=== PATIENT | male | born 1935 | race Caucasian/White ===

== ENCOUNTER → 2018-07-17 10:36 | Outpatient (CLI) | payer MEDICARE, OTHER, SELFPAY ==
--- NOTE | 2018-07-17 | DI.MRI.S_ITS ---
PROCEDURE: MR CERVICAL SPINE WO CON INDICATIONS: cervical spine arthritis TECHNIQUE: Noncontrast sagittal T1 spin echo and T2 fast spin echo, sagittal STIR, foraminal oblique sagittal T2 fast spin echo, and axial gradient echo or T2 fast spin echo through the cervical spine. COMPARISON: [facility], MR, CERVICAL SPINE W/O CONTRAST, 11/26/2003, 8:24. FINDINGS: Image quality: Excellent. Alignment and Curvature: There is grade I C3 on C4 retrolisthesis which is increased from the study dated 11/26/03. There is new grade I C4 on C5 and C7 on T1 anterolisthesis. Bone Marrow: Marrow demonstrates normal overall signal. Spinal Cord: The visualized cord demonstrates overall normal size. Increased T2 signal is present from C3-C5 and focal increased signal is present at C6. These findings are increased in conspicuity when compared with the study dated 11/26/03. No cerebellar tonsillar herniation. Paraspinous Soft Tissues: No paravertebral masses. Prevertebral soft tissues are normal in thickness. C2-C3: Broad-based disc bulge. No canal stenosis. No neural foraminal stenosis. C3-C4: Severe disc desiccation and height loss. Retrolisthesis. Effacement of the CSF space and mild deformity of the cord without cord signal abnormality. There is severe canal stenosis which is increased in extent when compared with the study from 2003. There is severe bilateral foraminal stenosis as before. C4-C5: Anterolisthesis, which is new when compared with the prior study. No canal stenosis. Moderate bilateral foraminal stenosis. The extent of neural foraminal narrowing is increased when compared with the prior study. C5-C6: Severe disc desiccation and height loss. Broad-based disc bulge. Mild canal stenosis. Moderate bilateral foraminal narrowing. These findings are similar in extent to the prior study. C6-C7: Moderate disc desiccation and height loss. Broad-based disc bulge. Moderate canal stenosis. Moderate bilateral foraminal narrowing. These findings are similar to the prior study. C7-T1: Grade I anterolisthesis which is new when compared with the prior study. The mild disc desiccation and height loss. Broad based disc bulge. Mild canal stenosis. Mild bilateral foraminal narrowing which is similar to the prior study. IMPRESSION: 1. Increased cord signal from C3-C5 and focally at C6. These findings were present on the comparison study dated 11/26/03; however appear slightly more conspicuous on the current study. Differential considerations include myelomalacia and a demyelinating process. 2. 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 3. Increased canal stenosis at C3-4 when compared with the prior study. This is now severe in degree. 4. Increased bilateral neuroforaminal narrowing at C3-4 and C4-5 when compared with the prior study. Dictated by: Marcie Lau M.D. on 07/19/2018 at 8:13 Approved by: Marcie Lau M.D. on 07/19/2018 at 8:38
== END ==
PROVIDERS: PCP Family Medicine; Visit Provider Orthopaedic Surgery
DX: M50.31 Other cervical disc degeneration, high cervical region (principal); M47.812 Spondylosis without myelopathy or radiculopathy, cervical region; M48.02 Spinal stenosis, cervical region; M43.12 Spondylolisthesis, cervical region; M43.13 Spondylolisthesis, cervicothoracic region
CPT/HCPCS: 72141

== ENCOUNTER 2018-11-02 10:09 | Emergency (ER) | payer MEDICARE, OTHER, SELFPAY ==
[2018-11-02 10:00] VITALS: BP 145/44; PULSE 56; RESP 18; TEMP 37; O2SAT 91; BMI 29.2
[2018-11-02 10:20] VITALS: PULSE 80
--- NOTE | 2018-11-02 10:30 | ED_ITS ---
HPI - Extremity Problem General Stated complaint: Weakness and pain to legs Time Seen by Provider: 11/02/18 10:18 Source: patient Mode of arrival: EMS Limitations: no limitations History of Present Illness HPI Narrative: 82-year-old male history of insulin-dependent diabetes also a known cervical radiculopathy brought in by EMS for concerns of worsening right lower extremity weakness. Patient has had prior lumbar surgeries. That was many years ago. He has no changes in his right upper extremity symptoms and actually states that his right upper extremity may be better this morning than what it has been in the past. Has chronic low back pain. States that it is better with lying down. Does not have any increase in his low back pain today. Use a walker around the house however just a walking stick when he goes out. Is normally fairly mobile. Has urinary incontinence but this is not new. He states that maybe it has been getting worse recently. No bowel incontinence. States that this morning he was walking out to go to breakfast when he noticed that he could lift his right lower extremity. Was shuffling when he walked. Was very unstable with standing. Had to rely on his walker more than normal. No numbness in his right lower extremity. Has not tried anything for symptoms prior to arrival Related Data Home Medications Medication Instructions Recorded Confirmed cholecalciferol (vitamin D3) 1,000 unit PO DAILY #0 05/11/17 11/02/18 [Vitamin D3] vitamin E 400 unit PO QDAY #0 05/11/17 11/02/18 furosemide 40 mg PO BID #0 11/03/17 11/02/18 omeprazole 20 mg PO BID #0 11/16/17 11/02/18 insulin aspart U-100 [Novolog See Label Instructions .ROUTE 11/27/17 11/02/18 U-100 Insulin aspart] .COMPLEX #0 insulin glargine [Lantus U-100 35 u SQ BID #0 11/27/17 11/02/18 Insulin] Glucose: Home Monitor 1 ea MISCELLANEOUS TID 11/02/18 11/02/18 Evans 1 dev MISCELLANEOUS SEE 11/02/18 11/02/18 INSTRUCTIONS [TEST STRIPS] 1 strip MISCELLANEOUS TIDAC 11/02/18 11/02/18 acetaminophen 650 mg PO Q6H PRN 11/02/18 11/02/18 albuterol sulfate [Ventolin HFA] 2 puff INH Q6H 11/02/18 11/02/18 amlodipine 2.5 mg PO DAILY 11/02/18 11/02/18 aspirin 81 mg PO DAILY 11/02/18 11/02/18 cetirizine 10 mg PO DAILY 11/02/18 11/02/18 diphenoxylate-atropine 1 tab PO Q2HP PRN 11/02/18 11/02/18 fenofibrate 54 mg PO DAILY 11/02/18 11/02/18 ferrous sulfate 2 tab PO DAILY 11/02/18 11/02/18 finasteride 5 mg PO DAILY 11/02/18 11/02/18 fluticasone 2 spray INTRANASAL BID 11/02/18 11/02/18 hydrocodone-acetaminophen 1 - 2 tab PO Q6H PRN 11/02/18 11/02/18 Previous Rx's Medication Instructions Recorded atorvastatin [Lipitor] 40 mg PO QDAY #90 tab 01/12/17 carvedilol [Coreg] 6.25 mg PO BID #180 tab 04/27/17 tamsulosin [Flomax] 0.4 mg PO QDAY #90 cap 04/27/17 isosorbide mononitrate 30 mg PO QAM #45 tab 05/11/17 gabapentin [Neurontin] 300 mg PO TID #180 cap 09/08/17 Allergies Allergy/AdvReac Type Severity Reaction Status Date / Time azithromycin [AZITHROMYCIN] Allergy Mild RASH Verified 11/02/18 10:30 Review of Systems Constitutional Denies fever(s) and Denies headache(s) ENT Ears, Nose, Mouth, and Throat: Denies headache(s) Cardiovascular Denies chest pain, Denies palpitations and Denies dyspnea Respiratory Denies dyspnea Gastrointestinal Gastrointestinal: Denies abdominal pain, Denies change in bowel habits, Denies nausea and Denies vomiting Genitourinary Reports urinary incontinence Musculoskeletal Reports abnormal gait, Reports back pain, Denies myalgias, Reports muscle weakness and Reports radiating pain into limb (Right upper extremity) Integumentary/Breasts Denies rash Neurologic Reports abnormal gait and Denies headache(s) Endocrine Denies palpitations Hematologic/Lymphatic Comments: Not on anticoagulation PFSH Medical History Diabetes (Acute) Surgical History History of vasectomy Status post hernia repair Status post laminectomy Social History Smoking Status: Former smoker Exam Initial Vital Signs Initial Vital Signs: Vital Signs Temperature 98.6 F 11/02/18 10:00 Pulse Rate 56 L 11/02/18 10:00 Respiratory Rate 18 11/02/18 10:00 Blood Pressure 145/44 H 11/02/18 10:00 Pulse Oximetry 91 11/02/18 10:00 Const General: cooperative, comfortable, well developed, well groomed and No acute distress Orientation: alert, awake and oriented x3 HENMT Head: normal to inspection and normocephalic Resp Effort & Inspection: normal respiratory effort Auscultation: clear to auscultation bilaterally Cardio Rate: regular rate Rhythm: regular rhythm Pulses: radial pulses present and dorsalis pedis present (Right dorsalis pedis unable to be palpated but was found by Doppler. Left DP pulse is palpable 2+.) GI Inspection: non-distended Palpation: soft Skin Lesions: no lesions Rashes: no rashes Neuro General: alert, awake and oriented x3 Cognition: normal cognition Speech: speech normal Motor: other (3/5 strength right upper extremity. 5/5 strength left upper extremity. 1-2/5 strength right lower extremity patient able a plantar and dorsiflex. Able to flex at the knee. Barely able to do straight leg raise. 40 /5 strength left lower extremity) Sensory Exam: no sensory deficits noted Extrem General: normal to inspection and capillary refill normal Psych Appearance: grossly normal and well kempt Mood: congruent mood Affect: normal affect Course Orders Ordered: ED Orders 11/02/18 10:51 MR lumbar spine wo con Stat 11/02/18 11:18 Basic Metabolic Panel Stat Complete Blood Count AUTO DIFF Stat Vital Signs - 8 hr 11/02/18 10:00 11/02/18 10:20 11/02/18 10:45 Temperature 98.6 F Pulse Rate 56 L 54 L Pulse Rate [Right Dorsalis Pedis] 80 Respiratory Rate 18 16 Blood Pressure 145/44 H Blood Pressure [Left Arm] 103/41 L Pulse Oximetry 91 91 11/02/18 11:26 11/02/18 13:46 Temperature Pulse Rate 54 L 53 L Pulse Rate [Right Dorsalis Pedis] Respiratory Rate 18 16 Blood Pressure Blood Pressure [Left Arm] 114/42 L 120/43 L Pulse Oximetry 93 95 MDM - Extremity (Nontraumatic) Lab Data Result diagrams: 11/02/18 11:18 11/02/18 11:18 Lab Results 11/02/18 11/02/18 Range/Units 11:18 11:18 WBC 6.7 (4.5-11.0) X10^3/uL RBC 3.91 L (4.5-5.9) X10^6/uL Hgb 12.3 L (13.5-17.5) g/dL Hct 35.8 L (41-53) % MCV 91.6 (80-100) fL MCH 31.4 (26-34) PG MCHC 34.3 (30-36) % RDW 13.9 (11.6-14.8) % Plt Count 219 (150-400) X10^3/uL Neut % (Auto) 63.0 (50-75) % Lymph % (Auto) 25.6 (25-40) % Gordon % (Auto) 6.3 (3-14) % Eos % (Auto) 3.6 (2-4) % Baso % (Auto) 1.5 (0-2) % Neut # (Auto) 4200 (8612-6967) /uL Lymph # (Auto) 1700 (1368-2134) /uL Gordon # (Auto) 400 (0-900) /uL Eos # (Auto) 200 (0-450) /uL Baso # (Auto) 100 (0-100) /uL Sodium 139 (137-145) mmol/L Potassium 4.2 (3.4-5.1) mmol/L Chloride 105 (98-107) mmol/L Carbon Dioxide 27 (22-32) mmol/L BUN 29 H (9-20) mg/dL Creatinine 1.30 H (0.66-1.25) mg/dL Estimated GFR 52.7 L (>60) mL/min BUN/Creatinine Ratio 22.3 H (6-22) Glucose 129 H (80-110) mg/dL Calcium 8.9 (8.4-10.2) mg/dL Imaging Data MRI - lumbar: Radiologist's impression: PROCEDURE: MR LUMBAR SPINE WO CON INDICATIONS: right leg weakness and urinary incontinence TECHNIQUE: Noncontrast sagittal T1 spin echo and T2 fast echo, sagittal STIR, axial T1 and T2 fast spin echo through the lumbar spine. In cases with scoliosis, additional coronal T2 fast spin echo may be performed. COMPARISON: [facility], RG, XR SPINE ANY LEVEL 1V, 10/13/2002, 8:43. FINDINGS: Image quality: Excellent. Alignment and Curvature: There is grade 1 anterolisthesis of L4 on L5 and L5 on S1. There is a 1.5 cm intraosseous hemangioma in L3 vertebral body. Bone Marrow: Marrow is of normal overall signal. Mild vertebral body compression deformities of L4 and L5 with 20-30% loss of vertebral body height. Spinal Cord: Conus medullaris terminates at the L1 level. Visualized cord demonstrates normal signal and size. Paraspinous Soft Tissues: No paravertebral masses. There is a 2 cm cyst in the left kidney. L1-L2: Preserved disc height. Mild disc desiccation. There is mild posterior disc bulge. The central canal is patent. Mild bilateral foraminal stenosis. L2-L3: Mild loss of disc height and disc desiccation. There is diffuse posterior disc bulge and posterolateral disc protrusion, right greater than left. Mild bilateral facet arthropathy and moderate hypertrophy ligamentum flavum. The central canal is severely narrowed. Severe bilateral foraminal stenosis. L3-L4: Preserved disc height. Mild disc desiccation. There is diffuse posterior disc bulge and posterolateral disc protrusion. The central canal is patent. Moderate to severe bilateral foraminal stenosis. L4-L5: Bilateral laminectomies. Mild loss of disc height and disc desiccation. There is diffuse posterior disc bulge and posterolateral disc protrusion. Severe bilateral facet arthropathy. The central canal is mildly narrowed. Severe right and moderate left foraminal stenosis. L5-S1: Preserved disc height. Mild disc desiccation. There is diffuse posterior disc bulge and posterolateral disc protrusion. Moderate bilateral facet arthropathy. The central canal is mildly narrowed. Mild bilateral foraminal stenosis. IMPRESSION: 1. Degenerative and postsurgical changes in lumbar spine as described. 2. Severe central canal stenosis at L2-L3. 3. Multilevel foraminal stenosis as described. Dictated by: Gwen Ngo M.D. on 11/02/2018 at 13:09 Approved by: Gwen Ngo M.D. on 11/02/2018 at 13:37 MDM Narrative Medical decision making narrative: MRI of the lower spine shows no acute pathology. His right upper extremity weakness is not new today. He even thinks that his weakness is better than baseline. After being here in the emergency department he was able to ambulate around the emergency department with a walker. 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 He was able to stand up from a wheelchair. He was able to stand up from the bed. Had a long discussion with him and his regarding his home situation. He does have a walker at home. There is 1 rug in the bedroom but no other rugs around the house. There are no stairs in the house. There is 1 stair from the garage into the house. His states that she brings his walker out to the car. And then she helps him get into the house. Patient feels like his ambulatory status here in the emergency department is almost back to baseline. He felt like he was safe going home. I did talk with him about bring him into the hospital for physical therapy. I informed him that my concern would be is that he falls at home. His states that there was a time where he was falling on a regular basis. It also appears that this right lower extremity weakness has happened in the past but normally resolves fairly quickly. Patient still stated that he felt like he could go home. I talked with Dr. Lynch who was on-call for patient's primary care doctor who is Dr. Pollack. Dr. Looney took down the patient's name and will have Dr. Pollack is a nurse call sometime within the next day or so to schedule a follow-up appointment. I informed the patient and his that he could return to the emergency department any time for further evaluation. His is at bedside for all of the above discussions. Both him and his expressed understanding and agreement with the plan. Discharge Plan Departure Patient Disposition: Home Clinical Impression: Weakness Instructions: How to Prevent Falls Activity Restrictions/Additional Instructions: I would expect a call from your primary care doctor in the next 24-48 hours however I do recommend that tomorrow you call them to schedule a follow-up visit. I would highly recommend that you use your walker at home for stability. After our discussion today you did decide to go home. You can return to the emergency department at any point for new or worsening symptoms Prescriptions: No Action atorvastatin [Lipitor] 40 MG tablet 40 mg PO QDAY Qty: 90 RF: 3 carvedilol [Coreg] 6.25 MG tablet 6.25 mg PO BID Qty: 180 RF: 3 tamsulosin [Flomax] 0.4 MG capsule,extended release 24hr 0.4 mg PO QDAY Qty: 90 RF: 3 cholecalciferol (vitamin D3) [Vitamin D3] 1,000 UNIT tablet 1,000 unit PO DAILY Qty: 0 RF: 0 vitamin E 400 UNIT capsule 400 unit PO QDAY Qty: 0 RF: 0 isosorbide mononitrate 60 MG tablet extended release 24 hr 30 mg PO QAM Qty: 45 RF: 3 gabapentin [Neurontin] 300 MG capsule 300 mg PO TID Qty: 180 RF: 0 furosemide 40 MG tablet 40 mg PO BID Qty: 0 RF: 0 omeprazole 20 MG capsule,delayed release(DR/EC) 20 mg PO BID Qty: 0 RF: 0 insulin aspart U-100 [Novolog U-100 Insulin aspart] 100 UNIT/1 ML solution See Label Instructions .ROUTE .COMPLEX Qty: 0 RF: 0 insulin glargine [Lantus U-100 Insulin] 100 UNIT/1 ML solution 35 u SQ BID Qty: 0 RF: 0 cetirizine 10 mg Tablet 10 mg PO DAILY RF: 0 hydrocodone-acetaminophen 5-325 mg tablet 1 - 2 tab PO Q6H PRN (Reason: arm pain) RF: 0 amlodipine 2.5 mg Tablet 2.5 mg PO DAILY RF: 0 aspirin 81 mg tablet,delayed release (DR/EC) 81 mg PO DAILY RF: 0 acetaminophen 650 mg Tablet Extended Release 650 mg PO Q6H PRN (Reason: pain) RF: 0 ferrous sulfate 324 mg (65 mg iron) tablet,delayed release (DR/EC) 2 tab PO DAILY RF: 0 diphenoxylate-atropine 2.5 MG/0.025 MG tablet 1 tab PO Q2HP PRN (Reason: Diarrhea) RF: 0 albuterol sulfate [Ventolin HFA] 90 MCG/PUFF HFA aerosol inhaler 2 puff INH Q6H RF: 0 fluticasone 16 GM spray,suspension 2 spray Intranasal BID RF: 0 finasteride 5 MG tablet 5 mg PO DAILY RF: 0 fenofibrate 54 MG tablet 54 mg PO DAILY RF: 0 Glucose: Home Monitor 1 ea miscellaneous TID RF: 0 Evans 1 dev miscellaneous SEE INSTRUCTIONS RF: 0 [TEST STRIPS] 1 strip miscellaneous TIDAC RF: 0
--- NOTE | 2018-11-02 10:31 | PC.NURSE ---
Pt lives w/ . Is bright, alert and a/o x 3. Attempted to find pedal pulses w/ doppler but had difficulty finding them. MD aware. 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
[2018-11-02 10:45] VITALS: BP 103/41; PULSE 54; RESP 16; O2SAT 91
--- NOTE | 2018-11-02 10:51 | DI.MRI.S_ITS ---
PROCEDURE: MR LUMBAR SPINE WO CON INDICATIONS: right leg weakness and urinary incontinence TECHNIQUE: Noncontrast sagittal T1 spin echo and T2 fast echo, sagittal STIR, axial T1 and T2 fast spin echo through the lumbar spine. In cases with scoliosis, additional coronal T2 fast spin echo may be performed. COMPARISON: [facility], , XR SPINE ANY LEVEL 1V, 10/13/2002, 8:43. FINDINGS: Image quality: Excellent. Alignment and Curvature: There is grade 1 anterolisthesis of L4 on L5 and L5 on S1. There is a 1.5 cm intraosseous hemangioma in L3 vertebral body. Bone Marrow: Marrow is of normal overall signal. Mild vertebral body compression deformities of L4 and L5 with 20-30% loss of vertebral body height. Spinal Cord: Conus medullaris terminates at the L1 level. Visualized cord demonstrates normal signal and size. Paraspinous Soft Tissues: No paravertebral masses. There is a 2 cm cyst in the left kidney. L1-L2: Preserved disc height. Mild disc desiccation. There is mild posterior disc bulge. The central canal is patent. Mild bilateral foraminal stenosis. L2-L3: Mild loss of disc height and disc desiccation. There is diffuse posterior disc bulge and posterolateral disc protrusion, right greater than left. Mild bilateral facet arthropathy and moderate hypertrophy ligamentum flavum. The central canal is severely narrowed. Severe bilateral foraminal stenosis. L3-L4: Preserved disc height. Mild disc desiccation. There is diffuse posterior disc bulge and posterolateral disc protrusion. The central canal is patent. Moderate to severe bilateral foraminal stenosis. L4-L5: Bilateral laminectomies. Mild loss of disc height and disc desiccation. There is diffuse posterior disc bulge and posterolateral disc protrusion. Severe bilateral facet arthropathy. The central canal is mildly narrowed. Severe right and moderate left foraminal stenosis. L5-S1: Preserved disc height. Mild disc desiccation. There is diffuse posterior disc bulge and posterolateral disc protrusion. Moderate bilateral facet arthropathy. The central canal is mildly narrowed. Mild bilateral foraminal stenosis. IMPRESSION: 1. Degenerative and postsurgical changes in lumbar spine as described. 2. Severe central canal stenosis at L2-L3. 3. Multilevel foraminal stenosis as described. Dictated by: Gwen Ngo M.D. on 11/02/2018 at 13:09 Approved by: Gwen Ngo M.D. on 11/02/2018 at 13:37
[2018-11-02 11:23] LABS: Add Manual Diff / Slide Review NO; Basophils Absolute Auto 100 /uL (0-100); Basophils Percent Auto 1.5 % (0-2); Eosinophils Absolute Auto 200 /uL (0-450); Eosinophils Percent Auto 3.6 % (2-4); Hematocrit 35.8 % (41-53); Hemoglobin 12.3 g/dL (13.5-17.5); Lymphocytes Absolute Auto 1700 /uL (1100-4500); Lymphocytes Percent Auto 25.6 % (25-40); Mean Corpuscular HGB Conc 34.3 % (30-36); Mean Corpuscular Hemoglobin 31.4 PG (26-34); Mean Corpuscular Volume 91.6 fL (80-100); Monocytes Absolute Auto 400 /uL (0-900); Monocytes Percent Auto 6.3 % (3-14); Neutrophils Absolute Auto 4200 /uL (1500-7000); Platelet Count 219 X10^3/uL (150-400); Red Blood Cell Count 3.91 X10^6/uL (4.5-5.9); Red Cell Distribution Width 13.9 % (11.6-14.8); White Blood Cell Count 6.7 X10^3/uL (4.5-11.0)
[2018-11-02 11:26] VITALS: BP 114/42; PULSE 54; RESP 18; O2SAT 93
[2018-11-02 11:42] LABS: BUN Creatinine Ratio 22.3 (6-22); Blood Urea Nitrogen 29 mg/dL (9-20); Calcium 8.9 mg/dL (8.4-10.2); Carbon Dioxide 27 mmol/L (22-32); Chloride 105 mmol/L (98-107); Estimated Glomerular Filt Rate 52.7 mL/min (>60); Glucose 129 mg/dL (80-110); HEMOLYSIS < 15 (0-50); Potassium 4.2 mmol/L (3.4-5.1); Sodium 139 mmol/L (137-145)
[2018-11-02 13:46] VITALS: BP 120/43; PULSE 53; RESP 16; O2SAT 95
== END 2018-11-02 14:31 | disposition home or self-care (01) ==
PROVIDERS: Emergency Provider Emergency Medicine
DX: R53.1 Weakness (principal); N39.498 Other specified urinary incontinence
CPT/HCPCS: 36415; 36591; 72148; 80048; 85025; 99283; 99284

== ENCOUNTER → 2018-11-04 16:06 | Outpatient (CLI) | payer MEDICARE, OTHER, SELFPAY ==
[2018-11-04 16:34] LABS: Add Manual Diff / Slide Review NO; Basophils Absolute Auto 100 /uL (0-100); Basophils Percent Auto 1.1 % (0-2); Eosinophils Absolute Auto 200 /uL (0-450); Eosinophils Percent Auto 3.9 % (2-4); Hematocrit 37.6 % (41-53); Hemoglobin 12.7 g/dL (13.5-17.5); Lymphocytes Absolute Auto 2100 /uL (1100-4500); Lymphocytes Percent Auto 32.8 % (25-40); Mean Corpuscular HGB Conc 33.8 % (30-36); Mean Corpuscular Hemoglobin 31.5 PG (26-34); Mean Corpuscular Volume 93.2 fL (80-100); Monocytes Absolute Auto 400 /uL (0-900); Monocytes Percent Auto 6.7 % (3-14); Neutrophils Absolute Auto 3500 /uL (1500-7000); Neutrophils Percent Auto 55.5 % (50-75); Platelet Count 223 X10^3/uL (150-400); Red Blood Cell Count 4.03 X10^6/uL (4.5-5.9); White Blood Cell Count 6.4 X10^3/uL (4.5-11.0)
[2018-11-04 17:06] LABS: BUN Creatinine Ratio 23.8 (6-22); Blood Urea Nitrogen 31 mg/dL (9-20); Calcium 8.9 mg/dL (8.4-10.2); Carbon Dioxide 29 mmol/L (22-32); Chloride 103 mmol/L (98-107); Estimated Glomerular Filt Rate 52.7 mL/min (>60); Glucose 235 mg/dL (80-110); HEMOLYSIS < 15 (0-50); Potassium 4.6 mmol/L (3.4-5.1); Sodium 139 mmol/L (137-145)
== END ==
PROVIDERS: PCP Family Medicine; Visit Provider Orthopaedic Surgery
DX: Z01.818 Encounter for other preprocedural examination (principal)
CPT/HCPCS: 36415; 80048; 85025

== ENCOUNTER 2018-11-19 06:04 | Inpatient (IN) | payer MEDICARE, OTHER, SELFPAY ==
[2018-11-17 10:01] VITALS: BMI 29.7
[2018-11-19] VITALS (36 sets, daily range): BP systolic 137–203; BP diastolic 43–83; PULSE 68–89; RESP 10–20; TEMP 36.2–37.2; O2SAT 88–100; BMI 29.7
[2018-11-19] MEDS: LACTATED RINGERS 1,000 ML 42 ML IV ×2 (07:00→10:36)
--- NOTE | 2018-11-19 07:22 | PM.PREOP ---
Pre-operative Note Interval Note History & Physical reviewed/Exam performed by Physician: Yes Changes to H&P: No
--- NOTE | 2018-11-19 07:30 | SUR.PREOP ---
pt reports has chronic numbness and tingling in bilateral hands/arms and right lower extremity. Small abrasian on anterior neck from preop trim by [employer]IST[employer]AND [employer]TER prior to sx by WAIST[employer]AND [employer]TER.
[2018-11-19] MEDS: INSULIN REGULAR 100 UNIT/ML 3 ML VIAL SUBCUT (07:39)
[2018-11-19] MEDS: CEFAZOLIN 2 GM/100 ML FROZ.PIGGY IV ×3 (07:55→21:34)
[2018-11-19] MEDS: SODIUM CHLORIDE 0.9% 1,000 ML, GENTAMICIN 80 MG IRR (09:56)
[2018-11-19] MEDS: THROMBIN (BOVINE) 5,000 UNIT VIAL 5000 UNIT TOP (09:56)
--- NOTE | 2018-11-19 09:59 | SUR.OPER ---
Prone on padded OR bed, head in foam head support, gel chest rolls, gel pad under knees, pillow under lower legs, toes free of pressure, arms secured at sides with gel padding. Safety belt at thigh. Supine on padded OR bed, head on gel donut, arms padded and tucked at sides, legs uncrossed with pillow under knees, safety belt at thigh, tape over blanket over lower legs .
--- NOTE | 2018-11-19 11:13 | P.OP_ITS ---
Operative Date/Time/Diagnoses Date of procedure: 11/19/18 Time of procedure: 11:09 Pre-op diagnosis: Cervical stenosis with myelopathy Post-op diagnosis: same Procedure & Clinicians Procedure: C3-4, C4-5, C5-6 ACDF with cages C3-4, C4-5, C5-6 posterior instrumented fusion Iliac crest bone graft aspirate Use of microscope Same procedure as scheduled: Yes Indications: [age] year old male with intractable pain and muscle weakness from myelopathy. They had failed conservative management and requested operative intervention. Risks and benefits of surgery were discussed and appropriate consents were obtained. Surgeon: Tien Stoner Environmental Remediation Engineer: Malinda Yoo Anesthesia Type: General Operative Notes Findings: None Closure Type: primary Specimen(s): none sent Prosthetic devices, grafts, tissues, transplants, or devices: Ron MARIE-C anteriorly [place] DTrax posteriorly Applied: catheter Estimated Blood Loss (mL): 5 Procedure in detail: The patient was brought to the operating room and intubated on the stretcher. Time-out was performed. There were then rolled over to the well-padded prone position on chest rolls. Two views of fluoroscopy were taken to confirm our positioning. The neck was then prepped and draped in the standard sterile fashion. Preoperative antibiotics were given. Using fluoroscopy, we localized for planned incisions. Two small 8 mm horizontal incisions were made over the lateral masses approximately 2 fingers below our planned surgical site. We then spread down and opened up the fascia. Then percutaneously placed our Steinmann pin through the soft tissue into the facet joint at C3-4 under fluoroscopic visualization. We used the reamer to decorticate the lateral masses compromising the facet. A trocar was placed over the Steinmann pin into the facet and then the pin was removed. We used a rasp to decorticate the facet joint itself. We then filled the DTrax cage with Osteocell bone graft and impacted it into the facet joint at C3-4 under fluor oscopic guidance. We then took the lateral mass screw and placed it through the cage and then into the lateral mass for the posterior screw fixation. The communication lecturer was removed and we packed more bone graft down the trocar covering the lateral mass. This was done bilaterally. This completed the instrumented posterior fusion at C3-4. We then went to the next level at C4-5, then C5-6. The same procedure was performed with preparation, placement of the cage with bone graft, and placement of the screw for bilateral instrumented posterior fusion at C4-5 and C5-6. The wounds were irrigated. The skin was closed and a sterile dressing placed. The patient was then rolled over to the table in the supine position and positioned for the anterior surgery. The arms were tucked and a shoulder roll was placed. The neck and left iliac crest were prepped and draped in the standard sterile fashion. A 3 cm oblique incision was made on the left side of the neck along the skin fold. Bovie was used to split the platysma. We then bluntly dissected a standard anterolateral approach to the precervical fascia. A marker was placed and x-ray taken to confirm our positioning. We then used the Bovie to the s ubperiosteally lift up the longus colli muscles. Self-retaining retractors were placed. We then placed [place] pins and distracted across the C3-4 disc space. We brought in the microscope. A complete anterior discectomy was performed at C3-4 using a combination of scalpel, curettes, pituitaries, and Kerrison rongeurs. The bur was used to take down the posterior osteophytes as well as decorticate the disc space. We then released the PLL and used the Kerrison to remove any further posterior osteophytes and disc material. At the end a nerve hook could be swept cephalad caudally and out the neural foramen and everything was open. We trialed for our cages. A small stab incision was made over the left iliac crest. We placed a Jamshidi aspiration needle into the iliac crest and aspirated several mL of bone marrow graft. We then took our Ron LDR MARIE-C cage and packed it with Osteocell, and mixed in the bone marrow aspirate. The cage was then placed into the disc space under fluoroscopic guidance. The 2 locking plates were placed through the cage for fixation. This completed the ACDF at C3-4. We then went to the next level at C4-5. Again a complete diskectomy was performed including taking down the PLL and posterior osteophytes and disc material. The endplates were prepped with a bur. We trialed and then packed our MARIE-C cage with the bone graft and then placed into the disc space. The locking plates were placed as well. This completed the ACDF at C4-5. We then went to the next level at C5-6. Again a complete diskectomy was performed. We came down to the posterior wall. This was almost fully calcified over except for a small little gap. We did not take down the PLL on this level but did the full decompression. We then trialed and placed our next cage with bone graft for the ACDF at C5-6. Final x-rays were taken. The wound was copiously irrigated. There was no bleeding. The carotid was bleeding nicely. The platysma was closed. The superficial skin were closed. A Steri-Strip was placed over the iliac crest incision. Sterile dressings were placed. The patient was then extubated and brought to the recovery room without complication. Complications: none Condition: stable Disposition: PACU Plan for aftercare: Inpatient. Up with physical therapy. Discharge home in the next few days.
[2018-11-19] MEDS: INSULIN ASPART 100 UNIT/ML 10ML VIAL 10 UNIT SUBCUT (11:30)
[2018-11-19] MEDS: fentaNYL 100 MCG/2 ML INJ 50 MCG IV ×4 (11:38→15:41)
[2018-11-19] MEDS: HYDRALAZINE 20 MG/ML VIAL 10 MG IV (11:45)
--- NOTE | 2018-11-19 11:50 | DI.RAD.S_ITS ---
PROCEDURE: XR CERVICAL SPINE 2V OR 3V INDICATIONS: C3-4, C4-5, C5-6 ACDF, AND POERTERIOR FUSION TECHNIQUE: Fluoroscopic images were obtained during an operative procedure and submitted for interpretation following the completion of the procedure. COMPARISON: [facility], , MR CERVICAL SPINE WO CON, 07/17/2018, 10:54. FINDINGS: These fluoroscopic images were performed for intraoperative localization. On these images, anterior and posterior fixation hardware can be seen at C3-C4, C4-C5, and C5-C6. Please correlate with intraoperative findings. IMPRESSION: Normal intraoperative examination. Dictated by: Mak Lucero M.D. on 11/19/2018 at 10:59 Approved by: Mak Lucero M.D. on 11/19/2018 at 10:59
--- NOTE | 2018-11-19 13:33 | PM.PREOP ---
Pre-operative Note Interval Note History & Physical reviewed/Exam performed by Physician: Yes Changes to H&P: Yes H&P completed within 30 days and has changed as indicated here:: Pt had some drainage that just increased. Large 15ml of hematoma evacuated and still oozing. Coming back to OR for washout and find bleeding. Risks/benefits discussed.
--- NOTE | 2018-11-19 13:43 | SUR.PHASEI ---
Late note: Prior to leaving PACU, both Rupali SILVA) and Dr bolaños visualized the neck dressing with Dr Bolaños doing so within 10-15 minutes of discharge to AC. Several 4x4 gauze pads were placed between the dressing and the soft collar to monitor for any increasing drainage. This was in place and dry with hand off in AC, where the nurse (Kaity) was shown the dressing.
--- NOTE | 2018-11-19 13:49 | SUR.OPER ---
Supine on padded OR bed, head on pillow, arm padded and tucked at side, legs uncrossed, safety belt at thigh, tape over blanket over lower legs .
--- NOTE | 2018-11-19 14:23 | PC.NURSE ---
1350- Pt up to the floor from Pacu. Pt had some bleeding to his neck dressing and developed a hematoma. He is now back down to surgery getting this taken care of. Pt was Alert but groggy after fentanyl given in the recovery room. Pt has an iv to his L.wrist area that is cdi and he is going to be on LR at 125cc/hr. Pts down to recovery room with him, New dressing with 4x4 and tegaderm placed on pts neck.
--- NOTE | 2018-11-19 14:45 | PM.OP.1 ---
Operative Date/Time/Diagnoses Date of procedure: 11/19/18 Time of procedure: 14:45 Pre-op diagnosis: Postoperative wound bleeding Post-op diagnosis: same Procedure & Clinicians Procedure: Cervical wound exploration Same procedure as scheduled: Yes Indications: 82-year-old male status post ACDF this morning. He began having drainage from his wound and had a large hematoma. Was felt that we needed to go back into the operating room to explore the wound and find because the bleeding. Risks and benefits of surgery were discussed and appropriate consent obtained. Surgeon: Tien Stoner Radio Repair Teacher: Malinda Yoo Anesthesia Type: General Operative Notes Findings: Bleeding from the cancellous bone Closure Type: primary Specimen(s): none sent Applied: drain(s) Estimated Blood Loss (mL): 2 Procedure in detail: Patient was brought to the operating room and intubated on the table. Preoperative antibiotics were given. Time-out was performed. The neck was prepped and draped in the standard sterile fashion. We opened up the incision and opened up the platysma. We bluntly spread down to the precervical fascia. Wound was irrigated and explored. There were no arterial or venous bleeders found. However there was some moderate bleeding from the cancellous edge of the C5 vertebral body where an osteophyte had been removed. This was covered with bone wax and the bleeding stopped. The wound was again irrigated. We used FloSeal throughout the wound and then irrigated and evacuated and explored and there was still no bleeding. We repeated this a 2nd time. Again there was no further bleeding noted. At this time we placed a Douglas drain. The platysma superficial and skin were closed. Sterile dressing was placed. He was extubated brought to recovery with no complications. Complications: none Condition: stable Disposition: PACU Plan for aftercare: Inpatient. Up with therapy.
--- NOTE | 2018-11-19 15:16 | SUR.PHASEI ---
bedside report given to BINH Orta. Transfered care of pt to Binh Orta at this time.
--- NOTE | 2018-11-19 15:45 | SUR.PHASEI ---
Says he hurts but quite sleepy with shallower resps in response to Fentanyl. A total of 100mcg given and will allow that to build up versus stacking at this time. There is spontaneous recovery seen as sats drop into the 91-93% range back to 95-96%. CPAP machine not on hand here in PACU.
[2018-11-19] MEDS: HYDROMORPHONE 0.5 MG INJ IV ×5 (16:35→22:30)
[2018-11-19] MEDS: LACTATED RINGERS 1,000 ML 125 ML IV (16:51)
[2018-11-19] MEDS: OXYCODONE IR 5 MG TABLET PO (19:10)
[2018-11-19] MEDS: hydrOXYzine pamoate 25 MG CAPSULE PO (20:23)
[2018-11-19] MEDS: GABAPENTIN 300 MG CAPSULE PO (20:25)
[2018-11-19] MEDS: CARVEDILOL 6.25 MG TABLET PO (20:25)
[2018-11-19] MEDS: PANTOPRAZOLE 20 MG TABLET PO (20:30)
[2018-11-19] MEDS: OXYCODONE IR 5 MG TABLET 10 MG PO (22:14)
[2018-11-20] VITALS (12 sets, daily range): BP systolic 123–165; BP diastolic 50–63; PULSE 79–89; RESP 16–20; TEMP 36.6–36.9; O2SAT 89–97
[2018-11-20] MEDS: LACTATED RINGERS 1,000 ML 125 ML IV (00:35)
[2018-11-20] MEDS: OXYCODONE IR 5 MG TABLET 10 MG PO (01:31)
[2018-11-20] MEDS: diphenhydrAMINE 25 MG TABLET PO (03:02)
[2018-11-20] MEDS: ACETAMINOPHEN 325 MG TABLET 650 MG PO (03:02)
[2018-11-20] MEDS: HYDROMORPHONE 0.5 MG INJ IV ×3 (03:03→06:55)
[2018-11-20] MEDS: CEFAZOLIN 2 GM/100 ML FROZ.PIGGY IV (05:35)
--- NOTE | 2018-11-20 08:21 | PM.PNPO.1 ---
Subjective Date Patient Seen: 11/20/18 Time Patient Seen: 08:22 Interval history: He had a restless night. Not able to swallow pills comfortably and the IV pain medication was his only option. This helped but also gave him some sedation. Exam Vital Signs (past 8 hours): - 11/20/18 06:30 11/20/18 07:41 Temperature 98.3 F 98.4 F Pulse Rate 86 89 Respiratory Rate 16 20 Blood Pressure 162/61 H 165/63 H Pulse Oximetry 90 L 93 Oxygen Delivery Method Nasal Cannula Oxygen Flow Rate 4 Const Orientation: alert and oriented x3 Back/Spine/Pelvis Other: Dressing CDI. 5/5 motor left upper extremity, global 4/5 right arm except for 2/5 deltoid Drain output 20/5 mL Assessment & Plan Post-op Postoperative Procedures Operation Date: 11/19/18 07:45 Actual Procedures Side Surgeon p C3-6 ACDF w/posterior instru fusion w/bone graft Tien Stoner MD He is stable today. I removed his drain. We will have him work with speech therapy on swallowing, and hopefully this is better now that the drain is out. Mobilize with physical therapy. I anticipate him being here the next few days. Operation Date: 11/19/18 14:15 <No data on this case meets the specified criteria> Quality VTE Deep Vein Thrombosis/Pulmonary Embolism Present on Admission: No
[2018-11-20] MEDS: INSULIN GLARGINE 100 UNIT/ML 3ML PEN 50 UNIT SUBCUT ×2 (08:59→22:17)
[2018-11-20] MEDS: INSULIN ASPART 100 UNIT/ML 10ML VIAL SUBCUT ×2 (09:01→12:31)
[2018-11-20] MEDS: TAMSULOSIN 0.4 MG CAPSULE PO (10:17)
[2018-11-20] MEDS: GABAPENTIN 300 MG CAPSULE PO ×3 (10:18→20:11)
[2018-11-20] MEDS: ASPIRIN EC 81 MG TABLET PO (10:18)
[2018-11-20] MEDS: ISOSORBIDE MONONITRATE ER 30 MG TABLET PO (10:18)
[2018-11-20] MEDS: AMLODIPINE 2.5 MG TABLET PO (10:19)
[2018-11-20] MEDS: FINASTERIDE 5 MG TABLET PO (10:19)
[2018-11-20] MEDS: CARVEDILOL 6.25 MG TABLET PO ×2 (10:20→20:11)
[2018-11-20] MEDS: PANTOPRAZOLE 20 MG TABLET PO ×2 (10:20→20:11)
[2018-11-20] MEDS: FENOFIBRATE 48 MG TABLET PO (10:21)
[2018-11-20] MEDS: FERROUS SULFATE 325 MG TABLET PO (10:21)
[2018-11-20] MEDS: DOCUSATE 100 MG CAPSULE PO ×2 (10:22→20:12)
[2018-11-20] MEDS: CHOLECALCIFEROL (VITAMIN D3) 1,000 UNIT TABLET 1000 UNIT PO (10:22)
[2018-11-20] MEDS: VITAMIN E 400 UNIT CAPSULE PO (10:22)
--- NOTE | 2018-11-20 11:30 | PT.IIE ---
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) Radiculopathy, cervical region (11/19/18) Surgery Performed Operation Date: 11/19/18 07:45 Actual Procedures p C3-6 ACDF w/posterior instru fusion w/bone graft - Tien Stoner MD Operation Date: 11/19/18 14:15 <No data on this case meets the specified criteria> Surgical History (Last Updated 11/17/18 @ 11:43 by Keila Coronel RN) Hx of heart artery stent (Acute ~2009) History of vasectomy Status post hernia repair Status post laminectomy Medical History (Last Updated 11/17/18 @ 11:43 by Keila Coronel RN) Anxiety disorder (Acute) Aortic stenosis (Acute) Asthma (Acute) Atrial fibrillation (Acute) CAD (coronary artery disease) (Acute) Depression (Acute) Diastolic congestive heart failure (Acute) Diverticulosis of colon (Acute) GERD (gastroesophageal reflux disease) (Acute) Rheumatoid arthritis (Acute) Diabetes (Acute) Physical Therapy Inpatient Evaluation/Re-Eval M1 PT/OT-IP Prior Functional Status Start: 11/20/18 11:43 Freq: NEEDED Status: Active Protocol: Document 11/20/18 11:30 [facility] (Rec: 11/20/18 11:57 [facility] [id number]) Medical Review Prior Functional Status Medical History Reviewed Yes Mobility and Gait mod. indep. gait with 4WW inside home and walking stick outside of home. He had no real function of RUE over the past few mos. due to weakness associated with myelopathy. H/ o falls with R shoulder injury as well Activities of Daily Living and IADL's modified indep with ADLs per Social History Household Members spouse Living Arrangements House Number of Floors (Floors) One Floor Number of Stairs To Enter/Railing? 6 SE with B rails (only able to use one @ a time) Home Environment Standard Height Toilet Walk in Shower Home Equipment Four Wheel Walker Straight Cane Employment Status Retired Additional Social History Comment assists pt, but admits it has been more challenging lately d/t pt's weakness. She sleeps in a recliner chair due to having bad hip pain. Pt sleeps in a flat bed, but does have a recliner available to him as well. Pt underwent C3-6 ACDF with posterior instrumentation . He was found to have a hematoma post-surgery, required to go back to the OR on same day to cover bleeding site with bone wax @ C5 where an osteophyte was removed in intial surgery. M2 PT-IP Current Condition Start: 11/20/18 11:43 Freq: NEEDED Status: Active Protocol: Document 11/20/18 11:30 [facility] (Rec: 11/20/18 11:57 [facility] [id number]) Physical Therapy Current Condition Current Condition Evaluation Date 11/20/18 Treatment Diagnosis C3-6 ACDF w/ post. instrumentation11/19/18, impaired mobility and strength Precautions Cervical Spine Precautions Soft Collar for Comfort No Heavy Lifting Log Roll M3 PT-IP Subjective Start: 11/20/18 11:43 Freq: NEEDED Status: Active Protocol: Document 11/20/18 11:30 RCC (Rec: 11/20/18 11:57 [facility] [id number]) Subjective Physical Therapy Visit Type Type Initial Evaluation Visit Start Time 11:05 Visit Stop Time 11:30 Total Visit Minutes 25 Number of HIGH SCHOOL ART TEACHER Visits 0 Physical Therapy Visit Comments Patient Comments pt reporting dizziness upon sitting on EOB. Patient Goals to be able to move R arm and get stronger overall M4 PT-IP Mobility and Gait Start: 11/20/18 11:43 Freq: NEEDED Status: Active Protocol: Document 11/20/18 11:30 RCC (Rec: 11/20/18 11:57 [facility] [id number]) PT-Bed Mobility Assessment Rolling Type of Rolling Log Rolling Level of Assist Maximal Assistance 1 Person Assistance Supine to Sit Supine to Sit Maximum Assistance 1 Person Assistance Sit to Supine Sit to Supine Maximum Assistance 1 Person Assistance Scooting Scooting to Edge of Bed Moderate Assistance Scooting Up and Down in Bed Dependent PT-Transfer Assessment Comments Mobility Comments pt sat @ EOB, leaning to the R and increased sway, reported dizziness, unable to hold self up. Returned to supine in bed , BP taken 155/66 L arm. Gait Assessment Comments Gait Comments unable to asses. PT-Balance Assessment Sitting Balance and Reactions Static Sitting Balance Ability Poor Dynamic Sitting Balance Ability Poor Standing Balance and Reactions Device Used unable M5 PT-IP Objective Assessments Start: 11/20/18 11:43 Freq: NEEDED Status: Active Protocol: Document 11/20/18 11:30 [facility] (Rec: 11/20/18 11:57 [facility] [id number]) Orientation Orientation/Cognition Level of Alertness Lethargic Gross Range of Motion Upper Extremity ROM Assessment Right Impaired Lower Extremity ROM Assessment Right Impaired Strength Lower Extremity Strength Assessment Bilaterally Impaired Hip flexion 3/5 B Knee flexion 3+/5 and extension 3/5 B Ankle DF 4/5 B M6 PT-IP Treatment Start: 11/20/18 11:43 Freq: NEEDED Status: Active Protocol: Document 11/20/18 11:30 RCC (Rec: 11/20/18 11:57 [facility] [id number]) Physical Therapy Treatment Education Education Provided Precautions Safety Other Treatments Other Treatment Performed cervical spine handout M7 PT-IP Assessment and Plan Start: 11/20/18 11:43 Freq: NEEDED Status: Active Protocol: Document 11/20/18 11:30 [facility] (Rec: 11/20/18 11:57 [facility] [id number]) PT Summary Assessment and Plan Potential Rehabilitation Potential Good Status of Condition at Evaluation Evolving Summary Impairments Pain ROM Strength Balance Cognition Bed Mobility Transfers Gait Activity Tolerance Assessment Summary POD #1 C3-6 ACDF with posterior instrumentation. Pt lethargic this a.m. but able to participate in speech therapy earlier. He required mod/max assist with all mobility, and reported feeling dizzy with inability to maintain sitting position without support. Pt at this time requires high level of assistance, and unable to tolerate more than assisted sitting on the EOB. The burden of care is too high at this time for the pt's spouse to be able to manage, and he is not safe to return home. He would benefit greatly from SNF rehabilitation upon d/c to progress his mobility, use of RUE, strength, balance, and activity tolerance as well as to promote a safe d/c and recovery. Goals Bed Mobility Goal Contact Guard Assistance Transfer Goal Contact Guard Assistance Gait Goal Contact Guard Assistance Gait Distance 50 Other Goals up/down 6 step with unilat. rail and Min A. Days to Meet Goals 6 Frequency of Treatment Frequency Of Treatment Twice a Day Treatment Plan Physical Therapy Treatment Plan Bed Mobility Training Transfer Training Gait Training Therapeutic Exercise Balance Retraining Post Op Education Discharge Planning Hot or Cold Pack Neuromuscular Re-ed Other Recommendations and Next Treatment assess sitting balance, Focus progress to standing/transfers and gait. Recommendations To Nursing Amount of Assist Needed PT/OT Assist Only Discharge Recommendations PT Discharge Recommendations SNF Rehab
--- NOTE | 2018-11-20 13:34 | CM.DANOTE ---
Patient is an 82 year old male who was admitted on 11/19/18 for cervical surgery. Pt has [facility] and [employer] for insurance and his PCP is Dr. Flo Pollack. EMR was reviewed. Per Ortho PA, during surgery a hematoma found on the pt and now he is having swallow issues so ST/PT/OT ordered to eval. Per PT, pt continues to be weak and numb in his right arm and currently recommending SNF vs HH pending progress. SW met bedside with pt and spouse and explained role and updated white board and they confirmed that they live at home in [place] and both are mostly Independent with ADL's at baseline although spouse is waiting for her own hip surgery and not able to provide physical assist to the pt. Pt has a hx of [facility] (although they were not exceptionally impressed with their HH care) and denied any hx of SNF. Pt's DPOA is still his . SW provided the HH/SNF Choice List to review and discussed Medicare coverage of SNF. Pt and spouse state that they do not want [facility] but will review list to determine their SNF preference. Pt is hopeful to d/c home with HH but spouse encouraging pt with SNF for higher level of care than she can currently provide herself. SW also provided the Senior Resource Guidebook to the pt and spouse to review for additional support with possible private pay caregivers or other resources needed in the future. Plan: SW to follow closely tomorrow with pt and spouse to confirm their SNF preference to begin referral process vs HH referral pending pt progress. If SNF determined, then PASRR needed. SUE Wray Discharge Planning/Care Management CM Discharge Assessment Start: 11/20/18 12:56 Freq: Status: Active Protocol: Document 11/20/18 13:17 BF (Rec: 11/20/18 13:34 BF [id number]) Discharge Planning Assessment Assigned World Language Teacher SUE Pretty DPOA/Assigned Designee Name Spouse Lauren Leal Contact Information [phone] Advance Directives? Yes Advance Directives on File Yes History Provided By Patient Family Member Medical Record Has Patient been admitted in last 30 No days? Prior Living Arrangements House Household Members spouse Type of transporation used prior to Drives own vehicle admit Independent with ADL's Yes Is patient alert and oriented? Yes Needs Assistance With Managing Medications Home Chores / Shopping Caregiver for Another No Patient/Family Preference Group Home Facility Comment Per PT, SNF vs HH pending progress Barriers to Discharge No Discharge Plan Group Home Facility Transportation Arrangement If SNF then facility to transport and if home then spouse. Additional Comment Waiting for pt/spouse preference prior to sending SNF/HH referral. Medicare Choice List Provided Yes SNF/HH Preference pt/spouse reviewing for preference Whiteboard Updated in Patient Room with Yes name and ext. # of World Language Teacher Review Status In Process Please Provide Date Initial DC 11/20/18 Assessment Was Performed Next Review Type Continued Stay Review Pre-Anesthesia Assessment Start: 11/17/18 10:01 Freq: Status: Complete Protocol: Document 11/17/18 10:01 CAB (Rec: 11/17/18 10:48 CAB [id number]) Pre-Anesthesia Assessment PAC Comment Cardiac records/tests, PCP note scanned to record. A1c 10.2, surgeon aware Patient Information Reviewed Via Phone Assessment Assessment Completed With Patient Spouse Diagnostic Results BMP/CMP CBC EKG Other Primary Care Provider Flo Pollack Seen Specialist in Last 12 Months Yes Specialist Seen 911 Operator General surgeon [facility] Orthopedist Primary Language Burmese Oracle Sql Developer Required No Height 172.72 cm Weight 88.904 kg Body Mass Index (BMI) 29.7 Hearing Ability Hard of Hearing Use of Hearing Aid Visual Assist Glasses Dentition Type Full- Upper & Lower Barriers to Learning Age related Hx Anesthesia Reactions No Hx Family Anesthesia Reaction No Hx Malignant Hyperthermia No Hx Blood Transfusions Yes: r/t GI Bleed 11/29 Hx Blood Transfusion Reaction No Anesthesia Review Requested Previously reviewed with Anesthesia, ok to 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 No Does patient have CONTRERAS/SOB No Hx Sleep Apnea Yes CPAP/BIPAP use prescribed and used routinely Will Bring CPAP/BIPAP DOS Yes Currently Taking a Beta Darin Yes: Coreg Can You Climb a Flight of Stairs Without Yes SOB Hx Chest Pain No Hx SOB No Hx Syncope or Dizziness No Anti-Coagulant Therapy No Has a 911 Operator Yes: Dr. Ricki crook visit Cardiac Testing Yes: ECHO 08/20/18 Hx Pacemaker/ICD No Pacemaker Rep Required? No Cardiac Clearance Received Not Applicable Comment Cardiac visit, testing scanned to record Diet Type At Home Regular dysphagia No Comment Wt loss 52lbs in 6 months on Atkins diet, now off Bladder Pattern Incontinent Nocturia Urinary Catheter Present No Hx Urinary Self Catheterization No Diabetes Yes: Pt checks BS every morning HgbA1C 10.2 Date 10/28/18 Hx Drug Resistant Organism No Presence of External or Internal Medical No Devices Have you traveled outside the [facility] in the last 30 days? Marital Status Lives With spouse Prior Living Arrangements House Number of Floors (Floors) One Floor Number of Stairs To Enter/Railing? 6 stairs, railing present Support System Spouse Patient Discharge Plan Description Return Home Comment Pt advised 2 day length of stay per surgeon's office Feels Safe in Current Environment Yes Been Physically Hurt or Threatened By a No Person in Current Environment Do you have thoughts of harming yourself None or others? Are you currently considering suicide? No Do you have a plan to hurt yourself or No Plan others? Do You Have Any Spiritual Beliefs That No May Affect Your HC Choices? Do You Have Any Cultural Practices That No May Affect Your HC Choices? 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 Yes Advance Directives on File Yes Power of Host And Hostess Yes Power of Host And Hostess Name Lauren () Power of Host And Hostess or [phone] PAC Instructions Bring CPAP/BIPAP Do not shave/clip surgical site Durable medical equipment Medications to take/avoid Nasal antibiotic No ETOH/petroleum product on skin DOS NPO Post-op transportation Sturdy shoes/comfortable clothes Do not bring valuables and remove jewelry
--- NOTE | 2018-11-20 14:09 | ST.IPCSEOM ---
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) Radiculopathy, cervical region (11/19/18) Past Medical History (Last Updated 11/17/18 @ 11:43 by Keila Coronel RN) Anxiety disorder (Acute Medical) Aortic stenosis (Acute Medical) Asthma (Acute Medical) Atrial fibrillation (Acute Medical) CAD (coronary artery disease) (Acute Medical) Depression (Acute Medical) Diastolic congestive heart failure (Acute Medical) Diverticulosis of colon (Acute Medical) GERD (gastroesophageal reflux disease) (Acute Medical) Rheumatoid arthritis (Acute Medical) Diabetes (Acute Medical) Speech-Language Pathology Swallow Evaluation DIRECTOR HR COMMUNICATIONS Clinical Swallow Evaluation Start: 11/20/18 13:56 Freq: Status: Active Protocol: Document 11/20/18 13:56 TLC (Rec: 11/20/18 14:08 TLC [id number]) Clinical Swallow Evaluation Session Time Total Visit Minutes 30 Setting Assessment Location Acute Care Visit Type Note Type Initial Evaluation Next Note Type Next Note Type Treatment Note Patient Information Identification Type Name History Patient was status post ACDF yesterday when he began having drainage from his wound and had a large hematoma. He was brought back into the operating room to explore the wound. His drain was removed this morning and a swallow evaluation was ordered due to difficulty swallowing. Subjective Observations Patient was seen sitting up in bed. He agreed to participate in a swallow evaluation. His was present in the room and stated she felt like he was still somewhat confused. Patient does not have a history of dysphagia. Evaluation Liquids Trialed Ice Chips Thin Solids Trialed Puree Dysphagia Mechanical Administration Type Self-Feeding Oral Impairment WFL Oral Phase Comments No oral phase dysphagia observed. Patient wears dentures. Bolus acceptance, transport and mastication appeared functional for puree and dysphagia mechanical textures. No advanced textures trialed due to patient reported pain when swallowing. Pharyngeal Impairment Mildly Impaired Pharyngeal Strategies Double Swallow Small Bites and Sips Alternate Liquids/Solids Pharyngeal Phase Comments No changes in voice reported; however, patient reported odynophagia. He required 2-3 swallows for every bite/sip and exhibited somewhat of a wet vocal quality which improved when cued to take a second sip. No coughing observed with intake. Findings Dysphagia Type Pharyngeal Rehabilitation Potential Good Impressions Suspect mild pharyngeal dysphagia likely related to swelling following ACDF with re-intubation. Suspect patient will likely improve over the next few days as swelling decreases. Verbal and written education provided to patient' s regarding risk of aspiration as well as recommendations such as slow rate and small bites/sips with double swallow as needed. Discussed diet recommendations to include dysphagia mechanical diet advancing to regular textures as tolerated. His verbalized understanding. Diet Recommendations Liquids Order Thin Diet Order Dysphagia Mechanical Medication Recommendations As Tolerated Additional Dietary Needs Reminders to Use Strategies Aspiration Precautions Recommended Precautions Upright at 90 Degrees Alternate Liquids/Solids Frequent Rest Periods Small Bites/Sips Additional Precautions Second swallow as needed Treatment Plan Therapy Recommendations Follow patient for dysphagia management to include ongoing education and advancing diet as tolerated. Dysphagia Goals The patient will demonstrate the ability to adequately self -monitor swallowing skills and perform appropriate compensatory techniques to consume a regular diet safely and reduce s/s of aspiration.
--- NOTE | 2018-11-20 15:00 | PT.IPTN ---
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) Radiculopathy, cervical region (11/19/18) Surgery Performed Operation Date: 11/19/18 07:45 Actual Procedures p C3-6 ACDF w/posterior instru fusion w/bone graft - Tien Stoner MD Operation Date: 11/19/18 14:15 <No data on this case meets the specified criteria> Physical Therapy Treatment Note M2 PT-IP Current Condition Start: 11/20/18 11:43 Freq: NEEDED Status: Active Protocol: Document 11/20/18 11:30 RCC (Rec: 11/20/18 11:57 RCC [id number]) Physical Therapy Current Condition Current Condition Evaluation Date 11/20/18 Treatment Diagnosis C3-6 ACDF w/ post. instrumentation11/19/18, impaired mobility and strength Precautions Cervical Spine Precautions Soft Collar for Comfort No Heavy Lifting Log Roll M3 PT-IP Subjective Start: 11/20/18 11:43 Freq: NEEDED Status: Active Protocol: Document 11/20/18 15:00 RCC (Rec: 11/20/18 15:36 RCC [id number]) Subjective Physical Therapy Visit Type Type Treatment Note Visit Start Time 15:00 Visit Stop Time 15:23 Total Visit Minutes 23 Number of PILOT Visits 0 Physical Therapy Visit Comments Patient Comments pt reports that he is very tired after session. Therapy Pain Assessment Pain When Pain Assessed At Rest Pain Present Pain Present Pain Reported Location Neck Intensity 5 Scale Used Numeric (1 - 10) M4 PT-IP Mobility and Gait Start: 11/20/18 11:43 Freq: NEEDED Status: Active Protocol: Document 11/20/18 15:00 RCC (Rec: 11/20/18 15:36 RCC [id number]) PT-Bed Mobility Assessment Rolling Level of Assist Moderate Assistance 1 Person Assistance 2 Person Assistance Supine to Sit Supine to Sit Moderate Assistance 1 Person Assistance Head of Bed Elevated Sit to Supine Sit to Supine Moderate Assistance 2 Person Assistance Scooting Scooting to Edge of Bed Minimal Assistance PT-Transfer Assessment Sit to and From Stand Sit to and from Stand Moderate Assistance 1 Person Assistance Equipment Transfer Assistive Device Gait Belt Front Wheeled Walker Comments Mobility Comments Pt fatigued after standing @ EOB, lateral steps and 1.5 steps forward. BP prior to session 125/52 BP standing 106/42 BP sitting 128/55 BP supine 134/59 @ end of session *c/o feeling woozy in standing but still wanted to step/ambulate. Gait Assessment Gait Gait Assistance Required: Minimum Assistance 1 Person Assist Distance (Feet) 1 Assistive Devices Assistive Device Gait Belt Front Wheeled Walker Gait Deviations General Gait Pattern Decreased Stride Length Decreased Feet Clearance Flexed Trunk Step-to Gait Wide Based Gait Factors Limiting Gait Function Factors Limiting Gait Function Decreased Activity Tolerance Decreased Sensation Difficulty Following Directions Limited Range of Motion Pain Poor Balance Poor Safety Awareness Comments Gait Comments 1 ft forward with FWW and Min A x1, lateral steps Min A x2 to the R x1 ft. M5 PT-IP Objective Assessments Start: 11/20/18 11:43 Freq: NEEDED Status: Active Protocol: Document 11/20/18 11:30 RCC (Rec: 11/20/18 11:57 [facility] [id number]) Orientation Orientation/Cognition Level of Alertness Lethargic Gross Range of Motion Upper Extremity ROM Assessment Right Impaired Lower Extremity ROM Assessment Right Impaired Strength Lower Extremity Strength Assessment Bilaterally Impaired Hip flexion 3/5 B Knee flexion 3+/5 and extension 3/5 B Ankle DF 4/5 B M6 PT-IP Treatment Start: 11/20/18 11:43 Freq: NEEDED Status: Active Protocol: Document 11/20/18 15:00 RCC (Rec: 11/20/18 15:36 [facility] [id number]) Physical Therapy Treatment Education Education Provided Safety M7 PT-IP Assessment and Plan Start: 11/20/18 11:43 Freq: NEEDED Status: Active Protocol: Document 11/20/18 15:00 [facility] (Rec: 11/20/18 15:36 [facility] [id number]) PT Summary Assessment and Plan Summary Progress Towards Goals Slow Progress due to Pain Slow Progress due to Medical Issues Slow Progress due to Activity Tolerance Slow Progress - Other Assessment Summary POD #1 C3-6 ACDF with posterior instrumentation. Pt able to stand this session, but significant difficulty moving the R foot forward or laterally to the R with mild R lean when fatigued. Pt requires multiple cues for safety. He was not safe or able to manually transfer today due to poor balance and activity tolerance, and still symptomatic with increased activity. Goals Bed Mobility Goal Contact Guard Assistance Transfer Goal Contact Guard Assistance Gait Goal Contact Guard Assistance Gait Distance 50 Other Goals up/down 6 step with unilat. rail and Min A. Days to Meet Goals 6 Treatment Plan Other Recommendations and Next Treatment progress standing with goal Focus toward transfers and gait. Possibly using platform walker for RUE Recommendations To Nursing Amount of Assist Needed PT/OT Assist Only Discharge Recommendations PT Discharge Recommendations SNF Rehab
--- NOTE | 2018-11-20 17:18 | OT.IP.EVAL ---
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) Radiculopathy, cervical region (11/19/18) Surgery Performed Operation Date: 11/19/18 07:45 Actual Procedures p C3-6 ACDF w/posterior instru fusion w/bone graft - Tien Stoner MD Operation Date: 11/19/18 14:15 <No data on this case meets the specified criteria> Past Medical History (Last Updated 11/17/18 @ 11:43 by Keila Coronel RN) Anxiety disorder (Acute) Aortic stenosis (Acute) Asthma (Acute) Atrial fibrillation (Acute) CAD (coronary artery disease) (Acute) Depression (Acute) Diastolic congestive heart failure (Acute) Diverticulosis of colon (Acute) GERD (gastroesophageal reflux disease) (Acute) Rheumatoid arthritis (Acute) Diabetes (Acute) Surgical History (Last Updated 11/17/18 @ 11:43 by Keila Coronel RN) Hx of heart artery stent (Acute ~2009) History of vasectomy Status post hernia repair Status post laminectomy Occupational Therapy Inpatient Evaluation/Re-Eval M1 PT/OT-IP Prior Functional Status Start: 11/20/18 11:43 Freq: NEEDED Status: Active Protocol: Document 11/20/18 11:30 [facility] (Rec: 11/20/18 11:57 [facility] [id number]) Medical Review Prior Functional Status Medical History Reviewed Yes Mobility and Gait mod. indep. gait with 4WW inside home and walking stick outside of home. He had no real function of RUE over the past few mos. due to weakness associated with myelopathy. H/ o falls with R shoulder injury as well Activities of Daily Living and IADL's modified indep with ADLs per Social History Household Members spouse Living Arrangements House Number of Floors (Floors) One Floor Number of Stairs To Enter/Railing? 6 SE with B rails (only able to use one @ a time) Home Environment Standard Height Toilet Walk in Shower Home Equipment Four Wheel Walker Straight Cane Employment Status Retired Additional Social History Comment assists pt, but admits it has been more challenging lately d/t pt's weakness. She sleeps in a recliner chair due to having bad hip pain. Pt sleeps in a flat bed, but does have a recliner available to him as well. Pt underwent C3-6 ACDF with posterior instrumentation . He was found to have a hematoma post-surgery, required to go back to the OR on same day to cover bleeding site with bone wax @ C5 where an osteophyte was removed in intial surgery. M1 PT/OT-IP Prior Functional Status Start: 11/20/18 16:51 Freq: NEEDED Status: Active Protocol: Document 11/20/18 16:54 [facility] (Rec: 11/20/18 17:17 [facility] [id number]) Medical Review Prior Functional Status Medical History Reviewed Yes Communication Independent Mobility and Gait mod. indep. gait with 4WW inside home and walking stick outside of home. He had no real function of RUE over the past few mos. due to weakness associated with myelopathy. H/ o falls with R shoulder injury as well Activities of Daily Living and IADL's modified indep with ADLs per . Pt states able to wash the dishes at home. Social History Household Members spouse Living Arrangements House Number of Floors (Floors) One Floor Number of Stairs To Enter/Railing? 6 SE with B rails (only able to use one @ a time) Home Environment Standard Height Toilet Walk in Shower Home Equipment Four Wheel Walker Straight Cane Shower Seat with Backrest Grab Bars Near Toilet Grab Bars In Shower Employment Status Retired Additional Social History Comment assists pt, but admits it has been more challenging lately d/t pt's weakness. She sleeps in a recliner chair due to having bad hip pain. Pt sleeps in a flat bed, but does have a recliner available to him as well. Pt underwent C3-6 ACDF with posterior instrumentation . He was found to have a hematoma post-surgery, required to go back to the OR on same day to cover bleeding site with bone wax @ C5 where an osteophyte was removed in intial surgery. M2 OT-IP Current Condition Start: 11/20/18 16:51 Freq: Status: Active Protocol: Document 11/20/18 16:54 [facility] (Rec: 11/20/18 17:17 [facility] [id number]) Occupational Therapy Current Condition Current Condition Evaluation Date 11/20/18 Treatment Diagnosis Cervical Stenosis Diagnosis Onset Date 11/19/18 Post Operative Precautions Cervical Spine Precautions Soft Collar for Comfort No Heavy Lifting Log Roll M3 OT- IP Subjective and Pain Start: 11/20/18 16:51 Freq: Status: Active Protocol: Document 11/20/18 16:54 [facility] (Rec: 11/20/18 17:17 [facility] [id number]) OT- Subjective Occupational Therapy Visit Type Type Initial Evaluation Visit Start Time 14:47 Visit Stop Time 15:20 Total Visit Minutes 33 Occupational Therapy Visit Comments Patient Comments Pt agreeable to get up. OT Pain Assessment Pain When Pain Assessed At Rest Pain Present Pain Present Pain Reported Location Neck Intensity 5 M4 OT- IP ADL's Start: 11/20/18 16:51 Freq: Status: Active Protocol: Document 11/20/18 16:54 [facility] (Rec: 11/20/18 17:17 [facility] [id number]) OT [id number] Comments OT Self-Feeding Comments Not pt coughing after drinking liquids, instyructed pt to sit up at 90 degrees to drink. Pt states coughed due to water tasting funny and requesting new water with ice. Pt after replacement on water , noted slight delay for cough while drinking water. Nursing notified of pt needs to sit all the way upright at 90degress while eating or drinking and that pt was coughing while drinking liquids. OT ADL-Dressing General Eval Lower Body Dressing Ability Maximum Assistance Areas Needing Assistance Socks M6 OT- IP Functional Cognition Start: 11/20/18 16:51 Freq: Status: Active Protocol: Document 11/20/18 16:54 [facility] (Rec: 11/20/18 17:17 [facility] [id number]) Cognitive Factors Limiting Selfcare Function Cognitive Ability Level of Alertness Alert Patient Orientation Name Place Situation Attention Span Ability Capable of Focused Attention Capable of Sustained Attention Ability to Follow Commands Able to Follow One Step Commands Safety Awareness Underestimates Need for Assistance Cognitive Comments Cognitive Assessment Comments Pt able to follow simple concrete commands at this time . Pt very tired and did not tolerate much activity for OT eval . M7 OT- IP Mobility and Balance Start: 11/20/18 16:51 Freq: Status: Active Protocol: Document 11/20/18 16:54 [facility] (Rec: 11/20/18 17:17 [facility] [id number]) OT- Bed Mobility Assessment Rolling Type of Rolling Roll to Right Level of Assistance Moderate Assistance 1 Person Assistance 2 Person Assistance Head of Bed Elevated Supine to Sit Supine to Sit Assist Moderate Assistance 1 Person Assistance Sit to Supine Sit to Supine Assist Moderate Assistance 2 Person Assistance OT-Transfer Assessment Sit to and From Stand Sit to and from Stand Moderate Assistance 1 Person Assistance Comments Mobility Comments Pt only able to tolerate standing and taking a few side step and complaining of feeling dizzy and tired and then assisted with PT back into bed. OT- Balance Assessment Sitting Balance and Reactions Static Sitting Balance Ability Good Standing Balance and Reactions Static Standing Balance Ability Poor M8 OT- IP Objective Assessments Start: 11/20/18 16:51 Freq: Status: Active Protocol: Document 11/20/18 16:54 [facility] (Rec: 11/20/18 17:17 [facility] [id number]) OT Gross Range of Motion Upper Extremity Range of Motion Assessment Right Impaired OT Strength Comments Strength Comments Pt 3/5 deltoids, biceps 0/5, wrist and fingers 1/5. Pt's insists that pt can do more but just wanting help. While pt standing to FWW , pt ablwe to hides and skins colorer right hand hides and skins colorer however leans to the right as not able to place weight through RUE to weight bear and assist for balance while standing with FWW , pt needing MODA form therapist for RUE control. OT-Muscle Tone Assessment Muscle Tone WNL No Comments Muscle Tone Comments Hypotonicity for RUE. M9 OT- IP Assessment and Plan Start: 11/20/18 16:51 Freq: Status: Active Protocol: Document 11/20/18 16:54 [facility] (Rec: 11/20/18 17:17 [facility] [id number]) OT Summary Assessment and Plan Potential Rehabilitation Potential Good Analytic Complexity at Evaluation Low Summary OT Impairments Pain Strength Balance Coordination Tone Functional Cognition Functional Mobility Self-Feeding Grooming Dressing Toileting Bathing Toilet Transfers Shower Transfers Progress Towards Goals Slow Progress due to Pain Slow Progress due to Medical Issues Slow Progress due to Activity Tolerance Slow Progress due to Cognition Assessment Summary Pt MOD complexity s/p C3-6 ACDF with posterior fusion with bone graft and also having post-op wound bleeding . Barriers are steps, decreased use of right UE ,decreased balance, activity tolerance, strength, and endurance and now needing extensive assist for all Adl and functional mobility. Currently too great of care for to assist as she has a bad hip and unable to physically assist pt at this time. Pt would benefit from skilled rehab prior to going home. Goals Self-Feeding Goal Standby Assistance Grooming Goal Standby Assistance Dressing Goal Minimal Assistance Toileting Goal Minimal Assistance Bathing Goal Moderate Assistance Toilet Transfer Goal Minimal Assistance Shower Transfer Goal Minimal Assistance OT-Other Goals Pt to be able to incorporate use of RUE for all ADl and functional mobility needs. Pt to be able to do SROM for RUE with good safety and understanding. Days to Meet Goals 5 Frequency of Treatment Frequency Of Treatment Once a Day Treatment Plan OT Treatment Plan ADL Training Functional Cognition Training Functional Mobility Therapeutic Exercises Patient/Family Education Discharge Planning Other Treatment Recommendations and Next Transfer to [facility] MODA x1 with Treatment Focus FWW and Larry for RUE control. Discharge Recommendations OT Discharge Recommendations SNF Rehab
[2018-11-20] MEDS: OXYCODONE IR 5 MG TABLET PO ×2 (17:22→20:11)
[2018-11-20] MEDS: ATORVASTATIN 20 MG TABLET 40 MG PO (20:11)
--- NOTE | 2018-11-20 23:31 | PC.NURSE ---
Evening Shift Note Pt swallow eval done today, pt not compliant w/ tucking chin and sitting 90 degree when eating/drinking and coughing after swallowing. Pt educated on risk of pneumonia, IS introduced and pulling 1500, coughing and deep breathing encouraged when in room. Pt complaint of pain, oxycodone x2 given, after second oxycodone pt very sleepy. Pt brief changed, incontinent of urine, intolerant of brief change, work of breathing increased and pt switched to mask d/t mouth breathing and O2 increased to 5L, currently 96%. Pt also confused and impulsive at night, pulling oxygen mask off and attempting to get out of bed. very concerned and tearful, blaming oxycodone and mild dementia for pt behavior, Expresses that she can not take care of him at home d/t constant funes over narcotic intake and increased confusion and impulsiveness. Comforted pt and expressed that I would pass this concerns on to shift nurse manager nurse and also to express this to MD and CM on rounds in the morning.
[2018-11-21] VITALS (13 sets, daily range): BP systolic 114–135; BP diastolic 45–61; PULSE 69–88; RESP 15–20; TEMP 36.7–37.3; O2SAT 86–96
[2018-11-21] MEDS: HYDROMORPHONE 0.5 MG INJ IV (05:10)
[2018-11-21] MEDS: hydrOXYzine pamoate 25 MG CAPSULE PO (05:14)
[2018-11-21] MEDS: CARVEDILOL 6.25 MG TABLET PO ×2 (09:22→20:18)
[2018-11-21] MEDS: INSULIN GLARGINE 100 UNIT/ML 3ML PEN 50 UNIT SUBCUT ×2 (09:30→20:18)
[2018-11-21] MEDS: ISOSORBIDE MONONITRATE ER 30 MG TABLET PO (09:32)
[2018-11-21] MEDS: AMLODIPINE 2.5 MG TABLET PO (09:32)
[2018-11-21] MEDS: TAMSULOSIN 0.4 MG CAPSULE PO (09:32)
[2018-11-21] MEDS: GABAPENTIN 300 MG CAPSULE PO ×2 (09:32→15:30)
[2018-11-21] MEDS: PANTOPRAZOLE 20 MG TABLET PO ×2 (09:33→20:18)
[2018-11-21] MEDS: FINASTERIDE 5 MG TABLET PO (09:34)
[2018-11-21] MEDS: ASPIRIN EC 81 MG TABLET PO (09:36)
[2018-11-21] MEDS: FENOFIBRATE 48 MG TABLET PO (09:36)
--- NOTE | 2018-11-21 11:33 | PT.IPTN ---
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) Radiculopathy, cervical region (11/19/18) Surgery Performed Operation Date: 11/19/18 07:45 Actual Procedures p C3-6 ACDF w/posterior instru fusion w/bone graft - Tien Stoner MD Operation Date: 11/19/18 14:15 <No data on this case meets the specified criteria> Physical Therapy Treatment Note M2 PT-IP Current Condition Start: 11/20/18 11:43 Freq: NEEDED Status: Active Protocol: Document 11/20/18 11:30 [facility] (Rec: 11/20/18 11:57 [facility] [id number]) Physical Therapy Current Condition Current Condition Evaluation Date 11/20/18 Treatment Diagnosis C3-6 ACDF w/ post. instrumentation11/19/18, impaired mobility and strength Precautions Cervical Spine Precautions Soft Collar for Comfort No Heavy Lifting Log Roll M3 PT-IP Subjective Start: 11/20/18 11:43 Freq: NEEDED Status: Active Protocol: Document 11/21/18 11:59 RCC (Rec: 11/21/18 12:49 RCC [id number]) Subjective Physical Therapy Visit Type Type Treatment Note Visit Start Time 11:33 Visit Stop Time 11:59 Total Visit Minutes 26 Number of X RAY EXAMINER OF AIRCRAFT Visits 0 Physical Therapy Visit Comments Patient Comments pt's states pt had a rough night, he did not sleep much. M4 PT-IP Mobility and Gait Start: 11/20/18 11:43 Freq: NEEDED Status: Active Protocol: Document 11/21/18 11:59 RCC (Rec: 11/21/18 12:49 [facility] [id number]) PT-Bed Mobility Assessment Rolling Level of Assist Moderate Assistance 1 Person Assistance Supine to Sit Supine to Sit Moderate Assistance 1 Person Assistance Head of Bed Elevated Sit to Supine Sit to Supine Moderate Assistance 1 Person Assistance Scooting Scooting to Edge of Bed Minimal Assistance PT-Transfer Assessment Sit to and From Stand Sit to and from Stand Minimal Assistance 1 Person Assistance Equipment Transfer Assistive Device Gait Belt Front Wheeled Walker Comments Mobility Comments bed to chair transfer, able to lift B feet off ground for transfer steps, R hand able to meat hostess FWW and maintained throughout. Fatigued, requested to sit. M5 PT-IP Objective Assessments Start: 11/20/18 11:43 Freq: NEEDED Status: Active Protocol: Document 11/20/18 11:30 [facility] (Rec: 11/20/18 11:57 [facility] [id number]) Orientation Orientation/Cognition Level of Alertness Lethargic Gross Range of Motion Upper Extremity ROM Assessment Right Impaired Lower Extremity ROM Assessment Right Impaired Strength Lower Extremity Strength Assessment Bilaterally Impaired Hip flexion 3/5 B Knee flexion 3+/5 and extension 3/5 B Ankle DF 4/5 B M6 PT-IP Treatment Start: 11/20/18 11:43 Freq: NEEDED Status: Active Protocol: Document 11/20/18 15:00 [facility] (Rec: 11/20/18 15:36 [facility] [id number]) Physical Therapy Treatment Education Education Provided Safety M7 PT-IP Assessment and Plan Start: 11/20/18 11:43 Freq: NEEDED Status: Active Protocol: Document 11/21/18 11:59 RCC (Rec: 11/21/18 12:49 RCC [id number]) PT Summary Assessment and Plan Summary Progress Towards Goals Slow Progress due to Pain Slow Progress due to Medical Issues Slow Progress due to Activity Tolerance Slow Progress - Other Assessment Summary POD #2. Pt still very lethargic, but able to clear both feet off of ground for transfer steps today. He was fatigued rapidly and unable to further session with gait. Goals Bed Mobility Goal Contact Guard Assistance Transfer Goal Contact Guard Assistance Gait Goal Contact Guard Assistance Gait Distance 50 Other Goals up/down 6 step with unilat. rail and Min A. Days to Meet Goals 6 Frequency of Treatment Frequency Of Treatment Twice a Day Treatment Plan Other Recommendations and Next Treatment short gait with chair follow, Focus bed mobility and sit<->stand. Recommendations To Nursing Amount of Assist Needed 2 Person Assist Discharge Recommendations PT Discharge Recommendations SNF Rehab
[2018-11-21] MEDS: DOCUSATE 100 MG CAPSULE PO ×2 (12:27→20:17)
[2018-11-21] MEDS: INSULIN ASPART 100 UNIT/ML 10ML VIAL SUBCUT (12:27)
[2018-11-21] MEDS: FERROUS SULFATE 325 MG TABLET PO (12:28)
[2018-11-21] MEDS: CHOLECALCIFEROL (VITAMIN D3) 1,000 UNIT TABLET 1000 UNIT PO (12:28)
[2018-11-21] MEDS: VITAMIN E 400 UNIT CAPSULE PO (12:29)
--- NOTE | 2018-11-21 12:54 | PM.PNPO.1 ---
Subjective Date Patient Seen: 11/21/18 Time Patient Seen: 08:00 Interval history: Status post C3-6 ACDF w/posterior instru fusion w/bone graft Had drain out yesterday. Doing a little bit better today. Nursed and states that he has been on 2 L of oxygen setting but 95% which is an improvement from yesterday. State patient is still little disoriented but did work with speech yesterday and is on a dysphagia diet. Exam Vital Signs (past 8 hours): - 11/21/18 06:00 11/21/18 07:50 11/21/18 08:00 Temperature 98.1 F 98.2 F Pulse Rate 83 83 88 Respiratory Rate 18 18 20 Blood Pressure 133/54 L 135/55 L Pulse Oximetry 92 96 95 Fraction of Inspired Oxygen 44 Oxygen Delivery Method Nasal Cannula Oxygen Flow Rate 5 Narrative Exam Narrative: Incision and dressing clean and dry. No redness or swelling or erythema. Using a soft collar. Nasal cannula 2 L satting 95%. With goals of feet and toes demonstrates 5/5 dorsiflexion plantar flexion. Endorses sensation to light touch. Assessment & Plan Post-op Postoperative Procedures Operation Date: 11/19/18 07:45 Actual Procedures Side Surgeon p C3-6 ACDF w/posterior instru fusion w/bone graft Tien Stoner MD status post cervical spine surgery with Dr. Stoner and hematoma evacuation. Patient is stable this morning he is working on weaning his oxygen and continue to work on diet. Continue routine hospital care. Operation Date: 11/19/18 14:15 <No data on this case meets the specified criteria> Quality VTE Deep Vein Thrombosis/Pulmonary Embolism Present on Admission: No
--- NOTE | 2018-11-21 13:55 | PT.IPTN ---
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) Radiculopathy, cervical region (11/19/18) Surgery Performed Operation Date: 11/19/18 07:45 Actual Procedures p C3-6 ACDF w/posterior instru fusion w/bone graft - Tien Stoner MD Operation Date: 11/19/18 14:15 <No data on this case meets the specified criteria> Physical Therapy Treatment Note M2 PT-IP Current Condition Start: 11/20/18 11:43 Freq: NEEDED Status: Active Protocol: Document 11/20/18 11:30 RCC (Rec: 11/20/18 11:57 RCC [id number]) Physical Therapy Current Condition Current Condition Evaluation Date 11/20/18 Treatment Diagnosis C3-6 ACDF w/ post. instrumentation11/19/18, impaired mobility and strength Precautions Cervical Spine Precautions Soft Collar for Comfort No Heavy Lifting Log Roll M3 PT-IP Subjective Start: 11/20/18 11:43 Freq: NEEDED Status: Active Protocol: Document 11/21/18 13:55 G[facility] (Rec: 11/21/18 15:46 [facility] [id number]) Subjective Physical Therapy Visit Type Type Treatment Note Visit Start Time 13:30 Visit Stop Time 13:55 Total Visit Minutes 25 Number of SUPERVISOR WINDING DEPARTMENT Visits 1 Physical Therapy Visit Comments Patient Comments Pt states he would like to go back to bed. M4 PT-IP Mobility and Gait Start: 11/20/18 11:43 Freq: NEEDED Status: Active Protocol: Document 11/21/18 13:55 [facility] (Rec: 11/21/18 15:46 [facility] [id number]) PT-Bed Mobility Assessment Rolling Level of Assist Moderate Assistance 1 Person Assistance Sit to Supine Sit to Supine Moderate Assistance 1 Person Assistance Scooting Scooting to Edge of Bed Minimal Assistance PT-Transfer Assessment Sit to and From Stand Sit to and from Stand Minimal Assistance 1 Person Assistance Equipment Transfer Assistive Device Gait Belt Front Wheeled Walker Transfers Transfer Destination Bed Transfer Ability Level of Assist Moderate Assistance Use of Upper Extremities Gait Assessment Gait Gait Assistance Required: Minimum Assistance 1 Person Assist Distance (Feet) 15 Assistive Devices Assistive Device Gait Belt Front Wheeled Walker Gait Deviations General Gait Pattern Decreased Stride Length Decreased Feet Clearance Flexed Trunk Step-to Gait Wide Based Gait Factors Limiting Gait Function Factors Limiting Gait Function Decreased Activity Tolerance Decreased Sensation Difficulty Following Directions Limited Range of Motion Pain Poor Balance Poor Safety Awareness Comments Gait Comments Pt need mod cues for posture and step length. He need assist with FWW management. M5 PT-IP Objective Assessments Start: 11/20/18 11:43 Freq: NEEDED Status: Active Protocol: Document 11/20/18 11:30 RCC (Rec: 11/20/18 11:57 RCC [id number]) Orientation Orientation/Cognition Level of Alertness Lethargic Gross Range of Motion Upper Extremity ROM Assessment Right Impaired Lower Extremity ROM Assessment Right Impaired Strength Lower Extremity Strength Assessment Bilaterally Impaired Hip flexion 3/5 B Knee flexion 3+/5 and extension 3/5 B Ankle DF 4/5 B M6 PT-IP Treatment Start: 11/20/18 11:43 Freq: NEEDED Status: Active Protocol: Document 11/20/18 15:00 RCC (Rec: 11/20/18 15:36 RCC [id number]) Physical Therapy Treatment Education Education Provided Safety M7 PT-IP Assessment and Plan Start: 11/20/18 11:43 Freq: NEEDED Status: Active Protocol: Document 11/21/18 13:55 GGD (Rec: 11/21/18 15:46 GGD [id number]) PT Summary Assessment and Plan Summary Assessment Summary Pt is progressing slowly. He was able to ambulate, but need assistance with FWW and cues for step length. He needed less assist for sit to stand. He need mod cueing for all mobility. Frequency of Treatment Frequency Of Treatment Twice a Day Treatment Plan Physical Therapy Treatment Plan Bed Mobility Training Transfer Training Gait Training Therapeutic Exercise Balance Retraining Post Op Education Discharge Planning Hot or Cold Pack Neuromuscular Re-ed Other Recommendations and Next Treatment short gait with chair follow, Focus bed mobility and sit<->stand. Recommendations To Nursing Amount of Assist Needed 2 Person Assist Discharge Recommendations PT Discharge Recommendations SNF Rehab
--- NOTE | 2018-11-21 14:03 | CM.DPC ---
DCP/SNF planning, Reviewed EMR: Drain was removed and patient progressing. Continues to remain disoriented and is currently on a dysphagia diet. PT/OT both recommend SNF at discharge. Met with patient: Patent and spouse been reviewing SNF list, but have not decided. Hopeful to have decision by tomorrow. PASRR completed. Plan: SNF. To follow up with patient on selection and initiate referral. Patient eligible for SNF via Medicare on Wednesday 11/22.
[2018-11-21] MEDS: ATORVASTATIN 20 MG TABLET 40 MG PO (20:17)
[2018-11-21] MEDS: SENNOSIDES 8.6 MG TABLET 17.2 MG PO (20:18)
[2018-11-21] MEDS: ACETAMINOPHEN 325 MG TABLET 650 MG PO (22:53)
[2018-11-22] VITALS (7 sets, daily range): BP systolic 123–158; BP diastolic 49–78; PULSE 66–100; RESP 16–20; TEMP 36.5–37.1; O2SAT 91–95
--- NOTE | 2018-11-22 00:31 | PC.NURSE ---
Alert/orient. Denied pain at this time. HOB elevated, soft collar in place. O2 2L sats 94%, refused cpap. Bed alarm on and call light within reach.
[2018-11-22] MEDS: OXYCODONE IR 5 MG TABLET PO ×2 (02:12→08:19)
--- NOTE | 2018-11-22 07:39 | PM.PNPO.1 ---
Subjective Date Patient Seen: 11/22/18 Time Patient Seen: 07:40 Interval history: Pain has been moderate to severe. He is tolerating his current diet. Sore throat but no difficulty swallowing. He does note weakness but has been walking halls with physical therapy. His is home to assist him but does not feel ready to go home today. Exam Vital Signs (past 8 hours): - 11/21/18 23:43 11/22/18 04:58 Temperature 99.1 F 98.5 F Pulse Rate 69 66 Respiratory Rate 18 18 Blood Pressure 118/61 132/49 L Pulse Oximetry 94 95 Fraction of Inspired Oxygen 24 Oxygen Delivery Method Nasal Cannula Oxygen Flow Rate 2 Narrative Exam Narrative: 82-year-old male resting comfortably in bed in no apparent distress. Neck dressing is clean dry and intact. Good strength and sensation left upper extremity. Weakness and diminished sensation right upper extremity which was present prior to surgery. Assessment & Plan Post-op Postoperative Procedures Operation Date: 11/19/18 07:45 Actual Procedures Side Surgeon p C3-6 ACDF w/posterior instru fusion w/bone graft Tien Stoner MD postop day 3 status post cervical wound exploration for bleeding after ACDF. Continue to work on pain control. The patient to mobilize with physical therapy. Likely discharge tomorrow to home or fdc facility. Patient currently is 2 person assist and fdc facility has been recommended by physical therapy. Operation Date: 11/19/18 14:15 <No data on this case meets the specified criteria> Quality VTE Deep Vein Thrombosis/Pulmonary Embolism Present on Admission: No
--- NOTE | 2018-11-22 07:46 | P.PN_ITS ---
Subjective Date Patient Seen: 11/22/18 Time Patient Seen: 07:40 Interval history: Pain has been moderate to severe. He is tolerating his current diet. Sore throat but no difficulty swallowing. He does note weakness but has been walking halls with physical therapy. His is home to assist him but does not feel ready to go home today. Exam Vital Signs (past 8 hours): - 11/21/18 23:43 11/22/18 04:58 Temperature 99.1 F 98.5 F Pulse Rate 69 66 Respiratory Rate 18 18 Blood Pressure 118/61 132/49 L Pulse Oximetry 94 95 Fraction of Inspired Oxygen 24 Oxygen Delivery Method Nasal Cannula Oxygen Flow Rate 2 Narrative Exam Narrative: 82-year-old male resting comfortably in bed in no apparent distress. Neck dressing is clean dry and intact. Good strength and sensation left upper extremity. Weakness and diminished sensation right upper extremity which was present prior to surgery. Assessment & Plan Post-op Postoperative Procedures Operation Date: 11/19/18 07:45 Actual Procedures Side Surgeon p C3-6 ACDF w/posterior instru fusion w/bone graft Tien Stoner MD postop day 3 status post cervical wound exploration for bleeding after ACDF. Continue to work on pain control. The patient to mobilize with physical therapy. Likely discharge tomorrow to home or fpc facility. Patient currently is 2 person assist and fpc facility has been recommended by physical therapy. Operation Date: 11/19/18 14:15 <No data on this case meets the specified criteria> Quality VTE Deep Vein Thrombosis/Pulmonary Embolism Present on Admission: No
[2018-11-22] MEDS: DOCUSATE 100 MG CAPSULE PO (08:18)
[2018-11-22] MEDS: FINASTERIDE 5 MG TABLET PO (08:18)
[2018-11-22] MEDS: AMLODIPINE 2.5 MG TABLET PO (08:18)
[2018-11-22] MEDS: PANTOPRAZOLE 20 MG TABLET PO ×2 (08:19→20:54)
[2018-11-22] MEDS: ASPIRIN EC 81 MG TABLET PO (08:19)
[2018-11-22] MEDS: TAMSULOSIN 0.4 MG CAPSULE PO (08:19)
[2018-11-22] MEDS: CHOLECALCIFEROL (VITAMIN D3) 1,000 UNIT TABLET 1000 UNIT PO (08:19)
[2018-11-22] MEDS: VITAMIN E 400 UNIT CAPSULE PO (08:20)
[2018-11-22] MEDS: ACETAMINOPHEN 325 MG TABLET 650 MG PO (08:20)
[2018-11-22] MEDS: ISOSORBIDE MONONITRATE ER 30 MG TABLET PO (08:20)
[2018-11-22] MEDS: GABAPENTIN 300 MG CAPSULE PO ×3 (08:20→20:54)
[2018-11-22] MEDS: FENOFIBRATE 48 MG TABLET PO (08:20)
[2018-11-22] MEDS: FERROUS SULFATE 325 MG TABLET PO (08:20)
[2018-11-22] MEDS: CARVEDILOL 6.25 MG TABLET PO ×2 (08:20→20:54)
[2018-11-22] MEDS: INSULIN GLARGINE 100 UNIT/ML 3ML PEN 50 UNIT SUBCUT (08:23)
--- NOTE | 2018-11-22 09:12 | CM.DPNOTE ---
Addendum entered by SUE Wray 11/22/18 14:02: ADD: [facility] admissions Denice confirms that they can accept the pt and are aware that he may be ready for d/c tomorrow if stable. SW met bedside with pt and spouse and updated on [facility] acceptance and discussed transport via facility van and spouse is very appreciative and agreeable. SW provided pt's Medicare Rights and spouse acknowledged understanding and signed pt's Medicare Message per pt request. Plan: SW to follow for likely pt d/c to [facility] tomorrow if medically stable. PASRR done. SUE Wray Original Note: DCP SNF Planning: Per PT/OT, recommending SNF at d/c before safe return home with spouse. SW met bedside with pt and explained role again and pt working with OT and requested SW call his spouse to see if she will be bedside today and what the SNF preference is. SW called pt's spouse on her cell phone and pt confirmed that she feels SNF is needed at d/c prior to returning home and preference after reviewing the SNF Choice List is [facility] due to location. Spouse plans to try to be bedside later this morning to bring in a copy of pt's DPOA pwk showing her as his DPOA but with the snow she might not make it in to the hospital. SW called [facility] admissions with new referral and faxed clinicals to review and [facility] will review clinicals and aware there's a chance pt may be stable for d/c today. Plan: SW to follow for [facility] review of pt to determine if they can accept pt at d/c. PASRR done. SUE Wray
--- NOTE | 2018-11-22 09:24 | OT.IP.TRT ---
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) Radiculopathy, cervical region (11/19/18) Surgery Performed Operation Date: 11/19/18 07:45 Actual Procedures p C3-6 ACDF w/posterior instru fusion w/bone graft - Tien Stoner MD Operation Date: 11/19/18 14:15 <No data on this case meets the specified criteria> Occupational Therapy Treatment Note M2 OT-IP Current Condition Start: 11/20/18 16:51 Freq: Status: Active Protocol: Document 11/20/18 16:54 [facility] (Rec: 11/20/18 17:17 [facility] [id number]) Occupational Therapy Current Condition Current Condition Evaluation Date 11/20/18 Treatment Diagnosis Cervical Stenosis Diagnosis Onset Date 11/19/18 Post Operative Precautions Cervical Spine Precautions Soft Collar for Comfort No Heavy Lifting Log Roll M3 OT- IP Subjective and Pain Start: 11/20/18 16:51 Freq: Status: Active Protocol: Document 11/22/18 09:13 [facility] (Rec: 11/22/18 09:24 [facility] [id number]) OT- Subjective Occupational Therapy Visit Type Type Treatment Note Visit Start Time 08:47 Visit Stop Time 09:10 Total Visit Minutes 23 Occupational Therapy Visit Comments Patient Comments Pt willing to get up. Spoke with nurse states pt having difficulty with swallowing and having noted wet coughs. Therefore both OT and nurse agreed that pt should stop eating and wait to eat anymore until [facility] able to further assess pt. OT Pain Assessment Pain When Pain Assessed At Rest Pain Present Pain Present Pain Reported Location Neck Intensity 6 Scale Used Numeric (1 - 10) Description Throbbing Pain Behaviors Facial Grimacing Management Techniques Re-positioning M4 OT- IP ADL's Start: 11/20/18 16:51 Freq: Status: Active Protocol: Document 11/22/18 09:13 [facility] (Rec: 11/22/18 09:24 [facility] [id number]) OT ADL-Toileting General Evaluation Toileting Ability Moderate Assistance Areas Needing Assistance Manage Clothing Comments OT Toileting Comments Pt brief wet and able to stand with pt to FWW and help doff brief and pt after set-up able to use wipe for hygiene and able to assist to pull up brief over hips. Pt needing assist to initially pablo brief over his feet. M6 OT- IP Functional Cognition Start: 02/09/19 16:51 Freq: Status: Active Protocol: Document 11/22/18 09:13 [facility] (Rec: 11/22/18 09:24 [facility] [email or web address]) Cognitive Factors Limiting Selfcare Function Cognitive Ability Level of Alertness Alert Patient Orientation Name Place Situation Attention Span Ability Capable of Focused Attention Capable of Sustained Attention Ability to Follow Commands Able to Follow One Step Commands Safety Awareness Underestimates Need for Assistance Cognitive Comments Cognitive Assessment Comments Pt is still insistent that he will be going home even though he is still requiring assist for ADL's and functional mobility. Pt knows that his unable to physically assist. M7 OT- IP Mobility and Balance Start: 11/20/18 16:51 Freq: Status: Active Protocol: Document 11/22/18 09:13 [facility] (Rec: 11/22/18 09:24 [facility] [email or web address]) OT- Bed Mobility Assessment Rolling Type of Rolling Roll to Right Level of Assistance Maximum Assistance 1 Person Assistance Supine to Sit Supine to Sit Assist Maximum Assistance 1 Person Assistance OT-Transfer Assessment Sit to and From Stand Sit to and from Stand Moderate Assistance 1 Person Assistance Comments Mobility Comments Pt not wanting to walk to the recliner and stating increased head/neck ache and wanting to lie back down. Pt able to take a few side steps to the head of the bed. BP supine 140 /56, after standing 149/100, and after lying back down 135/ 71 o2 on 2L 94%. Pt needing initial assist to get right hand on FWW handle and then able to hold. Pt still trace for biceps. OT- Balance Assessment Sitting Balance and Reactions Static Sitting Balance Ability Good Dynamic Sitting Balance Ability Fair Standing Balance and Reactions Static Standing Balance Ability Poor Dynamic Standing Balance Ability Poor M8 OT- IP Objective Assessments Start: 11/20/18 16:51 Freq: Status: Active Protocol: Document 11/20/18 16:54 [facility] (Rec: 11/20/18 17:17 [facility] [id number]) OT Gross Range of Motion Upper Extremity Range of Motion Assessment Right Impaired OT Strength Comments Strength Comments Pt 3/5 deltoids, biceps 0/5, wrist and fingers 1/5. Pt's insists that pt can do more but just wanting help. 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 OT-Muscle Tone Assessment Muscle Tone WNL No Comments Muscle Tone Comments Hypotonicity for RUE. M9 OT- IP Assessment and Plan Start: 11/20/18 16:51 Freq: Status: Active Protocol: Document 11/22/18 09:13 [facility] (Rec: 11/22/18 09:24 [facility] [email or web address]) OT Summary Assessment and Plan Potential Rehabilitation Potential Good Analytic Complexity at Evaluation Low Summary OT Impairments Pain Strength Balance Coordination Tone Functional Cognition Functional Mobility Self-Feeding Grooming Dressing Toileting Bathing Toilet Transfers Shower Transfers Progress Towards Goals Slow Progress due to Pain Slow Progress due to Medical Issues Slow Progress due to Activity Tolerance Slow Progress due to Cognition Assessment Summary Pt only able to tolerate standing for brief change and take a few lateral step to the head of the bed as wanting to lie back down due to increased head/neck pain. Pt currently still requiring to great of care for to assist pt at home and recommend skilled rehab. Goals Self-Feeding Goal Standby Assistance Grooming Goal Standby Assistance Dressing Goal Minimal Assistance Toileting Goal Minimal Assistance Bathing Goal Moderate Assistance Toilet Transfer Goal Minimal Assistance Shower Transfer Goal Minimal Assistance OT-Other Goals Pt to be able to incorporate use of RUE for all ADl and functional mobility needs. Pt to be able to do SROM for RUE with good safety and understanding. Days to Meet Goals 5 Frequency of Treatment Frequency Of Treatment Once a Day Treatment Plan OT Treatment Plan ADL Training Functional Cognition Training Functional Mobility Therapeutic Exercises Patient/Family Education Discharge Planning Other Treatment Recommendations and Next Transfer to [facility] MODA x1 with Treatment Focus FWW and Larry fo rRUE control. Discharge Recommendations OT Discharge Recommendations SNF Rehab
--- NOTE | 2018-11-22 12:11 | PT.IPTN ---
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) Radiculopathy, cervical region (11/19/18) Surgery Performed Operation Date: 11/19/18 07:45 Actual Procedures p C3-6 ACDF w/posterior instru fusion w/bone graft - Tien Stoner MD Operation Date: 11/19/18 14:15 <No data on this case meets the specified criteria> Physical Therapy Treatment Note M2 PT-IP Current Condition Start: 11/20/18 11:43 Freq: NEEDED Status: Active Protocol: Document 11/20/18 11:30 [facility] (Rec: 11/20/18 11:57 [facility] [id number]) Physical Therapy Current Condition Current Condition Evaluation Date 11/20/18 Treatment Diagnosis C3-6 ACDF w/ post. instrumentation11/19/18, impaired mobility and strength Precautions Cervical Spine Precautions Soft Collar for Comfort No Heavy Lifting Log Roll M3 PT-IP Subjective Start: 11/20/18 11:43 Freq: NEEDED Status: Active Protocol: Document 11/22/18 11:00 (Rec: 11/22/18 12:11 [email or web address]) Subjective Physical Therapy Visit Type Type Treatment Note Visit Start Time 11:00 Visit Stop Time 11:35 Total Visit Minutes 35 Number of ADMIN ASST Visits 0 Physical Therapy Visit Comments Patient Comments I want to go to the bathroom. Therapy Pain Assessment Pain When Pain Assessed During Mobility Pain Present Pain Present Pain Reported Location Neck Intensity 5 Scale Used Numeric (1 - 10) M4 PT-IP Mobility and Gait Start: 11/20/18 11:43 Freq: NEEDED Status: Active Protocol: Document 11/22/18 11:00 (Rec: 11/22/18 12:11 [email or web address]) PT-Bed Mobility Assessment Rolling Type of Rolling Roll to Left Level of Assist Minimal Assistance 1 Person Assistance Supine to Sit Supine to Sit Minimal Assistance 1 Person Assistance Head of Bed Elevated Bedrails Scooting Scooting to Edge of Bed Moderate Assistance PT-Transfer Assessment Sit to and From Stand Sit to and from Stand Contact Guard Assistance 1 Person Assistance Equipment Transfer Assistive Device Gait Belt Front Wheeled Walker Transfers Transfer Destination Bed Chair Toilet Transfer Technique Stand Step Pivot Transfer Ability Level of Assist Contact Guard Assistance Comments Mobility Comments pt required min A for overall mobility. Pt presented significant difficulty during scooting to EOB today. However , pt was able to stand up from bed/chair/toilet with CGA, stand step pviot with FWW. And he was able to pablo and doff his brief with min A. He did not show any signs of LOB or acute distress. Gait Assessment Gait Gait Assistance Required: Contact Guard Assist 1 Person Assist Distance (Feet) 30 Assistive Devices Assistive Device Gait Belt Front Wheeled Walker Gait Deviations General Gait Pattern Decreased Stride Length Decreased Feet Clearance Flexed Trunk Step-to Gait Wide Based Gait Factors Limiting Gait Function Factors Limiting Gait Function Decreased Activity Tolerance Decreased Sensation Difficulty Following Directions Limited Range of Motion Pain Poor Balance Poor Safety Awareness Comments Gait Comments Pt amb from EOB to toilet, then to room door and returned back to bedside chair with CGA FWW. Pt did not signs of LOB/ acute distress. But pt cont step to pattern and required max A to facilitate upright posture. Pt O2 sat was ranged from 88-92% with 2L. Increased to 3L after tx session. M5 PT-IP Objective Assessments Start: 11/20/18 11:43 Freq: NEEDED Status: Active Protocol: Document 11/20/18 11:30 [facility] (Rec: 11/20/18 11:57 [facility] [id number]) Orientation Orientation/Cognition Level of Alertness Lethargic Gross Range of Motion Upper Extremity ROM Assessment Right Impaired Lower Extremity ROM Assessment Right Impaired Strength Lower Extremity Strength Assessment Bilaterally Impaired Hip flexion 3/5 B Knee flexion 3+/5 and extension 3/5 B Ankle DF 4/5 B M6 PT-IP Treatment Start: 11/20/18 11:43 Freq: NEEDED Status: Active Protocol: Document 11/20/18 15:00 [facility] (Rec: 11/20/18 15:36 [facility] [id number]) Physical Therapy Treatment Education Education Provided Safety M7 PT-IP Assessment and Plan Start: 11/20/18 11:43 Freq: NEEDED Status: Active Protocol: Document 11/22/18 11:00 (Rec: 11/22/18 12:11 [email or web address]) PT Summary Assessment and Plan Summary Assessment Summary Pt presented improved amb distance and overall transfer mobility. He cont required max cues for postural training and stride length Goals Bed Mobility Goal Contact Guard Assistance Transfer Goal Contact Guard Assistance Gait Goal Contact Guard Assistance Gait Distance 50 Other Goals up/down 6 step with unilat. rail and Min A. Days to Meet Goals 5 Frequency of Treatment Frequency Of Treatment Twice a Day Treatment Plan Physical Therapy Treatment Plan Bed Mobility Training Transfer Training Gait Training Therapeutic Exercise Balance Retraining Post Op Education Discharge Planning Hot or Cold Pack Neuromuscular Re-ed Other Recommendations and Next Treatment short gait with chair follow, Focus bed mobility and sit<->stand. Recommendations To Nursing Amount of Assist Needed 1 Person Assist Discharge Recommendations PT Discharge Recommendations SNF Rehab
--- NOTE | 2018-11-22 13:07 | DI.RAD.S_ITS ---
PROCEDURE: XR CHEST 1V INDICATIONS: aspiration pneumonia TECHNIQUE: One view of the chest was acquired. COMPARISON: [facility], , CHEST 1 VIEW, 11/30/2017, 10:56. FINDINGS: Surgical changes and devices: None. Lungs and pleura: There does appear to be a medial right infrahilar density present. Increased attenuation is identified within the right lung base with partial obscuration of the right costophrenic angle. There may also be blunting of the left costophrenic angle. No large area of consolidation is evident. There is no large effusion or pneumothorax. Mediastinum: Mediastinal contours appear normal. Heart size is normal. There is aortic atherosclerosis. Bones and chest wall: No suspicious bony lesions. Overlying soft tissues appear unremarkable. IMPRESSION: 1. Right infrahilar density is compatible with the patient's history of aspiration. 2. Minimal areas of bibasilar atelectasis with possible superimposed tiny effusions. Dictated by: Hollis Brooks M.D. on 11/22/2018 at 13:10 Approved by: Hollis Brooks M.D. on 11/22/2018 at 13:11
--- NOTE | 2018-11-22 15:08 | PT.IPTN ---
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) Radiculopathy, cervical region (11/19/18) Surgery Performed Operation Date: 11/19/18 07:45 Actual Procedures p C3-6 ACDF w/posterior instru fusion w/bone graft - Tien Stoner MD Operation Date: 11/19/18 14:15 <No data on this case meets the specified criteria> Physical Therapy Treatment Note M2 PT-IP Current Condition Start: 11/20/18 11:43 Freq: NEEDED Status: Active Protocol: Document 11/20/18 11:30 [facility] (Rec: 11/20/18 11:57 [facility] [id number]) Physical Therapy Current Condition Current Condition Evaluation Date 11/20/18 Treatment Diagnosis C3-6 ACDF w/ post. instrumentation11/19/18, impaired mobility and strength Precautions Cervical Spine Precautions Soft Collar for Comfort No Heavy Lifting Log Roll M3 PT-IP Subjective Start: 11/20/18 11:43 Freq: NEEDED Status: Active Protocol: Document 11/22/18 15:07 [facility] (Rec: 11/22/18 15:08 [facility] [id number]) Subjective Physical Therapy Visit Type Type Patient Refusal Notes Pt in bed. States he just returned to bed after walking around in his room. Too tired to walk again. M4 PT-IP Mobility and Gait Start: 11/20/18 11:43 Freq: NEEDED Status: Active Protocol: Document 11/22/18 11:00 [facility] (Rec: 11/22/18 12:11 [facility] [email or web address]) PT-Bed Mobility Assessment Rolling Type of Rolling Roll to Left Level of Assist Minimal Assistance 1 Person Assistance Supine to Sit Supine to Sit Minimal Assistance 1 Person Assistance Head of Bed Elevated Bedrails Scooting Scooting to Edge of Bed Moderate Assistance PT-Transfer Assessment Sit to and From Stand Sit to and from Stand Contact Guard Assistance 1 Person Assistance Equipment Transfer Assistive Device Gait Belt Front Wheeled Walker Transfers Transfer Destination Bed Chair Toilet Transfer Technique Stand Step Pivot Transfer Ability Level of Assist Contact Guard Assistance Comments Mobility Comments pt required min A for overall mobility. Pt presented significant difficulty during scooting to EOB today. However , pt was able to stand up from bed/chair/toilet with CGA, stand step pviot with FWW. And he was able to pablo and doff his brief with min A. He did not show any signs of LOB or acute distress. Gait Assessment Gait Gait Assistance Required: Contact Guard Assist 1 Person Assist Distance (Feet) 30 Assistive Devices Assistive Device Gait Belt Front Wheeled Walker Gait Deviations General Gait Pattern Decreased Stride Length Decreased Feet Clearance Flexed Trunk Step-to Gait Wide Based Gait Factors Limiting Gait Function Factors Limiting Gait Function Decreased Activity Tolerance Decreased Sensation Difficulty Following Directions Limited Range of Motion Pain Poor Balance Poor Safety Awareness Comments Gait Comments Pt amb from EOB to toilet, then to room door and returned back to bedside chair with CGA FWW. Pt did not signs of LOB/ acute distress. But pt cont step to pattern and required max A to facilitate upright posture. Pt O2 sat was ranged from 88-92% with 2L. Increased to 3L after tx session. M5 PT-IP Objective Assessments Start: 11/20/18 11:43 Freq: NEEDED Status: Active Protocol: Document 11/20/18 11:30 [facility] (Rec: 11/20/18 11:57 [facility] [id number]) Orientation Orientation/Cognition Level of Alertness Lethargic Gross Range of Motion Upper Extremity ROM Assessment Right Impaired Lower Extremity ROM Assessment Right Impaired Strength Lower Extremity Strength Assessment Bilaterally Impaired Hip flexion 3/5 B Knee flexion 3+/5 and extension 3/5 B Ankle DF 4/5 B M6 PT-IP Treatment Start: 11/20/18 11:43 Freq: NEEDED Status: Active Protocol: Document 11/20/18 15:00 [facility] (Rec: 11/20/18 15:36 [facility] [id number]) Physical Therapy Treatment Education Education Provided Safety M7 PT-IP Assessment and Plan Start: 11/20/18 11:43 Freq: NEEDED Status: Active Protocol: Document 11/22/18 11:00 (Rec: 11/22/18 12:11 [email or web address]) PT Summary Assessment and Plan Summary Assessment Summary Pt presented improved amb distance and overall transfer mobility. He cont required max cues for postural training and stride length Goals Bed Mobility Goal Contact Guard Assistance Transfer Goal Contact Guard Assistance Gait Goal Contact Guard Assistance Gait Distance 50 Other Goals up/down 6 step with unilat. rail and Min A. Days to Meet Goals 5 Frequency of Treatment Frequency Of Treatment Twice a Day Treatment Plan Physical Therapy Treatment Plan Bed Mobility Training Transfer Training Gait Training Therapeutic Exercise Balance Retraining Post Op Education Discharge Planning Hot or Cold Pack Neuromuscular Re-ed Other Recommendations and Next Treatment short gait with chair follow, Focus bed mobility and sit<->stand. Recommendations To Nursing Amount of Assist Needed 1 Person Assist Discharge Recommendations PT Discharge Recommendations SNF Rehab
--- NOTE | 2018-11-22 15:11 | ST.IPDYTX ---
Care Team Visit Care Team Role Provider Type Flo Pollack MD Primary Care Provider Non-Staff Specialty: Medical Address: [address] [place], [address] Email: Tien Stoner MD Admit Provider Physician Attending Provider Specialty: Orthopedic Surgery Address: [address] [place] [address], [address] Email: [email or web address] COMPUTER NETWORKING INSTRUCTOR ADJUNCT Dysphagia Treatment COMPUTER NETWORKING INSTRUCTOR ADJUNCT Dysphagia Treatment Start: 11/22/18 13:21 Freq: Status: Active Protocol: Document 11/22/18 13:21 YOEL (Rec: 11/22/18 13:22 YOEL [email or web address]) Dysphagia Treatment Session Time Visit Start Time 09:30 Visit Stop Time 10:30 Total Visit Minutes 60 Setting Assessment Location Acute Care Visit Type Note Type Treatment Note Next Note Type Next Note Type Treatment Note Patient Information Identification Type Name ID Card Subjective Observations Per Nsg report, the pt exhibited swallow difficulty and frequent coughing with breakfast. The pt was awake and reclined in bed upon COMPUTER NETWORKING INSTRUCTOR ADJUNCT arrival. He acknowledged difficulty with breakfast and was agreeable to repositioning and oral trials to re-assess swallow safety. He did independently note increased swallow ease with gentle chin tuck, which he was able to perform with cervical collar in place. With TILER'S ASSISTANT assistance, pt was boosted and positioned upright in bed. Treatment Liquids Trialed Ice Chips Thin [place] Solids Trialed Puree Dysphagia Mechanical Administration Type Tea Spoon Cup Single Sip Self-Feeding Oral Strategies Upright at 90 degrees Double Swallow Pharyngeal Strategies Sitting Upright (90 deg) Chin Tuck Supersupraglottic Swallow Small Bites and Sips Treatment Activities Pt consumed ice chips without overt s/sx of aspiration. With initial tsp trials of thin liquid, the pt exhibited effortful swallow with occasional wet vocal quality and need for double swallow per tsp bolus. When prompted to cough, the pt produced significant wet cough and spat out clear secretion. Trained pt in super- supraglottic swallow maneuver with instructions to hold your breath hard prior to initial swallow eliminated, as it appeared to cause additional effort and/or confusion for the pt. Using this maneuver, which includes a volitional cough and additional swallow following initial swallow, the pt maintained a clear voice and exhibited no overt s/sx of aspiration with thin and nectar-thick liquids and pureed texture. Given diced fruit, the pt reported sensation of residue in pharynx after the initial trial. This cleared with subsequent bite of applesauce. The pt tolerated 3 additional trials of diced fruit using super-supraglottic swallow maneuver without sticking or residue sensation or other overt s/sx of aspiration. Skilled education was provided to the pt RE aspiration risks and precautions, as well as steps to safe swallow maneuver . The pt verbalized steps to compensatory strategy and instructions for upright positioning with all oral intake. He verbalized understanding of aspirations risks. Instructions and precautions were provided to the pt orally and in writing. Steps to super-supraglottic swallow maneuver were posted on diet sheet for staff and on the pt's bedside table as visual prompt with intake. This COMPUTER NETWORKING INSTRUCTOR ADJUNCT consulted again after lunch with the pt's Nurse, Shady, who reported the pt had continued to exhibit coughing with dysphagia mechanical texture. She consulted with MD , and a chest x-ray was ordered. This COMPUTER NETWORKING INSTRUCTOR ADJUNCT talked with the pt again and recommended downgrade to pureed texture to reduce risk of aspiration and discomfort with oral intake. The pt was in agreement. Assessment Patient Response to Treatment Good Rehab Potential Good Assessment of Improvement The pt was responsive to training and demonstrated improved swallow safety with use of super-supraglottic swallow maneuver. He was able to follow and verbally repeat steps to the maneuver. However , he has exhibited ongoing coughing with dysphagia mechanical texture and therefore downgraded in diet to pureed texture. The pt did occasionally exhibit questionable cognitive function. For example, he occasionally verbalized understanding of directions but then failed to carry them out. When instructions were repeated, he performed tasks. Difficult to determine if this reflects possible cognitive vs hearing impairment. Screening of cognitive communication abilities may be warranted. Diet Recommendations Recommendations Downgrade Diet Order Liquids Order Thin Diet Order Dysphagia Blenderized Medication Recommendations Whole in Carrier Additional Dietary Needs No Straws 1:1 Supervision Reminders to Use Strategies Aspiration Precautions Recommended Precautions Upright at 90 Degrees Small Bites/Sips Chin Tuck Supersupraglottic Swallow Liquids from Cup Treatment Plan Placement Recommendation after Discharge Correction Facility Appropriate for Continued Therapy Yes Therapy Recommendations Continue training of compensatory swallow strategies. Continue assessment of swallow function/safety with upgrade in diet as tolerated by pt. Recommend cognitive communication screening by OT or ST. Dysphagia Goals The patient will demonstrate the ability to adequately self -monitor swallowing skills and perform appropriate compensatory techniques to consume a regular diet safely and reduce s/s of aspiration.
--- NOTE | 2018-11-22 15:37 | PC.NURSE ---
shift summary: patient had intermitt freq cough w/ breakfast this am. requested screw machine tool setter to come back to re-eval patient. o2 requirements 2l/nc this am. sat mid 90's. trial of ra w/ desat to 86%. 2l/nc replaced. desat to 86% on 2l/nc w/ activity w/ physical therapy. increased to 3l/nc. 91-94% on 3l/nc at rest. patient has intermitt cough w/ yellow phlegm production. crackles RLL. c/o intermitt headache since surgery. oxycodone prn for neck pain. reached james cullen. notified of the above, requested hospitalist consult. she ordered cxr. requests result read back to her. result noted during during shift report. teresa shift will call result to james and discuss possible consult.
--- NOTE | 2018-11-22 15:58 | PM.EVENT ---
Date Patient Seen: 11/22/18 Time Patient Seen: 15:49 Called earlier due to patient's increased O2 needs as well as cracking in bases of lungs. Chest x-ray showed atelectasis with possible aspiration pneumonia. I spoke with Dr. Cabezas of the hospitalist service and she will see him for this and for his diabetes management, as since he is difficulty swallowing he is not eating as much and has been hypogylcemic overnight. Of note, while I was in the room with him his O2 saturation dropped to 68%. I got him to take a few deep breaths and he brought it back up to 92%. Asked nurse to increase O2.
--- NOTE | 2018-11-22 18:04 | PM.CN ---
History of Present Illness Date Patient Seen: 11/22/18 Chief complaint: [id number] Reason for consult: Aspiration pneumonia and management of diabetes Requesting provider: Tien Stoner Narrative: The patient is an 82-year-old male who is status post cervical resection and fixation who subsequently developed a cervical hematoma. Patient returned to the hospital for evacuation of his hematoma. Last evening he was found to be hypotensive. He has had poor oral intake related to his recent surgery. In addition the patient was found to be hypoxic. X-ray of the chest suggests probable aspiration pneumonia. Patient continues to be hypoxic with O2 sats running in the 88 percentile range on 2 L of oxygen. He reports feeling poorly. He denies any nausea vomiting or diarrhea. The patient has had no chest pain. He is chronically short of breath for his from COPD. He is not normally on oxygen. I was asked by Dr. newby to assist with management of his aspiration pneumonia and type 2 diabetes. [facility] Medical History Anxiety disorder (Acute) Aortic stenosis (Acute) Asthma (Acute) Atrial fibrillation (Acute) CAD (coronary artery disease) (Acute) Depression (Acute) Diastolic congestive heart failure (Acute) Diverticulosis of colon (Acute) GERD (gastroesophageal reflux disease) (Acute) Rheumatoid arthritis (Acute) Diabetes (Acute) Surgical History Hx of heart artery stent (Acute ~2009) History of vasectomy Status post hernia repair Status post laminectomy Social History household members: spouse Smoking Status: Former smoker alcohol intake: current Social History household members: spouse Smoking Status: Former smoker alcohol intake: current Meds Home Medications Medication Instructions Recorded Confirmed Type carvedilol [Coreg] 6.25 mg PO BID #180 tab 04/27/17 11/19/18 Rx tamsulosin [Flomax] 0.4 mg PO QDAY #90 cap 04/27/17 11/19/18 Rx cholecalciferol (vitamin D3) 1,000 unit PO DAILY #0 05/11/17 11/19/18 History [Vitamin D3] isosorbide mononitrate 30 mg PO QAM #45 tab 05/11/17 11/19/18 Rx vitamin E 400 unit PO QDAY #0 05/11/17 11/19/18 History gabapentin [Neurontin] 300 mg PO TID #180 cap 09/08/17 11/19/18 Rx furosemide 40 mg PO SEEINSTR PRN #0 11/03/17 11/19/18 History omeprazole 20 mg PO BID #0 11/16/17 11/19/18 History Lantus U-100 Insulin 50 u SQ BID #0 11/27/17 11/19/18 History Novolog U-100 Insulin aspart See Rx Instructions .ROUTE 11/27/17 11/19/18 History .COMPLEX #0 Glucose: Home Monitor 1 ea MISCELLANEOUS TID 11/02/18 11/19/18 History [place] 1 dev MISCELLANEOUS SEE 11/02/18 11/19/18 History INSTRUCTIONS Ventolin HFA 2 puff INH Q6H PRN 11/02/18 11/19/18 History [TEST STRIPS] 1 strip MISCELLANEOUS TIDAC 11/02/18 11/19/18 History acetaminophen 650 mg PO Q6H PRN 11/02/18 11/19/18 History amlodipine 2.5 mg PO DAILY 11/02/18 11/19/18 History aspirin 81 mg PO DAILY 11/02/18 11/19/18 History fenofibrate 54 mg PO DAILY 11/02/18 11/19/18 History ferrous sulfate 1 tab PO DAILY 11/02/18 11/19/18 History finasteride 5 mg PO DAILY 11/02/18 11/19/18 History fluticasone 2 spray INTRANASAL BID PRN 11/02/18 11/17/18 History atorvastatin [Lipitor] 40 mg PO BEDTIME 11/17/18 11/19/18 History Allergies Allergy/AdvReac Type Severity Reaction Status Date / Time azithromycin [AZITHROMYCIN] Allergy Mild RASH Verified 11/19/18 06:48 lisinopril Allergy Reaction Verified 11/19/18 06:48 not listed niacin Allergy Rash Verified 11/19/18 06:49 morphine AdvReac Confusion Verified 11/17/18 11:40 Review of Systems Review of Systems All systems reviewed & are unremarkable except as noted in HPI and below Exam Vital Signs (past 8 hours): - 11/22/18 11:49 11/22/18 15:00 Temperature 98 F 97.8 F Pulse Rate 72 67 Respiratory Rate 18 17 Blood Pressure 143/56 H 138/62 Pulse Oximetry 91 94 Fraction of Inspired Oxygen 24 Oxygen Delivery Method Nasal Cannula Oxygen Flow Rate 3 Narrative Exam Narrative: Ill appearing gentleman hypoxic HEENT: Normocephalic atraumatic, patient is in a cervical collar. The upper posterior portion of the cervical spine reveals saturated . Bandage. Oropharynx is clear. Lungs: Decreased breath sounds with diffuse rhonchi bilaterally Cardiac exam regular rate and rhythm normal S1 and S2 with a 4/6 systolic ejection murmur Abdomen: Soft nontender nondistended no appreciable hepatosplenomegaly Extremities: No edema Neuro exam: The patient is awake and alert, he is slow to respond, he moves all extremities, somewhat weaker on the right lower extremity than left. He has excellent lieutenant fire fighter strength bilaterally. Psychiatric exam: Patient is awake and alert, no evidence of hallucination Assessment & Plan Assessment Narrative: 82-year-old male status post cervical debridement and fixation followed by evacuation of hematoma. Patient now has acute hypoxic respiratory failure. Suspect his acute respiratory failure is related to aspiration pneumonia. Patient has poor oral intake. This is resulting in hypoglycemia. The patient has known history of coronary disease. Which is present on admission. Patient also has chronic COPD. Patient has hyperlipidemia, chronic patient has hypertension, chronic patient has chronic congestive heart failure with reduced ejection fraction, hyperlipidemia, benign prostatic hypertrophy. Plan Narrative: Will start the patient on antibiotics for probable aspiration pneumonia. In addition will reduce his insulin. Will start low-dose IV fluids given his persistent hypoglycemia. Will continue his usual medications for his chronic congestive heart failure. Will continue to monitor blood pressure, lipids and GERD. Thank you very much for this consultation will continue to follow with you.
--- NOTE | 2018-11-22 18:10 | P.CONS_ITS ---
History of Present Illness Date Patient Seen: 11/22/18 Chief complaint: [id number] Reason for consult: Aspiration pneumonia and management of diabetes Requesting provider: Tien Stoner Narrative: The patient is an 82-year-old male who is status post cervical resection and fixation who subsequently developed a cervical hematoma. Patient returned to the hospital for evacuation of his hematoma. Last evening he was found to be hypotensive. He has had poor oral intake related to his recent surgery. In addition the patient was found to be hypoxic. X-ray of the chest suggests probable aspiration pneumonia. Patient continues to be hypoxic with O2 sats running in the 88 percentile range on 2 L of oxygen. He reports feeling poorly. He denies any nausea vomiting or diarrhea. The patient has had no chest pain. He is chronically short of breath for his from COPD. He is not normally on oxygen. I was asked by Dr. newby to assist with management of his aspiration pneumonia and type 2 diabetes. [facility] Medical History Anxiety disorder (Acute) Aortic stenosis (Acute) Asthma (Acute) Atrial fibrillation (Acute) CAD (coronary artery disease) (Acute) Depression (Acute) Diastolic congestive heart failure (Acute) Diverticulosis of colon (Acute) GERD (gastroesophageal reflux disease) (Acute) Rheumatoid arthritis (Acute) Diabetes (Acute) Surgical History Hx of heart artery stent (Acute ~2009) History of vasectomy Status post hernia repair Status post laminectomy Social History household members: spouse Smoking Status: Former smoker alcohol intake: current Social History household members: spouse Smoking Status: Former smoker alcohol intake: current Meds Home Medications Medication Instructions Recorded Confirmed Type carvedilol [Coreg] 6.25 mg PO BID #180 tab 04/27/17 11/19/18 Rx tamsulosin [Flomax] 0.4 mg PO QDAY #90 cap 04/27/17 11/19/18 Rx cholecalciferol (vitamin D3) 1,000 unit PO DAILY #0 05/11/17 11/19/18 History [Vitamin D3] isosorbide mononitrate 30 mg PO QAM #45 tab 05/11/17 11/19/18 Rx vitamin E 400 unit PO QDAY #0 05/11/17 11/19/18 History gabapentin [Neurontin] 300 mg PO TID #180 cap 09/08/17 11/19/18 Rx furosemide 40 mg PO SEEINSTR PRN #0 11/03/17 11/19/18 History omeprazole 20 mg PO BID #0 11/16/17 11/19/18 History Lantus U-100 Insulin 50 u SQ BID #0 11/27/17 11/19/18 History Novolog U-100 Insulin aspart See Rx Instructions .ROUTE 11/27/17 11/19/18 Histor y .COMPLEX #0 Glucose: Home Monitor 1 ea MISCELLANEOUS TID 11/02/18 11/19/18 History [place] 1 dev MISCELLANEOUS SEE 11/02/18 11/19/18 History INSTRUCTIONS Ventolin HFA 2 puff INH Q6H PRN 11/02/18 11/19/18 History [TEST STRIPS] 1 strip MISCELLANEOUS TIDAC 11/02/18 11/19/18 History acetaminophen 650 mg PO Q6H PRN 11/02/18 11/19/18 History amlodipine 2.5 mg PO DAILY 11/02/18 11/19/18 History aspirin 81 mg PO DAILY 11/02/18 11/19/18 History fenofibrate 54 mg PO DAILY 11/02/18 11/19/18 History ferrous sulfate 1 tab PO DAILY 11/02/18 11/19/18 History finasteride 5 mg PO DAILY 11/02/18 11/19/18 History fluticasone 2 spray INTRANASAL BID PRN 11/02/18 11/17/18 History atorvastatin [Lipitor] 40 mg PO BEDTIME 11/17/18 11/19/18 History Allergies Allergy/AdvReac Type Severity Reaction Status Date / Time azithromycin [AZITHROMYCIN] Allergy Mild RASH Verified 11/19/18 06:48 lisinopril Allergy Reaction Verified 11/19/18 06:48 not listed niacin Allergy Rash Verified 11/19/18 06:49 morphine AdvReac Confusion Verified 11/17/18 11:40 Review of Systems Review of Systems All systems reviewed & are unremarkable except as noted in HPI and below Exam Vital Signs (past 8 hours): - 11/22/18 11:49 11/22/18 15:00 Temperature 98 F 97.8 F Pulse Rate 72 67 Respiratory Rate 18 17 Blood Pressure 143/56 H 138/62 Pulse Oximetry 91 94 Fraction of Inspired Oxygen 24 Oxygen Delivery Method Nasal Cannula Oxygen Flow Rate 3 Narrative Exam Narrative: Ill appearing gentleman hypoxic HEENT: Normocephalic atraumatic, patient is in a cervical collar. The upper posterior portion of the cervical spine reveals saturated . Bandage. Oropharynx is clear. Lungs: Decreased breath sounds with diffuse rhonchi bilaterally Cardiac exam regular rate and rhythm normal S1 and S2 with a 4/6 systolic ejection murmur Abdomen: Soft nontender nondistended no appreciable hepatosplenomegaly Extremities: No edema Neuro exam: The patient is awake and alert, he is slow to respond, he moves all extremities, somewhat weaker on the right lower extremity than left. 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 Psychiatric exam: Patient is awake and alert, no evidence of hallucination Assessment & Plan Assessment Narrative: 82-year-old male status post cervical debridement and fixation followed by evacuation of hematoma. Patient now has acute hypoxic respiratory failure. Suspect his acute respiratory failure is related to aspiration pneumonia. Patient has poor oral intake. This is resulting in hypoglycemia. The patient has known history of coronary disease. Which is present on admission. Patient also has chronic COPD. Patient has hyperlipidemia, chronic patient has hypertension, chronic patient has chronic congestive heart failure with reduced ejection fraction, hyperlipidemia, benign prostatic hypertrophy. Plan Narrative: Will start the patient on antibiotics for probable aspiration pneumonia. In addition will reduce his insulin. Will start low-dose IV fluids given his persistent hypoglycemia. Will continue his usual medications for his chronic congestive heart failure. Will continue to monitor blood pressure, lipids and GERD. Thank you very much for this consultation will continue to follow with you.
--- NOTE | 2018-11-22 18:46 | RT ---
Called to the patient room because the patient is desating. Placed on high flow nasal cannula at 4lpm. Patient is sitting up in the bed and falling asleep. Attempted to put on his home cpap, but I was unable to get the mask on him without hurting his neck. Patient is maintaining SpO2 of 92% on 4lpm.
[2018-11-22 19:20] LABS: Add Manual Diff / Slide Review NO; Basophils Absolute Auto 100 /uL (0-100); Basophils Percent Auto 0.8 % (0-2); Eosinophils Absolute Auto 200 /uL (0-450); Eosinophils Percent Auto 2.1 % (2-4); Hematocrit 34.4 % (41-53); Hemoglobin 11.3 g/dL (13.5-17.5); Lymphocytes Absolute Auto 700 /uL (1100-4500); Lymphocytes Percent Auto 8.3 % (25-40); Mean Corpuscular HGB Conc 32.9 % (30-36); Mean Corpuscular Hemoglobin 31.5 PG (26-34); Mean Corpuscular Volume 95.6 fL (80-100); Monocytes Absolute Auto 600 /uL (0-900); Monocytes Percent Auto 6.9 % (3-14); Neutrophils Absolute Auto 7000 /uL (1500-7000); Neutrophils Percent Auto 81.9 % (50-75); Platelet Count 219 X10^3/uL (150-400); Red Cell Distribution Width 14.5 % (11.6-14.8); White Blood Cell Count 8.5 X10^3/uL (4.5-11.0)
[2018-11-22 19:31] LABS: Alanine Aminotransferase 19 IU/L (21-72); Albumin 3.3 g/dL (3.5-5.0); Albumin Globulin Ratio 1.2 (1.0-2.8); Alkaline Phosphatase 42 U/L (38-126); Aspartate Aminotransferase 18 IU/L (17-59); BUN Creatinine Ratio 17.5 (6-22); Bilirubin Total 0.8 mg/dL (0.2-1.3); Blood Urea Nitrogen 21 mg/dL (9-20); Calcium 8.9 mg/dL (8.4-10.2); Carbon Dioxide 33 mmol/L (22-32); Chloride 99 mmol/L (98-107); Estimated Glomerular Filt Rate 57.8 mL/min (>60); Globulin 2.8 g/dL (1.7-4.1); Glucose 105 mg/dL (80-110); HEMOLYSIS < 15 (0-50); Potassium 4.2 mmol/L (3.4-5.1); Sodium 137 mmol/L (137-145); Total Protein 6.1 g/dL (6.3-8.2)
[2018-11-22 19:42] LABS: B Type Natriuretic Peptide 173 (<100)
[2018-11-22] MEDS: AMPICILLIN/SULBACTAM 3 GM 3 GM in SODIUM CHLORIDE 0.9% 100 ML IV (20:46)
[2018-11-22] MEDS: ATORVASTATIN 20 MG TABLET 40 MG PO (20:53)
[2018-11-22] MEDS: INSULIN GLARGINE 100 UNIT/ML 3ML PEN 30 UNIT SUBCUT (21:06)
[2018-11-23] VITALS (9 sets, daily range): BP systolic 120–144; BP diastolic 12–64; PULSE 63–75; RESP 12–20; TEMP 36.3–37; O2SAT 89–97
[2018-11-23] MEDS: AMPICILLIN/SULBACTAM 3 GM 3 GM in SODIUM CHLORIDE 0.9% 100 ML IV ×3 (02:16→18:02)
[2018-11-23 05:54] LABS: Add Manual Diff / Slide Review NO; Basophils Absolute Auto 100 /uL (0-100); Basophils Percent Auto 1.4 % (0-2); Eosinophils Absolute Auto 100 /uL (0-450); Eosinophils Percent Auto 1.7 % (2-4); Hematocrit 30.9 % (41-53); Hemoglobin 10.2 g/dL (13.5-17.5); Lymphocytes Absolute Auto 1100 /uL (1100-4500); Lymphocytes Percent Auto 15.2 % (25-40); Mean Corpuscular HGB Conc 32.9 % (30-36); Mean Corpuscular Hemoglobin 31.6 PG (26-34); Mean Corpuscular Volume 96.2 fL (80-100); Monocytes Absolute Auto 600 /uL (0-900); Monocytes Percent Auto 8.1 % (3-14); Neutrophils Absolute Auto 5100 /uL (1500-7000); Neutrophils Percent Auto 73.6 % (50-75); Platelet Count 193 X10^3/uL (150-400); Red Blood Cell Count 3.21 X10^6/uL (4.5-5.9); Red Cell Distribution Width 14.2 % (11.6-14.8); White Blood Cell Count 6.9 X10^3/uL (4.5-11.0)
[2018-11-23 06:02] LABS: BUN Creatinine Ratio 19.2 (6-22); Blood Urea Nitrogen 23 mg/dL (9-20); Calcium 8.3 mg/dL (8.4-10.2); Carbon Dioxide 32 mmol/L (22-32); Chloride 99 mmol/L (98-107); Estimated Glomerular Filt Rate 57.8 mL/min (>60); Glucose 112 mg/dL (80-110); HEMOLYSIS < 15 (0-50); Potassium 4.2 mmol/L (3.4-5.1); Sodium 137 mmol/L (137-145)
--- NOTE | 2018-11-23 08:07 | P.PN_ITS ---
Subjective Date Patient Seen: 11/23/18 Time Patient Seen: 08:06 Interval history: Doing better. Pain levels fairly minimal. Still weak in the right arm. Exam Vital Signs (past 8 hours): - 11/23/18 05:40 Temperature 97.3 F L Pulse Rate 75 Respiratory Rate 18 Blood Pressure 120/52 L Pulse Oximetry 96 Fraction of Inspired Oxygen 24 Oxygen Delivery Method CPAP Oxygen Flow Rate 5 Back/Spine/Pelvis Other: Dressing CDI. 5/5 motor left upper extremities. 4/5 global right extremity strength except for 2/5 biceps and improved 3/5 deltoid Objective Labs Result Diagrams: 11/23/18 05:34 11/23/18 05:34 Labs: Laboratory Results - last 24 hr 11/22/18 11/22/18 11/23/18 19:07 19:07 05:34 WBC 8.5 6.9 RBC 3.60 L 3.21 L Hgb 11.3 L 10.2 L Hct 34.4 L 30.9 L MCV 95.6 96.2 MCH 31.5 31.6 MCHC 32.9 32.9 RDW 14.5 14.2 Plt Count 219 193 Neut % (Auto) 81.9 H 73.6 Lymph % (Auto) 8.3 L 15.2 L [place] % (Auto) 6.9 8.1 Eos % (Auto) 2.1 1.7 L Baso % (Auto) 0.8 1.4 Neut # (Auto) 7000 5100 Lymph # (Auto) 700 L 1100 [place] # (Auto) 600 600 Eos # (Auto) 200 100 Baso # (Auto) 100 100 Sodium 137 Potassium 4.2 Chloride 99 Carbon Dioxide 33 H BUN 21 H Creatinine 1.20 Estimated GFR 57.8 L BUN/Creatinine Ratio 17.5 Glucose 105 Calcium 8.9 Total Bilirubin 0.8 AST 18 ALT 19 L Alkaline Phosphatase 42 B-Natriuretic Peptide 173 H Total Protein 6.1 L Albumin 3.3 L Globulin 2.8 Albumin/Globulin Ratio 1.2 11/23/18 05:34 WBC RBC Hgb Hct MCV MCH MCHC RDW Plt Count Neut % (Auto) Lymph % (Auto) [place] % (Auto) Eos % (Auto) Baso % (Auto) Neut # (Auto) Lymph # (Auto) [place] # (Auto) Eos # (Auto) Baso # (Auto) Sodium 137 Potassium 4.2 Chloride 99 Carbon Dioxide 32 BUN 23 H Creatinine 1.20 Estimated GFR 57.8 L BUN/Creatinine Ratio 19.2 Glucose 112 H Calcium 8.3 L Total Bilirubin AST ALT Alkaline Phosphatase B-Natriuretic Peptide Total Protein Albumin Globulin Albumin/Globulin Ratio Assessment & Plan Post-op Postoperative Procedures Operation Date: 11/19/18 07:45 Actual Procedures Side Surgeon p C3-6 ACDF w/posterior instru fusion w/bone graft Tien Stoner MD Operation Date: 11/19/18 14:15 <No data on this case meets the specified criteria> He is getting some strength back in the deltoid but a little bit weaker in the biceps. 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 It is something we will watch. He does have aspiration pneumonia and is now on IV antibiotics. Continue with pulmonary toilet and IV antibiotics. Quality VTE Deep Vein Thrombosis/Pulmonary Embolism Present on Admission: No
--- NOTE | 2018-11-23 09:15 | PT.IPTN ---
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) Radiculopathy, cervical region (11/19/18) Surgery Performed Operation Date: 11/19/18 07:45 Actual Procedures p C3-6 ACDF w/posterior instru fusion w/bone graft - Tien Stoner MD Operation Date: 11/19/18 14:15 <No data on this case meets the specified criteria> Physical Therapy Treatment Note M2 PT-IP Current Condition Start: 11/20/18 11:43 Freq: NEEDED Status: Active Protocol: Document 11/20/18 11:30 RCC (Rec: 11/20/18 11:57 RCC [id number]) Physical Therapy Current Condition Current Condition Evaluation Date 11/20/18 Treatment Diagnosis C3-6 ACDF w/ post. instrumentation11/19/18, impaired mobility and strength Precautions Cervical Spine Precautions Soft Collar for Comfort No Heavy Lifting Log Roll M3 PT-IP Subjective Start: 11/20/18 11:43 Freq: NEEDED Status: Active Protocol: Document 11/23/18 09:30 GGD (Rec: 11/23/18 12:49 GGD [email or web address]) Subjective Physical Therapy Visit Type Type Treatment Note Visit Start Time 09:15 Visit Stop Time 09:30 Total Visit Minutes 15 Number of METAL FABRICATING SUPERVISOR Visits 1 Physical Therapy Visit Comments Patient Comments Pt willing to get up to the chair. Therapy Pain Assessment Pain When Pain Assessed During Mobility Pain Present Pain Present Pain Reported Location Neck Intensity 4 Scale Used Numeric (1 - 10) M4 PT-IP Mobility and Gait Start: 11/20/18 11:43 Freq: NEEDED Status: Active Protocol: Document 11/23/18 09:30 GGD (Rec: 11/23/18 12:49 GGD [id number]) PT-Bed Mobility Assessment Rolling Type of Rolling Roll to Left Level of Assist Minimal Assistance 1 Person Assistance Supine to Sit Supine to Sit Moderate Assistance 1 Person Assistance Bedrails Scooting Scooting to Edge of Bed Minimal Assistance PT-Transfer Assessment Sit to and From Stand Sit to and from Stand Contact Guard Assistance 1 Person Assistance Equipment Transfer Assistive Device Gait Belt Front Wheeled Walker Transfers Transfer Destination Chair Transfer Technique Stand Step Pivot Transfer Ability Level of Assist Contact Guard Assistance Gait Assessment Gait Gait Assistance Required: Contact Guard Assist 1 Person Assist Distance (Feet) 15 Assistive Devices Assistive Device Gait Belt Front Wheeled Walker Gait Deviations General Gait Pattern Decreased Stride Length Decreased Feet Clearance Flexed Trunk Step-to Gait Wide Based Gait Factors Limiting Gait Function Factors Limiting Gait Function Decreased Activity Tolerance Decreased Sensation Difficulty Following Directions Limited Range of Motion Pain Poor Balance Poor Safety Awareness M5 PT-IP Objective Assessments Start: 11/20/18 11:43 Freq: NEEDED Status: Active Protocol: Document 11/20/18 11:30 RCC (Rec: 11/20/18 11:57 RCC [id number]) Orientation Orientation/Cognition Level of Alertness Lethargic Gross Range of Motion Upper Extremity ROM Assessment Right Impaired Lower Extremity ROM Assessment Right Impaired Strength Lower Extremity Strength Assessment Bilaterally Impaired Hip flexion 3/5 B Knee flexion 3+/5 and extension 3/5 B Ankle DF 4/5 B M6 PT-IP Treatment Start: 11/20/18 11:43 Freq: NEEDED Status: Active Protocol: Document 11/20/18 15:00 RCC (Rec: 11/20/18 15:36 RCC [id number]) Physical Therapy Treatment Education Education Provided Safety M7 PT-IP Assessment and Plan Start: 11/20/18 11:43 Freq: NEEDED Status: Active Protocol: Document 11/23/18 09:30 GGD (Rec: 11/23/18 12:49 GGD [email or web address]) PT Summary Assessment and Plan Summary Assessment Summary Pt need min to mod A for bed mobility. He is progressing slowly with standing balance and gait. He had improved stability with standing with FWW. He need less cueing for FWW management and posture with gait. He would benefit from SNF to improve mobility. Frequency of Treatment Frequency Of Treatment Twice a Day Treatment Plan Physical Therapy Treatment Plan Bed Mobility Training Transfer Training Gait Training Therapeutic Exercise Balance Retraining Post Op Education Discharge Planning Hot or Cold Pack Neuromuscular Re-ed Other Recommendations and Next Treatment short gait with chair follow, Focus bed mobility and sit<->stand. Recommendations To Nursing Amount of Assist Needed 1 Person Assist Discharge Recommendations PT Discharge Recommendations SNF Rehab
--- NOTE | 2018-11-23 12:54 | ST.IPDYTX ---
Care Team Visit Care Team Role Provider Type Flo Pollack MD Primary Care Provider Non-Staff Specialty: Medical Address: [address] [place], [address] Email: Phuong Cabezas MD Other Providers Physician Specialty: Internal Medicine Address: [address] [place] [address], [phone] Email: [email or web address] ([employer]) Tien Stoner MD Admit Provider Physician Attending Provider Specialty: Orthopedic Surgery Address: [address] [place] [address], [id number] Email: [email or web address] Dysphagia Treatment [facility] Dysphagia Treatment Start: 11/22/18 13:21 Freq: Status: Active Protocol: Document 11/23/18 12:16 LNK (Rec: 11/23/18 12:53 LNK [email or web address]) Dysphagia Treatment Session Time Visit Start Time 09:00 Visit Stop Time 09:45 Total Visit Minutes 45 Setting Assessment Location Acute Care Visit Type Note Type Treatment Note Next Note Type Next Note Type Treatment Note Patient Information Identification Type Name ID Card Subjective Observations Pt was awake and in his bedside chair sitting up. Nursing reported that the pt was c/o not being able to swallow. He refused breakfast today. Treatment Liquids Trialed Ice Chips Thin [place] Administration Type Tea Spoon Cup Single Sip Self-Feeding Oral Strategies Upright at 90 degrees Double Swallow Pharyngeal Strategies Sitting Upright (90 deg) Chin Tuck Supersupraglottic Swallow Small Bites and Sips Treatment Activities Initially, the pt indicated that he was unable to swallow a small bit of applesauce. He c/o hoarseness in his voice. When asked to try to say ah loudly the pt's voice remained hoarse and weak. Trials of ice chips were provided. Pt' appeared to swallow without overt s/sx of aspiration. Hyolaryngeal movement upward as well as hyoid excursion forward were mildly reduced. The pt noted that it was difficult to swallow. Thin liquid (iced water) via spoon and controlled cup sip were trialed. Following these trials, the pts stated that he cannot feel the water or the swallow. Pt's O2 sats remained at 94-95% with 2L O2 via nasal cannula. Examination of the velum for ah indicated adequate movement upward and posteriorly, as did repetition of hahaha. OM examination noted that movement, ROM, and speed all appeared to be WFL. Using a swab soaked in cold water, the pt did not respond to stimulation of the posterior wall nor the velum structures. He did not gag and noted he couldn't feel the swab unless I applied pressure to the posterior pharyngeal wall. This was repeated to assure he did not feel the swab. Immediately following my examination I notified nursing and the hospitalist of my observations. I called Dr. Stoner's office to report my observations, however Dr. Stoner was in surgery. Spoke to the triage nurse at Orthopedics, who would get the message to Dr. Stoner. Again spoke with nursing, re; my concerns. Messages sent to Dr. Stoner in surgery to get back to Nursing/ hospitalist or ST. Assessment Patient Response to Treatment Fair Assessment of Improvement The swelling in the pt's throat is interfering with his ability to swallow safely at this time. The pt is at risk for aspiration. Diet Recommendations Liquids Order Ice Chips Only Medication Recommendations Not Recommended by Mouth Additional Dietary Needs No Straws 1:1 Supervision Treatment Plan Placement Recommendation after Discharge Shelter Facility Appropriate for Continued Therapy Yes Therapy Recommendations Continue training of compensatory swallow strategies. Continue assessment of swallow function/safety with upgrade in diet as tolerated by pt. Recommend cognitive communication screening by OT or ST. Dysphagia Goals The patient will demonstrate the ability to adequately self -monitor swallowing skills and perform appropriate compensatory techniques to consume a regular diet safely and reduce s/s of aspiration.
--- NOTE | 2018-11-23 14:40 | PT.IPTN ---
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) Radiculopathy, cervical region (11/19/18) Surgery Performed Operation Date: 11/19/18 07:45 Actual Procedures p C3-6 ACDF w/posterior instru fusion w/bone graft - Tien Stoner MD Operation Date: 11/19/18 14:15 Actual Procedures p s/p cervical fusion bleed(Not Applicable) - Tien Stoner MD Physical Therapy Treatment Note M2 PT-IP Current Condition Start: 11/20/18 11:43 Freq: NEEDED Status: Active Protocol: Document 11/20/18 11:30 RCC (Rec: 11/20/18 11:57 RCC [id number]) Physical Therapy Current Condition Current Condition Evaluation Date 11/20/18 Treatment Diagnosis C3-6 ACDF w/ post. instrumentation11/19/18, impaired mobility and strength Precautions Cervical Spine Precautions Soft Collar for Comfort No Heavy Lifting Log Roll M3 PT-IP Subjective Start: 11/20/18 11:43 Freq: NEEDED Status: Active Protocol: Document 11/23/18 14:40 GGD (Rec: 11/23/18 15:08 GGD [id number]) Subjective Physical Therapy Visit Type Type Treatment Note Visit Start Time 14:25 Visit Stop Time 14:40 Total Visit Minutes 15 Number of MANAGER HIV Visits 2 Physical Therapy Visit Comments Patient Comments Pt states he having a lot of pain, but will try to walk. Therapy Pain Assessment Pain When Pain Assessed At Rest Pain Present Pain Present Pain Reported Location Neck Intensity 6 Scale Used Numeric (1 - 10) M4 PT-IP Mobility and Gait Start: 11/20/18 11:43 Freq: NEEDED Status: Active Protocol: Document 11/23/18 14:40 GGD (Rec: 11/23/18 15:08 GGD [id number]) PT-Bed Mobility Assessment Rolling Type of Rolling Roll to Right Level of Assist Minimal Assistance 1 Person Assistance Supine to Sit Supine to Sit Moderate Assistance 1 Person Assistance Bedrails Sit to Supine Sit to Supine Minimal Assistance 1 Person Assistance Bedrails Scooting Scooting to Edge of Bed Minimal Assistance PT-Transfer Assessment Sit to and From Stand Sit to and from Stand Contact Guard Assistance 1 Person Assistance Equipment Transfer Assistive Device Gait Belt Front Wheeled Walker Transfers Transfer Destination Bed Comments Mobility Comments Pt returned to bed after standing at EOB due to increase in C/O pain. M5 PT-IP Objective Assessments Start: 11/20/18 11:43 Freq: NEEDED Status: Active Protocol: Document 11/20/18 11:30 RCC (Rec: 11/20/18 11:57 RCC [id number]) Orientation Orientation/Cognition Level of Alertness Lethargic Gross Range of Motion Upper Extremity ROM Assessment Right Impaired Lower Extremity ROM Assessment Right Impaired Strength Lower Extremity Strength Assessment Bilaterally Impaired Hip flexion 3/5 B Knee flexion 3+/5 and extension 3/5 B Ankle DF 4/5 B M6 PT-IP Treatment Start: 11/20/18 11:43 Freq: NEEDED Status: Active Protocol: Document 11/20/18 15:00 RCC (Rec: 11/20/18 15:36 RCC [id number]) Physical Therapy Treatment Education Education Provided Safety M7 PT-IP Assessment and Plan Start: 11/20/18 11:43 Freq: NEEDED Status: Active Protocol: Document 11/23/18 14:40 GGD (Rec: 11/23/18 15:08 GGD [id number]) PT Summary Assessment and Plan Summary Assessment Summary Pt had decrease in tolerance to mobility due to increase in pain. Pt need less assist for sit to supine and rolling to right. He would benefit from SNF to improve functional mobility. Frequency of Treatment Frequency Of Treatment Twice a Day Treatment Plan Physical Therapy Treatment Plan Bed Mobility Training Transfer Training Gait Training Therapeutic Exercise Balance Retraining Post Op Education Discharge Planning Hot or Cold Pack Neuromuscular Re-ed Other Recommendations and Next Treatment short gait with chair follow, Focus bed mobility and sit<->stand. Recommendations To Nursing Amount of Assist Needed 1 Person Assist Discharge Recommendations PT Discharge Recommendations SNF Rehab
[2018-11-23] MEDS: DEXAMETHASONE 10 MG/ML VIAL IV (14:57)
--- NOTE | 2018-11-23 15:38 | OT.IP.TRT ---
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) Radiculopathy, cervical region (11/19/18) Surgery Performed Operation Date: 11/19/18 07:45 Actual Procedures p C3-6 ACDF w/posterior instru fusion w/bone graft - Tien Stoner MD Operation Date: 11/19/18 14:15 Actual Procedures p s/p cervical fusion bleed(Not Applicable) - Tien Stoner MD Occupational Therapy Treatment Note M2 OT-IP Current Condition Start: 11/20/18 16:51 Freq: Status: Active Protocol: Document 11/20/18 16:54 [facility] (Rec: 11/20/18 17:17 [facility] [id number]) Occupational Therapy Current Condition Current Condition Evaluation Date 11/20/18 Treatment Diagnosis Cervical Stenosis Diagnosis Onset Date 11/19/18 Post Operative Precautions Cervical Spine Precautions Soft Collar for Comfort No Heavy Lifting Log Roll M3 OT- IP Subjective and Pain Start: 11/20/18 16:51 Freq: Status: Active Protocol: Document 11/23/18 15:21 [facility] (Rec: 11/23/18 15:34 [facility] [id number]) OT- Subjective Occupational Therapy Visit Type Type Treatment Note Visit Start Time 14:45 Visit Stop Time 15:00 Total Visit Minutes 15 Occupational Therapy Visit Comments Patient Comments Pt in too much pain to get up but agreeable to do cognitive assessment. OT Pain Assessment Pain When Pain Assessed At Rest Pain Present Pain Present Pain Reported M6 OT- IP Functional Cognition Start: 11/20/18 16:51 Freq: Status: Active Protocol: Document 11/23/18 15:21 [facility] (Rec: 11/23/18 15:34 [facility] [id number]) Cognitive Factors Limiting Selfcare Function Cognitive Ability Level of Alertness Alert Patient Orientation Name Year Place Situation Attention Span Ability Capable of Focused Attention Capable of Sustained Attention Ability to Follow Commands Able to Follow Multi-Step Commands Memory Description Short Term Impaired Cognitive Tests SLUMS Pt scored 21/30 normal is 27/ 30 , pt's score implies cognitive deficits. Pt feeling like he has trouble initiating his thoughts. Pt mainly has difficulty with short term memory, simple two digit calculations,being able to recall an many animals in one minutes, and did not recall what day of the week it is. Cognitive Comments Cognitive Assessment Comments Pt now realizing will need to go to rehab prior to going home. Pt more alert today and able to follow multi-step commands today. M7 OT- IP Mobility and Balance Start: 11/20/18 16:51 Freq: Status: Active Protocol: Document 11/22/18 09:13 [facility] (Rec: 11/22/18 09:24 [facility] [id number]) OT- Bed Mobility Assessment Rolling Type of Rolling Roll to Right Level of Assistance Maximum Assistance 1 Person Assistance Supine to Sit Supine to Sit Assist Maximum Assistance 1 Person Assistance OT-Transfer Assessment Sit to and From Stand Sit to and from Stand Moderate Assistance 1 Person Assistance Comments Mobility Comments Pt not wanting to walk to the recliner and stating increased head/neck ache and wanting to lie back donw. Pt able to take a few side steps to the head of the bed. BP supine 140 /56, after standing 149/100, and after lying back down 135/ 71 o2 on 2L 94%. OT- Balance Assessment Sitting Balance and Reactions Static Sitting Balance Ability Good Dynamic Sitting Balance Ability Fair Standing Balance and Reactions Static Standing Balance Ability Poor Dynamic Standing Balance Ability Poor M8 OT- IP Objective Assessments Start: 11/20/18 16:51 Freq: Status: Active Protocol: Document 11/20/18 16:54 [facility] (Rec: 11/20/18 17:17 [facility] [id number]) OT Gross Range of Motion Upper Extremity Range of Motion Assessment Right Impaired OT Strength Comments 11/23/18 Strength Comments Pt 3/5 deltoids, biceps 2/5, wrist and fingers 3-/5. Pt now able to raise arm with RUE extended in supine 0-45. OT-Muscle Tone Assessment Muscle Tone WNL Comments Muscle Tone Comments Hypotonicity M9 OT- IP Assessment and Plan Start: 11/20/18 16:51 Freq: Status: Active Protocol: Document 11/22/18 09:13 [facility] (Rec: 11/22/18 09:24 [facility] [id number]) OT Summary Assessment and Plan Potential Rehabilitation Potential Good Analytic Complexity at Evaluation Low Summary OT Impairments Pain Strength Balance Coordination Tone Functional Cognition Functional Mobility Self-Feeding Grooming Dressing Toileting Bathing Toilet Transfers Shower Transfers Progress Towards Goals Slow Progress due to Pain Slow Progress due to Medical Issues Slow Progress due to Activity Tolerance Slow Progress due to Cognition Assessment Summary Pt will need to go to skilled rehab prior to going home. Currently having difficulty swallowing and still needing one person assist for Adl and mobility needs. Goals Self-Feeding Goal Standby Assistance Grooming Goal Standby Assistance Dressing Goal Minimal Assistance Toileting Goal Minimal Assistance Bathing Goal Moderate Assistance Toilet Transfer Goal Minimal Assistance Shower Transfer Goal Minimal Assistance OT-Other Goals Pt to be able to incorporate use of RUE for all ADl and functional mobility needs. Pt to be able to do SROM for RUE with good safety and understanding. Days to Meet Goals 5 Frequency of Treatment Frequency Of Treatment Once a Day Treatment Plan OT Treatment Plan ADL Training Functional Cognition Training Functional Mobility Therapeutic Exercises Patient/Family Education Discharge Planning Other Treatment Recommendations and Next Transfer to [facility] x1 with Treatment Focus FWW and Larry of rRUE control. Discharge Recommendations OT Discharge Recommendations SNF Rehab
--- NOTE | 2018-11-23 17:59 | PM.PN.1 ---
Subjective Date Patient Seen: 11/23/18 Interval history: The patient continues to report pain. He failed his swallow evaluation this morning. The patient was unable to know whether ice was cold. He is on a clear liquid diet. He has significant swelling in the oral phase which may be impairing his ability to swallow. Blood sugars have been on the low side. His insulin has been adjusted. Exam Vital Signs (past 8 hours): - 11/23/18 12:00 11/23/18 13:54 11/23/18 15:05 Temperature 97.7 F Pulse Rate 72 Respiratory Rate 18 Blood Pressure 122/44 L Pulse Oximetry 96 89 L 95 11/23/18 15:20 Temperature 97.7 F Pulse Rate Respiratory Rate 18 Blood Pressure 136/64 Pulse Oximetry 94 Fraction of Inspired Oxygen 24 Oxygen Delivery Method Room Air Oxygen Flow Rate 1 Narrative Exam Narrative: Ill appearing gentleman who does not appear to be confused Lungs: Decreased breath sound with scattered rhonchi bilaterally Cardiac exam: Irregularly irregular normal S1-S2 with a 4/6 blowing systolic ejection murmur Abdomen: Soft nontender nondistended Extremities: No edema Neck: Neck brace in place Objective Labs Result Diagrams: 11/23/18 05:34 11/23/18 05:34 Labs: Laboratory Results - last 24 hr 11/22/18 11/22/18 11/23/18 19:07 19:07 05:34 WBC 8.5 6.9 RBC 3.60 L 3.21 L Hgb 11.3 L 10.2 L Hct 34.4 L 30.9 L MCV 95.6 96.2 MCH 31.5 31.6 MCHC 32.9 32.9 RDW 14.5 14.2 Plt Count 219 193 Neut % (Auto) 81.9 H 73.6 Lymph % (Auto) 8.3 L 15.2 L [place] % (Auto) 6.9 8.1 Eos % (Auto) 2.1 1.7 L Baso % (Auto) 0.8 1.4 Neut # (Auto) 7000 5100 Lymph # (Auto) 700 L 1100 [place] # (Auto) 600 600 Eos # (Auto) 200 100 Baso # (Auto) 100 100 Sodium 137 Potassium 4.2 Chloride 99 Carbon Dioxide 33 H BUN 21 H Creatinine 1.20 Estimated GFR 57.8 L BUN/Creatinine Ratio 17.5 Glucose 105 Calcium 8.9 Total Bilirubin 0.8 AST 18 ALT 19 L Alkaline Phosphatase 42 B-Natriuretic Peptide 173 H Total Protein 6.1 L Albumin 3.3 L Globulin 2.8 Albumin/Globulin Ratio 1.2 11/23/18 05:34 WBC RBC Hgb Hct MCV MCH MCHC RDW Plt Count Neut % (Auto) Lymph % (Auto) [place] % (Auto) Eos % (Auto) Baso % (Auto) Neut # (Auto) Lymph # (Auto) [place] # (Auto) Eos # (Auto) Baso # (Auto) Sodium 137 Potassium 4.2 Chloride 99 Carbon Dioxide 32 BUN 23 H Creatinine 1.20 Estimated GFR 57.8 L BUN/Creatinine Ratio 19.2 Glucose 112 H Calcium 8.3 L Total Bilirubin AST ALT Alkaline Phosphatase B-Natriuretic Peptide Total Protein Albumin Globulin Albumin/Globulin Ratio Assessment & Plan Assessment Narrative: 1. Probable aspiration pneumonia, acute 2. Hypoxic respiratory failure, acute likely secondary to aspiration pneumonia 3. Type 2 diabetes, chronic 4. Hypoglycemia, secondary to insulin and poor oral intake 5. Dysphagia, acute likely related to swelling from his surgical procedure 5. COPD, chronic 6. Hypertension, chronic 7. Hyperlipidemia, chronic 8. Congestive heart failure, chronic Plan Narrative: Patient will continue Unasyn for probable aspiration pneumonia. As his oral intake is very limited will start on IV hydration patient has received Decadron hopefully to help with swelling. Will continue speech evaluation for upgrading his diet. His insulin has been decreased. He will be getting IV fluids with D5 as well to ensure no further hypoglycemia. Will obtain a BNP in the morning. Will follow him closely to rule out heart failure. All oral medications will be switched to IV until his swallowing function has improved. If swallowing does not improve over the next few days will consider TPN. Quality VTE Deep Vein Thrombosis/Pulmonary Embolism Present on Admission: No
[2018-11-23] MEDS: HYDROMORPHONE 0.5 MG INJ IV (18:02)
[2018-11-23] MEDS: DEXTROSE 5%-0.45NS W/KCL 20MEQ 1,000 ML 84 MEQ IV (18:26)
[2018-11-23] MEDS: DEXAMETHASONE 4 MG/ML VIAL IV (20:21)
[2018-11-23] MEDS: INSULIN GLARGINE 100 UNIT/ML 3ML PEN 30 UNIT SUBCUT (20:23)
--- NOTE | 2018-11-23 21:45 | PC.NURSE ---
pt resting in bed. npo but can have ice chips which he has tolerated well. No complaints of feeling throat is swelling. soft collar in place, anterior drsg cdi, posterior drsg with moderate old drainage. 3L mid 90s. pt has been a&o, calm and cooperative.
[2018-11-24] VITALS (8 sets, daily range): BP systolic 133–164; BP diastolic 60–84; PULSE 67–87; RESP 16–20; TEMP 36.2–37.2; O2SAT 90–97
[2018-11-24] MEDS: HYDROMORPHONE 0.5 MG INJ IV (01:04)
[2018-11-24] MEDS: AMPICILLIN/SULBACTAM 3 GM 3 GM in SODIUM CHLORIDE 0.9% 100 ML IV ×3 (01:07→18:52)
[2018-11-24] MEDS: DEXAMETHASONE 4 MG/ML VIAL IV ×2 (01:07→09:43)
--- NOTE | 2018-11-24 03:44 | PC.NURSE ---
Academic Coach Note: 0000: Awake, resting in bed. Vital signs stable. IV in place in lt forearm, with D5 1/2NS/KCL infusing at 84cc/hr. Dressings to anterior and posterior neck are intact. Pt has taken off the soft cervical collar; advised pt to keep collar on: collar put back on at this time. Pt also took off the nasal cannula; this also replaced due to low O2 sat. O2 sat 91% with O2 on. 0105: Pt having pain in neck. Medicated with Dilaudid 0.5mg IV. 0130: Pt Awake, attempting to get out of bed, has cervical collar off and O2 off. He asks how did we get on this airplane?. Pt re-oriented to place and time, and verbalizes recognition of his surroundings. Assisted back into bed with cervical collar replaced. and O2 on. Assisted to reposition. Pt said I just want to know one thing- how did you get on this plane? 0200: Pt continues to need re-orienting to place and time.
[2018-11-24 05:22] LABS: Add Manual Diff / Slide Review NO; Basophils Absolute Auto 0 /uL (0-100); Basophils Percent Auto 0.5 % (0-2); Eosinophils Absolute Auto 0 /uL (0-450); Hematocrit 34.4 % (41-53); Hemoglobin 11.8 g/dL (13.5-17.5); Lymphocytes Absolute Auto 500 /uL (1100-4500); Lymphocytes Percent Auto 10.3 % (25-40); Mean Corpuscular HGB Conc 34.3 % (30-36); Mean Corpuscular Hemoglobin 31.6 PG (26-34); Mean Corpuscular Volume 92.1 fL (80-100); Monocytes Absolute Auto 200 /uL (0-900); Monocytes Percent Auto 3.3 % (3-14); Neutrophils Absolute Auto 4400 /uL (1500-7000); Neutrophils Percent Auto 85.9 % (50-75); Platelet Count 242 X10^3/uL (150-400); Red Blood Cell Count 3.73 X10^6/uL (4.5-5.9); Red Cell Distribution Width 14.2 % (11.6-14.8); White Blood Cell Count 5.1 X10^3/uL (4.5-11.0)
[2018-11-24 05:33] LABS: Blood Urea Nitrogen 30 mg/dL (9-20); Calcium 8.9 mg/dL (8.4-10.2); Carbon Dioxide 28 mmol/L (22-32); Chloride 101 mmol/L (98-107); Estimated Glomerular Filt Rate > 60.0 mL/min (>60); Glucose 262 mg/dL (80-110); HEMOLYSIS < 15 (0-50); Potassium 4.7 mmol/L (3.4-5.1); Sodium 139 mmol/L (137-145)
[2018-11-24 06:07] LABS: B Type Natriuretic Peptide 1250 (<100)
--- NOTE | 2018-11-24 08:03 | P.PN_ITS ---
Subjective Date Patient Seen: 11/24/18 Time Patient Seen: 08:01 Interval history: Still has pain at the base of the neck. Right arm is still weak. Per nursing, he was hallucinating after he received IV Dilaudid. He feels like he is better now and feels like the steroids have made a big d ifference in his swallowing. Exam Vital Signs (past 8 hours): - 11/24/18 05:25 Temperature 99.0 F Pulse Rate 67 Respiratory Rate 18 Blood Pressure 133/60 Pulse Oximetry 96 Fraction of Inspired Oxygen 24 Oxygen Delivery Method Nasal Cannula Oxygen Flow Rate 5 Back/Spine/Pelvis Other: Anterior dressing clean dry intact. Mild dry drainage on posterior dressing. 5/5 motor both upper extremities except for 2/5 right biceps and 4/5 right d eltoid Objective Labs Result Diagrams: 11/24/18 04:57 11/24/18 04:57 Labs: Laboratory Results - last 24 hr 11/24/18 11/24/18 04:57 04:57 WBC 5.1 RBC 3.73 L Hgb 11.8 L Hct 34.4 L MCV 92.1 D MCH 31.6 MCHC 34.3 RDW 14.2 Plt Count 242 Neut % (Auto) 85.9 H Lymph % (Auto) 10.3 L Meade % (Auto) 3.3 Eos % (Auto) 0.0 L Baso % (Auto) 0.5 Neut # (Auto) 4400 Lymph # (Auto) 500 L [place] # (Auto) 200 Eos # (Auto) 0 Baso # (Auto) 0 Sodium 139 Potassium 4.7 Chloride 101 Carbon Dioxide 28 BUN 30 H Creatinine 1.00 Estimated GFR > 60.0 BUN/Creatinine Ratio 30.0 H Glucose 262 H D Calcium 8.9 B-Natriuretic Peptide 1250 H Assessment & Plan Post-op Postoperative Procedures Operation Date: 11/19/18 07:45 Actual Procedures Side Surgeon p C3-6 ACDF w/posterior instru fusion w/bone graft Tien Stoner MD 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 As his deltoid is getting stronger, less likely from the actual C5 itself. I explained to him that this should resolve over time but may take several months. Stop the IV Dilaudid. Try IV Tylenol. Re-evaluate with speech therapy to see if he can start taking p.o. medication today since he feels like he can't swallow better after the steroids. Operation Date: 11/19/18 14:15 Actual Procedures Side Surgeon p s/p cervical fusion bleed Not Applicable Tien Stoner MD Quality VTE Deep Vein Thrombosis/Pulmonary Embolism Present on Admission: No
[2018-11-24] MEDS: ACETAMINOPHEN 325 MG TABLET 650 MG PO (10:12)
--- NOTE | 2018-11-24 10:40 | DI.RAD.S_ITS ---
PROCEDURE: FL BARIUM SWALLOW W SPEECH INDICATIONS: difficulty swallowing TECHNIQUE: Examination was conducted in conjunction with speech pathology per standard protocol. In the lateral projection, filming was performed of the patient swallowing. AP projection filming may also be performed with patient swallowing. COMPARISON: None. FINDINGS: Function: The oral preparatory phase appears normal, with proper containment. The subsequent oral propulsive phase appeared normal. Epiglottic tilt, however,. Restricted, and overflow penetration of both thin and nectar thick liquids was observed several episodes of mild aspiration into the upper tracheal airway which cleared with coughing. There is pathologic vallecular pooling is a portion of the findings leading to penetration and aspiration at this time. Morphology: No cricopharyngeal bar is identified. No cervical esophageal webs. No Zenker's diverticulum. No strictures. IMPRESSION: Abnormal penetration and aspiration observed, with both thin and nectar thick liquids, with visualized absence of normal epiglottic tilt and pathologic vallecular pooling with overflow. Coughing cleared the aspiration, which was immediately identified. Please also refer to the dedicated speech therapy report which will be independently generated. Dictated by: Pipo Crenshaw M.D. on 11/24/2018 at 16:24 Approved by: Pipo Crenshaw M.D. on 11/24/2018 at 16:26
--- NOTE | 2018-11-24 11:55 | PT.IPTN ---
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) Radiculopathy, cervical region (11/19/18) Surgery Performed Operation Date: 11/19/18 07:45 Actual Procedures p C3-6 ACDF w/posterior instru fusion w/bone graft - Tien Stoner MD Operation Date: 11/19/18 14:15 Actual Procedures p s/p cervical fusion bleed(Not Applicable) - Tien Stoner MD Physical Therapy Treatment Note M2 PT-IP Current Condition Start: 11/20/18 11:43 Freq: NEEDED Status: Active Protocol: Document 11/20/18 11:30 RCC (Rec: 11/20/18 11:57 RCC [id number]) Physical Therapy Current Condition Current Condition Evaluation Date 11/20/18 Treatment Diagnosis C3-6 ACDF w/ post. instrumentation11/19/18, impaired mobility and strength Precautions Cervical Spine Precautions Soft Collar for Comfort No Heavy Lifting Log Roll M3 PT-IP Subjective Start: 11/20/18 11:43 Freq: NEEDED Status: Active Protocol: Document 11/24/18 11:55 GGD (Rec: 11/24/18 12:46 GGD [id number]) Subjective Physical Therapy Visit Type Type Treatment Note Visit Start Time 11:30 Visit Stop Time 11:55 Total Visit Minutes 25 Number of ENGLISH LANGUAGE LEARNER TUTOR Visits 3 Therapy Pain Assessment Pain When Pain Assessed At Rest Pain Present Pain Present Denied Pain M4 PT-IP Mobility and Gait Start: 11/20/18 11:43 Freq: NEEDED Status: Active Protocol: Document 11/24/18 11:55 GGD (Rec: 11/24/18 12:46 GGD [id number]) PT-Transfer Assessment Sit to and From Stand Sit to and from Stand Contact Guard Assistance 1 Person Assistance Equipment Transfer Assistive Device Gait Belt Front Wheeled Walker Transfers Transfer Destination Chair Gait Assessment Gait Gait Assistance Required: Contact Guard Assist 1 Person Assist Distance (Feet) 100 Assistive Devices Assistive Device Gait Belt Front Wheeled Walker Gait Deviations General Gait Pattern Decreased Stride Length Decreased Feet Clearance Flexed Trunk Step-to Gait Wide Based Gait Factors Limiting Gait Function Factors Limiting Gait Function Decreased Activity Tolerance Decreased Sensation Difficulty Following Directions Limited Range of Motion Pain Poor Balance Poor Safety Awareness M5 PT-IP Objective Assessments Start: 11/20/18 11:43 Freq: NEEDED Status: Active Protocol: Document 11/20/18 11:30 RCC (Rec: 11/20/18 11:57 RCC [id number]) Orientation Orientation/Cognition Level of Alertness Lethargic Gross Range of Motion Upper Extremity ROM Assessment Right Impaired Lower Extremity ROM Assessment Right Impaired Strength Lower Extremity Strength Assessment Bilaterally Impaired Hip flexion 3/5 B Knee flexion 3+/5 and extension 3/5 B Ankle DF 4/5 B M6 PT-IP Treatment Start: 11/20/18 11:43 Freq: NEEDED Status: Active Protocol: Document 11/20/18 15:00 RCC (Rec: 11/20/18 15:36 RCC [id number]) Physical Therapy Treatment Education Education Provided Safety M7 PT-IP Assessment and Plan Start: 11/20/18 11:43 Freq: NEEDED Status: Active Protocol: Document 11/24/18 11:55 GGD (Rec: 11/24/18 12:46 GGD [id number]) PT Summary Assessment and Plan Summary Assessment Summary Pt able to progress gait distance. He need mod cues for staying close to FWW. He improving slowly with mobility . He would benefit from SNF for improvement in functional mobility. Frequency of Treatment Frequency Of Treatment Twice a Day Treatment Plan Physical Therapy Treatment Plan Bed Mobility Training Transfer Training Gait Training Therapeutic Exercise Balance Retraining Post Op Education Discharge Planning Hot or Cold Pack Neuromuscular Re-ed Other Recommendations and Next Treatment short gait with chair follow, Focus bed mobility and sit<->stand. Recommendations To Nursing Amount of Assist Needed 1 Person Assist Discharge Recommendations PT Discharge Recommendations SNF Rehab
--- NOTE | 2018-11-24 11:55 | OT.IP.TRT ---
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) Radiculopathy, cervical region (11/19/18) Surgery Performed Operation Date: 11/19/18 07:45 Actual Procedures p C3-6 ACDF w/posterior instru fusion w/bone graft - Tien Stoner MD Operation Date: 11/19/18 14:15 Actual Procedures p s/p cervical fusion bleed(Not Applicable) - Tien Stoner MD Occupational Therapy Treatment Note M2 OT-IP Current Condition Start: 11/20/18 16:51 Freq: Status: Active Protocol: Document 11/20/18 16:54 [facility] (Rec: 11/20/18 17:17 [facility] [id number]) Occupational Therapy Current Condition Current Condition Evaluation Date 11/20/18 Treatment Diagnosis Cervical Stenosis Diagnosis Onset Date 11/19/18 Post Operative Precautions Cervical Spine Precautions Soft Collar for Comfort No Heavy Lifting Log Roll M3 OT- IP Subjective and Pain Start: 11/20/18 16:51 Freq: Status: Active Protocol: Document 11/24/18 11:43 [facility] (Rec: 11/24/18 11:55 [facility] [id number]) OT- Subjective Occupational Therapy Visit Type Type Treatment Note Visit Start Time 10:45 Visit Stop Time 11:00 Total Visit Minutes 15 Occupational Therapy Visit Comments Patient Comments Pt just being assisted by nursing to be placed back in bed as just used the commode. Therefore assist to help pt slide up/position in bed. Noted pt's soft collar loose and upside down, able to assist pt to put on soft collar properly. OT Pain Assessment Pain When Pain Assessed At Rest Pain Present Pain Present Denied Pain M6 OT- IP Functional Cognition Start: 11/20/18 16:51 Freq: Status: Active Protocol: Document 11/24/18 11:43 [facility] (Rec: 11/24/18 11:55 [facility] [id number]) Cognitive Factors Limiting Selfcare Function Cognitive Ability Level of Alertness Alert Patient Orientation Name Year Place Situation Attention Span Ability Capable of Focused Attention Capable of Sustained Attention Ability to Follow Commands Able to Follow One Step Commands Memory Description Short Term Impaired Safety Awareness Underestimates Need for Assistance Cognitive Comments Cognitive Assessment Comments Pt able to follow commands for AAROm , and AROM for RUE to help improve functional movement. M8 OT- IP Objective Assessments Start: 11/20/18 16:51 Freq: Status: Active Protocol: Document 11/24/18 11:43 [facility] (Rec: 11/24/18 11:55 [facility] [id number]) OT Strength Comments Strength Comments Biceps 2/5, Shoulder flexion 3 -/5 , elbow extensors, wrist and finger flexion 3+/5 OT-Muscle Tone Assessment Comments Muscle Tone Comments Tightness in internal rotators of RUE, able to do gentle stretching to help increase AROM. M9 OT- IP Assessment and Plan Start: 11/20/18 16:51 Freq: Status: Active Protocol: Document 11/24/18 11:43 [facility] (Rec: 11/24/18 11:55 [facility] [id number]) OT Summary Assessment and Plan Potential Rehabilitation Potential Good Analytic Complexity at Evaluation Low Summary OT Impairments Pain Strength Balance Coordination Functional Cognition Functional Mobility Self-Feeding Grooming Dressing Toileting Bathing Toilet Transfers Shower Transfers Progress Towards Goals Slow Progress due to Medical Issues Slow Progress due to Cognition Assessment Summary Noted improvement with RUE for strength and taught pt how to do SROM and AROm to help increase function for RUE. Pt still looking to go to skilled rehab when medically stable. Goals Self-Feeding Goal Standby Assistance Grooming Goal Standby Assistance Dressing Goal Minimal Assistance Toileting Goal Minimal Assistance Bathing Goal Moderate Assistance Toilet Transfer Goal Minimal Assistance Shower Transfer Goal Minimal Assistance OT-Other Goals Pt to be able to incorporate use of RUE for all ADl and functional mobility needs. Pt to be able to do SROM for RUE with good safety and understanding. Days to Meet Goals 3 Frequency of Treatment Frequency Of Treatment Once a Day Treatment Plan OT Treatment Plan ADL Training Functional Cognition Training Functional Mobility Therapeutic Exercises Patient/Family Education Discharge Planning Other Treatment Recommendations and Next Pt to be able to walk with FWW Treatment Focus and CGA and able to do all toileting needs with SBA, Discharge Recommendations OT Discharge Recommendations SNF Rehab
[2018-11-24] MEDS: INSULIN ASPART 100 UNIT/ML 10ML VIAL SUBCUT (12:36)
--- NOTE | 2018-11-24 12:41 | ST.IPDYTX ---
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 He was agreeable to sitting up and an assessment of his swallowing. Nursing reported that the pt received IV steroids last night. Pt said his swallowing was better. he thought his voice was still hoarse and not back to normal. Treatment Liquids Trialed Ice Chips Thin Solids Trialed Puree Administration Type Tea Spoon Cup Single Sip Self-Feeding Oral Strategies Upright at 90 degrees Controlled Bite/Sip Size Pharyngeal Strategies Sitting Upright (90 deg) Small Bites and Sips Treatment Activities Pt indicated that his swallow was better but continued to note the hoarseness in his voice. When asked to say ah loudly the pt's voice remained hoarse, but appeared to be more clear today. Trials of ice chips and thin liquids were provided. Pt appeared to swallow without overt s/sx of aspiration. well as The pt noted his swallow was better/easier today. Thin liquid (iced water) via spoon and controlled cup sip were trialed. Applesauce trial with spoon was swallowed without difficulty or overt s/ sx aspiration. PO medication with Tylenol tablet resulted in swallowing; however the pt c/o the pill stuck in his throat. Liquid wash was not effective in dislodging the pill. Applesauce x3 teaspoons was not effective in dislodging. Pt continued to c/ o something stuck. Oral motor exam indicated structures WFL for form/ function. Posterior pharyngeal wall stimulation with toothette (sponge and stick ends) did not elicit gag reflex. Pt was able to feel the sponge and stick on the posterior pharyngeal wall as well as other areas of the mouth. Pt said I just don't have a gag, never have. Given the difficulty with dislodging the pill within the pharynx, and hx, aspiration pneumonia, and probable swelling of the pharynx secondary to surgical intervention, an MBS is recommended to r/o silent aspiration/ pharyngeal dysphagia. PO intake can resume with puree texture and thin liquids and medications crushed in a carrier. Assessment Patient Response to Treatment Fair Rehab Potential Good Diet Recommendations Recommendations Upgrade Diet Order Liquids Order Thin Diet Order Dysphagia Blenderized Medication Recommendations Crushed in Carrier Additional Dietary Needs No Straws 1:1 Supervision Aspiration Precautions Recommended Precautions Upright at 90 Degrees Small Bites/Sips Chin Tuck Liquids from Cup Additional Precautions Second swallow as needed Treatment Plan Placement Recommendation after Discharge [facility]dc Facility Appropriate for Continued Therapy Yes Therapy Recommendations Continue training of compensatory swallow strategies. Continue assessment of swallow function/safety with upgrade in diet as tolerated by pt. Recommend MBS Dysphagia Goals The patient will demonstrate the ability to adequately self -monitor swallowing skills and perform appropriate compensatory techniques to consume a regular diet safely and reduce s/s of aspiration.
--- NOTE | 2018-11-24 14:59 | PT.IPTN ---
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) Radiculopathy, cervical region (11/19/18) Surgery Performed Operation Date: 11/19/18 07:45 Actual Procedures p C3-6 ACDF w/posterior instru fusion w/bone graft - Tien Stoner MD Operation Date: 11/19/18 14:15 Actual Procedures p s/p cervical fusion bleed(Not Applicable) - Tien Stoner MD Physical Therapy Treatment Note M2 PT-IP Current Condition Start: 11/20/18 11:43 Freq: NEEDED Status: Active Protocol: Document 11/20/18 11:30 RCC (Rec: 11/20/18 11:57 RCC [id number]) Physical Therapy Current Condition Current Condition Evaluation Date 11/20/18 Treatment Diagnosis C3-6 ACDF w/ post. instrumentation11/19/18, impaired mobility and strength Precautions Cervical Spine Precautions Soft Collar for Comfort No Heavy Lifting Log Roll M3 PT-IP Subjective Start: 11/20/18 11:43 Freq: NEEDED Status: Active Protocol: Document 11/24/18 14:58 GGD (Rec: 11/24/18 14:59 GGD [id number]) Subjective Physical Therapy Visit Type Type Patient Unavailable Notes Pt out of room for mopdified barium swallow. Will see in AM nd. Recommendations To Nursing Amount of Assist Needed 1 Person Assist Discharge Recommendations PT Discharge Recommendations SNF Rehab
--- NOTE | 2018-11-24 16:01 | ST.SWALLOW ---
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 Stoner Reason for Referral Assessment for silent aspiration Setting Setting Acute Care Patient Information Identification Type Name ID Wristband Subjective Observations The pt was ambulated in [facility] chair to radiology. He was wearing a soft neck collar, which remained in place throughout the procedure, and breathing room air. He recognized the AIRPLANE COVER MAKER and was aware of and in agreement with the procedure. When asked about his swallow ability, he remarked it was improving, that he had no problem swallowing liquids, foods and pills. He did not recall difficulty swallowing his pill earlier today during dysphagia treatment. Patient Positioning Position View Lateral Imaging Lateral View Textures Administered Trials Presented Thin Liquid via Spoon Thin Liquid via Cup [place] Liquid via Spoon Oral Phase Source: MBSIMP (TM) (C) Bolus Specific Scoring Grid Lip Closure No Impairment (WNL) Tongue Control During Bolus Hold Mild Impairment Bolus Prep/Mastication Mild Impairment Bolus Transport/Lingual Motion Mild Impairment A/P Lingual Propulsion Delay Yes: 2-5 sec with frequent lingual rocking Oral Residue Mild Impairment Residue Clearing Mild Impairment Nasal Regurgitation No Pharyngeal Phase Source: MBSIMP (TM) (C) Bolus Specific Scoring Grid Delayed Initiation of Pharyngeal Swallow Yes: up to 4 sec Soft Palate Elevation No Impairment (WNL) Tongue Base Strength/Range of Motion Mild Impairment Clearance of Residue Along Tongue Base Mild Impairment Laryngeal Elevation Moderate Impairment Anterior Hyoid Movement Moderate Impairment Epiglottic Range of Motion Severe Impairment Vallecular Residue Yes: Consistent, significant w / all trials d/t poor epiglottic movement Clearance of Vallecular Residue Severe Impairment Laryngeal Vestibular Closure Moderate Impairment Pharyngeal Stripping Wave Moderate Impairment Posterior Pharyngeal Wall Residue No Upper Esophageal Sphincter Opening Moderate Impairment Residue in the Pyriform Sinuses Yes: Requires multiple swallows to clear; penetration of residue Clearance of Residue in the Pyriform Mild Impairment Sinuses Pharyngoesophageal Backflow Observed No A/P View Clinical Impressions Dysphagia Type Mild Oral and Moderate-Severe Pharyngeal Dysphgia. Findings Oral Dysphagia secondary to mild lingual weakness, likely impacted by pharyngeal deficits. Pharyngeal Dysphagia secondary to: 1. Post-surgical swelling prohibiting epiglottic inversion and reducing pharyngeal stripping wave and UES opening resulting in copious pharyngeal residue; 2. Reduced hyolaryngeal elevation and excursion resulting in incomplete closure of laryngeal vestibule and subsequent aspiration of thin liquids and penetration of thin and nectar-thick liquid boluses and pharyngeal residue; 3. Reduced sensation in laryngeal vestibule resulting in reduced or absent cough reflex and therefore silent nature of aspiration/ penetration. Trials were limited to thin and nectar-thick liquid d/t pt 's difficulty to clear these viscosities from pharynx. Assessed pt's swallow with chin tuck within range allowed by soft collar, with super- supraglottic swallow, and with combination of the two. No significant benefit was observed from use of compensatory strategies. Frequent penetration of pharyngeal residue was observed during swallows subsequent to initial bolus swallow. The pt exhibited minimal cough reflex throughout the study and only after significant delay. Coughs produced with clinician prompts were inconsistently effective in clearing substances that penetrated to level of the vocal folds, although aspiration beyond VFs was observed only once. After 3rd tsp trial, the pt was asked to cough as hard as you can and did expel moderate amount of barium contrast. The pt is at very high risk of aspiration and is not safe for P.O. intake at this time. Discussed results and recommendations with the pt, his nurse, and with Dr. Stoner. Pt verbalized understanding and agreement with NPO recommendation. Anticipate initiation of TPN to meet nutrition and hydration needs. Rehabilitation Potential Fair Patient Appropriate for Therapy Yes Recommendations Diet Liquids Order NPO Treatment Plan Additional Therapy Recommendations Ongoing assessment of swallow safety w/ education & strategy training Short Term Goals Pt will demonstrate swallow ability to safely resume oral intake. Chairman Goals Pt will demonstrate safe tolerance of least restricted diet to meet his nutrition and hydration needs. Placement Recommendation After Discharge Fdc Facility
--- NOTE | 2018-11-24 16:56 | PT.IPTN ---
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) Radiculopathy, cervical region (11/19/18) Surgery Performed Operation Date: 11/19/18 07:45 Actual Procedures p C3-6 ACDF w/posterior instru fusion w/bone graft - Tien Stoner MD Operation Date: 11/19/18 14:15 Actual Procedures p s/p cervical fusion bleed(Not Applicable) - Tien Stoner MD Physical Therapy Treatment Note M2 PT-IP Current Condition Start: 11/20/18 11:43 Freq: NEEDED Status: Active Protocol: Document 11/20/18 11:30 RCC (Rec: 11/20/18 11:57 RCC [id number]) Physical Therapy Current Condition Current Condition Evaluation Date 11/20/18 Treatment Diagnosis C3-6 ACDF w/ post. instrumentation11/19/18, impaired mobility and strength Precautions Cervical Spine Precautions Soft Collar for Comfort No Heavy Lifting Log Roll M3 PT-IP Subjective Start: 11/20/18 11:43 Freq: NEEDED Status: Active Protocol: Document 11/24/18 16:55 AB (Rec: 11/24/18 16:56 AB [id number]) Subjective Physical Therapy Visit Type Type Patient Refusal Notes checked on pt again this pm for PT tx session. pt refused PT. stated that he is discharging tomorrow and does not see any need to do PT.
--- NOTE | 2018-11-24 18:11 | P.PN_ITS ---
Subjective Date Patient Seen: 11/24/18 Interval history: Patient continues to report significant pain. He underwent a modified barium swallow study today and which demonstrated silent aspiration. Although the patient felt like he was swallowing he was unaware that he was actually aspirating. He has since been made NPO. PICC line will be placed today. Patient will be started on TPN until his aspiration has resolved. In addition he is on IV Decadron to decrease swelling in the cervical area and hopes that he will gain improved function of his swallowing abilities. Exam Vital Signs (past 8 hours): - 11/24/18 11:00 11/24/18 15:45 Temperature 97.5 F L 97.9 F Pulse Rate 76 87 Respiratory Rate 18 20 Blood Pressure 145/70 H 135/84 Pulse Oximetry 90 L 95 Fraction of Inspired Oxygen 21 Oxygen Delivery Method Room Air Oxygen Flow Rate 0 Narrative Exam Narrative: Ill appearing gentleman confused who reports pain Lungs: Clear to auscultation but decreased bilateral Cardiac exam: Regular rate and rhythm normal S1 and S2 with a 2/6 systolic ejec tion murmur Abdomen: Soft nontender nondistended Extremities: Trace edema Objective Labs Result Diagrams: 11/24/18 04:57 11/24/18 04:57 Labs: Laboratory Results - last 24 hr 11/24/18 11/24/18 04:57 04:57 WBC 5.1 RBC 3.73 L Hgb 11.8 L Hct 34.4 L MCV 92.1 D MCH 31.6 MCHC 34.3 RDW 14.2 Plt Count 242 Neut % (Auto) 85.9 H Lymph % (Auto) 10.3 L Harding % (Auto) 3.3 Eos % (Auto) 0.0 L Baso % (Auto) 0.5 Neut # (Auto) 4400 Lymph # (Auto) 500 L Harding # (Auto) 200 Eos # (Auto) 0 Baso # (Auto) 0 Sodium 139 Potassium 4.7 Chloride 101 Carbon Dioxide 28 BUN 30 H Creatinine 1.00 Estimated GFR > 60.0 BUN/Creatinine Ratio 30.0 H Glucose 262 H D Calcium 8.9 B-Natriuretic Peptide 1250 H Assessment & Plan Assessment & Plan narrative: Acute hypoxic respiratory failure Aspiration pneumonia, document and silent aspiration on modified barium swallow today. Type 2 diabetes hyperglycemia likely secondary to steroid Dysphagia, status post cervical resection Hypertension Hyperlipidemia Patient will be placed on TPN. The IV hydration will be discontinued. Id 10 units of insulin added to the TPN. Will stop his 30 units at night. Will adjust insulin in the TPN. Will continue antibiotics given his aspiration. Anticipate repeat modified barium swallow in a few days. Quality VTE Deep Vein Thrombosis/Pulmonary Embolism Present on Admission: No
--- NOTE | 2018-11-24 18:22 | DI.RAD.S_ITS ---
PROCEDURE: XR CHEST FOR PICC 1V INDICATIONS: line placement COMPARISON: [facility], CR, XR CHEST 1V, 11/22/2018, 13:17. FINDINGS: PICC was placed by the intravenous therapy team from the left side. Fluoroscopic spot film demonstrates tip of PICC in the SVC. Increased opacity in right infrahilar region is again seen suggestive of right lower lobe infiltrate. No pleural effusion or pneumothorax. IMPRESSION: Tip of PICC lies within the SVC.. Dictated by: Kai Dugan M.D. on 11/24/2018 at 19:01 Approved by: Kai Dugan M.D. on 11/24/2018 at 19:02
[2018-11-24] MEDS: INSULIN ASPART 100 UNIT/ML INSULN PEN SUBCUT (18:50)
[2018-11-24] MEDS: AA 5 %/CALCIUM/LYTES/DEXT 20 % 2,000 ML with MULTIVITAMIN 10 ML, TRACE ELEMENTS 1 ML, I... 83.796 ML IV (19:21)
[2018-11-24] MEDS: FAT EMULSIONS 50 GM/250 ML EMULSION IV (19:22)
--- NOTE | 2018-11-24 23:09 | PC.NURSE ---
Pt confused. attempted to get out of bed several times. pt had a PICC put on around 0600. Pt pulled out his PICC at around 0930. TPN and Lipids in the refrigerator. pt soft collar on, dressing intact. denied pain. bed alarm assistant manager airside operations light in reach.
[2018-11-25] VITALS: BP 147/61; PULSE 66; RESP 18; TEMP 36.8; O2SAT 93
[2018-11-25] MEDS: DEXTROSE 5%-0.45NS W/KCL 20MEQ 1,000 ML 84 MEQ IV ×3 (02:47→11:22)
[2018-11-25] MEDS: AMPICILLIN/SULBACTAM 3 GM 3 GM in SODIUM CHLORIDE 0.9% 100 ML IV ×3 (02:51→20:09)
[2018-11-25 03:57] VITALS: BP 167/80; PULSE 75; RESP 18; TEMP 36.2; O2SAT 94
--- NOTE | 2018-11-25 04:22 | PC.NURSE ---
Patient Access Director Note: 2345: Awake, in bed but attempting to get up. Assisted up to bedside commode for bowel movement, passed flatus only. Pt taking off cervical collar, advised to leave it on, and assisted to put it back on. After pt in bed, attempting numerous times to get up. Assisted up to bedside commode when he wanted to use the toilet. 0200: IV re-started in lt forearm, and secured with kirlex roll and netting. Sitter here to monitor pt to protect IV and activity. 0345: Pt sleeping. Respirations unlabored. Cervical collar remains on.
[2018-11-25] MEDS: INSULIN ASPART 100 UNIT/ML INSULN PEN SUBCUT ×3 (06:33→17:59)
[2018-11-25 08:04] VITALS: BP 189/65; PULSE 68; RESP 20; TEMP 37.2; O2SAT 92
--- NOTE | 2018-11-25 08:08 | PM.PNPO.1 ---
Subjective Date Patient Seen: 11/25/18 Time Patient Seen: 08:08 Interval history: He failed his swallowing test yesterday. The plan was to begin TPN. However, he pulled out his PICC line overnight. Evidently he was somewhat agitated but he is fine this morning. Exam Vital Signs (past 8 hours): - 11/25/18 03:57 11/25/18 08:04 Temperature 97.1 F L 98.9 F Pulse Rate 75 68 Respiratory Rate 18 20 Blood Pressure 167/80 H 189/65 H Pulse Oximetry 94 92 Fraction of Inspired Oxygen 21 Oxygen Delivery Method Room Air Oxygen Flow Rate 0 Const Orientation: alert and oriented x3 Back/Spine/Pelvis Other: CDI. 5/5 motor both upper extremities except for 3/5 right deltoid and 2/5 right biceps Objective Labs Result Diagrams: 11/24/18 04:57 11/24/18 04:57 Assessment & Plan Post-op Postoperative Procedures Operation Date: 11/19/18 07:45 Actual Procedures Side Surgeon p C3-6 ACDF w/posterior instru fusion w/bone graft Tien Stoner MD we will reinsert the PICC line and start on TPN. Plan is to recheck the barium swallow in the next few days to see if he has made any progress and get swallow without aspiration. Operation Date: 11/19/18 14:15 Actual Procedures Side Surgeon p s/p cervical fusion bleed Not Applicable Tien Stoner MD Quality VTE Deep Vein Thrombosis/Pulmonary Embolism Present on Admission: No
--- NOTE | 2018-11-25 10:36 | SLP.IPNOTE ---
Discussed current POC with nursing ad physicians. Pt received PIC line last night and has pulled it out. he will get new PIC line placed today. Talked with pt re: NPO status and he indicated he understood. have scheduled repeat MBS for 11:30 tomorrow morning (11/26/18). Non-billable visit.
--- NOTE | 2018-11-25 11:31 | PT.IPTN ---
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) Radiculopathy, cervical region (11/19/18) Surgery Performed Operation Date: 11/19/18 07:45 Actual Procedures p C3-6 ACDF w/posterior instru fusion w/bone graft - Tien Stoner MD Operation Date: 11/19/18 14:15 Actual Procedures p s/p cervical fusion bleed(Not Applicable) - Tien Stoner MD Physical Therapy Treatment Note M2 PT-IP Current Condition Start: 11/20/18 11:43 Freq: NEEDED Status: Active Protocol: Document 11/20/18 11:30 RCC (Rec: 11/20/18 11:57 RCC [id number]) Physical Therapy Current Condition Current Condition Evaluation Date 11/20/18 Treatment Diagnosis C3-6 ACDF w/ post. instrumentation11/19/18, impaired mobility and strength Precautions Cervical Spine Precautions Soft Collar for Comfort No Heavy Lifting Log Roll M3 PT-IP Subjective Start: 11/20/18 11:43 Freq: NEEDED Status: Active Protocol: Document 11/25/18 10:50 HH (Rec: 11/25/18 11:31 HH [id number]) Subjective Physical Therapy Visit Type Type Patient Refusal Visit Start Time 10:50 Notes RN states pt remains confused from time to time, especially regarding time and place. Pt failed his swallowing test yesterday and will conduct again tomorrow. Pt has been trying to pull out his PICC since last nigth per RN. RN states Pt also has been impulsive lately and wanted to get OOB all the time. Pt got up to chair this am but then went back to bed. Physical Therapy Visit Comments Patient Comments Pt was sleeping in his bed upon assessment. Pt coughed and sounded congested when he was being asked to participate PT. I dont want to do PT now and i just want to sleep. You could try later. M4 PT-IP Mobility and Gait Start: 11/20/18 11:43 Freq: NEEDED Status: Active Protocol: Document 11/24/18 11:55 GGD (Rec: 11/24/18 12:46 GGD [id number]) PT-Transfer Assessment Sit to and From Stand Sit to and from Stand Contact Guard Assistance 1 Person Assistance Equipment Transfer Assistive Device Gait Belt Front Wheeled Walker Transfers Transfer Destination Chair Gait Assessment Gait Gait Assistance Required: Contact Guard Assist 1 Person Assist Distance (Feet) 100 Assistive Devices Assistive Device Gait Belt Front Wheeled Walker Gait Deviations General Gait Pattern Decreased Stride Length Decreased Feet Clearance Flexed Trunk Step-to Gait Wide Based Gait Factors Limiting Gait Function Factors Limiting Gait Function Decreased Activity Tolerance Decreased Sensation Difficulty Following Directions Limited Range of Motion Pain Poor Balance Poor Safety Awareness M5 PT-IP Objective Assessments Start: 11/20/18 11:43 Freq: NEEDED Status: Active Protocol: Document 11/20/18 11:30 RCC (Rec: 11/20/18 11:57 RCC [id number]) Orientation Orientation/Cognition Level of Alertness Lethargic Gross Range of Motion Upper Extremity ROM Assessment Right Impaired Lower Extremity ROM Assessment Right Impaired Strength Lower Extremity Strength Assessment Bilaterally Impaired Hip flexion 3/5 B Knee flexion 3+/5 and extension 3/5 B Ankle DF 4/5 B M6 PT-IP Treatment Start: 11/20/18 11:43 Freq: NEEDED Status: Active Protocol: Document 11/20/18 15:00 RCC (Rec: 11/20/18 15:36 RCC [id number]) Physical Therapy Treatment Education Education Provided Safety M7 PT-IP Assessment and Plan Start: 11/20/18 11:43 Freq: NEEDED Status: Active Protocol: Document 11/24/18 11:55 GGD (Rec: 11/24/18 12:46 GGD [id number]) PT Summary Assessment and Plan Summary Assessment Summary Pt able to progress gait distance. He need mod cues for staying close to FWW. He improving slowly with mobility . He would benefit from SNF for improvement in functional mobility. Frequency of Treatment Frequency Of Treatment Twice a Day Treatment Plan Physical Therapy Treatment Plan Bed Mobility Training Transfer Training Gait Training Therapeutic Exercise Balance Retraining Post Op Education Discharge Planning Hot or Cold Pack Neuromuscular Re-ed Other Recommendations and Next Treatment short gait with chair follow, Focus bed mobility and sit<->stand. Recommendations To Nursing Amount of Assist Needed 1 Person Assist Discharge Recommendations PT Discharge Recommendations SNF Rehab
--- NOTE | 2018-11-25 12:00 | OT.IP.TRT ---
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) Radiculopathy, cervical region (11/19/18) Surgery Performed Operation Date: 11/19/18 07:45 Actual Procedures p C3-6 ACDF w/posterior instru fusion w/bone graft - Tien Stoner MD Operation Date: 11/19/18 14:15 Actual Procedures p s/p cervical fusion bleed(Not Applicable) - Tien Stoner MD Occupational Therapy Treatment Note M2 OT-IP Current Condition Start: 11/20/18 16:51 Freq: Status: Active Protocol: Document 11/20/18 16:54 CCC (Rec: 11/20/18 17:17 CCC [id number]) Occupational Therapy Current Condition Current Condition Evaluation Date 11/20/18 Treatment Diagnosis Cervical Stenosis Diagnosis Onset Date 11/19/18 Post Operative Precautions Cervical Spine Precautions Soft Collar for Comfort No Heavy Lifting Log Roll M3 OT- IP Subjective and Pain Start: 11/20/18 16:51 Freq: Status: Active Protocol: Document 11/25/18 12:00 PJM (Rec: 11/25/18 14:30 PJM [id number]) OT- Subjective Occupational Therapy Visit Type Type Administrative Note Visit Start Time 11:00 Notes Attempted to see pt but pt working with P.T. then too fatigued. Will attempt again in AM. No charge.
[2018-11-25 12:30] VITALS: BP 139/64; PULSE 86; RESP 18; TEMP 37.2; O2SAT 94
--- NOTE | 2018-11-25 12:33 | P.PN_ITS ---
Subjective Date Patient Seen: 11/25/18 Interval history: Patient was noted to be confused and hallucinating earlier today. He is, knows he is in the hospital. He reports he continues to have neck pain. He denies any shortness of breath. The patient had a modified barium swallow study yesterday where he failed. He was aspirating and unaware. He has since been made NPO and is on IV TPN. He is receiving the patient is receiving high-dose steroids to decrease swelling. Exam Vital Signs (past 8 hours): - 11/25/18 08:04 Temperature 98.9 F Pulse Rate 68 Respiratory Rate 20 Blood Pressure 189/65 H Pulse Oximetry 92 Fraction of Inspired Oxygen 21 Oxygen Delivery Method Room Air Oxygen Flow Rate 0 Narrative Exam Narrative: Ill appearing gentleman who is calm alert and appears oriented at this time Neck: Anterior and cervical dressings in place Lungs: Decreased breath sounds with scattered rhonchi Cardiac exam: Regular rate and rhythm normal S1 and S2 with a 2/6 systolic ejection murmur Abdomen: Soft nontender nondistended Extremities: No edema Objective Labs Result Diagrams: 11/24/18 04:57 11/24/18 04:57 Assessment & Plan Assessment & Plan narrative: 1. Aspiration pneumonia 2. Type 2 diabetes 3. Chronic dysphagia status post ABC DS 4. Hypertension 5. Acute metabolic encephalopathy, secondary to high-dose steroid 6. Delirium 7. Status post C3-C6 ACDF with posterior fusion and with bone graft Plan will continue IV Unasyn given aspiration pneumonia. Patient will continue on TPN given inability to swallow. Plan for modified barium swallow again tomorrow. Hopefully if his swelling has improved steroids can be tapered to he lp with delirium. Blood sugars are elevated related to his TPN. Will increase the insulin in the TPN tonight. Quality VTE Deep Vein Thrombosis/Pulmonary Embolism Present on Admission: No
--- NOTE | 2018-11-25 13:27 | PT.IPTN ---
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) Radiculopathy, cervical region (11/19/18) Surgery Performed Operation Date: 11/19/18 07:45 Actual Procedures p C3-6 ACDF w/posterior instru fusion w/bone graft - Tien Stoner MD Operation Date: 11/19/18 14:15 Actual Procedures p s/p cervical fusion bleed(Not Applicable) - Tien Stoner MD Physical Therapy Treatment Note M2 PT-IP Current Condition Start: 11/20/18 11:43 Freq: NEEDED Status: Active Protocol: Document 11/20/18 11:30 RCC (Rec: 11/20/18 11:57 RCC [id number]) Physical Therapy Current Condition Current Condition Evaluation Date 11/20/18 Treatment Diagnosis C3-6 ACDF w/ post. instrumentation11/19/18, impaired mobility and strength Precautions Cervical Spine Precautions Soft Collar for Comfort No Heavy Lifting Log Roll M3 PT-IP Subjective Start: 11/20/18 11:43 Freq: NEEDED Status: Active Protocol: Document 11/25/18 13:25 GGD (Rec: 11/25/18 14:09 GGD [id number]) Subjective Physical Therapy Visit Type Type Treatment Note Visit Start Time 12:50 Visit Stop Time 13:25 Total Visit Minutes 35 Number of FAMILY DAY [employer]ER Visits 4 Physical Therapy Visit Comments Patient Comments Pt willing to work with therapy. Therapy Pain Assessment Pain When Pain Assessed During Mobility Pain Present Pain Present Pain Reported M4 PT-IP Mobility and Gait Start: 11/20/18 11:43 Freq: NEEDED Status: Active Protocol: Document 11/25/18 13:25 GGD (Rec: 11/25/18 14:09 GGD [id number]) PT-Bed Mobility Assessment Rolling Type of Rolling Log Rolling Roll to Right Level of Assist Moderate Assistance Supine to Sit Supine to Sit Moderate Assistance 1 Person Assistance Sit to Supine Sit to Supine Moderate Assistance 1 Person Assistance Scooting Scooting to Edge of Bed Contact Guard Assistance Scooting Up and Down in Bed Maximum Assistance PT-Transfer Assessment Sit to and From Stand Sit to and from Stand Contact Guard Assistance 1 Person Assistance Use of Upper Extremities Equipment Transfer Assistive Device Gait Belt Front Wheeled Walker Transfers Transfer Destination Bed Chair Transfer Ability Level of Assist Minimal Assistance Gait Assessment Gait Gait Assistance Required: Contact Guard Assist 1 Person Assist Distance (Feet) 160 Able to Maintain Weight Bearing Status Yes During Gait Assistive Devices Assistive Device Gait Belt Front Wheeled Walker Gait Deviations General Gait Pattern Decreased Stride Length Decreased Feet Clearance Flexed Trunk Step-to Gait Wide Based Gait Factors Limiting Gait Function Factors Limiting Gait Function Decreased Activity Tolerance Decreased Sensation Difficulty Following Directions Limited Range of Motion Pain Poor Balance Poor Safety Awareness M5 PT-IP Objective Assessments Start: 11/20/18 11:43 Freq: NEEDED Status: Active Protocol: Document 11/20/18 11:30 RCC (Rec: 11/20/18 11:57 RCC [id number]) Orientation Orientation/Cognition Level of Alertness Lethargic Gross Range of Motion Upper Extremity ROM Assessment Right Impaired Lower Extremity ROM Assessment Right Impaired Strength Lower Extremity Strength Assessment Bilaterally Impaired Hip flexion 3/5 B Knee flexion 3+/5 and extension 3/5 B Ankle DF 4/5 B M6 PT-IP Treatment Start: 11/20/18 11:43 Freq: NEEDED Status: Active Protocol: Document 11/20/18 15:00 RCC (Rec: 11/20/18 15:36 RCC [id number]) Physical Therapy Treatment Education Education Provided Safety M7 PT-IP Assessment and Plan Start: 11/20/18 11:43 Freq: NEEDED Status: Active Protocol: Document 11/25/18 13:26 GGD (Rec: 11/25/18 14:26 GGD [id number]) PT Summary Assessment and Plan Summary Assessment Summary Pt is improving slowly. He was able to progress gait distance. He is mod A for bed mobility. Frequency of Treatment Frequency Of Treatment Twice a Day Treatment Plan Physical Therapy Treatment Plan Bed Mobility Training Transfer Training Gait Training Therapeutic Exercise Balance Retraining Post Op Education Discharge Planning Hot or Cold Pack Neuromuscular Re-ed Other Recommendations and Next Treatment short gait with chair follow, Focus bed mobility and sit<->stand. Recommendations To Nursing Amount of Assist Needed 1 Person Assist Discharge Recommendations PT Discharge Recommendations SNF Rehab
--- NOTE | 2018-11-25 14:19 | DI.RAD.S_ITS ---
PROCEDURE: XR CHEST FOR PICC 1V INDICATIONS: picc placement COMPARISON: [facility], , XR CHEST FOR PICC 1V, 11/24/2018, 18:31. FINDINGS: PICC was placed by the intravenous therapy team from the right side. Fluoroscopic spot film demonstrates tip of PICC in the SVC. IMPRESSION: Tip of PICC lies within the SVC. Dictated by: Kai Dugan M.D. on 11/25/2018 at 14:42 Approved by: Kai Dugan M.D. on 11/25/2018 at 14:45
[2018-11-25 14:26] VITALS: BMI 29.7
[2018-11-25 15:15] VITALS: BP 133/64; PULSE 80; RESP 18; TEMP 36.3; O2SAT 94
[2018-11-25] MEDS: FAT EMULSIONS 50 GM/250 ML EMULSION IV (18:23)
[2018-11-25] MEDS: AA 5 %/CALCIUM/LYTES/DEXT 20 % 1,000 ML with MULTIVITAMIN 10 ML, TRACE ELEMENTS 1 ML, I... 42.138 ML IV (18:23)
[2018-11-25 19:37] VITALS: BP 156/61; PULSE 83; RESP 18; TEMP 36.4; O2SAT 94
[2018-11-25] MEDS: ACETAMINOPHEN 650 MG SUPP PR (23:12)
--- NOTE | 2018-11-25 23:41 | PC.NURSE ---
LYRIC SHIFT: Patient pleasant this shift. Patient having hard time getting comfortable despite ice packs, repositioning. Tylenol AL order placed since patient unable to swallow. Patient refused medication till 2254. ICF as ordered. Report to GRACIELA Ceja
[2018-11-26] VITALS: BP 150/64; PULSE 78; RESP 18; TEMP 36.9; O2SAT 92
--- NOTE | 2018-11-26 | DI.ECHO.S_ITS ---
[place] [facility]---------+ [facility] +---------+ : : [address] : : : : [id number] : : : : Phone: [phone]+ Echocardiogram Report + + :Name: INESSA LEYVA Study Date: 11/27/2018 Height: 68 in : :[facility] Weight: 196 lb : : Gender: Male BSA: 2.0 m2 : :: 1935 Age: 82 yrs BP: 152/60 mmHg: :Reason For Study: Aortic valve stenosis : : Performed By: Aicha Thompson : :Referring: Estela LAYTON E : + + Interpretation Summary Sinus bradycardia. Normal LV size and wall thickness; mild concentric LVH; normal wall motion and LV systolic function. EF is 60-65%. Mild LA enlargement; otherwise normal chamber sizes. Aortic valve leaflets are moderately thickened and calcified. There is severe stenosis based on planimetered valve area but moderate stenosis based on peak velocity and mean gradient. Otherwise no significant valvular abnormalities. Compared to prior study 11/19/2017 peak velocity is unchanged at 3.4 m/sec. Procedure: A two-dimensional transthoracic echocardiogram with color flow and Doppler was performed. The study quality was technically adequate. Comparison is made with the echocardiogram of 11-19-17. The patient was in normal sinus rhythm during the exam. Left Ventricle: The left ventricle is normal in size. There is mild asymmetric left ventricular hypertrophy. The ejection fraction is estimated to be 60-65%. Right Ventricle: Borderline right ventricular enlargement. The right ventricular systolic function is normal. Atria: The left atrium is mildly dilated. Right atrial size is normal. The interatrial septum is intact with no evidence for an atrial septal defect. Mitral Valve: The mitral valve is grossly normal. There is mild mitral annular calcification. There is trace mitral regurgitation. Aortic Valve: The calculated aortic valve area is 1.0 cm2. The aortic valve area is 1.0 centimeters squared by planimetry. The peak aortic velocity is 3.5 m/sec. The peak aortic velocity on the previous exam was 3.4 m/sec. The aortic valve mean gradient is 28 mmHg. severity ratio is 0.32. There is mild aortic regurgitation. Tricuspid Valve: The tricuspid valve is normal in structure and function. There is a trace or physiologic amount of tricuspid regurgitation. Pulmonic Valve: The pulmonic valve is normal in structure and function. There is a trace or physiologic amount of pulmonic regurgitation. Great Vessels: The aortic root is normal size. The dimensions of the ascending aorta are normal. The aortic arch could not be visualized. There was no suprasternal window due to recent surgery. The IVC is dilated (diameter is greater than 2.1 cm) and it collapses less than 50% with a sniff. This suggests a high right atrial pressure of 15 mm Hg. Pericardium/ Pleura There is no pericardial effusion. There is no pleural effusion. MMode/2D Measurements & Calculations LVIDd: 4.4 cm LVOT diam: 2.0 cm LVIDs: 3.0 cm Ao root diam: 3.4 cm FS: 32.3 % Aortic Jxn: 2.6 cm EPSS: 1.0 cm asc Aorta Diam: 3.2 cm IVSd: 1.4 cm LVPWd: 1.1 cm LV piedra. diameter/BSA (cm/m^2): 2.2 LV sys. diameter/BSA (cm/m^2): 1.5 LA dimension: 4.8 cm RA long axis: 5.4 cm LA A2 area: 23.1 cm2 RA area: 18.5 cm2 LA A4 area: 23.8 cm2 RA vol: 53.4 ml LA length (vol): 5.7 cm RA : 26.3 ml/m2 LA vol: 81.5 ml IVC diam: 2.2 cm LA vol index: 40.2 ml/m2 RVDd major: 5.5 cm RVD1 (basal): 3.3 cm RVD2 (mid): 3.6 cm YANA (plan): 1.0 cm2 Doppler Measurements & Calculations Ao V2 max: 349.6 cm/sec LVOT Max Cesar: 104.3 cm/sec Ao V2 mean: 243.9 cm/sec LV V1 max P.4 mmHg Ao max P.9 mmHg LV V1 VTI: 27.1 cm Ao mean P.6 mmHg YANA(I,D): 0.98 cm2 Ao V2 VTI: 85.2 cm YANA(V,D): 0.92 cm2 sev ratio: 0.32 YANA indexed to BSA (cm^2/m^2): 0.49 AI P1/2t: 544.6 msec AI dec slope: 203.0 cm/sec2 MV E max cesar: 86.4 cm/sec PA V2 max: 88.3 cm/sec MV A max cesar: 79.3 cm/sec PA V2 mean: 58.5 cm/sec MV E/A: 1.1 PA mean P.6 mmHg Med Peak E' Cesar: 4.8 cm/sec PA Accel Time: 0.16 sec E/E' med: 17.8 Lat Peak E' Cesar: 6.2 cm/sec E/E' lat: 13.9 E/e' average: 15.9 MV dec time: 0.27 sec MV P1/2t: 81.0 msec MV P1/2t max cesar: 86.0 cm/sec SV(LVOT): 83.7 ml MVA(P1/2t): 2.7 cm2 Electronically signed by: Kisha Silva M.D. on Reading Physician:11/27/2018 07:56 PM
[2018-11-26] MEDS: INSULIN ASPART 100 UNIT/ML INSULN PEN SUBCUT ×4 (00:18→18:38)
[2018-11-26] MEDS: DEXTROSE 5%-0.45NS W/KCL 20MEQ 1,000 ML 84 MEQ IV ×2 (00:29→14:23)
[2018-11-26] MEDS: AMPICILLIN/SULBACTAM 3 GM 3 GM in SODIUM CHLORIDE 0.9% 100 ML IV ×3 (02:15→18:38)
--- NOTE | 2018-11-26 03:16 | PC.NURSE ---
0315 Pt. agitated now, confused to time. States I suppose to have an appointment this morning. Explained that FU barium swallow is scheduled @ 1130 & it's only 0315 early in the morning. He response I been laying in this bed to much, re-oriented to time & situation. Repositioned to his lt. side & encouraged to get some sleep. Will cont. POC & monitor.
--- NOTE | 2018-11-26 05:45 | PC.NURSE ---
0515 Offered Tylenol suppository for pain, but he declined. States I don't think I need it right now, encouraged to call RN if he needed pain meds. Will cont. with POC & monitor.
[2018-11-26 05:54] VITALS: BP 155/85; PULSE 73; RESP 18; TEMP 36.9; O2SAT 93
[2018-11-26 07:00] VITALS: BP 163/73; PULSE 72; RESP 18; TEMP 36.3; O2SAT 93
--- NOTE | 2018-11-26 09:50 | PT.IPTN ---
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) Radiculopathy, cervical region (11/19/18) Surgery Performed Operation Date: 11/19/18 07:45 Actual Procedures p C3-6 ACDF w/posterior instru fusion w/bone graft - Tien Stoner MD Operation Date: 11/19/18 14:15 Actual Procedures p s/p cervical fusion bleed(Not Applicable) - Tien Stoner MD Physical Therapy Treatment Note M2 PT-IP Current Condition Start: 11/20/18 11:43 Freq: NEEDED Status: Active Protocol: Document 11/20/18 11:30 RCC (Rec: 11/20/18 11:57 RCC [id number]) Physical Therapy Current Condition Current Condition Evaluation Date 11/20/18 Treatment Diagnosis C3-6 ACDF w/ post. instrumentation11/19/18, impaired mobility and strength Precautions Cervical Spine Precautions Soft Collar for Comfort No Heavy Lifting Log Roll M3 PT-IP Subjective Start: 11/20/18 11:43 Freq: NEEDED Status: Active Protocol: Document 11/26/18 09:14 LJ (Rec: 11/26/18 09:50 LJ [id number]) Subjective Physical Therapy Visit Type Type Treatment Note Visit Start Time 09:14 Visit Stop Time 09:40 Total Visit Minutes 26 Physical Therapy Visit Comments Patient Comments Pt states he has an appointment for a swallow test at 9:45 but is willing to get up to walk a little ways. Also sytates he is a little unsteady Therapy Pain Assessment Pain When Pain Assessed During Mobility Pain Present Pain Present Pain Reported M4 PT-IP Mobility and Gait Start: 11/20/18 11:43 Freq: NEEDED Status: Active Protocol: Document 11/26/18 09:14 LJ (Rec: 11/26/18 09:50 LJ [id number]) PT-Bed Mobility Assessment Rolling Type of Rolling Roll to Left Level of Assist Minimal Assistance Supine to Sit Supine to Sit Minimal Assistance Head of Bed Elevated Scooting Scooting to Edge of Bed Contact Guard Assistance PT-Transfer Assessment Sit to and From Stand Sit to and from Stand Contact Guard Assistance 1 Person Assistance Use of Upper Extremities Equipment Transfer Assistive Device Gait Belt Front Wheeled Walker Transfers Transfer Destination Chair Transfer Ability Level of Assist Contact Guard Assistance Use of Upper Extremities Comments Mobility Comments Pt requires min A for bed mobility and CGA-Daphne for transfers. Pt moves slowly and requires rest breaks between transitional movements. Gait Assessment Gait Gait Assistance Required: Contact Guard Assist 1 Person Assist Distance (Feet) 80 Able to Maintain Weight Bearing Status Yes During Gait Assistive Devices Assistive Device Gait Belt Front Wheeled Walker Gait Deviations General Gait Pattern Decreased Stride Length Decreased Feet Clearance Flexed Trunk Step-to Gait Factors Limiting Gait Function Factors Limiting Gait Function Decreased Activity Tolerance Decreased Sensation Difficulty Following Directions Limited Range of Motion Pain Poor Balance Poor Safety Awareness M5 PT-IP Objective Assessments Start: 11/20/18 11:43 Freq: NEEDED Status: Active Protocol: Document 11/20/18 11:30 RCC (Rec: 11/20/18 11:57 RCC [id number]) Orientation Orientation/Cognition Level of Alertness Lethargic Gross Range of Motion Upper Extremity ROM Assessment Right Impaired Lower Extremity ROM Assessment Right Impaired Strength Lower Extremity Strength Assessment Bilaterally Impaired Hip flexion 3/5 B Knee flexion 3+/5 and extension 3/5 B Ankle DF 4/5 B M6 PT-IP Treatment Start: 11/20/18 11:43 Freq: NEEDED Status: Active Protocol: Document 11/20/18 15:00 RCC (Rec: 11/20/18 15:36 RCC [id number]) Physical Therapy Treatment Education Education Provided Safety M7 PT-IP Assessment and Plan Start: 11/20/18 11:43 Freq: NEEDED Status: Active Protocol: Document 11/26/18 09:14 LJ (Rec: 11/26/18 09:50 LJ [id number]) PT Summary Assessment and Plan Summary Assessment Summary Pt with increased neck pain this am. Chose to shorten ambulation distance due to fatigue and neck pain. Requires CGA-Daphne for bed mobility, transfers, and gait. Frequency of Treatment Frequency Of Treatment Twice a Day Treatment Plan Physical Therapy Treatment Plan Bed Mobility Training Transfer Training Gait Training Therapeutic Exercise Balance Retraining Post Op Education Discharge Planning Hot or Cold Pack Neuromuscular Re-ed Other Recommendations and Next Treatment Progress gait distance with WC Focus follow. Recommendations To Nursing Amount of Assist Needed 1 Person Assist Discharge Recommendations PT Discharge Recommendations SNF Rehab
--- NOTE | 2018-11-26 10:48 | PM.PNPO.1 ---
Subjective Date Patient Seen: 11/26/18 Time Patient Seen: 10:48 Interval history: Hospital day 8, postop day 7 following C3 through 6 ACDF and subsequent 2nd surgery for postop bleed. Patient also developed aspiration pneumonia because of swallowing difficulty. He has been on TPN. Receiving Unasyn IV for pneumonia. He was on dexamethasone to help with neck swelling which has helped but this also caused some confusion. He is off the dexamethasone now. He is scheduled to have a repeat barium swallow done today to determine if he will be able to start eating again. He is being followed by hospitalist. Plan is for discharge to [facility] once he is stable. Exam Vital Signs (past 8 hours): - 11/26/18 05:54 11/26/18 07:00 Temperature 98.4 F 97.3 F L Pulse Rate 73 72 Respiratory Rate 18 18 Blood Pressure 155/85 H 163/73 H Pulse Oximetry 93 93 Fraction of Inspired Oxygen 21 Oxygen Delivery Method Room Air Oxygen Flow Rate 0 Narrative Exam Narrative: Alert, oriented no acute distress sitting in chair. Neck. Dressing to left anterior neck is dry without drainage or inflammation. Arms. Certified Registered Nurse Practitioner strong and equal. Pulses and sensation and symmetrical. Elbow flexion and extension and shoulder AB duction strong and equal. Patient does appear to have stronger arm movement and is able to do forward flexion of the right arm slowly. Left arm forward flexion is brisk. Objective Labs Result Diagrams: 11/24/18 04:57 11/24/18 04:57 Assessment & Plan Post-op Postoperative Procedures Operation Date: 11/19/18 07:45 Actual Procedures Side Surgeon p C3-6 ACDF w/posterior instru fusion w/bone graft Tien Stoner MD Plan: Patient will have a barium swallow study today. Continue on his Unasyn at this time. Pending outcome of swallow study will determine whether he continues on TPN or is able start eating. Continue with speech therapy as needed. He will be followed by hospitalist. Will eventually be discharged to [facility] pending clearance by hospitalist. Operation Date: 11/19/18 14:15 Actual Procedures Side Surgeon p s/p cervical fusion bleed Not Applicable Tien Stoner MD Quality VTE Deep Vein Thrombosis/Pulmonary Embolism Present on Admission: No
--- NOTE | 2018-11-26 11:30 | DI.RAD.S_ITS ---
PROCEDURE: [place] BARIUM SWALLOW W SPEECH INDICATIONS: Repeat MBS to assess for safety to resume PO intake TECHNIQUE: Examination was conducted in conjunction with speech pathology per standard protocol. In the lateral projection, filming was performed of the patient swallowing. AP projection filming may also be performed with patient swallowing. COMPARISON: [facility], , [place] BARIUM SWALLOW W SPEECH, 11/24/2018, 14:26. FINDINGS: Function: The oral preparatory phase appears normal, with proper containment. The subsequent oral propulsive phase appeared normal. There was, however, absence of normal epiglottic tilt and resultant repeated laryngeal penetration without john aspiration. There was persistent pathologic vallecular pooling, with episodic overflow. Morphology: No cricopharyngeal bar is identified. No cervical esophageal webs. No Zenker's diverticulum. No strictures. IMPRESSION: With reference to the earlier swallowing evaluation there is a mild degree of improvement in the severity of penetration and currently no john aspiration was observed. Please also refer to the dedicated speech therapy swallowing evaluation report which will be independently generated. Dictated by: Pipo Crenshaw M.D. on 11/26/2018 at 14:09 Approved by: Pipo Crenshaw M.D. on 11/26/2018 at 14:30
[2018-11-26 13:23] VITALS: BP 155/60; PULSE 73; RESP 18; TEMP 36.4; O2SAT 95
--- NOTE | 2018-11-26 13:25 | PM.PN.1 ---
Subjective Date Patient Seen: 11/26/18 Interval history: He is seen today to follow-up his dysphagia, TPN nutrition, pneumonia, post cervical fusion care. After the steroids were stopped yesterday his mentation seems to have cleared and he is eager to begin eating again but unfortunately does not pass the modified barium swallow today without anything like flying colors. He actually does better with thin liquids than thick liquids. Exam Vital Signs (past 8 hours): - 11/26/18 05:54 11/26/18 07:00 Temperature 98.4 F 97.3 F L Pulse Rate 73 72 Respiratory Rate 18 18 Blood Pressure 155/85 H 163/73 H Pulse Oximetry 93 93 Fraction of Inspired Oxygen 21 Oxygen Delivery Method Room Air Oxygen Flow Rate 0 Narrative Exam Narrative: He is alert and oriented x3. No signs of delirium. Heart is regular rate and rhythm with a 2/6 systolic ejection murmur. Lungs are clear to auscultation bilaterally. Neck exam is normal except for the post op dressing. Extremities have no ankle edema. Objective Labs Result Diagrams: 11/24/18 04:57 11/24/18 04:57 Assessment & Plan Assessment & Plan narrative: 1. Aspiration pneumonia - continue IV Unasyn, with plans to change to oral Augmentin at discharge. 2. Type 2 diabetes - continue NovoLog 3. Chronic dysphagia status post ABC DS - speech therapy is seeing him every day, unfortunately he was not able to advance as far as he hoped today but he is still expected to improve in the next few days postoperatively. 4. Hypertension - continue amlodipine 5. Acute metabolic encephalopathy, secondary to high-dose steroid - no longer on steroids and is clear mentally. 6. Delirium - resolved 7. Status post C3-C6 ACDF with posterior fusion and with bone graft - orthopedics is following 8. Valvular Heart Disease - for clarity going forward an echocardiogram will be checked. Plan will continue IV Unasyn given aspiration pneumonia. Patient will continue on TPN given inability to swallow. Quality VTE Deep Vein Thrombosis/Pulmonary Embolism Present on Admission: No
--- NOTE | 2018-11-26 16:14 | PT.IPTN ---
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) Radiculopathy, cervical region (11/19/18) Surgery Performed Operation Date: 11/19/18 07:45 Actual Procedures p C3-6 ACDF w/posterior instru fusion w/bone graft - Tien Stoner MD Operation Date: 11/19/18 14:15 Actual Procedures p s/p cervical fusion bleed(Not Applicable) - Tien Stoner MD Physical Therapy Treatment Note M2 PT-IP Current Condition Start: 11/20/18 11:43 Freq: NEEDED Status: Active Protocol: Document 11/20/18 11:30 RCC (Rec: 11/20/18 11:57 RCC [id number]) Physical Therapy Current Condition Current Condition Evaluation Date 11/20/18 Treatment Diagnosis C3-6 ACDF w/ post. instrumentation11/19/18, impaired mobility and strength Precautions Cervical Spine Precautions Soft Collar for Comfort No Heavy Lifting Log Roll M3 PT-IP Subjective Start: 11/20/18 11:43 Freq: NEEDED Status: Active Protocol: Document 11/26/18 16:11 LJ (Rec: 11/26/18 16:13 LJ [id number]) Subjective Physical Therapy Visit Type Type Patient Refusal Notes Pt with student nurse preparing to get up to urinate with urinal. Assisted with logrolling and transfer for pt safety. pt refused further treatment or ambulation d/t pain. Nurse preparing to administer pain meds. SHORE WORKER in room fewer than 8 min. M4 PT-IP Mobility and Gait Start: 11/20/18 11:43 Freq: NEEDED Status: Active Protocol: Document 11/26/18 09:14 LJ (Rec: 11/26/18 09:50 LJ [id number]) PT-Bed Mobility Assessment Rolling Type of Rolling Roll to Left Level of Assist Minimal Assistance Supine to Sit Supine to Sit Minimal Assistance Head of Bed Elevated Scooting Scooting to Edge of Bed Contact Guard Assistance PT-Transfer Assessment Sit to and From Stand Sit to and from Stand Contact Guard Assistance 1 Person Assistance Use of Upper Extremities Equipment Transfer Assistive Device Gait Belt Front Wheeled Walker Transfers Transfer Destination Chair Transfer Ability Level of Assist Contact Guard Assistance Use of Upper Extremities Comments Mobility Comments Pt requires min A for bed mobility and CGA-Daphne for transfers. Pt moves slowly and requires rest breaks between transitional movements. Gait Assessment Gait Gait Assistance Required: Contact Guard Assist 1 Person Assist Distance (Feet) 80 Able to Maintain Weight Bearing Status Yes During Gait Assistive Devices Assistive Device Gait Belt Front Wheeled Walker Gait Deviations General Gait Pattern Decreased Stride Length Decreased Feet Clearance Flexed Trunk Step-to Gait Factors Limiting Gait Function Factors Limiting Gait Function Decreased Activity Tolerance Decreased Sensation Difficulty Following Directions Limited Range of Motion Pain Poor Balance Poor Safety Awareness M5 PT-IP Objective Assessments Start: 11/20/18 11:43 Freq: NEEDED Status: Active Protocol: Document 11/20/18 11:30 RCC (Rec: 11/20/18 11:57 RCC [id number]) Orientation Orientation/Cognition Level of Alertness Lethargic Gross Range of Motion Upper Extremity ROM Assessment Right Impaired Lower Extremity ROM Assessment Right Impaired Strength Lower Extremity Strength Assessment Bilaterally Impaired Hip flexion 3/5 B Knee flexion 3+/5 and extension 3/5 B Ankle DF 4/5 B M6 PT-IP Treatment Start: 11/20/18 11:43 Freq: NEEDED Status: Active Protocol: Document 11/20/18 15:00 RCC (Rec: 11/20/18 15:36 RCC [id number]) Physical Therapy Treatment Education Education Provided Safety M7 PT-IP Assessment and Plan Start: 11/20/18 11:43 Freq: NEEDED Status: Active Protocol: Document 11/26/18 09:14 LJ (Rec: 11/26/18 09:50 LJ [id number]) PT Summary Assessment and Plan Summary Assessment Summary Pt with increased neck pain this am. Chose to shorten ambulation distance due to fatigue and neck pain. Requires CGA-Daphne for bed mobility, transfers, and gait. Frequency of Treatment Frequency Of Treatment Twice a Day Treatment Plan Physical Therapy Treatment Plan Bed Mobility Training Transfer Training Gait Training Therapeutic Exercise Balance Retraining Post Op Education Discharge Planning Hot or Cold Pack Neuromuscular Re-ed Other Recommendations and Next Treatment Progress gait distance with WC Focus follow. Recommendations To Nursing Amount of Assist Needed 1 Person Assist Discharge Recommendations PT Discharge Recommendations SNF Rehab
[2018-11-26] MEDS: ACETAMINOPHEN 650 MG SUPP PR (16:15)
[2018-11-26 17:00] VITALS: BP 174/68; PULSE 68; RESP 18; TEMP 36.2; O2SAT 93
--- NOTE | 2018-11-26 17:01 | OT.IP.TRT ---
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) Radiculopathy, cervical region (11/19/18) Surgery Performed Operation Date: 11/19/18 07:45 Actual Procedures p C3-6 ACDF w/posterior instru fusion w/bone graft - Tien Stoner MD Operation Date: 11/19/18 14:15 Actual Procedures p s/p cervical fusion bleed(Not Applicable) - Tien Stoner MD Occupational Therapy Treatment Note M2 OT-IP Current Condition Start: 11/20/18 16:51 Freq: Status: Active Protocol: Document 11/20/18 16:54 CCC (Rec: 11/20/18 17:17 [facility] [id number]) Occupational Therapy Current Condition Current Condition Evaluation Date 11/20/18 Treatment Diagnosis Cervical Stenosis Diagnosis Onset Date 11/19/18 Post Operative Precautions Cervical Spine Precautions Soft Collar for Comfort No Heavy Lifting Log Roll M3 OT- IP Subjective and Pain Start: 11/20/18 16:51 Freq: Status: Active Protocol: Document 11/26/18 16:15 CCC (Rec: 11/26/18 17:00 [facility] [id number]) OT- Subjective Occupational Therapy Visit Type Type Patient Unavailable Notes Nursing in with pt for nursing needs for cleaning pt on bed, therefore to check on pt tomorrow for OT needs.
[2018-11-26] MEDS: AA 5 %/CALCIUM/LYTES/DEXT 20 % 1,000 ML with MULTIVITAMIN 10 ML, TRACE ELEMENTS 1 ML, I... 42.138 ML IV (18:38)
[2018-11-26] MEDS: FAT EMULSIONS 50 GM/250 ML EMULSION IV (18:39)
--- NOTE | 2018-11-26 18:44 | ST.SWALLOW ---
Care Team Visit Care Team Role Provider Type Flo Pollack MD Primary Care Provider Non-Staff Specialty: Medical Address: [address] [place], [address] Email: Phuong Cabezas MD Other Providers Physician Specialty: Internal Medicine Address: [address] [place] [address], [address] Email: [email or web address] Tien Stoner MD Admit Provider Physician Attending Provider Specialty: Orthopedic Surgery Address: [address] [place] [address], [address] Email: [email or web address] Modified Barium Swallow Study TEST LEAD Modified Barium Swallow Study Start: 11/24/18 15:13 Freq: Status: Active Protocol: Document 11/26/18 18:04 LNK (Rec: 11/26/18 18:43 LNK [id number]) Modified Barium Swallow Study Total Time Visit Start Time 11:30 Visit Stop Time 12:15 Total Visit Minutes 45 Referral Reason for Referral Dysphagia Setting Setting Acute Care Patient Information Identification Type Name ID Card Subjective Observations The pt was ambulated in [facility] chair to radiology. He was wearing a soft neck collar, which remained in place throughout the procedure, and breathing room air. He recognized the TEST LEAD and was aware of and in agreement with the procedure. When asked about his swallow ability, he remarked it was improving, that he had no problem swallowing liquids, foods and pills. He did not recall difficulty swallowing his pill earlier today during dysphagia treatment. Patient Positioning Position View Lateral Imaging Lateral View Textures Administered Trials Presented Thin Liquid via Spoon Thin Liquid via Cup [place] Liquid via Spoon Honey Liquid via Spoon Pudding Thick Liquid via Spoon Oral Phase Source: MBSIMP (TM) (C) Bolus Specific Scoring Grid Lip Closure Minimal Impairment Tongue Control During Bolus Hold Mild Impairment Bolus Prep/Mastication Mild Impairment Bolus Transport/Lingual Motion Moderate Impairment A/P Lingual Propulsion Delay Yes: 2-5 sec with frequent lingual rocking Oral Residue Mild Impairment Nasal Regurgitation No Additional Oral Phase Observations Lingual weakness with rocking to move bolus and initiate swallow. Poor linguapharyngeal closure with significant difficulty controlling the bolus as it entered the pharynx. Pharyngeal Phase Source: MBSIMP (TM) (C) Bolus Specific Scoring Grid Delayed Initiation of Pharyngeal Swallow Yes: up to 4 sec Soft Palate Elevation No Impairment (WNL) Tongue Base Strength/Range of Motion Moderate Impairment Clearance of Residue Along Tongue Base Mild Impairment Laryngeal Elevation Moderate Impairment Anterior Hyoid Movement Moderate Impairment Epiglottic Range of Motion Severe Impairment Vallecular Residue Yes: Consistent, significant w / all trials d/t poor epiglottic movement Clearance of Vallecular Residue Severe Impairment Laryngeal Vestibular Closure Moderate Impairment Pharyngeal Stripping Wave Severe Impairment Clearance of Posterior Pharyngeal Wall Mild Impairment Residue Upper Esophageal Sphincter Opening Moderate Impairment Residue in the Pyriform Sinuses Yes: Requires multiple swallows to clear; penetration of residue Clearance of Residue in the Pyriform Moderate Impairment Sinuses Esophageal Clearance Upright Position Moderate Impairment Pharyngoesophageal Backflow Observed No Additional Pharyngeal Phase Observations Observation of the pharynx indicated some reduction in overall swelling. However, with the reduction in swelling , it became more evident that there was no observable pharyngeal stripping needed to assist in controlling the bolus. There was no epiglottal inversion with limited hyolaryngeal elevation and forward excursion of the hyoid bone. All of these factors listed result in minimal control of the bolus, poor airway protection with frequent penetration into the laryngeal vestibule and significant pharyngeal pooling . Thin liquids were aspirated x2 , with once pharyngeal residue was aspirated as the pt relaxed throat. All aspiration and laryngeal penetration was silent, with no cough reflex observed. Cuing the pt to cough several times was effective in partial clearance of the airway/ vestibule. However, residue remained in the laryngeal vestibule as well as on the vocal folds following coughing . As thicker/slower liquid viscosities were trialed, it became evident that the bolus' were very difficult for the pt to swallow. There was no downward propulsion evident, which resulted in significant residue within the pharynx and near the opening to the vestibule/airway. Cues to swallow hard with tongue against the palate were not effective in clearing the pharynx. By the end of the MBSS the pt was obviously fatigued. A/P View Recommendations Diet Liquids Order Free Water Protocol Diet Order NPO/Alternative Means of Nutrition/Hydration Medication Recommendation Not Recommended by Mouth Additional Dietary Needs Reminders to Use Strategies Aspiration Precautions Recommended Precautions Upright at 90 Degrees Supraglottic Swallow Liquids from Spoon Treatment Plan Therapy Recommendations Inpatient Speech Therapy Outpatient Speech Therapy Lingual Exercises Base of Tongue Exercises Vocal Fold Adduction Exercises Compensatory Strategy Education Other Additional Therapy Recommendations Vital Stim therapy Compensatory Strategies Recommendations Sitting Upright (90 deg) Supraglottic Swallow [place] Maneuver Liquids from Spoon Short Term Goals Pt will safely tolerate Free Water Protocol without s/sx aspiration. Pt will participate in OM/ Lingual exercises to increase airway protection Usp Goals Pt will safely tolerate the least-restrictive diet without s/sx aspiration to meet nutritioal and hydration needs Placement Recommendation After Discharge [facility] Facility
--- NOTE | 2018-11-26 18:45 | ST.IPDYTX ---
Care Team Visit Care Team Role Provider Type Flo Pollack MD Primary Care Provider Non-Staff Specialty: Medical Address: [address] [place], [address] Email: Phuong Cabezas MD Other Providers Physician Specialty: Internal Medicine Address: [address] [place] [address], [address] Email: [email or web address] Tien Stoner MD Admit Provider Physician Attending Provider Specialty: Orthopedic Surgery Address: [address] [place] [address], [id number] Email: [email or web address] Dysphagia Treatment [facility] Dysphagia Treatment Start: 11/22/18 13:21 Freq: Status: Active Protocol: Document 11/26/18 18:04 LNK (Rec: 11/26/18 18:43 LNK [id number]) Dysphagia Treatment Session Time Visit Start Time 16:30 Visit Stop Time 17:15 Total Visit Minutes 45 Setting Assessment Location Acute Care Visit Type Note Type Treatment Note Next Note Type Next Note Type Treatment Note Patient Information Identification Type Name ID Card Subjective Observations Pt in his room in bed with present in room Treatment Liquids Trialed Ice Chips Administration Type Tea Spoon Oral Strategies Upright at 90 degrees Controlled Bite/Sip Size Pharyngeal Strategies Sitting Upright (90 deg) Additional Dysphagia Treatment Free Water Protocol with Strategies strict adherence to instructions (in pt's room) Treatment Activities Reviewed the results of the MBSS today with the pt. He was discouraged. Reassured the pt that there was a plan. Noted that the pt remains NPO ; however, he will be able to have ice chips and/or sips of water, following the instructions of the Free Water Protocol and with 1:1 supervision by nursing. He was also provided with written instructions, affixed to his bedside table, regarding a supraglottic swallow per each ice chip. The pt was able to read and understand his swallowing instructions, demonstrating the supraglottic swallow with ice chips. He was also given a lingual exercise to push his tongue to his palate firmly and hold 1 -2 seconds, repeating 5-10 times. Pt demonstrated exercise correctly. Again reassured pt regarding the potential benefit of strengthening exercises for airway protection. Assessment Patient Response to Treatment Good Rehab Potential Good Diet Recommendations Liquids Order Free Water Protocol Diet Order NPO/Alternative Means of Nutrition/Hydration Medication Recommendations Not Recommended by Mouth Aspiration Precautions Recommended Precautions Upright at 90 Degrees Effortful Swallow Supraglottic Swallow Treatment Plan Placement Recommendation after Discharge Intermediate Facility Appropriate for Continued Therapy Yes Therapy Recommendations Dysphagia therapy with emphasis on liguapharyngeal strengthening exercises to improve airway protection. Vital Stim treatment to stimulate swallow muscles in guided therapy Dysphagia Goals Pt will use Free Water Protocol to provide Po hydration and improve quality of life. Follow Up Plan 1-2x/day
[2018-11-26 19:43] VITALS: BP 152/69; PULSE 67; RESP 16; TEMP 36.9; O2SAT 93
--- NOTE | 2018-11-26 23:44 | PC.NURSE ---
1545: Pt awake, alert, oriented to self/place. Reports 5-6/10 pain and requested tylenol suppository. Dressing to posterior/anterior neck c/d/i. Speech in to see patient and explained NPO w/free water protocol to staff/family. TPN infusing to PICC line w/o complications, IVF into left forearm IV as well. Using call light appropriately. High fall risk/bed alarm on. 2129: Pt increasingly restless and more confused after 2099. Declines need for tylenol suppository. Up multiple times to void via urinal while standing at bedside. At times sits up on side of bed, then states I need to go to bed.
[2018-11-27] VITALS: BP 183/71; PULSE 76; RESP 18; TEMP 36.8; O2SAT 94
[2018-11-27] MEDS: INSULIN ASPART 100 UNIT/ML INSULN PEN SUBCUT ×4 (00:23→18:18)
[2018-11-27] MEDS: ACETAMINOPHEN 650 MG SUPP PR ×3 (00:24→16:55)
[2018-11-27] MEDS: AMPICILLIN/SULBACTAM 3 GM 3 GM in SODIUM CHLORIDE 0.9% 100 ML IV ×3 (01:44→18:17)
[2018-11-27] MEDS: DEXTROSE 5%-0.45NS W/KCL 20MEQ 1,000 ML 84 MEQ IV ×2 (03:52→17:13)
[2018-11-27 04:34] VITALS: BP 172/67; PULSE 71; RESP 18; TEMP 36.7; O2SAT 94
--- NOTE | 2018-11-27 06:43 | PC.NURSE ---
Pt. is alert and oriented but forgetful with 02 sats on RA in the mid 90's, lungs with bibasilar fine crackles and denies shortness of air. Pt. had fragmented sleep, is bored and anxious to go home. Pt. ambulated numerous times around [facility], pain is mild and medicated with tylenol supp, cervical dressing to neck is CD&I. Pt. wears his cervical collar when up and ambulating. Cont. parenteral nutrition until pt. able to eat a normal diet.
[2018-11-27 07:57] VITALS: BP 152/60; PULSE 68; RESP 16; TEMP 36.6; O2SAT 93
--- NOTE | 2018-11-27 10:49 | PM.PNPO.1 ---
Subjective Date Patient Seen: 11/27/18 Time Patient Seen: 10:49 Interval history: Patient currently undergoing echocardiogram in the room. He has no complaints. Exam Vital Signs (past 8 hours): - 11/27/18 04:34 11/27/18 07:57 Temperature 98.1 F 98 F Pulse Rate 71 68 Respiratory Rate 18 16 Blood Pressure 172/67 H 152/60 H Pulse Oximetry 94 93 Fraction of Inspired Oxygen 21 Oxygen Delivery Method Room Air Oxygen Flow Rate 0 Narrative Exam Narrative: 82-year-old male resting comfortably in bed in no apparent distress. Currently having echocardiogram. Dressing is clean, dry and intact. Sensation grossly intact to light touch left upper extremity and diminished on the right upper extremity.. Good left upper extremity strength. Known weakness right upper extremity. Objective Labs Result Diagrams: 11/24/18 04:57 11/24/18 04:57 Assessment & Plan Post-op Postoperative Procedures Operation Date: 11/19/18 07:45 Actual Procedures Side Surgeon p C3-6 ACDF w/posterior instru fusion w/bone graft Tien Stoner MD Postop day 8, status post C3 through C6 ACDF with cervical wound exploration on same day due to postop bleeding. Patient being followed by hospitalist. The patient seems to be slowly improving. Patient will be discharged to half-way facility when medically stable per hospitalist. Operation Date: 11/19/18 14:15 Actual Procedures Side Surgeon p s/p cervical fusion bleed Not Applicable Tien Stoner MD Quality VTE Deep Vein Thrombosis/Pulmonary Embolism Present on Admission: No
--- NOTE | 2018-11-27 10:50 | P.PN_ITS ---
Subjective Date Patient Seen: 11/27/18 Time Patient Seen: 10:50 Interval history: He is seen today to follow-up the dysphagia/swallowing dysfunction and aortic stenosis. He is postoperative cervical spine fusion followed by Orthopedics. Yesterday he was unable to fully pass a modified bar ium swallow in soak remains on TPN with thin liquids. We continued be optimistic that his postoperative dysphagia will steadily resolved as it has been. It turns out that his last echocardiogram was a year ago and showed moderate to severe aortic stenosis. His heart murmur is certainly quite impr essive and so there may be some progression, we will see on today's follow-up echo. Exam Vital Signs (past 8 hours): - 11/27/18 04:34 11/27/18 07:57 Temperature 98.1 F 98 F Pulse Rate 71 68 Respiratory Rate 18 16 Blood Pressure 172/67 H 152/60 H Pulse Oximetry 94 93 Fraction of Inspired Oxygen 21 Oxygen Delivery Method Room Air Oxygen Flow Rate 0 Narrative Exam Narrative: Exam Narrative: He is alert and oriented x3. No signs of delir ium. Heart is regular rate and rhythm with a 3/6 holosytolic ejection murmur. Lungs are clear to auscultation bilaterally. Neck exam is normal except for the post op dressing, without signs of hematoma or drainage. Extremities have no ankle edema. Objective Labs Result Diagrams: 11/24/18 04:57 11/24/18 04:57 Assessment & Plan Assessment & Plan narrative: 1. Aspiration pneumonia - continue IV Unasyn, with plans to change to oral Augmentin at discharge. 2. Type 2 diabetes - continue NovoLog 3. Chronic dysphagia status post ABC DS - speech therapy has been seeing him every day, unfortunately he was not able to advance as far as he hoped yesterday but he is still expected to improve in the next few days postoperatively. - continue TPN for now. 4. Hypertension - continue amlodipine 5. Acute metabolic encephalopathy, secondary to high-dose steroid - no longer on steroids and is clear mentally. 6. Delirium - resolved 7. Status post C3-C6 ACDF with posterior fusion and with bone graft - orthopedics is following 8. Severe aortic stenosis - for clarification at a 1 year follow-up an echocardiogram will be checked today. Plan will continue IV Unasyn given aspiration pneumonia. Patient will continue on TPN given inability to swallow. Quality VTE Deep Vein Thrombosis/Pulmonary Embolism Present on Admission: No
[2018-11-27 12:11] VITALS: BP 157/65; PULSE 68; RESP 15; TEMP 36.7; O2SAT 96
--- NOTE | 2018-11-27 13:12 | PT.IPTN ---
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) Radiculopathy, cervical region (11/19/18) Surgery Performed Operation Date: 11/19/18 07:45 Actual Procedures p C3-6 ACDF w/posterior instru fusion w/bone graft - Tien Stoner MD Operation Date: 11/19/18 14:15 Actual Procedures p s/p cervical fusion bleed(Not Applicable) - Tien Stoner MD Physical Therapy Treatment Note M2 PT-IP Current Condition Start: 11/20/18 11:43 Freq: NEEDED Status: Active Protocol: Document 11/20/18 11:30 RCC (Rec: 11/20/18 11:57 RCC [id number]) Physical Therapy Current Condition Current Condition Evaluation Date 11/20/18 Treatment Diagnosis C3-6 ACDF w/ post. instrumentation11/19/18, impaired mobility and strength Precautions Cervical Spine Precautions Soft Collar for Comfort No Heavy Lifting Log Roll M3 PT-IP Subjective Start: 11/20/18 11:43 Freq: NEEDED Status: Active Protocol: Document 11/27/18 11:25 CLB (Rec: 11/27/18 13:12 CLB [id number]) Subjective Physical Therapy Visit Type Type Treatment Note Visit Start Time 11:25 Visit Stop Time 11:52 Total Visit Minutes 27 Number of SENIOR WATER/WASTEWATER ENGINEER Visits 6 Physical Therapy Visit Comments Patient Comments Pt agreeable to do PT. Therapy Pain Assessment Pain When Pain Assessed During Mobility Pain Present Pain Present Pain Reported M4 PT-IP Mobility and Gait Start: 11/20/18 11:43 Freq: NEEDED Status: Active Protocol: Document 11/27/18 11:25 CLB (Rec: 11/27/18 13:12 CLB [id number]) PT-Bed Mobility Assessment Rolling Type of Rolling Roll to Left Level of Assist Minimal Assistance Supine to Sit Supine to Sit Minimal Assistance Scooting Scooting to Edge of Bed Contact Guard Assistance PT-Transfer Assessment Sit to and From Stand Sit to and from Stand Contact Guard Assistance 1 Person Assistance Use of Upper Extremities Equipment Transfer Assistive Device Gait Belt Front Wheeled Walker Transfers Transfer Destination Chair Transfer Ability Level of Assist Contact Guard Assistance Use of Upper Extremities Gait Assessment Gait Gait Assistance Required: Contact Guard Assist 1 Person Assist Distance (Feet) 150 Able to Maintain Weight Bearing Status Yes During Gait Assistive Devices Assistive Device Gait Belt Front Wheeled Walker Gait Deviations General Gait Pattern Decreased Stride Length Decreased Feet Clearance Flexed Trunk Narrow Based Gait Factors Limiting Gait Function Factors Limiting Gait Function Decreased Activity Tolerance Decreased Sensation Difficulty Following Directions Limited Range of Motion Pain Poor Balance Poor Safety Awareness Comments Gait Comments Pt needs cues for posture and slowing speed. M5 PT-IP Objective Assessments Start: 11/20/18 11:43 Freq: NEEDED Status: Active Protocol: Document 11/20/18 11:30 RCC (Rec: 11/20/18 11:57 RCC [id number]) Orientation Orientation/Cognition Level of Alertness Lethargic Gross Range of Motion Upper Extremity ROM Assessment Right Impaired Lower Extremity ROM Assessment Right Impaired Strength Lower Extremity Strength Assessment Bilaterally Impaired Hip flexion 3/5 B Knee flexion 3+/5 and extension 3/5 B Ankle DF 4/5 B M6 PT-IP Treatment Start: 11/20/18 11:43 Freq: NEEDED Status: Active Protocol: Document 11/20/18 15:00 RCC (Rec: 11/20/18 15:36 RCC [id number]) Physical Therapy Treatment Education Education Provided Safety M7 PT-IP Assessment and Plan Start: 11/20/18 11:43 Freq: NEEDED Status: Active Protocol: Document 11/27/18 11:25 CLB (Rec: 11/27/18 13:12 CLB [id number]) PT Summary Assessment and Plan Summary Assessment Summary Pt required cues to use Log roll OOB. Pt required cues for posture and slowing speed with ambulation. Pt is impulsive and requires cues for safety during transfers. Frequency of Treatment Frequency Of Treatment Twice a Day Treatment Plan Physical Therapy Treatment Plan Bed Mobility Training Transfer Training Gait Training Therapeutic Exercise Balance Retraining Post Op Education Discharge Planning Hot or Cold Pack Neuromuscular Re-ed Other Recommendations and Next Treatment short gait with chair follow, Focus bed mobility and sit<->stand. Recommendations To Nursing Amount of Assist Needed 1 Person Assist Discharge Recommendations PT Discharge Recommendations SNF Rehab
--- NOTE | 2018-11-27 13:37 | PC.NURSE ---
Pt sitting up in chair at times, advised that swallowing ability would return in time per Dr Hernandez and pt was encouraged by this news. TPN continues. CBG = 221 at noon and given 7 units of coverage. Pt cooperative with all cares. Reports that he is not wanting food or fluids and is surprised at this.
--- NOTE | 2018-11-27 14:08 | PT.IPTN ---
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) Radiculopathy, cervical region (11/19/18) Surgery Performed Operation Date: 11/19/18 07:45 Actual Procedures p C3-6 ACDF w/posterior instru fusion w/bone graft - Tien Stoner MD Operation Date: 11/19/18 14:15 Actual Procedures p s/p cervical fusion bleed(Not Applicable) - Tien Stoner MD Physical Therapy Treatment Note M2 PT-IP Current Condition Start: 11/20/18 11:43 Freq: NEEDED Status: Active Protocol: Document 11/20/18 11:30 RCC (Rec: 11/20/18 11:57 RCC [id number]) Physical Therapy Current Condition Current Condition Evaluation Date 11/20/18 Treatment Diagnosis C3-6 ACDF w/ post. instrumentation11/19/18, impaired mobility and strength Precautions Cervical Spine Precautions Soft Collar for Comfort No Heavy Lifting Log Roll M3 PT-IP Subjective Start: 11/20/18 11:43 Freq: NEEDED Status: Active Protocol: Document 11/27/18 14:08 CLB (Rec: 11/27/18 14:08 CLB [id number]) Subjective Physical Therapy Visit Type Type Patient Refusal Notes Pt stated he was sleepy and cold and didn't want to get OOB. Will check back with pt in AM.Provided pt with warm blankets and call light. M4 PT-IP Mobility and Gait Start: 11/20/18 11:43 Freq: NEEDED Status: Active Protocol: Document 11/27/18 11:25 CLB (Rec: 11/27/18 13:12 CLB [id number]) PT-Bed Mobility Assessment Rolling Type of Rolling Roll to Left Level of Assist Minimal Assistance Supine to Sit Supine to Sit Minimal Assistance Scooting Scooting to Edge of Bed Contact Guard Assistance PT-Transfer Assessment Sit to and From Stand Sit to and from Stand Contact Guard Assistance 1 Person Assistance Use of Upper Extremities Equipment Transfer Assistive Device Gait Belt Front Wheeled Walker Transfers Transfer Destination Chair Transfer Ability Level of Assist Contact Guard Assistance Use of Upper Extremities Gait Assessment Gait Gait Assistance Required: Contact Guard Assist 1 Person Assist Distance (Feet) 150 Able to Maintain Weight Bearing Status Yes During Gait Assistive Devices Assistive Device Gait Belt Front Wheeled Walker Gait Deviations General Gait Pattern Decreased Stride Length Decreased Feet Clearance Flexed Trunk Narrow Based Gait Factors Limiting Gait Function Factors Limiting Gait Function Decreased Activity Tolerance Decreased Sensation Difficulty Following Directions Limited Range of Motion Pain Poor Balance Poor Safety Awareness Comments Gait Comments Pt needs cues for posture and slowing speed. M5 PT-IP Objective Assessments Start: 11/20/18 11:43 Freq: NEEDED Status: Active Protocol: Document 11/20/18 11:30 RCC (Rec: 11/20/18 11:57 RCC [id number]) Orientation Orientation/Cognition Level of Alertness Lethargic Gross Range of Motion Upper Extremity ROM Assessment Right Impaired Lower Extremity ROM Assessment Right Impaired Strength Lower Extremity Strength Assessment Bilaterally Impaired Hip flexion 3/5 B Knee flexion 3+/5 and extension 3/5 B Ankle DF 4/5 B M6 PT-IP Treatment Start: 11/20/18 11:43 Freq: NEEDED Status: Active Protocol: Document 11/20/18 15:00 RCC (Rec: 11/20/18 15:36 RCC [id number]) Physical Therapy Treatment Education Education Provided Safety M7 PT-IP Assessment and Plan Start: 11/20/18 11:43 Freq: NEEDED Status: Active Protocol: Document 11/27/18 11:25 CLB (Rec: 11/27/18 13:12 CLB [id number]) PT Summary Assessment and Plan Summary Assessment Summary Pt required cues to use Log roll OOB. Pt required cues for posture and slowing speed with ambulation. Pt is impulsive and requires cues for safety during transfers. Frequency of Treatment Frequency Of Treatment Twice a Day Treatment Plan Physical Therapy Treatment Plan Bed Mobility Training Transfer Training Gait Training Therapeutic Exercise Balance Retraining Post Op Education Discharge Planning Hot or Cold Pack Neuromuscular Re-ed Other Recommendations and Next Treatment short gait with chair follow, Focus bed mobility and sit<->stand. Recommendations To Nursing Amount of Assist Needed 1 Person Assist Discharge Recommendations PT Discharge Recommendations SNF Rehab
--- NOTE | 2018-11-27 15:45 | CM.DPNOTE ---
According to Dr Christiansen: Likely here another 48 hrs, pt w/post operative throat edema effecting his ability to swallow. TPN infusing now. Once pt is off TPN x24hrs and tolerating a diet, [facility] will accept. Following closely for coordination of safe DCP. PASRR completed. OMEGA
[2018-11-27 16:00] VITALS: BP 157/64; PULSE 66; RESP 18; TEMP 36.9; O2SAT 94
--- NOTE | 2018-11-27 16:28 | OT.IP.TRT ---
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) Radiculopathy, cervical region (11/19/18) Surgery Performed Operation Date: 11/19/18 07:45 Actual Procedures p C3-6 ACDF w/posterior instru fusion w/bone graft - Tien Stoner MD Operation Date: 11/19/18 14:15 Actual Procedures p s/p cervical fusion bleed(Not Applicable) - Tien Stoner MD Occupational Therapy Treatment Note M2 OT-IP Current Condition Start: 11/20/18 16:51 Freq: Status: Active Protocol: Document 11/20/18 16:54 [facility] (Rec: 11/20/18 17:17 [facility] [id number]) Occupational Therapy Current Condition Current Condition Evaluation Date 11/20/18 Treatment Diagnosis Cervical Stenosis Diagnosis Onset Date 11/19/18 Post Operative Precautions Cervical Spine Precautions Soft Collar for Comfort No Heavy Lifting Log Roll M3 OT- IP Subjective and Pain Start: 11/20/18 16:51 Freq: Status: Active Protocol: Document 11/27/18 16:21 CCC (Rec: 11/27/18 16:28 [facility] [id number]) OT- Subjective Occupational Therapy Visit Type Type Patient Unavailable Notes 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
[2018-11-27] MEDS: AA 5 %/CALCIUM/LYTES/DEXT 20 % 1,000 ML with MULTIVITAMIN 10 ML, TRACE ELEMENTS 1 ML, I... 42.138 ML IV (18:16)
[2018-11-27] MEDS: FAT EMULSIONS 50 GM/250 ML EMULSION IV (18:17)
[2018-11-27 19:14] VITALS: BP 132/60; PULSE 86; RESP 18; TEMP 36.6; O2SAT 95
[2018-11-28] VITALS (10 sets, daily range): BP systolic 104–139; BP diastolic 53–69; PULSE 63–83; RESP 15–18; TEMP 36.4–36.9; O2SAT 95–100
[2018-11-28] MEDS: INSULIN ASPART 100 UNIT/ML INSULN PEN SUBCUT ×4 (00:09→18:09)
--- NOTE | 2018-11-28 00:51 | PC.NURSE ---
[employer] Operator Note: 0010: Awake, resting in bed with HOB elevated 30 degrees. Vital signs stable. PICC in place in rt upper arm and secured; TPN infusing at 42.1cc/hr and Intralipids infusing at 25cc/hr. PIV in place in lt forearm with D5 1/2NS with KCL infusing at 84cc/hr. CBG 259: Novalog 9 units given. Dressings to anterior and posterior neck are cdi. Pt declines to wear soft cervical collar.
[2018-11-28] MEDS: AMPICILLIN/SULBACTAM 3 GM 3 GM in SODIUM CHLORIDE 0.9% 100 ML IV ×3 (02:24→18:08)
[2018-11-28] MEDS: ACETAMINOPHEN 650 MG SUPP PR ×2 (03:30→13:02)
[2018-11-28] MEDS: DEXTROSE 5%-0.45NS W/KCL 20MEQ 1,000 ML 84 MEQ IV ×2 (07:13→21:15)
[2018-11-28 08:04] LABS: Add Manual Diff / Slide Review NO; Basophils Absolute Auto 100 /uL (0-100); Basophils Percent Auto 1.1 % (0-2); Eosinophils Absolute Auto 200 /uL (0-450); Eosinophils Percent Auto 2.4 % (2-4); Hematocrit 36.9 % (41-53); Hemoglobin 12.6 g/dL (13.5-17.5); Lymphocytes Absolute Auto 2000 /uL (1100-4500); Lymphocytes Percent Auto 20.5 % (25-40); Mean Corpuscular HGB Conc 34.2 % (30-36); Mean Corpuscular Hemoglobin 31.5 PG (26-34); Mean Corpuscular Volume 92.2 fL (80-100); Monocytes Absolute Auto 700 /uL (0-900); Monocytes Percent Auto 7.1 % (3-14); Neutrophils Absolute Auto 6800 /uL (1500-7000); Neutrophils Percent Auto 68.9 % (50-75); Platelet Count 331 X10^3/uL (150-400); Red Cell Distribution Width 14.1 % (11.6-14.8); White Blood Cell Count 9.8 X10^3/uL (4.5-11.0)
[2018-11-28 08:16] LABS: Alanine Aminotransferase 21 IU/L (21-72); Albumin 3.1 g/dL (3.5-5.0); Albumin Globulin Ratio 1.2 (1.0-2.8); Alkaline Phosphatase 40 U/L (38-126); Aspartate Aminotransferase 14 IU/L (17-59); Bilirubin Total 0.7 mg/dL (0.2-1.3); Blood Urea Nitrogen 19 mg/dL (9-20); Calcium 8.7 mg/dL (8.4-10.2); Carbon Dioxide 26 mmol/L (22-32); Chloride 106 mmol/L (98-107); Estimated Glomerular Filt Rate > 60.0 mL/min (>60); Globulin 2.6 g/dL (1.7-4.1); Glucose 153 mg/dL (80-110); HEMOLYSIS < 15 (0-50); Potassium 4.4 mmol/L (3.4-5.1); Sodium 140 mmol/L (137-145); Total Protein 5.7 g/dL (6.3-8.2)
--- NOTE | 2018-11-28 08:43 | P.PN_ITS ---
Subjective Date Patient Seen: 11/28/18 Time Patient Seen: 08:43 Interval history: He is seen today to follow-up his cervical spine fusion with resulting complication of dysphagia, preventing consistent/adequate oral intake. He is on TPN. His echocardiogram shows moderate to severe aortic stenosis, essentially stable compared to a year ago. Exam Vital Signs (past 8 hours): - 11/28/18 04:05 11/28/18 08:19 Temperature 97.9 F 97.9 F Pulse Rate 76 75 Respiratory Rate 18 15 Blood Pressure 139/69 135/53 L Pulse Oximetry 99 99 Fraction of Inspired Oxygen 21 Oxygen Delivery Method Room Air Oxygen Flow Rate 2 Narrative Exam Narrative: He is alert and oriented x3. No signs of delirium. Heart is irregularly irregular with a 3/6 holosytolic ejection murmur. Lungs are clear to auscultation bilaterally. Neck exam is normal except for the post op dressing, without signs of hematoma or drainage. Extremities have no ankle edema. The right arm remains weak at baseline. Objective Labs Result Diagrams: 11/28/18 07:55 11/28/18 07:55 Labs: Laboratory Results - last 24 hr 11/28/18 11/28/18 07:55 07:55 WBC 9.8 RBC 4.00 L Hgb 12.6 L Hct 36.9 L MCV 92.2 MCH 31.5 MCHC 34.2 RDW 14.1 Plt Count 331 Neut % (Auto) 68.9 Lymph % (Auto) 20.5 L [place] % (Auto) 7.1 Eos % (Auto) 2.4 Baso % (Auto) 1.1 Neut # (Auto) 6800 Lymph # (Auto) 2000 [place] # (Auto) 700 Eos # (Auto) 200 Baso # (Auto) 100 Sodium 140 Potassium 4.4 Chloride 106 Carbon Dioxide 26 BUN 19 Creatinine 1.00 Estimated GFR > 60.0 BUN/Creatinine Ratio 19.0 Glucose 153 H D Calcium 8.7 Total Bilirubin 0.7 AST 14 L ALT 21 Alkaline Phosphatase 40 Total Protein 5.7 L Albumin 3.1 L Globulin 2.6 Albumin/Globulin Ratio 1.2 Assessment & Plan Assessment & Plan narrative: 1. Aspiration pneumonia - continue IV Unasyn, with plans to change to oral Augmentin once he is swallowing better, at discharge. 2. Type 2 diabetes - continue NovoLog with blood sugars consistently in the 200s. 3. Chronic dysphagia status post ABC DS - speech therapy has been seeing him every day, unfortunately he was not able to advance as far as he hoped on Thursday but he is still expected to improve in the next few days postoperatively. - continue TPN for now. Checking CMP and CBC today. 4. Hypertension - continue amlodipine 5. Acute metabolic encephalopathy, secondary to high-dose steroid - no longer on steroids and is clear mentally. 6. Delirium - resolved 7. Status post C3-C6 ACDF with posterior fusion and with bone graft - orthopedics is following 8. Severe aortic stenosis - for clarification an echo done yesterday showed no significant change in the aortic stenosis compared to 1 year ago. By 1 criteria it is moderate and by another criteria it is severe. Quality VTE Deep Vein Thrombosis/Pulmonary Embolism Present on Admission: No
--- NOTE | 2018-11-28 08:45 | PM.PNPO.1 ---
Subjective Date Patient Seen: 11/28/18 Time Patient Seen: 08:45 Interval history: The patient reports he is feeling better. He is anxious to get out of the hospital. Exam Vital Signs (past 8 hours): - 11/28/18 04:05 11/28/18 08:19 Temperature 97.9 F 97.9 F Pulse Rate 76 75 Respiratory Rate 18 15 Blood Pressure 139/69 135/53 L Pulse Oximetry 99 99 Fraction of Inspired Oxygen 21 Oxygen Delivery Method Room Air Oxygen Flow Rate 2 Narrative Exam Narrative: Cervical wound is dressed with a clean dry intact bandage. 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 Objective Labs Result Diagrams: 11/28/18 07:55 11/28/18 07:55 Labs: Laboratory Results - last 24 hr 11/28/18 11/28/18 07:55 07:55 WBC 9.8 RBC 4.00 L Hgb 12.6 L Hct 36.9 L MCV 92.2 MCH 31.5 MCHC 34.2 RDW 14.1 Plt Count 331 Neut % (Auto) 68.9 Lymph % (Auto) 20.5 L [place] % (Auto) 7.1 Eos % (Auto) 2.4 Baso % (Auto) 1.1 Neut # (Auto) 6800 Lymph # (Auto) 2000 [place] # (Auto) 700 Eos # (Auto) 200 Baso # (Auto) 100 Sodium 140 Potassium 4.4 Chloride 106 Carbon Dioxide 26 BUN 19 Creatinine 1.00 Estimated GFR > 60.0 BUN/Creatinine Ratio 19.0 Glucose 153 H D Calcium 8.7 Total Bilirubin 0.7 AST 14 L ALT 21 Alkaline Phosphatase 40 Total Protein 5.7 L Albumin 3.1 L Globulin 2.6 Albumin/Globulin Ratio 1.2 Assessment & Plan Post-op Postoperative Procedures Operation Date: 11/19/18 07:45 Actual Procedures Side Surgeon p C3-6 ACDF w/posterior instru fusion w/bone graft Tien Stoner MD Operation Date: 11/19/18 14:15 Actual Procedures Side Surgeon p s/p cervical fusion bleed Not Applicable Tien Stoner MD Postoperative day: 9 Postoperative status: doing well Postoperative status narrative: The patient is 9 days postop from an anterior cervical diskectomy and fusion complicated by hematoma requiring drainage on the same day. He has had multiple complications since including aspiration pneumonia and the inability to swallow. He is currently on TPN while we await the return of swallowing capability. Postoperative plan: routine post-op care and advance diet Postoperative plan narrative: He will continue here in the hospital until he is able to take oral food. We anticipate this in the next couple of days. We appreciate the input and assistance of the hospitalist service. Time Spent With Patient less than 15 minutes Quality VTE Deep Vein Thrombosis/Pulmonary Embolism Present on Admission: No
--- NOTE | 2018-11-28 11:51 | PC.NURSE ---
Addendum entered by Naima Sherwood R.N. 11/28/18 14:59: Given Tylenol suppository approx 1300 for 5/10 neck pain. At reassessment rated pain 3/10. Resting in bed now. Call light in reach, bed alarm on. Original Note: Shift summary: Alert and oriented X3. Reports minimal pain/discomfort in his neck, rated 3/10 and declined Tylenol when offered. Dressings to anterior and posterior neck C/D/I. Reports pins and needles in all 4 extremities which was present pre-operatively. Sat up in the chair for a couple hours, then back to bed per his request. 1-person assist with FWW, gait steady. Voiding without issue. Tolerated ice chips without s/sx aspiration- oral care given prior to PO intake. IVF and TPN per orders. PICC and peripheral IV's both WNL. SpO2 on RA 98-99%. Able to make needs known and calls appropriately. Light in reach, bed alarm active.
--- NOTE | 2018-11-28 13:29 | PT.IPTN ---
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) Radiculopathy, cervical region (11/19/18) Surgery Performed Operation Date: 11/19/18 07:45 Actual Procedures p C3-6 ACDF w/posterior instru fusion w/bone graft - Tien Stoner MD Operation Date: 11/19/18 14:15 Actual Procedures p s/p cervical fusion bleed(Not Applicable) - Tien Stoner MD Physical Therapy Treatment Note M2 PT-IP Current Condition Start: 11/20/18 11:43 Freq: NEEDED Status: Active Protocol: Document 11/20/18 11:30 RCC (Rec: 11/20/18 11:57 RCC [id number]) Physical Therapy Current Condition Current Condition Evaluation Date 11/20/18 Treatment Diagnosis C3-6 ACDF w/ post. instrumentation11/19/18, impaired mobility and strength Precautions Cervical Spine Precautions Soft Collar for Comfort No Heavy Lifting Log Roll M3 PT-IP Subjective Start: 11/20/18 11:43 Freq: NEEDED Status: Active Protocol: Document 11/28/18 11:55 CLB (Rec: 11/28/18 13:29 CLB [id number]) Subjective Physical Therapy Visit Type Type Treatment Note Visit Start Time 11:55 Visit Stop Time 12:10 Total Visit Minutes 15 Number of TRENCH TRIMMER FINE Visits 7 Physical Therapy Visit Comments Patient Comments Pt agreeable to do PT. Therapy Pain Assessment Pain When Pain Assessed During Mobility Pain Present Pain Present Pain Reported M4 PT-IP Mobility and Gait Start: 11/20/18 11:43 Freq: NEEDED Status: Active Protocol: Document 11/28/18 11:55 CLB (Rec: 11/28/18 13:29 CLB [id number]) PT-Bed Mobility Assessment Rolling Type of Rolling Roll to Left Level of Assist Minimal Assistance Supine to Sit Supine to Sit Minimal Assistance Sit to Supine Sit to Supine Minimal Assistance 1 Person Assistance Bedrails Scooting Scooting to Edge of Bed Contact Guard Assistance PT-Transfer Assessment Sit to and From Stand Sit to and from Stand Contact Guard Assistance 1 Person Assistance Use of Upper Extremities Equipment Transfer Assistive Device Gait Belt Front Wheeled Walker Orthotic/Prosthetic Devices or Brace: Yes Transfers Transfer Destination Bed Transfer Ability Level of Assist Contact Guard Assistance Use of Upper Extremities Comments Mobility Comments Pt requires cues for sequencing reverse log roll sit-supine. Gait Assessment Gait Gait Assistance Required: Contact Guard Assist 1 Person Assist Distance (Feet) 150 Able to Maintain Weight Bearing Status Yes During Gait Assistive Devices Assistive Device Gait Belt Front Wheeled Walker Gait Deviations General Gait Pattern Decreased Stride Length Decreased Feet Clearance Flexed Trunk Narrow Based Gait Factors Limiting Gait Function Factors Limiting Gait Function Decreased Activity Tolerance Decreased Sensation Difficulty Following Directions Limited Range of Motion Pain Poor Balance Poor Safety Awareness Comments Gait Comments Pt ambulates with small shuffled steps needing cues for posture and looking forward. M5 PT-IP Objective Assessments Start: 11/20/18 11:43 Freq: NEEDED Status: Active Protocol: Document 11/20/18 11:30 RCC (Rec: 11/20/18 11:57 RCC [id number]) Orientation Orientation/Cognition Level of Alertness Lethargic Gross Range of Motion Upper Extremity ROM Assessment Right Impaired Lower Extremity ROM Assessment Right Impaired Strength Lower Extremity Strength Assessment Bilaterally Impaired Hip flexion 3/5 B Knee flexion 3+/5 and extension 3/5 B Ankle DF 4/5 B M6 PT-IP Treatment Start: 11/20/18 11:43 Freq: NEEDED Status: Active Protocol: Document 11/20/18 15:00 RCC (Rec: 11/20/18 15:36 RCC [id number]) Physical Therapy Treatment Education Education Provided Safety M7 PT-IP Assessment and Plan Start: 11/20/18 11:43 Freq: NEEDED Status: Active Protocol: Document 11/28/18 11:55 CLB (Rec: 11/28/18 13:29 CLB [id number]) PT Summary Assessment and Plan Summary Assessment Summary Pt continues to require cues and Min A for log roll into and out of bed. Pt requires cues for posture and forward gaze during ambulation for safety and had LOB x1 with ambulation that he was able to correct. Pt c/o pain with mobility and refused bed ther ex. RN notified. Goals Bed Mobility Goal Contact Guard Assistance Transfer Goal Contact Guard Assistance Gait Goal Contact Guard Assistance Gait Distance 50 Other Goals up/down 6 step with unilat. rail and Min A. Days to Meet Goals 5 Frequency of Treatment Frequency Of Treatment Twice a Day Treatment Plan Physical Therapy Treatment Plan Bed Mobility Training Transfer Training Gait Training Therapeutic Exercise Balance Retraining Post Op Education Discharge Planning Hot or Cold Pack Neuromuscular Re-ed Other Recommendations and Next Treatment Gait, bed mobility, stair Focus training if going home. Recommendations To Nursing Amount of Assist Needed 1 Person Assist Discharge Recommendations PT Discharge Recommendations SNF Rehab
--- NOTE | 2018-11-28 15:23 | PT.IPTN ---
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) Radiculopathy, cervical region (11/19/18) Surgery Performed Operation Date: 11/19/18 07:45 Actual Procedures p C3-6 ACDF w/posterior instru fusion w/bone graft - Tien Stoner MD Operation Date: 11/19/18 14:15 Actual Procedures p s/p cervical fusion bleed(Not Applicable) - Tien Stoner MD Physical Therapy Treatment Note M2 PT-IP Current Condition Start: 11/20/18 11:43 Freq: NEEDED Status: Active Protocol: Document 11/20/18 11:30 RCC (Rec: 11/20/18 11:57 RCC [id number]) Physical Therapy Current Condition Current Condition Evaluation Date 11/20/18 Treatment Diagnosis C3-6 ACDF w/ post. instrumentation11/19/18, impaired mobility and strength Precautions Cervical Spine Precautions Soft Collar for Comfort No Heavy Lifting Log Roll M3 PT-IP Subjective Start: 11/20/18 11:43 Freq: NEEDED Status: Active Protocol: Document 11/28/18 15:22 CLB (Rec: 11/28/18 15:23 CLB [id number]) Subjective Physical Therapy Visit Type Type Patient Refusal Notes Pt had just been up to [facility] with assist of TEACHERS AIDE and refused ambulation at this time. Will check back with pt in A.M. M4 PT-IP Mobility and Gait Start: 11/20/18 11:43 Freq: NEEDED Status: Active Protocol: Document 11/28/18 11:55 CLB (Rec: 11/28/18 13:29 CLB [id number]) PT-Bed Mobility Assessment Rolling Type of Rolling Roll to Left Level of Assist Minimal Assistance Supine to Sit Supine to Sit Minimal Assistance Sit to Supine Sit to Supine Minimal Assistance 1 Person Assistance Bedrails Scooting Scooting to Edge of Bed Contact Guard Assistance PT-Transfer Assessment Sit to and From Stand Sit to and from Stand Contact Guard Assistance 1 Person Assistance Use of Upper Extremities Equipment Transfer Assistive Device Gait Belt Front Wheeled Walker Orthotic/Prosthetic Devices or Brace: Yes Transfers Transfer Destination Bed Transfer Ability Level of Assist Contact Guard Assistance Use of Upper Extremities Comments Mobility Comments Pt requires cues for sequencing reverse log roll sit-supine. Gait Assessment Gait Gait Assistance Required: Contact Guard Assist 1 Person Assist Distance (Feet) 150 Able to Maintain Weight Bearing Status Yes During Gait Assistive Devices Assistive Device Gait Belt Front Wheeled Walker Gait Deviations General Gait Pattern Decreased Stride Length Decreased Feet Clearance Flexed Trunk Narrow Based Gait Factors Limiting Gait Function Factors Limiting Gait Function Decreased Activity Tolerance Decreased Sensation Difficulty Following Directions Limited Range of Motion Pain
[2018-11-28] MEDS: FAT EMULSIONS 50 GM/250 ML EMULSION IV (18:08)
[2018-11-28] MEDS: AA 5 %/CALCIUM/LYTES/DEXT 20 % 1,000 ML with MULTIVITAMIN 10 ML, TRACE ELEMENTS 1 ML, I... 42.146 ML IV (18:08)
[2018-11-29] VITALS (7 sets, daily range): BP systolic 113–146; BP diastolic 50–62; PULSE 57–78; RESP 17–19; TEMP 36.3–36.8; O2SAT 96–100
--- NOTE | 2018-11-29 | DI.RAD.S_ITS ---
PROCEDURE: [place] BARIUM SWALLOW W SPEECH INDICATIONS: Follow up assessment, silent aspiration TECHNIQUE: Examination was conducted in conjunction with speech pathology per standard protocol. In the lateral projection, filming was performed of the patient swallowing. AP projection filming may also be performed with patient swallowing. COMPARISON: [facility], , [place] BARIUM SWALLOW W SPEECH, 11/26/2018, 11:21. FINDINGS: Function: The oral preparatory phase appears normal, with proper containment. The subsequent oral propulsive phase was normal. There is passive spillage with thin liquids, and persistent vallecular pooling. Multiple swallow attempts did little to clear this. There was laryngeal penetration, and coating with thin substances, but no silent aspiration. There is decrease in laryngeal penetration with leftward head turn and minimal improvement with chin tilt. Morphology: No cricopharyngeal bar is identified. No cervical esophageal webs. No Zenker's diverticulum. No strictures. IMPRESSION: 1. Persistent laryngeal penetration seen but no john aspiration. 2. Leftward head turn decreased extent of penetration. 3. Persistent passive spillage and vallecular pooling without effective clearance. 4. Please refer to the full speech pathology report for interpretation and recommendations. Dictated by: Comfort Birch M.D. on 11/29/2018 at 14:29 Approved by: Comfort Birch M.D. on 11/29/2018 at 14:34
--- NOTE | 2018-11-29 00:42 | PC.NURSE ---
Raveler Note: 0015:Awake,asking for something to help him sleep. LORI Molina at bedside to talk to pt. Pt agreed to wear CPAP tonight if he could have something to help him sleep. Louise SANDOVAL notified of two different sliding scales on Insulin order, and clarified that the [id number] sliding scale should be used; no insulin coverage required for his current cbg of 150. PICC in place in rt upper arm, with TPN infusing at 42cc/hr and Intralipids infusing at 25cc/hr. PIV in place in lt forearm with D5 1/2NS with KCL infusing at 84cc/hr.
[2018-11-29] MEDS: AMPICILLIN/SULBACTAM 3 GM 3 GM in SODIUM CHLORIDE 0.9% 100 ML IV ×3 (01:39→18:06)
[2018-11-29] MEDS: SODIUM CHLORIDE 0.45% 1,000 ML 70 ML IV ×2 (01:39→18:06)
[2018-11-29] MEDS: ACETAMINOPHEN 650 MG SUPP PR (01:49)
[2018-11-29 05:50] LABS: Hematocrit 36.3 % (41-53); Mean Corpuscular HGB Conc 33.2 % (30-36); Mean Corpuscular Volume 93.3 fL (80-100); Platelet Count 320 X10^3/uL (150-400); Red Blood Cell Count 3.89 X10^6/uL (4.5-5.9); Red Cell Distribution Width 14.3 % (11.6-14.8)
[2018-11-29 05:51] LABS: Blood Urea Nitrogen 22 mg/dL (9-20); Calcium 8.7 mg/dL (8.4-10.2); Carbon Dioxide 26 mmol/L (22-32); Chloride 107 mmol/L (98-107); Estimated Glomerular Filt Rate > 60.0 mL/min (>60); Glucose 151 mg/dL (80-110); HEMOLYSIS < 15 (0-50); Potassium 3.9 mmol/L (3.4-5.1); Sodium 138 mmol/L (137-145)
[2018-11-29] MEDS: INSULIN ASPART 100 UNIT/ML INSULN PEN SUBCUT (06:25)
[2018-11-29 06:35] LABS: Add Manual Diff / Slide Review YES
[2018-11-29 06:55] LABS: Magnesium 1.9 mg/dL (1.6-2.3)
--- NOTE | 2018-11-29 06:57 | PM.PN.1 ---
Subjective Date Patient Seen: 11/29/18 Interval history: Suleiman Leal is an 82-year-old male with a past medical history significant for coronary artery disease status post stenting, hypertension, hyperlipidemia, diabetes mellitus type II, insulin using, who is status post cervical resection and fixation who subsequently developed a cervical hematoma and was hospitalized for evacuation of his hematoma. He developed complication of dysphagia which prevented consistent/adequate oral intake and aspiration pneumonia. He is on TPN. Medicine service was consulted for management of dysphagia, aspiration pneumonia and diabetes mellitus type II. The patient is resting in bed comfortably and in no acute distress. He is seen today to follow-up his cervical spine fusion with resulting complication of dysphagia, preventing consistent/adequate oral intake. He is on TPN. He endorses cough with copious sputum production. He denies headache, shortness of breath, chest pain, abdominal pain, nausea, vomiting, fever, chills, dysuria, diarrhea or constipation. He is voiding and eliminating without difficulty. He is up ambulating with assistance. Exam Vital Signs (past 8 hours): - 11/28/18 23:25 11/29/18 03:46 Temperature 98.2 F 97.9 F Pulse Rate 83 78 Respiratory Rate 18 19 Blood Pressure 135/69 146/62 H Pulse Oximetry 96 98 Fraction of Inspired Oxygen 21 Oxygen Delivery Method Room Air Oxygen Flow Rate 2 Narrative Exam Narrative: General: Elderly gentleman sitting in bed and in no acute distress, well-developed, well-nourished, appropriately interactive. HEENT: Normocephalic, atraumatic. External ears without defect. Pupils equal, round, and reactive to light. Anicteric sclerae, moist conjunctivae, and no lid lag. Oropharynx free of erythema and cobble stoning with moist mucosa. Neck: Supple. Large hematoma over anterior right chest with bandage over anterior neck in place c/d/i. No lymphadenopathy or thyromegaly. Cardiovascular: Regular rate and rhythm without murmurs, rubs, or gallops appreciated Pulmonary: Clear to auscultation bilaterally without crackles, wheezes, or rhonchi. Normal respiratory effort with no use of accessory muscles. Abdomen: Soft, bowel sounds present, nontender, nondistended. No hepatosplenomegaly or masses appreciated. Extremities: No clubbing, cyanosis, or edema. Skin: Normal temperature, turgor, and texture; no rash, ulcers, or subcutaneous nodules appreciated. Neurological: Cranial nerves grossly intact. Psychiatric: Normal mood and affect. Alert and oriented to person, place, and time. Mild cognitive impairment. Objective Labs Result Diagrams: 11/29/18 04:59 11/29/18 04:59 Labs: Laboratory Results - last 24 hr 11/28/18 11/28/18 11/29/18 07:55 07:55 04:59 WBC 9.8 11.0 RBC 4.00 L 3.89 L Hgb 12.6 L 12.0 L Hct 36.9 L 36.3 L MCV 92.2 93.3 MCH 31.5 31.0 MCHC 34.2 33.2 RDW 14.1 14.3 Plt Count 331 320 Neut % (Auto) 68.9 Not Reportable Lymph % (Auto) 20.5 L Not Reportable [place] % (Auto) 7.1 Not Reportable Eos % (Auto) 2.4 Not Reportable Baso % (Auto) 1.1 Not Reportable Neut # (Auto) 6800 Lymph # (Auto) 2000 Not Reportable [place] # (Auto) 700 Not Reportable Eos # (Auto) 200 Baso # (Auto) 100 Not Reportable Sodium 140 Potassium 4.4 Chloride 106 Carbon Dioxide 26 BUN 19 Creatinine 1.00 Estimated GFR > 60.0 BUN/Creatinine Ratio 19.0 Glucose 153 H D Hemoglobin A1c Calcium 8.7 Total Bilirubin 0.7 AST 14 L ALT 21 Alkaline Phosphatase 40 Total Protein 5.7 L Albumin 3.1 L Globulin 2.6 Albumin/Globulin Ratio 1.2 11/29/18 11/29/18 04:59 04:59 WBC RBC Hgb Hct MCV MCH MCHC RDW Plt Count Neut % (Auto) Lymph % (Auto) [place] % (Auto) Eos % (Auto) Baso % (Auto) Neut # (Auto) Lymph # (Auto) [place] # (Auto) Eos # (Auto) Baso # (Auto) Sodium 138 Potassium 3.9 Chloride 107 Carbon Dioxide 26 BUN 22 H Creatinine 1.10 Estimated GFR > 60.0 BUN/Creatinine Ratio 20.0 Glucose 151 H Hemoglobin A1c 9.0 H Calcium 8.7 Total Bilirubin AST ALT Alkaline Phosphatase Total Protein Albumin Globulin Albumin/Globulin Ratio Assessment & Plan Assessment & Plan narrative: Suleiman Leal is an 82-year-old male with a past medical history significant for coronary artery disease status post stenting, hypertension, hyperlipidemia, diabetes mellitus type II, insulin using, who is status post cervical resection and fixation who subsequently developed a cervical hematoma and was hospitalized for evacuation of his hematoma. He developed complication of dysphagia which prevented consistent/adequate oral intake and aspiration pneumonia. He is on TPN. Medicine service was consulted for management of dysphagia, aspiration pneumonia and diabetes mellitus type II. 1. Aspiration pneumonia, present on admission. Active. -Chest xray demonstrated right infrahilar density compatible with the patient's history of aspiration. -Continue IV Unasyn to complete 10 day course. -Ordered guaifenesin 1200 mg twice daily for copious sputum production. 2. Acute dysphagia status post anterior cervical fusion and diskectomy, present on admission. Active. -Speech therapy repeated MBS which demonstrated significant aspiration with very minimal improvement in swallowing with coaching. His laryngeal muscles also fatigue very easily. Speech therapy is recommending intensive speech therapy for the next 3 weeks and possible feeding tube (NG versus PEG). -Continue TPN for now. Considering NG (Dobbhoff) versus PEG tube, in which NG tube would be ideal if allowed at a SNF versus inpatient rehab for temporary feeding approximately 3 weeks. If not feasible will discuss placement of PEG with General surgery. 3. Acute metabolic encephalopathy and delerium, secondary to high-dose steroids. Resolved. -No longer on steroids and is clear mentally. 4. 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 Active. -Continue postoperative and pain management per orthopedics. 5. Diabetes mellitus type II, non-insulin using, chronic, present on admission. Stable. -Hemoglobin A1C 9.0%. -Continue high dose correctional scale insulin and every 6 hour blood glucose checks. -Will restart Lantus and gababpentin and order a carbohydrate consistent diet when able to take in PO intake. 6. CAD status post stenting, chronic, present on admission. Stable. -Continue amlodipine aspirin, statin, carvedilol, furosemide, and isosorbide mononitrate as soon as safe to do so. 7. Hypertension, chronic, present on admission. Stable. -Continue amlodipine, carvedilol, furosemide, and isosorbide mononitrate as soon as safe to do so. 8. Severe aortic stenosis, chronic, present on admission. Stable. -Echocardiogram did not demonstrate any significant change in the aortic stenosis compared to 1 year ago (by one criteria it is moderate and by another criteria it is severe). 9. BPH, chronic, present on admission. Stable. -Will restart finasteride and tamsulosin as soon as safe to do so. Disposition: Patient likely to discharge in 2-3 days depending upon resolution of p.o. nutrition either via NG tube (Dobbhoff) versus PEG tube. Thank you for consulting our services. We will continue to follow along with you. Quality VTE Deep Vein Thrombosis/Pulmonary Embolism Present on Admission: No
[2018-11-29 06:58] LABS: Neutrophils Absolute Manual 7040 /uL (3000-5900); Total Cells Counted 100
[2018-11-29 06:59] LABS: RBC Morphology Normal Morphology
--- NOTE | 2018-11-29 08:55 | PM.PNPO.1 ---
Subjective Date Patient Seen: 11/29/18 Time Patient Seen: 08:55 Interval history: The patient reports he feels better this morning. He reiterates his desire to get out of the hospital as soon as possible. He requests that he be allowed to do a barium swallow today. Exam Vital Signs (past 8 hours): - 11/29/18 03:46 11/29/18 07:15 Temperature 97.9 F 97.3 F L Pulse Rate 78 63 Respiratory Rate 19 18 Blood Pressure 146/62 H 120/54 L Pulse Oximetry 98 100 Fraction of Inspired Oxygen 21 Oxygen Delivery Method Room Air Oxygen Flow Rate 2 Narrative Exam Narrative: The patient is seen while being cared for by physical therapy. He is able to ambulate well around the hallway with a walker. Dressing is clean dry and intact with no surrounding swelling. Objective Labs Result Diagrams: 11/29/18 04:59 11/29/18 04:59 Labs: Laboratory Results - last 24 hr 11/29/18 11/29/18 11/29/18 04:59 04:59 04:59 WBC 11.0 RBC 3.89 L Hgb 12.0 L Hct 36.3 L MCV 93.3 MCH 31.0 MCHC 33.2 RDW 14.3 Plt Count 320 Neut % (Auto) Not Reportable Lymph % (Auto) Not Reportable [place] % (Auto) Not Reportable Eos % (Auto) Not Reportable Baso % (Auto) Not Reportable Lymph # (Auto) Not Reportable [place] # (Auto) Not Reportable Baso # (Auto) Not Reportable Total Counted 100 Seg Neutrophils % 55.0 Band Neutrophils % 9.0 H Lymphocytes % (Manual) 26.0 Monocytes % (Manual) 5.0 Eosinophils % (Manual) 4.0 Metamyelocytes % 1.0 H Neutrophils # (Manual) 7040 H RBC Morphology Normal morphology Sodium 138 Potassium 3.9 Chloride 107 Carbon Dioxide 26 BUN 22 H Creatinine 1.10 Estimated GFR > 60.0 BUN/Creatinine Ratio 20.0 Glucose 151 H Hemoglobin A1c 9.0 H Calcium 8.7 Magnesium 11/29/18 04:59 WBC RBC Hgb Hct MCV MCH MCHC RDW Plt Count Neut % (Auto) Lymph % (Auto) [place] % (Auto) Eos % (Auto) Baso % (Auto) Lymph # (Auto) [place] # (Auto) Baso # (Auto) Total Counted Seg Neutrophils % Band Neutrophils % Lymphocytes % (Manual) Monocytes % (Manual) Eosinophils % (Manual) Metamyelocytes % Neutrophils # (Manual) RBC Morphology Sodium Potassium Chloride Carbon Dioxide BUN Creatinine Estimated GFR BUN/Creatinine Ratio Glucose Hemoglobin A1c Calcium Magnesium 1.9 Assessment & Plan Post-op Postoperative Procedures Operation Date: 11/19/18 07:45 Actual Procedures Side Surgeon p C3-6 ACDF w/posterior instru fusion w/bone graft Tien Stoner MD Operation Date: 11/19/18 14:15 Actual Procedures Side Surgeon p s/p cervical fusion bleed Not Applicable Tien Stoner MD Postoperative day: 10 Postoperative status: doing well and other (Dysphagia, aspiration pneumonia) Postoperative status narrative: The patient is increasingly anxious to go home. He still has not been able to swallow food per speech therapy. Postoperative plan: routine post-op care and advance diet Time Spent With Patient less than 15 minutes Quality VTE Deep Vein Thrombosis/Pulmonary Embolism Present on Admission: No
--- NOTE | 2018-11-29 09:51 | PT.IPTN ---
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) Radiculopathy, cervical region (11/19/18) Surgery Performed Operation Date: 11/19/18 07:45 Actual Procedures p C3-6 ACDF w/posterior instru fusion w/bone graft - Tien Stoner MD Operation Date: 11/19/18 14:15 Actual Procedures p s/p cervical fusion bleed(Not Applicable) - Tien Stoner MD Physical Therapy Treatment Note M2 PT-IP Current Condition Start: 11/20/18 11:43 Freq: NEEDED Status: Active Protocol: Document 11/20/18 11:30 RCC (Rec: 11/20/18 11:57 RCC [id number]) Physical Therapy Current Condition Current Condition Evaluation Date 11/20/18 Treatment Diagnosis C3-6 ACDF w/ post. instrumentation11/19/18, impaired mobility and strength Precautions Cervical Spine Precautions Soft Collar for Comfort No Heavy Lifting Log Roll M3 PT-IP Subjective Start: 11/20/18 11:43 Freq: NEEDED Status: Active Protocol: Document 11/29/18 09:40 NFW (Rec: 11/29/18 09:51 NFW [id number]) Subjective Physical Therapy Visit Type Type Treatment Note Visit Start Time 08:25 Visit Stop Time 08:50 Total Visit Minutes 25 Notes Pt drowsy, just awakening. Number of SIDING [employer] Visits 0 Physical Therapy Visit Comments Patient Comments Agreeable to proceed with therapy. Therapy Pain Assessment Pain When Pain Assessed During Mobility Pain Present Pain Present Pain Reported M4 PT-IP Mobility and Gait Start: 11/20/18 11:43 Freq: NEEDED Status: Active Protocol: Document 11/29/18 09:40 NFW (Rec: 11/29/18 09:51 NFW [id number]) PT-Bed Mobility Assessment Rolling Type of Rolling Roll to Left Level of Assist Minimal Assistance Supine to Sit Supine to Sit Minimal Assistance Sit to Supine Sit to Supine Minimal Assistance 1 Person Assistance Bedrails Scooting Scooting to Edge of Bed Contact Guard Assistance PT-Transfer Assessment Sit to and From Stand Sit to and from Stand Contact Guard Assistance 1 Person Assistance Use of Upper Extremities Equipment Transfer Assistive Device Gait Belt Front Wheeled Walker Orthotic/Prosthetic Devices or Brace: No Transfers Transfer Destination Bed Transfer Ability Level of Assist Contact Guard Assistance Use of Upper Extremities Comments Mobility Comments Continues to require cuing for proper sequence sit to supine logroll. Gait Assessment Gait Gait Assistance Required: Contact Guard Assist 1 Person Assist Distance (Feet) 150 Able to Maintain Weight Bearing Status Yes During Gait Assistive Devices Assistive Device Gait Belt Front Wheeled Walker Gait Deviations General Gait Pattern Decreased Stride Length Decreased Feet Clearance Flexed Trunk Narrow Based Gait Factors Limiting Gait Function Factors Limiting Gait Function Decreased Activity Tolerance Decreased Sensation Difficulty Following Directions Limited Range of Motion Pain Poor Balance Poor Safety Awareness Comments Gait Comments Cuing for posture. Picking up feet and not shuffling as much. M5 PT-IP Objective Assessments Start: 11/20/18 11:43 Freq: NEEDED Status: Active Protocol: Document 11/20/18 11:30 RCC (Rec: 11/20/18 11:57 RCC [id number]) Orientation Orientation/Cognition Level of Alertness Lethargic Gross Range of Motion Upper Extremity ROM Assessment Right Impaired Lower Extremity ROM Assessment Right Impaired Strength Lower Extremity Strength Assessment Bilaterally Impaired Hip flexion 3/5 B Knee flexion 3+/5 and extension 3/5 B Ankle DF 4/5 B M6 PT-IP Treatment Start: 11/20/18 11:43 Freq: NEEDED Status: Active Protocol: Document 11/29/18 09:40 NFW (Rec: 11/29/18 09:51 [facility] [id number]) Physical Therapy Treatment Exercises Exercises Shoulder Flexion Elbow Flexion/Extension Other Treatments Other Treatment Performed c/o pain in right elbow initially with movement, eased with continuation of exercises. M7 PT-IP Assessment and Plan Start: 11/20/18 11:43 Freq: NEEDED Status: Active Protocol: Document 11/29/18 09:40 NFW (Rec: 11/29/18 09:51 [facility] [id number]) PT Summary Assessment and Plan Summary Assessment Summary Pt performed well sd lying to sitting but has difficulty with sitting to sd lying. Goals Bed Mobility Goal Contact Guard Assistance Transfer Goal Contact Guard Assistance Gait Goal Contact Guard Assistance Other Goals up/down 6 step with unilat. rail and Min A. Frequency of Treatment Frequency Of Treatment Twice a Day Treatment Plan Physical Therapy Treatment Plan Bed Mobility Training Transfer Training Gait Training Therapeutic Exercise Balance Retraining Other Recommendations and Next Treatment Bed mobility and stairs. Focus Recommendations To Nursing Amount of Assist Needed 1 Person Assist Discharge Recommendations PT Discharge Recommendations SNF Rehab
--- NOTE | 2018-11-29 12:03 | PC.NURSE ---
Addendum entered by Naima Sherwood R.N. 11/29/18 14:19: Back from swallow study, settled into chair. Encouraged to make needs known. Light in reach, chair alarm on. Original Note: Shift summary: Awake and alert, oriented X3 (except for exact date). Forgetful. Calm and cooperative with care interventions. He spoke with Elmo from [facility] who agreed to come back a bit later and sort the CPAP issues out- patient was very appreciative of that plan. Rates pain in his neck 12/19. Has declined Tylenol each time it's been offered. He knows he can ask for it any time. Dressings to anterior and posterior neck C/D/I. Soft collar in place. Reports pins and needles in all extremities, most of which was present prior to surgery. Circulation/sensation WNL otherwise. Lungs CTA, HRR. SpO2 on RA awake 96-97%. IVF and TPN per orders, PICC site WNL, new peripheral site started in L AC. Tolerating ice chips without s/sx aspiration. He is aware of the swallowing guidelines and follows them without cueing. Up in chair now, awaiting transport for barium swallow study. Call light in reach, chair alarm on.
--- NOTE | 2018-11-29 14:26 | PT.IPTN ---
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) Radiculopathy, cervical region (11/19/18) Surgery Performed Operation Date: 11/19/18 07:45 Actual Procedures p C3-6 ACDF w/posterior instru fusion w/bone graft - Tien Stoner MD Operation Date: 11/19/18 14:15 Actual Procedures p s/p cervical fusion bleed(Not Applicable) - Tien Stoner MD Physical Therapy Treatment Note M2 PT-IP Current Condition Start: 11/20/18 11:43 Freq: NEEDED Status: Active Protocol: Document 11/20/18 11:30 RCC (Rec: 11/20/18 11:57 RCC [id number]) Physical Therapy Current Condition Current Condition Evaluation Date 11/20/18 Treatment Diagnosis C3-6 ACDF w/ post. instrumentation11/19/18, impaired mobility and strength Precautions Cervical Spine Precautions Soft Collar for Comfort No Heavy Lifting Log Roll M3 PT-IP Subjective Start: 11/20/18 11:43 Freq: NEEDED Status: Active Protocol: Document 11/29/18 14:15 CLB (Rec: 11/29/18 14:26 [facility] [id number]) Subjective Physical Therapy Visit Type Type Patient Refusal Notes Pt stated he is waiting for his results of his barium swallow test and didn't want to miss seeing the doctor with results. Pt was encouraged to ambulate in gaitan near his room as not to miss the doctor if arrived while gone but pt politely refused again. Discharge Recommendations PT Discharge Recommendations SNF Rehab
--- NOTE | 2018-11-29 14:48 | CM.DPC ---
Addendum entered by SUE Wray 11/29/18 15:45: ADD: Return call from Carina at [facility] stating that unfortunately they cannot accommodate NG tube/tube feeds but could accept with PEG tube placement. YEE called [facility] and left a message with Garfield in admissions ([phone]) regarding pt's needs (ST/PT/OT, NG tube) to determine if he might qualify for Inpt Rehab since he likely could really benefit from the intensive ST. Waiting for call back to see if even an option. SW called [facility] admissions [facility] and he confirms that they can accommodate NG/tf at their facility pending review of clinicals and medications etc to make sure they can meet pt's needs. SW faxed clinicals for review just to confirm if they may be an option at d/c. YEE spoke with Dr. Moses with update and she is calling Dr. Christian to discuss pt's feeding needs and that pt may not be best candidate for NG tube since he pulled his PICC out once and may not keep NG tube in place. Dr. Moses to discuss NG vs PEG tube. Plan: SW to follow closely to determine possible NG tube vs PEG at d/c. SW to follow for return call from [facility] to determine if pt meets criteria for Inpt Rehab. Maggie [facility]quez reviewing and [facility] states they could accept with PEG but not NG. SUE Wray Original Note: DCP Cont: Per Ortho MD, pt progressing well and likely ready for d/c tomorrow pending Barium Swallow and if pt can tolerate some food could likely d/c home. Per ST, pt fatiguing easily and likely needs [address] for safe swallow. Hospitalist MD request SW inquire with SNF if they can accept the pt with NG tube and tube feeds. SW called admissions Carina at [facility] and updated on pt status and inquired about NG and tf and she believes they can easily accept that but will double check with administrators and call back. Plan: SW to follow closely for return call from [facility] to confirm that they can accept pt if he gets NG tube and tube feeds. Patient has been hopeful for home but with his need for intense ST and possible NG tube then SNF likely needed. SUE Wray
--- NOTE | 2018-11-29 15:58 | OT.IP.TRT ---
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) Radiculopathy, cervical region (11/19/18) Surgery Performed Operation Date: 11/19/18 07:45 Actual Procedures p C3-6 ACDF w/posterior instru fusion w/bone graft - Tien Stoner MD Operation Date: 11/19/18 14:15 Actual Procedures p s/p cervical fusion bleed(Not Applicable) - Tien Stoner MD Occupational Therapy Treatment Note M2 OT-IP Current Condition Start: 11/20/18 16:51 Freq: Status: Active Protocol: Document 11/20/18 16:54 [facility] (Rec: 11/20/18 17:17 [facility] [id number]) Occupational Therapy Current Condition Current Condition Evaluation Date 11/20/18 Treatment Diagnosis Cervical Stenosis Diagnosis Onset Date 11/19/18 Post Operative Precautions Cervical Spine Precautions Soft Collar for Comfort No Heavy Lifting Log Roll M3 OT- IP Subjective and Pain Start: 11/20/18 16:51 Freq: Status: Active Protocol: Document 11/29/18 15:36 [facility] (Rec: 11/29/18 15:57 [facility] [id number]) OT- Subjective Occupational Therapy Visit Type Type Treatment Note Visit Start Time 15:05 Visit Stop Time 15:20 Total Visit Minutes 15 Occupational Therapy Visit Comments Patient Comments Pt agreeable to get up from the bed. Pt a bit down as just found out that he did not pass his swallowing test again and may need to have a peg tube placed. OT Pain Assessment Pain When Pain Assessed At Rest Pain Present Pain Present Pain Reported Location Neck Intensity 4 Scale Used Numeric (1 - 10) M4 OT- IP ADL's Start: 11/20/18 16:51 Freq: Status: Active Protocol: Document 11/29/18 15:36 [facility] (Rec: 11/29/18 15:57 [facility] [id number]) OT ADL-Dressing General Eval Lower Body Dressing Ability Maximum Assistance Areas Needing Assistance Socks Comments OT Dressing Comments Pt not able to use RUE to assist to pablo/doff socks and wanting therapist to assist at this time. M6 OT- IP Functional Cognition Start: 11/20/18 16:51 Freq: Status: Active Protocol: Document 11/29/18 15:36 [facility] (Rec: 11/29/18 15:57 [facility] [id number]) Cognitive Factors Limiting Selfcare Function Cognitive Ability Level of Alertness Alert Patient Orientation Name Place Situation Attention Span Ability Capable of Focused Attention Capable of Sustained Attention Ability to Follow Commands Able to Follow One Step Commands Memory Description Short Term Impaired Safety Awareness Underestimates Need for Assistance Cognitive Comments Cognitive Assessment Comments Pt able to follow commands however feeling very down about him not being able to pass swallow study,MBS. M7 OT- IP Mobility and Balance Start: 11/20/18 16:51 Freq: Status: Active Protocol: Document 11/29/18 15:36 [facility] (Rec: 11/29/18 15:57 [facility] [id number]) OT- Bed Mobility Assessment Rolling Type of Rolling Roll to Right Level of Assistance Minimal Assistance Supine to Sit Supine to Sit Assist Moderate Assistance 1 Person Assistance Scooting Scooting to Edge of Bed Contact Guard Assistance 1 Person Assistance OT-Transfer Assessment Sit to and From Stand Sit to and from Stand Moderate Assistance 1 Person Assistance Transfers Transfer Ability Minimal Assistance 1 Person Assistance Technique Transfer Destination Chair Transfer Technique Stand Step Pivot Devices Transfer Assistive Devices Gait Belt Front Wheeled Walker OT- Balance Assessment Sitting Balance and Reactions Static Sitting Balance Ability Good Dynamic Sitting Balance Ability Fair Standing Balance and Reactions Static Standing Balance Ability Fair M8 OT- IP Objective Assessments Start: 11/20/18 16:51 Freq: Status: Active Protocol: Document 11/29/18 [facility] OT Strength Comments Strength Comments Biceps 2-/5, Shoulder flexion 3 -/5 , elbow extensors, wrist and finger flexion 4-/5 M9 OT- IP Assessment and Plan Start: 11/20/18 16:51 Freq: Status: Active Protocol: Document 11/29/18 15:36 [facility] (Rec: 11/29/18 15:57 [facility] [id number]) OT Summary Assessment and Plan Potential Rehabilitation Potential Good Analytic Complexity at Evaluation Low Summary OT Impairments Pain Range of Motion Strength Balance Coordination Functional Cognition Functional Mobility Grooming Dressing Toileting Bathing Toilet Transfers Shower Transfers Progress Towards Goals Slow Progress due to Pain Slow Progress due to Medical Issues Slow Progress due to Activity Tolerance Slow Progress due to Cognition Assessment Summary Pt able to use RUE on the FWW after having left arm help to set right hand up on FWW. Pt still having difficulty to incorporate RUE for needs due to weakness. Pt needing still needing MODA to stand and too great for to assist at home, therefore still recommend skilled rehab. Goals Grooming Goal Standby Assistance Dressing Goal Minimal Assistance Toileting Goal Minimal Assistance Bathing Goal Moderate Assistance Toilet Transfer Goal Minimal Assistance Shower Transfer Goal Minimal Assistance OT-Other Goals Goal for shower for sponge bath as per pt does not shower . Days to Meet Goals 2 Frequency of Treatment Frequency Of Treatment Once a Day Treatment Plan OT Treatment Plan ADL Training Functional Cognition Training Functional Mobility Therapeutic Exercises Patient/Family Education Discharge Planning Discharge Recommendations OT Discharge Recommendations SNF Rehab
--- NOTE | 2018-11-29 16:23 | ST.SWALLOW ---
Care Team Visit Care Team Role Provider Type Flo Pollack MD Primary Care Provider Non-Staff Specialty: Medical Address: [address] [place], [address] Email: Phuong Cabezas MD Other Providers Physician Specialty: Internal Medicine Address: [address] [place] [address], [id number] Email: [email or web address] Tien Stoner MD Admit Provider Physician Attending Provider Specialty: Orthopedic Surgery Address: [address] [place] [address], [id number] Email: [email or web address] Modified Barium Swallow Study [employer] Modified Barium Swallow Study Start: 11/24/18 15:13 Freq: Status: Active Protocol: Document 11/29/18 14:07 [facility] (Rec: 11/29/18 14:31 [facility] [id number]) Modified Barium Swallow Study Total Time Visit Start Time 13:00 Visit Stop Time 13:40 Total Visit Minutes [address] Moses Reason for Referral F/U assessment to determine safety to resume oral intake, aspiration risk. Setting Setting Acute Care Patient Information Identification Type Name ID Card Patient History Pt underwent ACDF surgery on 11/19/18 with secondary surgergical intervention same day. Pt exhibited swallow difficulties post-operatively with MBS on 11/24/18 and again 11/26/18, both revealing silent penetration/aspiration. Subjective Observations The pt was ambulated in [facility] chair to radiology. He was wearing a soft neck collar, which was in place during part of the procedure and removed for final trials. The pt was breathing room air. He recognized the [employer] and was aware of and in agreement with the procedure. Patient Positioning Position View Lateral Imaging Lateral View Textures Administered Trials Presented Thin Liquid via Spoon Thin Liquid via Cup [place] Liquid via Spoon Honey Liquid via Spoon Dysphagia Blenderized Textures Oral Phase Source: MBSIMP (TM) (C) Bolus Specific Scoring Grid Lip Closure No Impairment (WNL) Tongue Control During Bolus Hold Minimal Impairment Bolus Prep/Mastication Mild Impairment Bolus Transport/Lingual Motion Moderate Impairment A/P Lingual Propulsion Delay Yes: 2-5 sec with frequent lingual rocking Oral Residue Mild Impairment Residue Clearing Mild Impairment Nasal Regurgitation No Additional Oral Phase Observations Lingual weakness with rocking to transport bolus and initiate swallow. Once swallow trigger was initiated, the bolus freqeuntly remained stationary in nasopharynx secondary to poor lingual- pharyngeal seal and strength for several seconds before complete swallow was initiated . This increases the effort necessary to swallow, which subsequently reduces breath support as VFs remain closed during this stage, and increases pt fatigue with swallow. All of this impacts swallow safety, particularly over the course of a meal. Pharyngeal Phase Source: MBSIMP (TM) (C) Bolus Specific Scoring Grid Delayed Initiation of Pharyngeal Swallow Yes: up to 4 sec Soft Palate Elevation No Impairment (WNL) Tongue Base Strength/Range of Motion Moderate Impairment Residue Along the Tongue Base Yes Clearance of Residue Along Tongue Base Mild Impairment Laryngeal Elevation Mild Impairment Epiglottic Range of Motion Severe Impairment Vallecular Residue Yes: Consistent, significant w / all trials d/t poor epiglottic movement Clearance of Vallecular Residue Severe Impairment Laryngeal Vestibular Closure Moderate Impairment Pharyngeal Stripping Wave Severe Impairment Posterior Pharyngeal Wall Residue Yes Clearance of Posterior Pharyngeal Wall Minimal Impairment Residue Upper Esophageal Sphincter Opening Moderate Impairment Residue in the Pyriform Sinuses Yes: Requires multiple swallows to clear; penetration of residue Clearance of Residue in the Pyriform Moderate Impairment Sinuses Pharyngoesophageal Backflow Observed No Additional Pharyngeal Phase Observations Reduced overall swelling was observed since initial MBS (). However, minimal to no pharyngeal stripping wave was present to assist in propelling the bolus. Minimal epiglottic movement was observed but was severely limited due to immediate contact with pharyngeal wall. As a result, the pt continues with significant pharyngeal pooling and residue, primarily in vallecula and also in pyriform sinuses. Hyolaryngeal elevation is present with limited and inconsistent forward excursion of the hyoid bone. This contributes to limited inversion of epiglottis as well as incomplete closure of the laryngeal vestibule and reduced UES opening. As a result, multiple swallows were required per bolus, and frequent penetration of primary boluses and of pharyngeal residue was observed, all silent in nature . No aspiration below the VFs was observed during today's study. Cuing the pt to cough several times was effective in partial clearance of the airway/ vestibule. However, residue remained in the laryngeal vestibule as well as on the vocal folds following coughing . A variety of postures were trialed to assess for compensatory strategies to reduce risk of aspiration. The pt benefited the most from chin tuck with head turned to the left, which reduced both laryngeal penetration as well as pharyngeal residue. The pt was able to follow verbal cues but did exhibit significant fatigue and occasional shortness of breath, requiring frequent breaks. A/P View Clinical Impressions Dysphagia Type Mild Oral and Moderate-Severe Pharyngeal Dysphgia. Findings Oral Dysphagia secondary to mild lingual weakness, likely impacted by pharyngeal deficits. Pharyngeal Dysphagia secondary to: 1. Minimal epiglottic inversion, reduced pharyngeal stripping wave, and reduced UES opening resulting in copious pharyngeal residue and pt fatigue from multiple swallows required to clear pharynx; 2. Reduced hyolaryngeal elevation and excursion resulting in incomplete closure of laryngeal vestibule and subsequent penetration of all viscocities and pharyngeal residue; 3. Reduced sensation in laryngeal vestibule resulting in reduced or absent cough reflex and therefore silent nature of aspiration/ penetration. Assessed pt's swallow with medial chin tuck, head turn to left and right with and without chintuck, and with super-supraglottic swallow. Reduced laryngeal penetration and improved pharyngeal clearance observed with chin tuck and head turn to left side. Other compensatory strategies were not significantly beneficial. The pt continues to be at very high risk of aspiration and, coupled with fatigue and shortness of breath with swallowing, is not safe for P. O. intake at this time. Recommend tube feeding as primary source of nutrition/ hydration, intensive dysphagia therapy to include exercise rehab and therapeutic trials, follow-up MBS in ~3 wks to re- assess pt's function and safety for return to oral intake. Rehabilitation Potential Good Patient Appropriate for Therapy Yes Recommendations Diet Liquids Order NPO Diet Order NPO/Alternative Means of Nutrition/Hydration Medication Recommendation Not Recommended by Mouth Treatment Plan Therapy Recommendations Inpatient Speech Therapy Outpatient Speech Therapy Oral Motor Exercises Lingual Exercises Base of Tongue Exercises Vocal Fold Adduction Exercises Compensatory Strategy Education Compensatory Strategies Recommendations Turn Head Left Chin Tuck Additional Compensatory Strategies Therapeutic trials with [employer] Recommended only Short Term Goals Pt will tolerate Free Water Protocol with use of chin tuck and left head turn without s/ sx aspiration. Pt will participate in OM/ Lingual exercises to increase airway protection Correction Goals Pt will safely tolerate the least-restrictive diet without s/sx aspiration to meet nutritional and hydration needs . Placement Recommendation After Discharge [facility] Facility Inpatient Rehab Facility
--- NOTE | 2018-11-29 16:24 | ST.IPDYTX ---
Care Team Visit Care Team Role Provider Type Flo Pollack MD Primary Care Provider Non-Staff Specialty: Medical Address: [address] [place], [address] Email: Phuong Cabezas MD Other Providers Physician Specialty: Internal Medicine Address: [address] [place] [address], [id number] Email: [email or web address] Tien Stoner MD Admit Provider Physician Attending Provider Specialty: Orthopedic Surgery Address: [address] [place] [address], [id number] Email: [email or web address] Dysphagia Treatment LOAN REVIEWER Dysphagia Treatment Start: 11/22/18 13:21 Freq: Status: Active Protocol: Document 11/29/18 16:17 YOEL (Rec: 11/29/18 16:23 YOEL [id number]) Dysphagia Treatment Session Time Visit Start Time 15:40 Visit Stop Time 16:00 Total Visit Minutes 20 Setting Assessment Location Acute Care Visit Type Note Type Treatment Note Treatment Treatment Activities Collaborated with Dr. Moses and Nsg RE MBS results and POC . Pt was seen in his room following MBS procedure and MD visit. The pt was able to recall Dr. Moses's recommendation regarding NG vs PEG tube placement and plan for dc possibly to SNF. Further education was provided to pt RE MBS results and dysphagia treatment POC. The pt verbalized understanding and was in agreement. Assessment Patient Response to Treatment Good Rehab Potential Good Assessment of Improvement See MBS results. Pt demonstrated minimally improved swallow function, particularly with use of chin tuck and head turn to left. He remains unsafe for p.o. intake at this time. He would benefit from intensive dysphagia treatment at SNF or inpatient rehab facility. Diet Recommendations Liquids Order NPO Diet Order NPO/Alternative Means of Nutrition/Hydration Medication Recommendations Not Recommended by Mouth Treatment Plan Placement Recommendation after Discharge Residential Facility Inpatient Rehab Facility Appropriate for Continued Therapy Yes Therapy Recommendations Dysphagia therapy with emphasis on liguapharyngeal strengthening exercises to improve airway protection. Dysphagia Goals Pt will use Free Water Protocol with use of chin tuck and head turn to left to provide P.O. hydration and improve quality of life. Follow Up Plan 1-2x/day
--- NOTE | 2018-11-29 17:51 | RT ---
Placed patient on his home cpap per his request.
[2018-11-29] MEDS: AA 5 %/CALCIUM/LYTES/DEXT 20 % 1,000 ML with MULTIVITAMIN 10 ML, TRACE ELEMENTS 1 ML, I... 42.146 ML IV (18:00)
[2018-11-29] MEDS: FAT EMULSIONS 50 GM/250 ML EMULSION IV (18:06)
[2018-11-30] VITALS (16 sets, daily range): BP systolic 109–157; BP diastolic 38–96; PULSE 50–63; RESP 16–18; TEMP 36.3–36.7; O2SAT 94–100; BMI 29.7
[2018-11-30] MEDS: AMPICILLIN/SULBACTAM 3 GM 3 GM in SODIUM CHLORIDE 0.9% 100 ML IV ×4 (02:16→23:39)
--- NOTE | 2018-11-30 02:26 | PC.NURSE ---
Fitness And Wellness Instructor Note: 0000: Sleeping intermittently. Vital signs stable. PICC in rt upper arm is in place, with dressing cdi; TPN infusing at 42.1cc/hr and Intralipids infusing at 25cc/hr. PIV in place in lt AC, with 1/2 NS infusing at 70cc/hr. Pt denies pain or discomfort. Dressings to anterior and posterior neck are cdi.
[2018-11-30 05:54] LABS: Add Manual Diff / Slide Review NO; Basophils Absolute Auto 100 /uL (0-100); Basophils Percent Auto 0.8 % (0-2); Eosinophils Absolute Auto 400 /uL (0-450); Eosinophils Percent Auto 4.2 % (2-4); Hematocrit 35.2 % (41-53); Hemoglobin 11.6 g/dL (13.5-17.5); Lymphocytes Absolute Auto 2000 /uL (1100-4500); Mean Corpuscular HGB Conc 32.8 % (30-36); Mean Corpuscular Hemoglobin 30.9 PG (26-34); Mean Corpuscular Volume 94.1 fL (80-100); Monocytes Absolute Auto 700 /uL (0-900); Neutrophils Absolute Auto 6300 /uL (1500-7000); Platelet Count 290 X10^3/uL (150-400); Red Blood Cell Count 3.75 X10^6/uL (4.5-5.9); Red Cell Distribution Width 14.5 % (11.6-14.8); White Blood Cell Count 9.5 X10^3/uL (4.5-11.0)
[2018-11-30 06:09] LABS: Blood Urea Nitrogen 23 mg/dL (9-20); Calcium 8.6 mg/dL (8.4-10.2); Carbon Dioxide 25 mmol/L (22-32); Chloride 108 mmol/L (98-107); Estimated Glomerular Filt Rate > 60.0 mL/min (>60); Glucose 130 mg/dL (80-110); HEMOLYSIS < 15 (0-50); Magnesium 1.9 mg/dL (1.6-2.3); Potassium 3.9 mmol/L (3.4-5.1); Sodium 140 mmol/L (137-145)
--- NOTE | 2018-11-30 07:47 | P.PN_ITS ---
Subjective Date Patient Seen: 11/30/18 Time Patient Seen: 07:44 Interval history: He is having minimal pain. He failed his swallow study again yesterday. Exam Vital Signs (past 8 hours): - 11/30/18 01:05 11/30/18 04:00 11/30/18 06:18 Temperature 98.1 F 97.9 F Pulse Rate 60 57 L Respiratory Rate 18 18 Blood Pressure 156/52 H 157/96 H Pulse Oximetry 99 100 Fraction of Inspired Oxygen 21 Oxygen Delivery Method Room Air Oxygen Flow Rate 2 Const Orientation: alert and oriented x3 Back/Spine/Pelvis Other: CDI. 5/5 motor both upper extremities except for 4/5 right deltoid and 2/5 right biceps Objective Labs Result Diagrams: 11/30/18 04:51 11/30/18 04:51 Labs: Laboratory Results - last 24 hr 11/30/18 11/30/18 04:51 04:51 WBC 9.5 RBC 3.75 L Hgb 11.6 L Hct 35.2 L MCV 94.1 MCH 30.9 MCHC 32.8 RDW 14.5 Plt Count 290 Neut % (Auto) 67.0 Lymph % (Auto) 21.0 L Carroll % (Auto) 7.0 Eos % (Auto) 4.2 H Baso % (Auto) 0.8 Neut # (Auto) 6300 Lymph # (Auto) 2000 Carroll # (Auto) 700 Eos # (Auto) 400 Baso # (Auto) 100 Sodium 140 Potassium 3.9 Chloride 108 H Carbon Dioxide 25 BUN 23 H Creatinine 1.00 Estimated GFR > 60.0 BUN/Creatinine Ratio 23.0 H Glucose 130 H Calcium 8.6 Magnesium 1.9 Assessment & Plan Post-op Postoperative Procedures Operation Date: 11/19/18 07:45 Actual Procedures Side Surgeon p C3-6 ACDF w/posterior instru fusion w/bone graft Tien Stoner MD Operation Date: 11/19/18 14:15 Actual Procedures Side Surgeon p s/p cervical fusion bleed Not Applicable Tien Stoner MD Stable with respect to his ACDF. 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 I reassured him that this should recover over time but can take a full year sometimes. Ongoing dysphagia, having failed his swallow study yesterday again. I discussed with Dr. Christian the possibility of a peg verses a NG tube. I also reassured him that this should be a temporary issue and I do expect to swallowing to restore. Quality VTE Deep Vein Thrombosis/Pulmonary Embolism Present on Admission: No
[2018-11-30] MEDS: SODIUM CHLORIDE 0.45% 1,000 ML 70 ML IV (10:01)
--- NOTE | 2018-11-30 10:04 | PM.PN.1 ---
Subjective Date Patient Seen: 11/30/18 Interval history: Suleiman Leal is an 82-year-old male with a past medical history significant for coronary artery disease status post stenting, hypertension, hyperlipidemia, diabetes mellitus type II, insulin using, who is status post cervical resection and fixation who subsequently developed a cervical hematoma and was hospitalized for evacuation of his hematoma. He developed complication of dysphagia which prevented consistent/adequate oral intake and aspiration pneumonia. He is on TPN. Medicine service was consulted for management of dysphagia, aspiration pneumonia and diabetes mellitus type II. The patient is resting in bedside chair comfortably. He is seen today to follow-up his cervical spine fusion with resulting complication of dysphagia from nerve injury preventing consistent/adequate oral intake. He is on TPN. He continues to endorse productive cough which is improving. He denies headache, shortness of breath, chest pain, abdominal pain, nausea, vomiting, fever, chills, dysuria, diarrhea or constipation. He is voiding and eliminating without difficulty. He is up ambulating with assistance. Exam Vital Signs (past 8 hours): - 11/30/18 04:00 11/30/18 06:18 11/30/18 08:00 Temperature 97.9 F 97.9 F Pulse Rate 57 L 53 L Respiratory Rate 18 18 Blood Pressure 157/96 H 146/47 H Pulse Oximetry 100 97 Fraction of Inspired Oxygen 21 Oxygen Delivery Method Room Air Oxygen Flow Rate 2 Narrative Exam Narrative: General: Elderly gentleman sitting in bed and in no acute distress, well-developed, well-nourished, appropriately interactive. HEENT: Normocephalic, atraumatic. External ears without defect. Pupils equal, round, and reactive to light. Anicteric sclerae, moist conjunctivae, and no lid lag. Neck: Supple. Large hematoma over anterior right chest with bandage over anterior neck in place c/d/i. No lymphadenopathy or thyromegaly. Cardiovascular: Regular rate and rhythm with +2/6 holosystolic murmur at left sternal border radiating to carotids bilaterally. No rubs or gallops appreciated. Pulmonary: Clear to auscultation bilaterally without crackles, wheezes, or rhonchi. Normal respiratory effort with no use of accessory muscles. Abdomen: Soft, bowel sounds present, nontender, nondistended. No hepatosplenomegaly or masses appreciated. Extremities: No clubbing, cyanosis, or edema. Skin: Normal temperature, turgor, and texture; no rash, ulcers, or subcutaneous nodules appreciated. Neurological: Cranial nerves grossly intact. Psychiatric: Normal mood and affect. Alert and oriented to person, place, and time. Mild cognitive impairment. Objective Labs Result Diagrams: 11/30/18 04:51 11/30/18 04:51 Labs: Laboratory Results - last 24 hr 11/30/18 11/30/18 04:51 04:51 WBC 9.5 RBC 3.75 L Hgb 11.6 L Hct 35.2 L MCV 94.1 MCH 30.9 MCHC 32.8 RDW 14.5 Plt Count 290 Neut % (Auto) 67.0 Lymph % (Auto) 21.0 L Stafford % (Auto) 7.0 Eos % (Auto) 4.2 H Baso % (Auto) 0.8 Neut # (Auto) 6300 Lymph # (Auto) 2000 [place] # (Auto) 700 Eos # (Auto) 400 Baso # (Auto) 100 Sodium 140 Potassium 3.9 Chloride 108 H Carbon Dioxide 25 BUN 23 H Creatinine 1.00 Estimated GFR > 60.0 BUN/Creatinine Ratio 23.0 H Glucose 130 H Calcium 8.6 Magnesium 1.9 Assessment & Plan Assessment & Plan narrative: Suleiman Leal is an 82-year-old male with a past medical history significant for coronary artery disease status post stenting, hypertension, hyperlipidemia, diabetes mellitus type II, insulin using, who is status post cervical resection and fixation who subsequently developed a cervical hematoma and was hospitalized for evacuation of his hematoma. He developed complication of dysphagia which prevented consistent/adequate oral intake and aspiration pneumonia. He is on TPN. Medicine service was consulted for management of dysphagia, aspiration pneumonia and diabetes mellitus type II. 1. Aspiration pneumonia, present on admission. Active. -Chest xray demonstrated right infrahilar density compatible with the patient's history of aspiration. -Continue IV Unasyn to complete 10 day course on 12/02. -Continue guaifenesin 1200 mg twice daily for copious sputum production next 2-3 days. 2. Acute dysphagia status post anterior cervical fusion and diskectomy, present on admission. Active. -Speech therapy repeated MBS which demonstrated significant aspiration with very minimal improvement in swallowing with coaching. His laryngeal muscles also fatigue very easily. Speech therapy is recommending intensive speech therapy for the next 3 weeks and possible feeding tube (NG versus PEG). -Continue TPN for now. Consulted general surgery, Dr. Payne, who plans to discuss PEG tube today and possibly place it this afternoon. Patient is NPO. 3. Acute metabolic encephalopathy and delerium, secondary to high-dose steroids. Resolved. -No longer on steroids and is clear mentally. 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 4. 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 Active. -Continue postoperative and pain management per orthopedics. 5. Diabetes mellitus type II, non-insulin using, chronic, present on admission. Stable. -Hemoglobin A1C 9.0%. -Continue high dose correctional scale insulin and every 6 hour blood glucose checks. -Will restart Lantus and gababpentin and order a carbohydrate consistent diet when able to take in PO intake. 6. CAD status post stenting, chronic, present on admission. Stable. -Continue amlodipine aspirin, statin, carvedilol, furosemide, and isosorbide mononitrate as soon as safe to do so. 7. Hypertension, chronic, present on admission. Stable. -Continue amlodipine, carvedilol, furosemide, and isosorbide mononitrate as soon as safe to do so. 8. Severe aortic stenosis, chronic, present on admission. Stable. -Echocardiogram did not demonstrate any significant change in the aortic stenosis compared to 1 year ago (by one criteria it is moderate and by another criteria it is severe). 9. BPH, chronic, present on admission. Stable. -Will restart finasteride and tamsulosin as soon as safe to do so. Disposition: Patient likely to discharge in 2-3 days depending upon placement of PEG tube and recovery. Thank you for consulting our services. We will continue to follow along with you. Quality VTE Deep Vein Thrombosis/Pulmonary Embolism Present on Admission: No
[2018-11-30] MEDS: ACETAMINOPHEN 650 MG SUPP PR ×3 (10:08→23:37)
--- NOTE | 2018-11-30 10:11 | PT.IPTN ---
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) Radiculopathy, cervical region (11/19/18) Surgery Performed Operation Date: 11/19/18 07:45 Actual Procedures p C3-6 ACDF w/posterior instru fusion w/bone graft - Tien Stoner MD Operation Date: 11/19/18 14:15 Actual Procedures p s/p cervical fusion bleed(Not Applicable) - Tien Stoner MD Physical Therapy Treatment Note M2 PT-IP Current Condition Start: 11/20/18 11:43 Freq: NEEDED Status: Active Protocol: Document 11/20/18 11:30 [facility] (Rec: 11/20/18 11:57 [facility] [id number]) Physical Therapy Current Condition Current Condition Evaluation Date 11/20/18 Treatment Diagnosis C3-6 ACDF w/ post. instrumentation11/19/18, impaired mobility and strength Precautions Cervical Spine Precautions Soft Collar for Comfort No Heavy Lifting Log Roll M3 PT-IP Subjective Start: 11/20/18 11:43 Freq: NEEDED Status: Active Protocol: Document 11/30/18 10:00 NFW (Rec: 11/30/18 10:11 NFW [id number]) Subjective Physical Therapy Visit Type Type Treatment Note Visit Start Time 09:33 Visit Stop Time 09:57 Total Visit Minutes 24 Notes Pt willing to follow through with PT. Depressed from results of swallowing test. Number of JOIST SETTER Visits 0 Therapy Pain Assessment Pain When Pain Assessed During Mobility Pain Present Pain Present Pain Reported M4 PT-IP Mobility and Gait Start: 11/20/18 11:43 Freq: NEEDED Status: Active Protocol: Document 11/30/18 10:00 NFW (Rec: 11/30/18 10:11 NFW [id number]) PT-Bed Mobility Assessment Rolling Type of Rolling Roll to Left Level of Assist Minimal Assistance Supine to Sit Supine to Sit Minimal Assistance Sit to Supine Sit to Supine Minimal Assistance 1 Person Assistance Bedrails Scooting Scooting to Edge of Bed Contact Guard Assistance PT-Transfer Assessment Sit to and From Stand Sit to and from Stand Contact Guard Assistance 1 Person Assistance Equipment Transfer Assistive Device Gait Belt Front Wheeled Walker Orthotic/Prosthetic Devices or Brace: No Transfers Transfer Destination Bed Transfer Ability Level of Assist Contact Guard Assistance Use of Upper Extremities Comments Mobility Comments Most assist needed from sd lying to sitting. Improved logged roll with decrease cuing needed. Gait Assessment Gait Gait Assistance Required: Contact Guard Assist 1 Person Assist Distance (Feet) 300 Able to Maintain Weight Bearing Status Yes During Gait Assistive Devices Assistive Device Gait Belt Front Wheeled Walker Gait Deviations General Gait Pattern Narrow Based Gait Factors Limiting Gait Function Factors Limiting Gait Function Decreased Strength Incoordination Limited Range of Motion Poor Balance Comments Gait Comments Improved posture. Able to spanish moss picker feet and lengthen stride. Doubled distance in ambulation. M5 PT-IP Objective Assessments Start: 11/20/18 11:43 Freq: NEEDED Status: Active Protocol: Document 11/20/18 11:30 RCC (Rec: 11/20/18 11:57 [facility] [id number]) Orientation Orientation/Cognition Level of Alertness Lethargic Gross Range of Motion Upper Extremity ROM Assessment Right Impaired Lower Extremity ROM Assessment Right Impaired Strength Lower Extremity Strength Assessment Bilaterally Impaired Hip flexion 3/5 B Knee flexion 3+/5 and extension 3/5 B Ankle DF 4/5 B M6 PT-IP Treatment Start: 11/20/18 11:43 Freq: NEEDED Status: Active Protocol: Document 11/29/18 09:40 NFW (Rec: 11/29/18 09:51 NFW [id number]) Physical Therapy Treatment Exercises Exercises Shoulder Flexion Elbow Flexion/Extension Other Treatments Other Treatment Performed c/o pain in right elbow initially with movement, eased with continuation of exercises. M7 PT-IP Assessment and Plan Start: 11/20/18 11:43 Freq: NEEDED Status: Active Protocol: Document 11/30/18 10:00 NFW (Rec: 11/30/18 10:11 [facility] [id number]) PT Summary Assessment and Plan Summary Assessment Summary Improved performance in ambulation and in transitional activities. Frequency of Treatment Frequency Of Treatment Twice a Day Treatment Plan Physical Therapy Treatment Plan Bed Mobility Training Transfer Training Gait Training Therapeutic Exercise Balance Retraining Other Recommendations and Next Treatment Stairs, bed mobility Focus Recommendations To Nursing Amount of Assist Needed 1 Person Assist Discharge Recommendations PT Discharge Recommendations SNF Rehab
--- NOTE | 2018-11-30 11:46 | OT.IP.TRT ---
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) Radiculopathy, cervical region (11/19/18) Surgery Performed Operation Date: 11/19/18 07:45 Actual Procedures p C3-6 ACDF w/posterior instru fusion w/bone graft - Tien Stoner MD Operation Date: 11/19/18 14:15 Actual Procedures p s/p cervical fusion bleed(Not Applicable) - Tien Stoner MD Occupational Therapy Treatment Note M2 OT-IP Current Condition Start: 11/20/18 16:51 Freq: Status: Active Protocol: Document 11/20/18 16:54 [facility] (Rec: 11/20/18 17:17 [facility] [id number]) Occupational Therapy Current Condition Current Condition Evaluation Date 11/20/18 Treatment Diagnosis Cervical Stenosis Diagnosis Onset Date 11/19/18 Post Operative Precautions Cervical Spine Precautions Soft Collar for Comfort No Heavy Lifting Log Roll M3 OT- IP Subjective and Pain Start: 11/20/18 16:51 Freq: Status: Active Protocol: Document 11/30/18 11:31 [facility] (Rec: 11/30/18 11:46 [facility] [id number]) OT- Subjective Occupational Therapy Visit Type Type Treatment Note Visit Start Time 11:10 Visit Stop Time 11:20 Total Visit Minutes 10 Occupational Therapy Visit Comments Patient Comments Pt not open to get up. Pt states feeling uncomfortable while sitting in the recliner and requesting to have pillows readjusted. OT Pain Assessment Pain When Pain Assessed At Rest Pain Present Pain Present Denied Pain M4 OT- IP ADL's Start: 11/20/18 16:51 Freq: Status: Active Protocol: Document 11/30/18 11:31 [facility] (Rec: 11/30/18 11:46 [facility] [id number]) OT ADL-Grooming Comments OT Grooming Comments Pt able to use right hand to assist with washing his face. OT ADL-Dressing General Eval Lower Body Dressing Ability Standby Assistance Areas Needing Assistance Socks Comments OT Dressing Comments Today pt able to use right fingers with arm extended while sitting in recliner to reach forwards and pablo socks over his feet. M6 OT- IP Functional Cognition Start: 11/20/18 16:51 Freq: Status: Active Protocol: Document 11/30/18 11:31 [facility] (Rec: 11/30/18 11:46 [facility] [id number]) Cognitive Factors Limiting Selfcare Function Cognitive Ability Level of Alertness Alert Patient Orientation Name Place Situation Attention Span Ability Capable of Focused Attention Capable of Sustained Attention Ability to Follow Commands Able to Follow One Step Commands Memory Description Short Term Impaired Safety Awareness Underestimates Need for Assistance Cognitive Comments Cognitive Assessment Comments Pt needing lots of encouragement to participate and inaddition encouragement to incorporate use of right UE for ADl needs. M7 OT- IP Mobility and Balance Start: 11/20/18 16:51 Freq: Status: Active Protocol: Document 11/29/18 15:36 [facility] (Rec: 11/29/18 15:57 [facility] [id number]) OT- Bed Mobility Assessment Rolling Type of Rolling Roll to Right Level of Assistance Minimal Assistance Supine to Sit Supine to Sit Assist Moderate Assistance 1 Person Assistance Scooting Scooting to Edge of Bed Contact Guard Assistance 1 Person Assistance OT-Transfer Assessment Sit to and From Stand Sit to and from Stand Moderate Assistance 1 Person Assistance Transfers Transfer Ability Minimal Assistance 1 Person Assistance Technique Transfer Destination Chair Transfer Technique Stand Step Pivot Devices Transfer Assistive Devices Gait Belt Front Wheeled Walker OT- Balance Assessment Sitting Balance and Reactions Static Sitting Balance Ability Good Dynamic Sitting Balance Ability Fair Standing Balance and Reactions Static Standing Balance Ability Fair M8 OT- IP Objective Assessments Start: 11/20/18 16:51 Freq: Status: Active Protocol: Document 11/30/18 11:31 [facility] (Rec: 11/30/18 11:46 [facility] [id number]) OT Strength Comments Strength Comments Right biceps 2/5. M9 OT- IP Assessment and Plan Start: 11/20/18 16:51 Freq: Status: Active Protocol: Document 11/30/18 11:31 [facility] (Rec: 11/30/18 11:46 [facility] [id number]) OT Summary Assessment and Plan Potential Rehabilitation Potential Good Analytic Complexity at Evaluation Low Summary OT Impairments Pain Range of Motion Strength Balance Coordination Functional Cognition Functional Mobility Grooming Dressing Toileting Bathing Toilet Transfers Shower Transfers Progress Towards Goals Slow Progress due to Medical Issues Slow Progress due to Cognition Assessment Summary Pt doing better with right UE to incorporate during ADl and functional mobility today. Pt needing encouragement to participate at times. Continue to recommended skilled rehab when medically stable. Pt looking into having possible PEG placement also prior to discharge. Goals Grooming Goal Standby Assistance Dressing Goal Standby Assistance Toileting Goal Standby Assistance Bathing Goal Minimal Assistance Toilet Transfer Goal Standby Assistance Shower Transfer Goal Contact Guard Assistance OT-Other Goals Goal for shower for sponge bath as per pt does not shower . Days to Meet Goals 5 Frequency of Treatment Frequency Of Treatment Once a Day Treatment Plan OT Treatment Plan ADL Training Functional Cognition Training Functional Mobility Therapeutic Exercises Patient/Family Education Discharge Planning Discharge Recommendations OT Discharge Recommendations [facility]
--- NOTE | 2018-11-30 14:51 | PM.CN ---
History of Present Illness Date Patient Seen: 11/30/18 Time Patient Seen: 12:30 Chief complaint: [id number] [phone] Reason for consult: Inability to swallow Requesting provider: Loraine Moses Narrative: Patient is a an 82-year-old gentleman who had a neck procedure performed with postoperative bleeding. He was reexplored and has had difficulty swallowing. He has aspirated and is under treatment for aspiration pneumonia. Additionally, patient has been tested by speech therapy and continues to aspirate. I have been asked to place a PEG as he has been on TPN. Since it is uncertain how long he will need supplemental feedings until he can swallow properly they would like to convert him from IV to GI tract fed [facility] Medical History Anxiety disorder (Chronic) Aortic stenosis (Chronic) Asthma (Chronic) Atrial fibrillation (Chronic) CAD (coronary artery disease) (Chronic) Depression (Chronic) Diastolic congestive heart failure (Chronic) Diverticulosis of colon (Chronic) GERD (gastroesophageal reflux disease) (Chronic) Rheumatoid arthritis (Chronic) Diabetes (Chronic) Surgical History Hx of heart artery stent (Chronic ~2009) History of vasectomy Status post hernia repair Status post laminectomy Social History household members: spouse Smoking Status: Former smoker alcohol intake: current Social History household members: spouse Smoking Status: Former smoker alcohol intake: current Meds Home Medications Medication Instructions Recorded Confirmed Type carvedilol [Coreg] 6.25 mg PO BID #180 tab 04/27/17 11/19/18 Rx tamsulosin [Flomax] 0.4 mg PO QDAY #90 cap 04/27/17 11/19/18 Rx cholecalciferol (vitamin D3) 1,000 unit PO DAILY #0 05/11/17 11/19/18 History [Vitamin D3] isosorbide mononitrate 30 mg PO QAM #45 tab 05/11/17 11/19/18 Rx vitamin E 400 unit PO QDAY #0 05/11/17 11/19/18 History gabapentin [Neurontin] 300 mg PO TID #180 cap 09/08/17 11/19/18 Rx furosemide 40 mg PO SEEINSTR PRN #0 11/03/17 11/19/18 History omeprazole 20 mg PO BID #0 11/16/17 11/19/18 History Lantus U-100 Insulin 50 u SQ BID #0 11/27/17 11/19/18 History Novolog U-100 Insulin aspart See Rx Instructions .ROUTE 11/27/17 11/19/18 History .COMPLEX #0 Glucose: Home Monitor 1 ea MISCELLANEOUS TID 11/02/18 11/19/18 History [place] 1 dev MISCELLANEOUS SEE 11/02/18 11/19/18 History INSTRUCTIONS Ventolin HFA 2 puff INH Q6H PRN 11/02/18 11/19/18 History [TEST STRIPS] 1 strip MISCELLANEOUS TIDAC 11/02/18 11/19/18 History acetaminophen 650 mg PO Q6H PRN 11/02/18 11/19/18 History amlodipine 2.5 mg PO DAILY 11/02/18 11/19/18 History aspirin 81 mg PO DAILY 11/02/18 11/19/18 History fenofibrate 54 mg PO DAILY 11/02/18 11/19/18 History ferrous sulfate 1 tab PO DAILY 11/02/18 11/19/18 History finasteride 5 mg PO DAILY 11/02/18 11/19/18 History fluticasone 2 spray INTRANASAL BID PRN 11/02/18 11/17/18 History atorvastatin [Lipitor] 40 mg PO BEDTIME 11/17/18 11/19/18 History Allergies Allergy/AdvReac Type Severity Reaction Status Date / Time azithromycin [AZITHROMYCIN] Allergy Mild RASH Verified 11/19/18 06:48 lisinopril Allergy Reaction Verified 11/19/18 06:48 not listed niacin Allergy Rash Verified 11/19/18 06:49 morphine AdvReac Confusion Verified 11/17/18 11:40 Review of Systems Review of Systems Cough that has been improving with treatment. No recent chest pain. No abdominal pain no black or bloody bowel movements. No seizures or blackouts. Exam Vital Signs (past 8 hours): - 11/30/18 08:00 11/30/18 12:00 Temperature 97.9 F 97.7 F Pulse Rate 53 L 50 L Respiratory Rate 18 16 Blood Pressure 146/47 H 130/57 L Pulse Oximetry 97 98 Fraction of Inspired Oxygen 21 Oxygen Delivery Method Room Air Oxygen Flow Rate 2 Narrative Exam Narrative: No apparent distress. Eyes are nonicteric. Dressing and left neck. Lungs are clear to auscultation with increased respiratory phase. No rales or rhonchi appreciated. Heart regular rate and rhythm. He has a high-pitched blowing early systolic murmur heard well throughout the precordium but probably highest amount in the left lower sternal border. Abdomen he appears to have lost weight. Soft nontender without scar. He has reducible nontender umbilical hernia. No masses are appreciated. Objective Labs Result Diagrams: 11/30/18 04:51 11/30/18 04:51 Labs: Laboratory Results - last 24 hr 11/30/18 11/30/18 04:51 04:51 WBC 9.5 RBC 3.75 L Hgb 11.6 L Hct 35.2 L MCV 94.1 MCH 30.9 MCHC 32.8 RDW 14.5 Plt Count 290 Neut % (Auto) 67.0 Lymph % (Auto) 21.0 L [place] % (Auto) 7.0 Eos % (Auto) 4.2 H Baso % (Auto) 0.8 Neut # (Auto) 6300 Lymph # (Auto) 2000 [place] # (Auto) 700 Eos # (Auto) 400 Baso # (Auto) 100 Sodium 140 Potassium 3.9 Chloride 108 H Carbon Dioxide 25 BUN 23 H Creatinine 1.00 Estimated GFR > 60.0 BUN/Creatinine Ratio 23.0 H Glucose 130 H Calcium 8.6 Magnesium 1.9 Assessment & Plan Assessment & Plan narrative: With inability to adequately swallow and evidence of aspiration. Recommend percutaneous endoscopic gastrostomy tube until such time was swallowing returns. I have discussed the nature of the tube in the operation. Discussed risks of bleeding, infection, injury to nearby organs which could be lethal.Also talked about cardiac risks with him. He appears to understand and wishes that we proceed.
--- NOTE | 2018-11-30 14:52 | PC.NURSE ---
Addendum entered by Haleigh Haynes R.N. 11/30/18 14:59: Pt to OR for peg tube placement via bed and with TPN/IVF infusing. BG 116, VS charted, Pt voided. Consent signed. Chart with Pt. Original Note: IV removed, belongings packet up, spouse at the bedside, Meds returned to Spouse-Jessy from pharmacy. Report called to Cristobal-RN receiving Pt at [facility]. Reminded Cristobal that Pt requires 3L O2 at all times. Ny removed-Pt able to void 500-600cc post ny removal. All questions answered and full report given. Pt ready for transport when [facility] arrives.
--- NOTE | 2018-11-30 15:00 | P.CONS_ITS ---
History of Present Illness Date Patient Seen: 11/30/18 Time Patient Seen: 12:30 Chief complaint: [phone] Reason for consult: Inability to swallow Requesting provider: Loraine Moses Narrative: Patient is a an 82-year-old gentleman who had a neck procedure performed with postoperative bleeding. He was reexplored and has had difficulty swallowing. He has aspirated and is under treatment for aspiration pneumonia. Additionally, patient has been tested by speech therapy and continues to aspirate. I have been asked to place a PEG as he has been on TPN. Since it is uncertain how long he will need supplemental feedings until he can swallow properly they would like to convert him from IV to GI tract fed [facility] Medical History Anxiety disorder (Chronic) Aortic stenosis (Chronic) Asthma (Chronic) Atrial fibrillation (Chronic) CAD (coronary artery disease) (Chronic) Depression (Chronic) Diastolic congestive heart failure (Chronic) Diverticulosis of colon (Chronic) GERD (gastroesophageal reflux disease) (Chronic) Rheumatoid arthritis (Chronic) Diabetes (Chronic) Surgical History Hx of heart artery stent (Chronic ~2009) History of vasectomy Status post hernia repair Status post laminectomy Social History household members: spouse Smoking Status: Former smoker alcohol intake: current Social History household members: spouse Smoking Status: Former smoker alcohol intake: current Meds Home Medications Medication Instructions Recorded Confirmed Type carvedilol [Coreg] 6.25 mg PO BID #180 tab 04/27/17 11/19/18 Rx tamsulosin [Flomax] 0.4 mg PO QDAY #90 cap 04/27/17 11/19/18 Rx cholecalciferol (vitamin D3) 1,000 unit PO DAILY #0 05/11/17 11/19/18 History [Vitamin D3] isosorbide mononitrate 30 mg PO QAM #45 tab 05/11/17 11/19/18 Rx vitamin E 400 unit PO QDAY #0 05/11/17 11/19/18 History gabapentin [Neurontin] 300 mg PO TID #180 cap 09/08/17 11/19/18 Rx furosemide 40 mg PO SEEINSTR PRN #0 11/03/17 11/19/18 History omeprazole 20 mg PO BID #0 11/16/17 11/19/18 History Lantus U-100 Insulin 50 u SQ BID #0 11/27/17 11/19/18 History Novolog U-100 Insulin aspart See Rx Instructions .ROUTE 11/27/17 11/19/18 History .COMPLEX #0 Glucose: Home Monitor 1 ea MISCELLANEOUS TID 11/02/18 11/19/18 History [place] 1 dev MISCELLANEOUS SEE 11/02/18 11/19/18 History INSTRUCTIONS Ventolin HFA 2 puff INH Q6H PRN 11/02/18 11/19/18 History [TEST STRIPS] 1 strip MISCELLANEOUS TIDAC 11/02/18 11/19/18 History acetaminophen 650 mg PO Q6H PRN 11/02/18 11/19/18 History amlodipine 2.5 mg PO DAILY 11/02/18 11/19/18 History aspirin 81 mg PO DAILY 11/02/18 11/19/18 History fenofibrate 54 mg PO DAILY 11/02/18 11/19/18 History ferrous sulfate 1 tab PO DAILY 11/02/18 11/19/18 History finasteride 5 mg PO DAILY 11/02/18 11/19/18 History fluticasone 2 spray INTRANASAL BID PRN 11/02/18 11/17/18 History atorvastatin [Lipitor] 40 mg PO BEDTIME 11/17/18 11/19/18 History Allergies Allergy/AdvReac Type Severity Reaction Status Date / Time azithromycin [AZITHROMYCIN] Allergy Mild RASH Verified 11/19/18 06:48 lisinopril Allergy Reaction Verified 11/19/18 06:48 not listed niacin Allergy Rash Verified 11/19/18 06:49 morphine AdvReac Confusion Verified 11/17/18 11:40 Review of Systems Review of Systems Cough that has been improving with treatment. No recent chest pain. No abdominal pain no black or bloody bowel movements. No seizures or blackouts. Exam Vital Signs (past 8 hours): - 11/30/18 08:00 11/30/18 12:00 Temperature 97.9 F 97.7 F Pulse Rate 53 L 50 L Respiratory Rate 18 16 Blood Pressure 146/47 H 130/57 L Pulse Oximetry 97 98 Fraction of Inspired Oxygen 21 Oxygen Delivery Method Room Air Oxygen Flow Rate 2 Narrative Exam Narrative: No apparent distress. Eyes are nonicteric. Dressing and left neck. Lungs are clear to auscultation with increased respiratory phase. No rales or rhonchi appreciated. Heart regular rate and rhythm. He has a high- pitched blowing early systolic murmur heard well throughout the precordium but probably highest amount in the left lower sternal border. Abdomen he appears to have lost weight. Soft nontender without scar. He has reducible nontender umb ilical hernia. No masses are appreciated. Objective Labs Result Diagrams: 11/30/18 04:51 11/30/18 04:51 Labs: Laboratory Results - last 24 hr 11/30/18 11/30/18 04:51 04:51 WBC 9.5 RBC 3.75 L Hgb 11.6 L Hct 35.2 L MCV 94.1 MCH 30.9 MCHC 32.8 RDW 14.5 Plt Count 290 Neut % (Auto) 67.0 Lymph % (Auto) 21.0 L [place] % (Auto) 7.0 Eos % (Auto) 4.2 H Baso % (Auto) 0.8 Neut # (Auto) 6300 Lymph # (Auto) 2000 [place] # (Auto) 700 Eos # (Auto) 400 Baso # (Auto) 100 Sodium 140 Potassium 3.9 Chloride 108 H Carbon Dioxide 25 BUN 23 H Creatinine 1.00 Estimated GFR > 60.0 BUN/Creatinine Ratio 23.0 H Glucose 130 H Calcium 8.6 Magnesium 1.9 Assessment & Plan Assessment & Plan narrative: With inability to adequately swallow and evidence of aspiration. Recommend percutaneous endoscopic gastrostomy tube until such time was swallowing returns. I have discussed the nature of the tube in the operation. Discussed risks of bleeding, infection, injury to nearby organs which could be lethal.Also talked about cardiac risks with him. He appears to understand and wishes that we proceed.
--- NOTE | 2018-11-30 15:01 | PT.IPTN ---
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) Radiculopathy, cervical region (11/19/18) Surgery Performed Operation Date: 11/19/18 07:45 Actual Procedures p C3-6 ACDF w/posterior instru fusion w/bone graft - Tien Stoner MD Operation Date: 11/19/18 14:15 Actual Procedures p s/p cervical fusion bleed(Not Applicable) - Tien Stoner MD Operation Date: 11/30/18 16:30 <No data on this case meets the specified criteria> Physical Therapy Treatment Note M2 PT-IP Current Condition Start: 11/20/18 11:43 Freq: NEEDED Status: Active Protocol: Document 11/20/18 11:30 RCC (Rec: 11/20/18 11:57 RCC [id number]) Physical Therapy Current Condition Current Condition Evaluation Date 11/20/18 Treatment Diagnosis C3-6 ACDF w/ post. instrumentation11/19/18, impaired mobility and strength Precautions Cervical Spine Precautions Soft Collar for Comfort No Heavy Lifting Log Roll M3 PT-IP Subjective Start: 11/20/18 11:43 Freq: NEEDED Status: Active Protocol: Document 11/30/18 15:00 CLB (Rec: 11/30/18 15:00 CLB [id number]) Subjective Physical Therapy Visit Type Type Patient Refusal Notes pt refused stating he was going to have surgery at 1600. Amount of Assist Needed 1 Person Assist Discharge Recommendations PT Discharge Recommendations SNF Rehab
--- NOTE | 2018-11-30 15:16 | PM.PREOP ---
Pre-operative Note Interval Note History & Physical reviewed/Exam performed by Physician: Yes Changes to H&P: Yes H&P completed within 30 days and has changed as indicated here:: Discussed briefly with Dr. newby. There is no contraindication to placement of the PEG and his recent operation. Will be done in conjunction with anesthesia due to the patient's multiple medical risks and the need for deep sedation.
--- NOTE | 2018-11-30 15:58 | SUR.OPER ---
Supine on padded OR bed, head on pillow, arms secured on padded arm boards at <90 degrees abduction, legs uncrossed, safety belt at thigh, tape over blanket over lower legs.
--- NOTE | 2018-11-30 15:58 | SUR.OPER ---
SUPINE IN OWN BED .. D/C ENDO DOCUMENTATION ..ANESTHESIA PER DR. TAYLOR SEE NOTES
--- NOTE | 2018-11-30 15:59 | ST.IPDYTX ---
Care Team Visit Care Team Role Provider Type Flo Pollack MD Primary Care Provider Non-Staff Specialty: Medical Address: [address] [place], [address] Email: Phuong Cabezas MD Other Providers Physician Specialty: Internal Medicine Address: [address] [place] [address], [address] Email: [email or web address] Harry Payne MD Other Providers Physician Specialty: General Surgery Address: [address] [place] [address], [id number] Email: [email or web address] Tien Stoner MD Admit Provider Physician Attending Provider Specialty: Orthopedic Surgery Address: [address] [place] [address], [id number] Email: [email or web address] SOCIAL MEDIA MARKETING MANAGER Dysphagia Treatment SOCIAL MEDIA MARKETING MANAGER Dysphagia Treatment Start: 11/22/18 13:21 Freq: Status: Active Protocol: Document 11/30/18 13:27 YOEL (Rec: 11/30/18 13:32 YOEL [id number]) Dysphagia Treatment Session Time Visit Start Time 09:05 Visit Stop Time 09:27 Total Visit Minutes 22 Setting Assessment Location Acute Care Visit Type Note Type Treatment Note Patient Information Identification Type Name Subjective Observations Prior to SOCIAL MEDIA MARKETING MANAGER entry to room, the pt's approached this SOCIAL MEDIA MARKETING MANAGER, Nurse (Radha), and Occupational Therapy Program Director (Carina) at the nurse's station with questions regarding tube placement and dysphagia therapy. The pt's , CM and SOCIAL MEDIA MARKETING MANAGER transitioned to pt's room to include him in the conversation. He was awake and lying in bed. Treatment Treatment Activities Education was provided to the pt and his with CM present to answer the couple's questions RE TPN vs NG vs PEG tube placement/feeding, dysphagia therapy, and discharge placement. Informed the pt/ that use of TPN is meant to be limited in duration, that either NG or PEG tube placement can be temporary, and that PEG tube can be long-term if necessary, but that the goal of dysphagia therapy would be to resume oral intake with the least restrictive diet possible. Recommended SNF placement for intensive therapy with follow-up MBS in ~3 wks to assess progress. The pt's expressed concern about tube feeding to meet pt's diabetic needs. Informed that a Nurtritionist/ Metal Annealer would be involved to ensure appropriate formula is in place and adminitered routinely to meet the pt's needs. The pt expressed concern that tube placement was associated with end-of-life care. Educated pt that goal of tube feeding is to provide life sustaining nutrition and hydration and to reduce risk of aspiration, thereby improving quality of life in many ways, and that many people live a very long time with tube feeding. Reiterated to the pt that Speech Pathology would provide therapy with the goal of resuming oral intake with the least restricted diet. Discussed briefly the possibility of a modified diet , a topic which may need to be addressed in more detail in therapy. Both the pt and his verbalized understanding of information provided. The pt expressed desire for PEG tube and SNF placement with intensive dysphagia therapy. Assessment Patient Response to Treatment Good Rehab Potential Good Assessment of Improvement The pt demonstrated understanding of education provided by this SOCIAL MEDIA MARKETING MANAGER and MDs, as evidenced by his ability to accurately recall information from this and previous conversations and by the appropriate questions he asked . He expressed a desire to work with Speech Pathologists to improve swallow function and safety. Diet Recommendations Recommendations Continue Current Diet Liquids Order NPO Diet Order NPO/Alternative Means of Nutrition/Hydration Medication Recommendations Not Recommended by Mouth Treatment Plan Placement Recommendation after Discharge Care Home Facility Appropriate for Continued Therapy Yes Therapy Recommendations Dysphagia therapy with emphasis on liguapharyngeal strengthening exercises to improve airway protection. Dysphagia Goals Pt will use Free Water Protocol with use of chin tuck and head turn to left to provide P.O. hydration and improve quality of life. The pt will complete exercises to increase strength, coordination and ROM of swallow musculature to improve swallow safety necessary to resume oral intake.
--- NOTE | 2018-11-30 16:17 | PM.OP.ENDO ---
Operative Date/Time/Diagnoses Date of procedure: 11/30/18 Time of procedure: 16:18 Pre-op diagnosis: Inability to swallow with aspiration Post-op diagnosis: same Procedure & Clinicians Study performed: Placement of percutaneous endoscopic gastrostomy tube (PEG) Indications: Inability to swallow. Aspiration. Surgeon: Harry Payne Procedure Notes SCOAP/Timeout: Performed Procedure in detail: The patient is placed supine on his bed in the OR. He underwent deep sedation with monitored anesthesia care provided by our anesthesiologist due to his multiple medical issues and the need to have him deeply sedated to perform the procedure. A bite block was inserted between his gums and the endoscope was passed through it into the esophagus. The esophagus was normal. The stomach insufflated well. The pyloric channel was patent in the duodenal bulb was normal in appearance. The scope was brought back into the stomach and it was easy to find a point of maximal light intensity as well in is indentation on the stomach with palpation of the anterior abdominal wall. The stomach was kept insufflated and the abdominal wall was prepped and draped in the usual fashion. Local anesthetic was infiltrated overlying the point of maximal light and a good indentation of the stomach wall with palpation. A small incision was made in the skin and a needle and catheter passed through it directly into the stomach. The needle was removed and the guidewire was passed through the catheter and grasped with a snare. The scope along with the snare grasping the guidewire was pulled out. The gastrostomy tube was attached to the guidewire. The guidewire was pulled up from the stomach side which pulled the catheter down through the mouth esophagus and into the stomach and up through the abdominal wall. The flange of the catheter was seated against the stomach and anterior abdominal wall. The bumper was slid down over the catheter with a small space between skin and the bumper in order to place gauze under the bumper. The scope was reinserted and the tube appeared to be in good position. The scope was removed and the tube was cut and placed to gravity drainage. Scope withdrawal time: Not applicable Sedation minutes: 0 (Mac anesthesia) Findings: other findings (Feeding tube in good position) Specimen(s): none sent Complications: none Recommendations: Other recommendation (Begin tube feedings in about 24 hr) Plan for aftercare: Will re-evaluate tomorrow on rounds. Disposition: PACU
--- NOTE | 2018-11-30 17:11 | CM.DPC ---
DCP/continued: Reviewed chart. Spoke with /Janae this AM. Current suggestion is that patient get PEG tube for feeding. STAFF ASSISTANT and met with patient and spouse at bedside. Janae further discussed differences between NG tube vs. PEG tube. Patient initially thought he would just need NG for short amount of time but appears that he would benefit from PEG instead. Patient currently with surgery consult in place for potential PEG tube placement. Patient and spouse continue to want patient to go to [facility] when medically stable. P: Anticipate PEG placement and once stable d/c to [facility]. SUE Leahy
[2018-11-30] MEDS: SODIUM CHLORIDE 0.9% 1,000 ML 70 ML IV (18:20)
[2018-12-01] VITALS (11 sets, daily range): BP systolic 100–155; BP diastolic 47–71; PULSE 47–65; RESP 14–18; TEMP 36.4–37.1; O2SAT 92–99
[2018-12-01 05:52] LABS: Blood Urea Nitrogen 23 mg/dL (9-20); Calcium 8.5 mg/dL (8.4-10.2); Carbon Dioxide 25 mmol/L (22-32); Chloride 109 mmol/L (98-107); Estimated Glomerular Filt Rate > 60.0 mL/min (>60); Glucose 147 mg/dL (80-110); HEMOLYSIS < 15 (0-50); Potassium 4.1 mmol/L (3.4-5.1); Sodium 139 mmol/L (137-145)
[2018-12-01 05:57] LABS: Add Manual Diff / Slide Review NO; Basophils Absolute Auto 100 /uL (0-100); Basophils Percent Auto 0.9 % (0-2); Eosinophils Absolute Auto 300 /uL (0-450); Eosinophils Percent Auto 2.9 % (2-4); Hematocrit 32.5 % (41-53); Hemoglobin 10.9 g/dL (13.5-17.5); Lymphocytes Absolute Auto 1600 /uL (1100-4500); Lymphocytes Percent Auto 17.6 % (25-40); Mean Corpuscular HGB Conc 33.6 % (30-36); Mean Corpuscular Hemoglobin 31.3 PG (26-34); Mean Corpuscular Volume 93.1 fL (80-100); Monocytes Absolute Auto 600 /uL (0-900); Monocytes Percent Auto 6.9 % (3-14); Neutrophils Absolute Auto 6400 /uL (1500-7000); Neutrophils Percent Auto 71.7 % (50-75); Platelet Count 252 X10^3/uL (150-400); Red Blood Cell Count 3.49 X10^6/uL (4.5-5.9); Red Cell Distribution Width 14.5 % (11.6-14.8)
[2018-12-01] MEDS: INSULIN ASPART 100 UNIT/ML INSULN PEN SUBCUT ×2 (06:33→12:21)
--- NOTE | 2018-12-01 08:00 | PM.PNPO.1 ---
Subjective Date Patient Seen: 12/01/18 Time Patient Seen: 08:00 Interval history: He had his peg tube placed yesterday. Otherwise doing well Exam Vital Signs (past 8 hours): - 12/01/18 00:23 12/01/18 03:45 Temperature 98.5 F 98.3 F Pulse Rate 65 63 Respiratory Rate 17 16 Blood Pressure 132/71 153/66 H Pulse Oximetry 94 98 Fraction of Inspired Oxygen 21 Oxygen Delivery Method Room Air Oxygen Flow Rate 0 Const Orientation: alert and oriented x3 Back/Spine/Pelvis Other: Dressing CDI. 5/5 motor both upper extremities except for 4/5 right deltoid and 2/5 right biceps Objective Labs Result Diagrams: 12/01/18 05:12 12/01/18 05:12 Labs: Laboratory Results - last 24 hr 12/01/18 12/01/18 05:12 05:12 WBC 9.0 RBC 3.49 L Hgb 10.9 L Hct 32.5 L MCV 93.1 MCH 31.3 MCHC 33.6 RDW 14.5 Plt Count 252 Neut % (Auto) 71.7 Lymph % (Auto) 17.6 L [place] % (Auto) 6.9 Eos % (Auto) 2.9 Baso % (Auto) 0.9 Neut # (Auto) 6400 Lymph # (Auto) 1600 [place] # (Auto) 600 Eos # (Auto) 300 Baso # (Auto) 100 Sodium 139 Potassium 4.1 Chloride 109 H Carbon Dioxide 25 BUN 23 H Creatinine 1.00 Estimated GFR > 60.0 BUN/Creatinine Ratio 23.0 H Glucose 147 H Calcium 8.5 Assessment & Plan Post-op Postoperative Procedures Operation Date: 11/19/18 07:45 Actual Procedures Side Surgeon p C3-6 ACDF w/posterior instru fusion w/bone graft Tien Stoner MD Operation Date: 11/19/18 14:15 Actual Procedures Side Surgeon p s/p cervical fusion bleed Not Applicable Tien Stoner MD Operation Date: 11/30/18 16:30 Actual Procedures Side Surgeon p Peg Tube Insertion with EGD Harry Payne MD s Esophagogastroduodenoscopy Harry Payne MD stable with respect to his ACDF. His deltoid function is much better. Still waiting on biceps improvement, just a little worse than preoperative. I did discuss this with the patient and his . I do expect some improvement but he had significant myelopathy and cord compression and weakness coming into surgery, and this may take a whole year to recover. Dysphagia, had peg tube placed yesterday. Plan to start feedings when cleared by Dr. Payne. Possibly discharged to custodial tomorrow. Quality VTE Deep Vein Thrombosis/Pulmonary Embolism Present on Admission: No
[2018-12-01] MEDS: AMPICILLIN/SULBACTAM 3 GM 3 GM in SODIUM CHLORIDE 0.9% 100 ML IV ×3 (08:30→23:50)
[2018-12-01] MEDS: ACETAMINOPHEN 650 MG SUPP PR ×3 (08:30→22:50)
--- NOTE | 2018-12-01 09:27 | P.PN_ITS ---
Subjective Date Patient Seen: 12/01/18 Time Patient Seen: 09:25 Interval history: Patient feels well. Denies any abdominal pain except for slight twinge earlier today. Exam Vital Signs (past 8 hours): - 12/01/18 03:45 12/01/18 08:00 Temperature 98.3 F 97.9 F Pulse Rate 63 52 L Respiratory Rate 16 18 Blood Pressure 153/66 H 117/58 L Pulse Oximetry 98 98 Fraction of Inspired Oxygen 21 Oxygen Delivery Method Room Air Oxygen Flow Rate 0 Narrative Exam Narrative: Abdomen is scaphoid soft nontender. Dressings intact. Objective Labs Result Diagrams: 12/01/18 05:12 12/01/18 05:12 Labs: Laboratory Results - last 24 hr 12/01/18 12/01/18 05:12 05:12 WBC 9.0 RBC 3.49 L Hgb 10.9 L Hct 32.5 L MCV 93.1 MCH 31.3 MCHC 33.6 RDW 14.5 Plt Count 252 Neut % (Auto) 71.7 Lymph % (Auto) 17.6 L [place] % (Auto) 6.9 Eos % (Auto) 2.9 Baso % (Auto) 0.9 Neut # (Auto) 6400 Lymph # (Auto) 1600 [place] # (Auto) 600 Eos # (Auto) 300 Baso # (Auto) 100 Sodium 139 Potassium 4.1 Chloride 109 H Carbon Dioxide 25 BUN 23 H Creatinine 1.00 Estimated GFR > 60.0 BUN/Creatinine Ratio 23.0 H Glucose 147 H Calcium 8.5 Assessment & Plan Post-op Postoperative Procedures Operation Date: 11/19/18 07:45 Actual Procedures Side Surgeon p C3-6 ACDF w/posterior instru fusion w/bone graft Tien Stoner MD Operation Date: 11/19/18 14:15 Actual Procedures Side Surgeon p s/p cervical fusion bleed Not Applicable Tien Stoner MD Operation Date: 11/30/18 16:30 Actual Procedures Side Surgeon p Peg Tube Insertion with EGD Harry Payne MD s Esophagogastroduodenoscopy Harry Payne MD Postoperative plan narrative: Will start tube feeds this afternoon. Can get medicines via tube this afternoon. Dietary consult ordered. Quality VTE Deep Vein Thrombosis/Pulmonary Embolism Present on Admission: No
[2018-12-01] MEDS: SODIUM CHLORIDE 0.9% 1,000 ML 70 ML IV ×2 (10:37→22:49)
--- NOTE | 2018-12-01 11:28 | P.PN_ITS ---
Subjective Date Patient Seen: 12/01/18 Interval history: Suleiman Leal is an 82-year-old male with a past medical history significant for coronary artery disease status post stenting, hypertension, hyperlipidemia, diabetes mellitus type II, insulin using, who is status post cervical resection and fixation who subsequently developed a cervical hematoma and was hospitalized for evacuation of his hematoma. He developed complication of dysphagia which prevented consistent/adequate oral intake and aspiration pneumonia. He is on TPN. Medicine service was consulted for management of dysphagia, aspiration pn eumonia and diabetes mellitus type II. The patient is resting in bedside chair comfortably. He endorses cervical neck pain and reports that he ?screwed up and went without his Tylenol suppository.? He is now status post PEG tube insertion. Once surgery clears for p.o. intake will restart medications and adjust insulin to ACHS. His productive cough is improving. He denies headache, shortness of breath, chest pain, abdominal pain, nausea, vomiting, fever, chills, dysuria, diarrhea or constipation. He is voiding and eliminating without difficulty. He is up ambulating with assistance. Exam Vital Signs (past 8 hours): - 12/01/18 03:45 12/01/18 08:00 12/01/18 10:14 Temperature 98.3 F 97.9 F Pulse Rate 63 52 L Respiratory Rate 16 18 Blood Pressure 153/66 H 117/58 L Pulse Oximetry 98 96 96 Fraction of Inspired Oxygen 21 Oxygen Delivery Method Room Air Oxygen Flow Rate 0 Narrative Exam Narrative: General: Elderly gentleman sitting in bed and in no acute distress, well- developed, well-nourished, appropriately interactive. HEENT: Normocephalic, atraumatic. External ears without defect. Pupils equal, round, and reactive to light. Anicteric sclerae, moist conjunctivae, and no lid lag. Neck: Supple. Large hematoma over anterior right chest with bandage over anterior neck in place c/d/i. No lymphadenopathy or thyromegaly. Cardiovascular: Regular rate and rhythm with +2/6 holosystolic murmur at left sternal border radiating to carotids bilaterally. No rubs or gallops appreciated. Pulmonary: Clear to auscultation bilaterally without crackles, wheezes, or rhonchi. Normal respiratory effort with no use of accessory muscles. Abdomen: Soft, bowel sounds present, non-tender, non-distended. No hepatospleno megaly or masses appreciated. PEG tube draining minimal bile and c/d/i. Extremities: No clubbing, cyanosis, or edema. Skin: Normal temperature, turgor, and texture; no rash, ulcers, or subcutaneous nodules appreciated. Neurological: Cranial nerves grossly intact. Psychiatric: Normal mood and affect. Alert and oriented to person, place, and time. Mild cognitive impairment. Objective Labs Result Diagrams: 12/01/18 05:12 12/01/18 05:12 Labs: Laboratory Results - last 24 hr 12/01/18 12/01/18 05:12 05:12 WBC 9.0 RBC 3.49 L Hgb 10.9 L Hct 32.5 L MCV 93.1 MCH 31.3 MCHC 33.6 RDW 14.5 Plt Count 252 Neut % (Auto) 71.7 Lymph % (Auto) 17.6 L [place] % (Auto) 6.9 Eos % (Auto) 2.9 Baso % (Auto) 0.9 Neut # (Auto) 6400 Lymph # (Auto) 1600 [place] # (Auto) 600 Eos # (Auto) 300 Baso # (Auto) 100 Sodium 139 Potassium 4.1 Chloride 109 H Carbon Dioxide 25 BUN 23 H Creatinine 1.00 Estimated GFR > 60.0 BUN/Creatinine Ratio 23.0 H Glucose 147 H Calcium 8.5 Assessment & Plan Assessment & Plan narrative: Suleiman Leal is an 82-year-old male with a past medical history significant for coronary artery disease status post stenting, hypertension, hyperlipidemia, diabetes mellitus type II, insulin using, who is status post cervical resection and fixation who subsequently developed a cervical hematoma and was hospitalized for evacuation of his hematoma. He developed complication of dysphagia which prevented consistent/adequate oral intake and aspiration pneumonia. He is on TPN. Medicine service was consulted for management of dysphagia, aspiration pneumonia and diabetes mellitus type II. 1. Aspiration pneumonia, present on admission. Active. -Chest xray demonstrated right infrahilar density compatible with the patient's history of aspiration. -Continue IV Unasyn to complete 10 day course tomorrow 12/02. -Continue guaifenesin 1200 mg twice daily for copious sputum production for 1-2 more days. 2. Acute dysphagia secondary to nerve injury from anterior cervical fusion and diskectomy, status post PEG tube placement, present on admission. Active. -Speech therapy repeated MBS which demonstrated significant aspiration with very minimal improvement in swallowing with coaching. His laryngeal muscles also fatigue very easily. Speech therapy is recommending intensive speech therapy for the next 3 weeks with possibility of recovery of swallow. -Discontinued TPN. Consulted general surgery, Dr. Payne, who plans to discuss PEG tube today and possibly place it this afternoon. Patient is NPO. 3. Acute metabolic encephalopathy and delerium, secondary to high-dose steroids. Resolved. -No longer on steroids and is clear mentally. 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 4. 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 Active. -Continue postoperative and pain management per orthopedics. 5. Diabetes mellitus type II, non-insulin using, chronic, present on admission. Stable. -Hemoglobin A1C 9.0%. -Continue high dose correctional scale insulin and every 6 hour blood glucose checks. -Will restart Lantus and gababpentin and order a carbohydrate consistent diet as soon as cleared by surgery for tube feeds. 6. CAD status post stenting, chronic, present on admission. Stable. -Continue amlodipine aspirin, statin, carvedilol, furosemide, and isosorbide mononitrate as soon as cleared by surgery for tube feeds. 7. Hypertension, chronic, present on admission. Stable. -Continue amlodipine, carvedilol, furosemide, and isosorbide mononitrate as soon as cleared by surgery for tube feeds. 8. Severe aortic stenosis, chronic, present on admission. Stable. -Echocardiogram did not demonstrate any significant change in the aortic stenosis compared to 1 year ago (by one criteria it is moderate and by another criteria it is severe). 9. BPH, chronic, present on admission. Stable. -Will restart finasteride and tamsulosin as soon as cleared by surgery for tube feeds. Disposition: Patient likely to discharge to SNF in 1-2 days once recovered from PEG tube placement and TF and meds restarted. Thank you for consulting our services. We will continue to follow along with you. Quality VTE Deep Vein Thrombosis/Pulmonary Embolism Present on Admission: No
--- NOTE | 2018-12-01 12:47 | ST.IPDYTX ---
Care Team Visit Care Team Role Provider Type Flo Pollack MD Primary Care Provider Non-Staff Specialty: Medical Address: [address] [place], [address] Email: Tien Stoner MD Admit Provider Physician Attending Provider Specialty: Orthopedic Surgery Address: [address] [place] [address], [address] Email: [email or web address] REACTOR TECHNICIAN Dysphagia Treatment EPITAXIAL REACTOR TECHNICIAN Dysphagia Treatment Start: 11/22/18 13:21 Freq: Status: Active Protocol: Document 12/01/18 12:34 LNK (Rec: 12/01/18 12:47 LNK [id number]) Dysphagia Treatment Session Time Visit Start Time 10:05 Visit Stop Time 10:25 Total Visit Minutes 20 Setting Assessment Location Acute Care Visit Type Note Type Treatment Note Next Note Type Next Note Type Treatment Note Patient Information Identification Type Name Subjective Observations Pt was in bedside chair. Pt affect is improved. Very motivated to work to improve swallow function. Pt had PEG tube placed last night and should start feedings this afternoon per pt. D/C planned for tomorrow to [facility]. Treatment Liquids Trialed Ice Chips Solids Trialed Puree Administration Type Tea Spoon Oral Strategies Upright at 90 degrees Controlled Bite/Sip Size Pharyngeal Strategies Sitting Upright (90 deg) Additional Dysphagia Treatment Free Water Protocol with Strategies strict adherence to instructions (in pt's room) Treatment Activities Introduced pt to [place] exercise to increase strength and function of lingua- pharyngeal contact for safe swallow. Evidence from the MBS indicated there was significant weakness and function of this area. Pt was educated in the [place] and was able to perform the exercise ~10 times correctly. Will see pt again this afternoon. Assessment Patient Response to Treatment Good Rehab Potential Good Assessment of Improvement The pt demonstrated understanding of education provided by this EPITAXIAL REACTOR TECHNICIAN, as evidenced by his ability to accurately recall information and perform exercise. He is motivated to work with Speech Pathologists to improve swallow function and safety. Diet Recommendations Recommendations Continue Current Diet Liquids Order NPO Diet Order NPO/Alternative Means of Nutrition/Hydration Medication Recommendations Not Recommended by Mouth Additional Dietary Needs Reminders to Use Strategies Aspiration Precautions Recommended Precautions Upright at 90 Degrees Supraglottic Swallow Liquids from Spoon Additional Precautions Second swallow as needed Treatment Plan Placement Recommendation after Discharge Care Home Facility Appropriate for Continued Therapy Yes Therapy Recommendations Dysphagia therapy with emphasis on liguapharyngeal strengthening exercises to improve airway protection. Dysphagia Goals Pt will use Free Water Protocol with use of chin tuck and head turn to left to provide P.O. hydration and improve quality of life. The pt will complete exercises to increase strength, coordination and ROM of swallow musculature to improve swallow safety necessary to resume oral intake. Follow Up Plan 1-2x/day
--- NOTE | 2018-12-01 12:48 | OT.IP.TRT ---
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) Radiculopathy, cervical region (11/19/18) Other dysphagia (11/19/18) Surgery Performed Operation Date: 11/19/18 07:45 Actual Procedures p C3-6 ACDF w/posterior instru fusion w/bone graft - Tien Stoner MD Operation Date: 11/19/18 14:15 Actual Procedures p s/p cervical fusion bleed(Not Applicable) - Tien Stoner MD Operation Date: 11/30/18 16:30 Actual Procedures p Peg Tube Insertion with EGD - Harry Payne MD s Esophagogastroduodenoscopy - Harry Payne MD Occupational Therapy Treatment Note M2 OT-IP Current Condition Start: 11/20/18 16:51 Freq: Status: Active Protocol: Document 11/20/18 16:54 CCC (Rec: 11/20/18 17:17 CCC [email or web address]) Occupational Therapy Current Condition Current Condition Evaluation Date 11/20/18 Treatment Diagnosis Cervical Stenosis Diagnosis Onset Date 11/19/18 Post Operative Precautions Cervical Spine Precautions Soft Collar for Comfort No Heavy Lifting Log Roll M3 OT- IP Subjective and Pain Start: 11/20/18 16:51 Freq: Status: Active Protocol: Document 12/01/18 12:48 PJM (Rec: 12/01/18 14:03 PJM [id number]) OT- Subjective Occupational Therapy Visit Type Type Treatment Note Visit Start Time 12:22 Visit Stop Time 12:28 Notes OT re orders received after pt had PEG tube place yesterday. Pt currently has bile drainage bag attached to his PEG tube. Occupational Therapy Visit Comments Patient Comments I have been thinking a lot about end of life while I have been sitting here. I want to talk to my tile setter at some point. Patient/Caregiver Goals to get strong enough to eat and go home OT Pain Assessment Pain When Pain Assessed After Treatment Pain Present Pain Present Denied Pain M4 OT- IP ADL's Start: 11/20/18 16:51 Freq: Status: Active Protocol: Document 12/01/18 12:48 PJM (Rec: 12/01/18 14:03 PJM [id number]) OT [id number] General Evaluation Areas Needing Assistance Loading Utensil Comments OT Self-Feeding Comments Pt okay for ice chips per RN. Pt able to feed himself one ice chip with min assist to stabilize cup with R hand. Pt chewed one ice chip referring to technique sheet posted on his bedside table by SMelissaT. No signs of aspiration noted. Discussed free water protocol with S.T. and asked them to post clarification in room about how many ice chips pt is allowed and if he needs supervision when he is eating them. Pt recalls and able to demonstrate new swallowing exercise given to home by S.T. today and completed 4 reps. OT ADL-Grooming General Evaluation Grooming Ability Standby Assistance Areas Needing Assistance Retrieving/Set-up of Grooming Items Combing/Brushing Hair Comments OT Grooming Comments Pt states he washed face and had oral care earlier this AM. OT ADL-Dressing General Eval Lower Body Dressing Ability Minimal Assistance Areas Needing Assistance Socks Comments OT Dressing Comments Pt able to doff B socks seated in chair with SBA. Pt able to use R arm dominantly to remove L sock, but needed cues to initiate RUE nikkie for L sock . Pt needed min assist to don B socks due to rough toenails and decreased R hand dexterity due to more proximal biceps and wrist extensor weakness. M6 OT- IP Functional Cognition Start: 11/20/18 16:51 Freq: Status: Active Protocol: Document 12/01/18 12:48 PJM (Rec: 12/01/18 14:03 PJM [id number]) Cognitive Factors Limiting Selfcare Function Cognitive Ability Level of Alertness Alert Attention Span Ability Capable of Focused Attention Capable of Sustained Attention Ability to Follow Commands Able to Follow One Step Commands Cognitive Comments Cognitive Assessment Comments Pt has some decreased insight into current medical situation . Requires repetition of some information regarding how PEG tube will work. He admits to feeling lonely and spending too much time alone in this room during this hospitalization. M7 OT- IP Mobility and Balance Start: 11/20/18 16:51 Freq: Status: Active Protocol: Document 12/01/18 12:48 PJM (Rec: 12/01/18 14:03 PJM [email or web address]) OT-Transfer Assessment Sit to and From Stand Sit to and from Stand Contact Guard Assistance Transfers Transfer Ability Contact Guard Assistance Technique Transfer Destination Chair Transfer Technique Stand Step Pivot Devices Transfer Assistive Devices Gait Belt Front Wheeled Walker OT- Gait Assessment Gait Gait Assistance Required: Contact Guard Assist Distance (Feet) 3 Assistive Devices Assistive Device Gait Belt Front Wheeled Walker Comments Gait Ability Comments from EOB to chair OT- Balance Assessment Sitting Balance and Reactions Static Sitting Balance Ability Good Dynamic Sitting Balance Ability Good M8 OT- IP Objective Assessments Start: 11/20/18 16:51 Freq: Status: Active Protocol: Document 11/30/18 11:31 CCC (Rec: 11/30/18 11:46 CCC [id number]) OT Strength Comments Strength Comments Right biceps 2/5.Wrist extensors 3-/5 M9 OT- IP Assessment and Plan Start: 11/20/18 16:51 Freq: Status: Active Protocol: Document 12/01/18 12:48 PJM (Rec: 12/01/18 14:03 PJM [id number]) OT Summary Assessment and Plan Potential Rehabilitation Potential Good Summary OT Impairments Strength Self-Feeding Grooming Dressing Toileting Bathing Toilet Transfers Shower Transfers Progress Towards Goals Slow Progress due to Medical Issues Assessment Summary Pt s/p PEG tube placement yesterday with no c/o pain today. Pt willing to get up to chair and participate in basic self care tasks seated. He continues to need min to mod verbal cues to initiate use of RUE as assist with self care tasks. RUE (dominant) functional use limited by bicep and wrist extensor weakness that was present for 6 months prior to admit per pt . He was able to recall and demonstrate new swallow strengthening exercise given to him by Hayden this AM. Pt would benefit from further rehab at [facility] to increase strength, activity tolerance and independence in self care prior to return home with his . Goals Grooming Goal Standby Assistance Dressing Goal Standby Assistance Toileting Goal Standby Assistance Bathing Goal Minimal Assistance Toilet Transfer Goal Standby Assistance Shower Transfer Goal Contact Guard Assistance OT-Other Goals Goal for shower for sponge bath as per pt does not shower . Days to Meet Goals 5 Frequency of Treatment Frequency Of Treatment Once a Day Treatment Plan OT Treatment Plan ADL Training Functional Cognition Training Functional Mobility Therapeutic Exercises Patient/Family Education Discharge Planning Discharge Recommendations OT Discharge Recommendations [facility] Rehab
--- NOTE | 2018-12-01 14:10 | PT.IIE ---
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) Radiculopathy, cervical region (11/19/18) Other dysphagia (11/19/18) Surgery Performed Operation Date: 11/19/18 07:45 Actual Procedures p C3-6 ACDF w/posterior instru fusion w/bone graft - Tien Stoner MD Operation Date: 11/19/18 14:15 Actual Procedures p s/p cervical fusion bleed(Not Applicable) - Tien Stoner MD Operation Date: 11/30/18 16:30 Actual Procedures p Peg Tube Insertion with EGD - Harry Payne MD s Esophagogastroduodenoscopy - Harry Payne MD Surgical History (Last Updated 11/30/18 @ 14:55 by Harry Payne MD) Hx of heart artery stent (Chronic ~2009) History of vasectomy Status post hernia repair Status post laminectomy Medical History (Last Updated 11/30/18 @ 14:55 by Harry Payne MD) Anxiety disorder (Chronic) Aortic stenosis (Chronic) Asthma (Chronic) Atrial fibrillation (Chronic) CAD (coronary artery disease) (Chronic) Depression (Chronic) Diastolic congestive heart failure (Chronic) Diverticulosis of colon (Chronic) GERD (gastroesophageal reflux disease) (Chronic) Rheumatoid arthritis (Chronic) Diabetes (Chronic) Physical Therapy Inpatient Evaluation/Re-Eval M1 PT/OT-IP Prior Functional Status Start: 11/20/18 11:43 Freq: NEEDED Status: Active Protocol: Document 12/01/18 13:25 (Rec: 12/01/18 14:10 [email or web address]) Medical Review Prior Functional Status Medical History Reviewed Yes Communication Independent Mobility and Gait mod. indep. gait with 4WW inside home and walking stick outside of home. He had no real function of RUE over the past few mos. due to weakness associated with myelopathy. H/ o falls with R shoulder injury as well Activities of Daily Living and IADL's modified indep with ADLs per . Pt states able to wash the dishes at home. Social History Household Members spouse Living Arrangements House Number of Floors (Floors) One Floor Number of Stairs To Enter/Railing? 6 SE with B rails (only able to use one @ a time) Home Environment Standard Height Toilet Walk in Shower Home Equipment Four Wheel Walker Straight Cane Employment Status Retired Additional Social History Comment assists pt, but admits it has been more challenging lately d/t pt's weakness. She sleeps in a recliner chair due to having bad hip pain. Pt sleeps in a flat bed, but does have a recliner available to him as well. Pt underwent C3-6 ACDF with posterior instrumentation 11/19/18. He was found to have a hematoma post -surgery, required to go back to the OR on same day to cover bleeding site with bone wax @ C5 where an osteophyte was removed in intial surgery. He developed complication of dysphagia which prevented consistent/adequate oral intake and aspiration pneumonia. He is now status post PEG tube insertion since yesterday 12/01/18 M1 PT/OT-IP Prior Functional Status Start: 11/20/18 16:51 Freq: NEEDED Status: Active Protocol: Document 12/01/18 13:25 HH (Rec: 12/01/18 14:10 [email or web address]) M2 PT-IP Current Condition Start: 11/20/18 11:43 Freq: NEEDED Status: Active Protocol: Document 12/01/18 13:25 HH (Rec: 12/01/18 14:10 [email or web address]) Physical Therapy Current Condition Current Condition Evaluation Date 12/01/18 Treatment Diagnosis C3-6 ACDF, impaired UE and LE mobility and strength Onset Date 11/20/18 Precautions Cervical Spine Precautions Soft Collar for Comfort No Heavy Lifting Log Roll Weight Bearing Status Weight Bearing Status Weight Bear as Tolerated M3 PT-IP Subjective Start: 11/20/18 11:43 Freq: NEEDED Status: Active Protocol: Document 12/01/18 13:25 HH (Rec: 12/01/18 14:10 [email or web address]) Subjective Physical Therapy Visit Type Type Initial Evaluation Visit Start Time 13:25 Visit Stop Time 13:45 Total Visit Minutes 20 Notes He is now status post PEG tube insertion. Number of REACHER Visits 0 Physical Therapy Visit Comments Patient Comments Pt is up on chair and agreeable to mobilize with PT. Patient Goals To be able to move R arm and get stronger overall. To return home. Therapy Pain Assessment Pain Present Pain Present Denied Pain M4 PT-IP Mobility and Gait Start: 11/20/18 11:43 Freq: NEEDED Status: Active Protocol: Document 12/01/18 13:25 HH (Rec: 12/01/18 14:10 [email or web address]) PT-Bed Mobility Assessment Scooting Scooting to Edge of Bed Contact Guard Assistance PT-Transfer Assessment Sit to and From Stand Sit to and from Stand Contact Guard Assistance 1 Person Assistance Use of Upper Extremities Equipment Transfer Assistive Device Gait Belt Front Wheeled Walker Transfers Transfer Destination Chair Transfer Technique Stand Step Pivot Transfer Ability Level of Assist Contact Guard Assistance 1 Person Assistance Use of Upper Extremities Comments Mobility Comments Pt was sitting on bedside chair without soft collar upon assessment. Pt denies pain and discomfort. He stood up from chair but required 2 attempts to complete due to low level chair. He was able to gain momentum to assist through rocking back and forth . He then amb from chair to hallway and returned back to chair. He did need cues to keep his FWW close and descend slowly. Gait Assessment Gait Gait Assistance Required: Contact Guard Assist Distance (Feet) 300 Able to Maintain Weight Bearing Status Yes During Gait Assistive Devices Assistive Device Gait Belt Front Wheeled Walker Gait Deviations General Gait Pattern Decreased Stride Length Decreased Feet Clearance Lateral Trunk Lean Factors Limiting Gait Function Factors Limiting Gait Function Decreased Activity Tolerance Decreased Strength Limited Range of Motion Poor Balance Poor Safety Awareness Comments Gait Comments Pt amb from chair to hallway for 2 rounds and returned back to bedside chair for a total 300 ft with FWW. Pt presented a slight lateral trunk to R and decreased stride length on R LE. Pt overall amb fairly steady but slow. He did state I feel my balance is not as good as before surgery. Stair Climbing Assessment Comments Stair Climbing Comments did not attempt PT-Balance Assessment Sitting Balance and Reactions Static Sitting Balance Ability Normal Dynamic Sitting Balance Ability Normal Standing Balance and Reactions Static Standing Balance Ability Good Dynamic Standing Balance Ability Good Device Used FWW M5 PT-IP Objective Assessments Start: 11/20/18 11:43 Freq: NEEDED Status: Active Protocol: Document 12/01/18 13:25 (Rec: 12/01/18 14:10 [email or web address]) Orientation Orientation/Cognition Level of Alertness Alert Orientation Name Age Birthday Month Date Year Day of Week Place Situation Language Function Ability No Deficits Noted Safety Awareness Decreased Safety Awareness Memory Description No Deficits Noted Gross Range of Motion Upper Extremity ROM Assessment Right Impaired Impairments R GH AROM up degrees R elbow active elbow flexion 10 degrees Lower Extremity ROM Assessment Within Functional Limits Strength Upper Extremity Strength Assessment Right Impaired Shoulder 3/5 Elbow 2-/5 Wrist 3/5 Lower Extremity Strength Assessment Bilaterally Impaired Comments Strength Comments Pt has significant ROM and strength deficits on R elbow flexors and extensors. B LE strength grossly 3+/5 Coordination Assessment Gross Coordination Gross Coordination WNL Sensation Assessment Sensation Gross Sensation WNL Muscle Tone Muscle Tone WNL Yes M6 PT-IP Treatment Start: 11/20/18 11:43 Freq: NEEDED Status: Active Protocol: Document 12/01/18 13:25 HH (Rec: 12/01/18 14:10 [email or web address]) Physical Therapy Treatment Education Education Provided Weight Bearing Status Safety M7 PT-IP Assessment and Plan Start: 11/20/18 11:43 Freq: NEEDED Status: Active Protocol: Document 12/01/18 13:25 HH (Rec: 12/01/18 14:10 HH [email or web address]) PT Summary Assessment and Plan Potential Rehabilitation Potential Good Status of Condition at Evaluation Evolving Summary Impairments Pain ROM Strength Balance Bed Mobility Transfers Gait Activity Tolerance Assessment Summary Pt is now status post PEG tube insertion since yesterday . Pt presents improve amb distance and activity tolerance since his first initial PT evaluation. Pt was able to amb >300 ft with FWW and transfer chair to chair with CGA. He did require min cues for eccentric control during stand to sit. Pt currently regained some ROM on his R UE but his R elbow flexor extensor cont to be very weak. Pt will benefit from d/c SNF to improve his overall mobility, especially his current medical need after his PEG placement. Goals Bed Mobility Goal Independent Transfer Goal Independent Front Wheeled Walker Four Wheeled Walker Gait Goal Independent Front Wheel Walker Four Wheel Walker Gait Distance 300 Other Goals 6 VALENTE with L rail Days to Meet Goals 5 Frequency of Treatment Frequency Of Treatment Once a Day Treatment Plan Physical Therapy Treatment Plan Bed Mobility Training Transfer Training Gait Training Therapeutic Exercise Balance Retraining Post Op Education Discharge Planning Hot or Cold Pack Other Recommendations and Next Treatment gait training as rambo Focus attempt 4 WW if possible stair climbing Recommendations To Nursing Amount of Assist Needed 1 Person Assist Discharge Recommendations PT Discharge Recommendations SNF Rehab
--- NOTE | 2018-12-01 18:17 | ST.IPDYTX ---
Care Team Visit Care Team Role Provider Type Flo Pollack MD Primary Care Provider Non-Staff Specialty: Medical Address: [address] [place], [address] Email: Tien Stoner MD Admit Provider Physician Attending Provider Specialty: Orthopedic Surgery Address: [address] [place] [address], [id number] Email: [email or web address] HAND Dysphagia Treatment STABLE HAND Dysphagia Treatment Start: 11/22/18 13:21 Freq: Status: Active Protocol: Document 12/01/18 16:47 LNK (Rec: 12/01/18 16:51 [id number] [email or web address]) Dysphagia Treatment Session Time Visit Start Time 10:05 Visit Stop Time 10:25 Total Visit Minutes 20 Setting Assessment Location Acute Care Visit Type Note Type Treatment Note Next Note Type Next Note Type Treatment Note Patient Information Identification Type Name Subjective Observations Pt was in bed for second session. Very motivated to work to improve swallow function. D/C planned for tomorrow to [facility]. Treatment Liquids Trialed Ice Chips Solids Trialed Puree Administration Type Tea Spoon Oral Strategies Upright at 90 degrees Controlled Bite/Sip Size Pharyngeal Strategies Sitting Upright (90 deg) Additional Dysphagia Treatment Free Water Protocol with Strategies strict adherance to instructions (in pt's room) Treatment Activities Introduced pt to Sinai exercise to target hyolaryngeal elevation and forward excursion for safe swallow. Evidence from the MBS indicated this was significantly impacted and reduced the epiglottal inversion and adequate airway protection. Pt was educated in the S[place] exercise and was able to perform the exercise ~ 10 times correctly. Assessment Patient Response to Treatment Good Rehab Potential Good Assessment of Improvement The pt demonstrated understanding of education provided by this STABLE HAND, as evidenced by his ability to accurately recall information and perform exercise. He is motivated to work with Speech Pathologists to improve swallow function and safety. Diet Recommendations Recommendations Continue Current Diet Liquids Order NPO Diet Order NPO/Alternative Means of Nutrition/Hydration Medication Recommendations Not Recommended by Mouth Additional Dietary Needs Reminders to Use Strategies Aspiration Precautions Recommended Precautions Upright at 90 Degrees Supraglottic Swallow Liquids from Spoon Additional Precautions Second swallow as needed Treatment Plan Placement Recommendation after Discharge Senior Living Facility Appropriate for Continued Therapy Yes Therapy Recommendations Dysphagia therapy with emphasis on liguapharyngeal strengthening exercises to improve airway protection. Dysphagia Goals Pt will use Free Water Protocol with use of chin tuck and head turn to left to provide P.O. hydration and improve quality of life. The pt will complete exercises to increase strength, coordination and ROM of swallow musculature to improve swallow safety necessary to resume oral intake. Follow Up Plan 1-2x/day
[2018-12-02] VITALS (13 sets, daily range): BP systolic 113–159; BP diastolic 46–73; PULSE 45–61; RESP 16–20; TEMP 36.3–37.1; O2SAT 94–100
[2018-12-02] MEDS: CARVEDILOL 3.125 MG TABLET 6.25 MG TUBE (00:10)
[2018-12-02] MEDS: ATORVASTATIN 20 MG TABLET 40 MG TUBE ×2 (00:10→21:25)
[2018-12-02] MEDS: INSULIN ASPART 100 UNIT/ML INSULN PEN SUBCUT ×5 (00:24→21:26)
--- NOTE | 2018-12-02 01:27 | PC.NURSE ---
0000 Checked residual aspirated 20 cc, flushed with 100cc of tap water & medications admin. via peg tube. Denies any abdominal cramping or pain. No C/O nausea, up to the BSC & had loose stool. Increased Glucerna tube feeding to 60 cc. per hour. Will cont. POC & monitor.
--- NOTE | 2018-12-02 04:30 | PC.NURSE ---
0400 Denies any nausea & no C/O abdominal pain. Residual checked done @ 0400 10 cc noted. Flushed with 100cc of tap water & increased tube feeding of Glucerna 1.2 to 80 cc/hr. Had 2 BM's this shift so far. Will cont. POC & monitor.
[2018-12-02] MEDS: ACETAMINOPHEN 650 MG SUPP PR (08:02)
[2018-12-02] MEDS: AMLODIPINE 2.5 MG TABLET TUBE (08:02)
[2018-12-02] MEDS: CARVEDILOL 6.25 MG TABLET TUBE (08:04)
[2018-12-02] MEDS: AMPICILLIN/SULBACTAM 3 GM 3 GM in SODIUM CHLORIDE 0.9% 100 ML IV ×2 (08:06→16:21)
--- NOTE | 2018-12-02 08:22 | P.DS_ITS ---
History of Present Illness Date Patient Seen: 12/02/18 Time Patient Seen: 08:21 Chief complaint: [id number] Narrative: 82-year-old male with cervical myelopathy. He began having neck and primarily right arm pain with profound right arm weakness that started approximately 3 months prior. He was found to have significant cervical stenosis with myelopathy. Discharge Providers Date of admission: 11/19/18 06:04 Primary care physician: Flo Pollack MD Consults: 11/30/18 17:34 Consult to Discharge Planning Routine Comment: 12/01/18 09:23 Consult to Dietitian, Adult Routine Comment: Reason For Exam: recommendations for tube feeding in this diabetic 12/01/18 09:45 Consult to Occupational Therapy Evaluate & Treat Comment: Physician Instructions: Evaluate and treat Consult to Physical Therapy Evaluate & Treat Comment: Physician Instructions: Evaluate and Treat Consult to Speech Therapy Evaluate & Treat Comment: Physician Instructions: Evaluate and treat Discharge provider: Tien Stoner MD Discharge Date: 12/02/18 Summary Discharge Diagnosis: Cervical myelopathy Acute postoperative dysphagia Aspiration pneumonia Hospital Course: He was brought to the operating room on 11/19/18 where he underwent anterior diskectomies and anterior posterior fusion from C3-6. He had significant bleeding from the wound and a large hematoma formed a few hours after surgery. He was brought back to the operating room for a irrigation and debridement and was found to have bleeding coming from cancellous bone were osteophytes had been removed at the time of surgery. This was covered with bone wax and FloSeal and the bleeding stopped. Postoperatively he had significant dysphagia and inability to swallow. It is felt that he most likely had an aspiration pneumonia and was started on a 10 day IV antibiotic course. We gave him IV steroids which made him feel like he could swallow better, but he still failed to barium swallows after this with silent aspiration. He did have acute metabolic encephalopathy while on IV pain medication as well as the IV steroids but this resolved once these were stopped. Finally, as this was not improving after his 2nd barium swallow, general surgery was consulted and he had a peg tube placed on 11/30/2018. They started feeding the next day and he had no problems with this. Plan is for discharge to halfway where he can get ongoing physical therapy as well as speech therapy. Hopefully this dysphagia will resolve over the next few weeks. From a neurologic standpoint, he was profoundly weak into the right arm prior to surgery. He had an excellent recovery of the deltoid, slight drop in biceps fun ction, and recovery of the remainder of the arm function. He may have had a slight C6 postoperative palsy affecting the biceps, but has everything else was improving so dramatically, I think it was fairly minimal. He does understand that it can take a full year for myelopathy to recover, and he still may not get his full biceps function back. Status at Discharge Cognitive/behavioral status at discharge: Normal Functional status at discharge: independent ambulation Overall status at discharge: patient is progressing back to baseline Exam Vital Signs (past 8 hours): - 12/02/18 06:31 12/02/18 08:04 Temperature 97.8 F Pulse Rate 61 Respiratory Rate 16 Blood Pressure 157/63 H 159/73 H Pulse Oximetry 94 Fraction of Inspired Oxygen 21 Oxygen Delivery Method Room Air Oxygen Flow Rate 0 Const Orientation: alert and oriented x3 Back/Spine/Pelvis Other: Dressings CDI. 5/5 motor both upper extremities except for 4/5 right deltoid and 2/5 right biceps Objective Labs Result Diagrams: 12/01/18 05:12 12/01/18 05:12 Discharge Plan Discharge Plan Patient Disposition: SNF Transfer to: [facility] Under care of provider: Dr Yoon Transportation: Facility vehicle Consult as needed: Dental, Hearing, Mental health, Podiatry and Vision I certify the postop hospital halfway care is medically necessary on a continuing basis for any conditions for which he/ she received care during this hospitalization.: Yes The receiving facility has agreed to accept transfer and provide medical treatment.: Yes Discharge Med Rec/Prescriptions Prescriptions: New carvedilol [Coreg] 6.25 mg Tablet 6.25 mg Feeding Tube BID 30 Days Qty: 60 RF: 0 atorvastatin [Lipitor] 20 mg Tablet 40 mg Feeding Tube BEDTIME 30 Days RF: 0 amlodipine [Norvasc] 2.5 mg Tablet 2.5 mg Feeding Tube DAILY 30 Days RF: 0 Continued tamsulosin [Flomax] 0.4 MG capsule,extended release 24hr 0.4 mg PO QDAY Qty: 90 RF: 3 cholecalciferol (vitamin D3) [Vitamin D3] 1,000 UNIT tablet 1,000 unit PO DAILY Qty: 0 RF: 0 vitamin E 400 UNIT capsule 400 unit PO QDAY Qty: 0 RF: 0 isosorbide mononitrate 60 MG tablet extended release 24 hr 30 mg PO QAM Qty: 45 RF: 3 gabapentin [Neurontin] 300 MG capsule 300 mg PO TID Qty: 180 RF: 0 furosemide 40 MG tablet 40 mg PO SEEINSTR PRN (Reason: swelling of legs) Qty: 0 RF: 0 omeprazole 20 MG capsule,delayed release(DR/EC) 20 mg PO BID Qty: 0 RF: 0 Novolog U-100 Insulin aspart 100 UNIT/1 ML solution See Rx Instructions .ROUTE .COMPLEX Qty: 0 RF: 0 Lantus U-100 Insulin 100 UNIT/1 ML solution 50 u SQ BID Qty: 0 RF: 0 amlodipine 2.5 mg Tablet 2.5 mg PO DAILY RF: 0 aspirin 81 mg tablet,delayed release (DR/EC) 81 mg PO DAILY RF: 0 acetaminophen 650 mg Tablet Extended Release 650 mg PO Q6H PRN (Reason: pain) RF: 0 ferrous sulfate 324 mg (65 mg iron) tablet,delayed release (DR/EC) 1 tab PO DAILY RF: 0 Ventolin HFA 90 MCG/PUFF HFA aerosol inhaler 2 puff INH Q6H PRN (Reason: Asthma) RF: 0 fluticasone 16 GM spray,suspension 2 spray Intranasal BID PRN (Reason: seasonal allergies) RF: 0 finasteride 5 MG tablet 5 mg PO DAILY RF: 0 fenofibrate 54 MG tablet 54 mg PO DAILY RF: 0 Glucose: Home Monitor 1 ea miscellaneous TID RF: 0 Sherrill 1 dev miscellaneous SEE INSTRUCTIONS RF: 0 [TEST STRIPS] 1 strip miscellaneous TIDAC RF: 0 Discontinued carvedilol [Coreg] 6.25 MG tablet 6.25 mg PO BID Qty: 180 RF: 3 atorvastatin [Lipitor] 40 MG tablet 40 mg PO BEDTIME RF: 0 Follow up/Referrals: Flo Pollack MD [Primary Care Provider] - Discharge Health Status Brief summary of current health status: Patient with postoperative dysphagia. Has required a peg tube for feedings. Multidrug resistant organism: No MDRO Precautions: [place] Provider Discharge Instructions Diet: Carb-consistent/Diabetic and Tube Feeding Diet comment: Will need dietary consult for tube feedings. Activity: limited lifting 10 lbs Skin/Wound/Dressing Care Dressing: may shower prn Other wound treatment: standard PEG care Special Rehabilitation Services Reason for rehabilitation: Post-operative therapy Rehab type: Physical therapy, Occupational therapy and Speech therapy Discharge Data Primary Care Provider: Flo Pollack Attending Provider: Tien Stoner Admit Date/Time: 11/19/18 06:04 Quality VTE Deep Vein Thrombosis/Pulmonary Embolism Present on Admission: No
--- NOTE | 2018-12-02 08:48 | PM.PN.1 ---
Subjective Date Patient Seen: 12/02/18 Interval history: Suleiman Leal is an 82-year-old male with a past medical history significant for coronary artery disease status post stenting, hypertension, hyperlipidemia, diabetes mellitus type II, insulin using, who is status post cervical resection and fixation who subsequently developed a cervical hematoma and was hospitalized for evacuation of his hematoma. He developed complication of dysphagia which prevented consistent/adequate oral intake and aspiration pneumonia. He is on TPN. Medicine service was consulted for management of dysphagia, aspiration pneumonia and diabetes mellitus type II. The patient is resting in bedside chair comfortably. He is now status post PEG tube insertion tolerating TF. Restarted home medications except for isosorbide mononitrate due to soft BP and furosemide as patient is barely keeping up with p.o. hydration. His productive cough and aspiration pneumonia has been completely treated and improved. He is eager to go to correction facility for rehabilitation. He denies headache, shortness of breath, chest pain, abdominal pain, nausea, vomiting, fever, chills, dysuria, diarrhea or constipation. He is voiding and eliminating without difficulty. He is up ambulating with assistance. Exam Vital Signs (past 8 hours): - 12/02/18 06:31 12/02/18 08:00 12/02/18 08:04 Temperature 97.8 F 97.4 F L Pulse Rate 61 58 L Respiratory Rate 16 18 Blood Pressure 157/63 H 159/61 H 159/73 H Pulse Oximetry 94 97 Fraction of Inspired Oxygen 21 Oxygen Delivery Method Room Air Oxygen Flow Rate 0 Narrative Exam Narrative: General: Elderly gentleman sitting in bed and in no acute distress, well-developed, well-nourished, appropriately interactive. HEENT: Normocephalic, atraumatic. External ears without defect. Pupils equal, round, and reactive to light. Anicteric sclerae, moist conjunctivae, and no lid lag. Neck: Supple. Large hematoma over anterior right chest with bandage over anterior neck in place c/d/i. No lymphadenopathy or thyromegaly. Cardiovascular: Regular rate and rhythm with +2/6 holosystolic murmur at left sternal border radiating to carotids bilaterally. No rubs or gallops appreciated. Pulmonary: Clear to auscultation bilaterally without crackles, wheezes, or rhonchi. Normal respiratory effort with no use of accessory muscles. Abdomen: Soft, bowel sounds present, non-tender, non-distended. No hepatosplenomegaly or masses appreciated. PEG tube draining minimal bile and c/d/i without erythema. Extremities: No clubbing, cyanosis, or edema. Skin: Normal temperature, turgor, and texture; no rash, ulcers, or subcutaneous nodules appreciated. Neurological: Cranial nerves grossly intact. Psychiatric: Normal mood and affect. Alert and oriented to person, place, and time. Mild cognitive impairment. Objective Labs Result Diagrams: 12/01/18 05:12 12/01/18 05:12 Assessment & Plan Assessment & Plan narrative: Suleiman Leal is an 82-year-old male with a past medical history significant for coronary artery disease status post stenting, hypertension, hyperlipidemia, diabetes mellitus type II, insulin using, who is status post cervical resection and fixation who subsequently developed a cervical hematoma and was hospitalized for evacuation of his hematoma. He developed complication of dysphagia which prevented consistent/adequate oral intake and aspiration pneumonia. He is on TPN. Medicine service was consulted for management of dysphagia, aspiration pneumonia and diabetes mellitus type II. 1. Aspiration pneumonia, present on admission. Active. -Chest xray demonstrated right infrahilar density compatible with the patient's history of aspiration. -Continue IV Unasyn to complete 10 day course 12/02. -Discontinued guaifenesin 1200 mg twice daily for copious sputum production for 1-2 more days. 2. Acute dysphagia secondary to nerve injury from anterior cervical fusion and diskectomy, status post PEG tube placement, present on admission. Active. -Speech therapy repeated MBS which demonstrated significant aspiration with very minimal improvement in swallowing with coaching. His laryngeal muscles also fatigue very easily. Speech therapy is recommending intensive speech therapy for the next 3 weeks with possibility of recovery of swallow. -Discontinued TPN. Consulted general surgery, Dr. Payne, who placed PEG tube and tolerating TF. 3. Acute metabolic encephalopathy and delerium, secondary to high-dose steroids. Resolved. -No longer on steroids and is clear mentally. 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 4. 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 Active. -Continue postoperative and pain management per orthopedics. 5. Diabetes mellitus type II, non-insulin using, chronic, present on admission. Stable. -Hemoglobin A1C 9.0%. -Continue high dose correctional scale insulin and every ACHS blood glucose checks. -Restarted Lantus at half his usual dose 25 units twice daily and gababpentin 300 mg 3 times daily and continue TF for DM. 6. CAD status post stenting, chronic, present on admission. Stable. -Continued amlodipine aspirin, statin, carvedilol. His furosemide and isosorbide mononitrate have not been restarted due to soft BP's. May consider restarting furosemide if hydration improved and shows signs of fluid overload. May consider restarting isosorbide mononitrate if blood pressures are stable and or high. 7. Hypertension, chronic, present on admission. Stable. -Continued amlodipine and carvedilol once tube feeds were started. His furosemide and isosorbide mononitrate have not been restarted due to soft BP's. May consider restarting furosemide if hydration improved and shows signs of fluid overload. May consider restarting isosorbide mononitrate if blood pressures are stable and or high. 8. Severe aortic stenosis, chronic, present on admission. Stable. -Echocardiogram did not demonstrate any significant change in the aortic stenosis compared to 1 year ago (by one criteria it is moderate and by another criteria it is severe). 9. BPH, chronic, present on admission. Stable. -Home finasteride and tamsulosin were restarted. Disposition: Patient likely to discharge to SNF today. Thank you for consulting our services. We will sign off at this time. Please do not hesitate to call our services if further assistance is needed. Quality VTE Deep Vein Thrombosis/Pulmonary Embolism Present on Admission: No
--- NOTE | 2018-12-02 11:54 | PT.IPTN ---
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) Radiculopathy, cervical region (11/19/18) Other dysphagia (11/19/18) Surgery Performed Operation Date: 11/19/18 07:45 Actual Procedures p C3-6 ACDF w/posterior instru fusion w/bone graft - Tien Stoner MD Operation Date: 11/19/18 14:15 Actual Procedures p s/p cervical fusion bleed(Not Applicable) - Tien Stoner MD Operation Date: 11/30/18 16:30 Actual Procedures p Peg Tube Insertion with EGD - Harry Payne MD s Esophagogastroduodenoscopy - Harry Payne MD Physical Therapy Treatment Note M2 PT-IP Current Condition Start: 11/20/18 11:43 Freq: NEEDED Status: Active Protocol: Document 12/01/18 13:25 HH (Rec: 12/01/18 14:10 HH [id number]) Physical Therapy Current Condition Current Condition Evaluation Date 12/01/18 Treatment Diagnosis C3-6 ACDF, impaired UE and LE mobility and strength Onset Date 11/20/18 Precautions Cervical Spine Precautions Soft Collar for Comfort No Heavy Lifting Log Roll Weight Bearing Status Weight Bearing Status Weight Bear as Tolerated M3 PT-IP Subjective Start: 11/20/18 11:43 Freq: NEEDED Status: Active Protocol: Document 12/02/18 11:30 HH (Rec: 12/02/18 11:54 [id number]) Subjective Physical Therapy Visit Type Type Treatment Note Visit Start Time 11:30 Visit Stop Time 11:45 Total Visit Minutes 15 Number of FIELD CASE MANAGER Visits 0 Physical Therapy Visit Comments Patient Comments Pt is up on chair and agreeable to mobilize with PT. Therapy Pain Assessment Pain Present Pain Present Denied Pain M4 PT-IP Mobility and Gait Start: 11/20/18 11:43 Freq: NEEDED Status: Active Protocol: Document 12/02/18 11:30 HH (Rec: 12/02/18 11:54 [id number]) PT-Bed Mobility Assessment Scooting Scooting to Edge of Bed Contact Guard Assistance PT-Transfer Assessment Sit to and From Stand Sit to and from Stand Contact Guard Assistance 1 Person Assistance Use of Upper Extremities Equipment Transfer Assistive Device Gait Belt Front Wheeled Walker Transfers Transfer Destination Chair Transfer Technique Stand Step Pivot Transfer Ability Level of Assist Contact Guard Assistance 1 Person Assistance Use of Upper Extremities Comments Mobility Comments Pt stood up from low bedside chair slowly with B UEs to push off. He cont to need cues to facilitate slow eccentric control from stand to sit. Gait Assessment Gait Gait Assistance Required: Standby Assistance 1 Person Assist Distance (Feet) 300 Able to Maintain Weight Bearing Status Yes During Gait Assistive Devices Assistive Device Gait Belt Front Wheeled Walker Gait Deviations General Gait Pattern Decreased Stride Length Decreased Feet Clearance Lateral Trunk Lean Factors Limiting Gait Function Factors Limiting Gait Function Decreased Activity Tolerance Decreased Strength Limited Range of Motion Poor Balance Poor Safety Awareness Comments Gait Comments Pt amb from chair to end of hallway and returned to chair for a total of 300ft with FWW SBA. Pt presented a steadier gait and gait speed today. Stair Climbing Assessment Comments Stair Climbing Comments Pt refused to attempt M5 PT-IP Objective Assessments Start: 11/20/18 11:43 Freq: NEEDED Status: Active Protocol: Document 12/01/18 13:25 (Rec: 12/01/18 14:10 [id number]) Orientation Orientation/Cognition Level of Alertness Alert Orientation Name Age Birthday Month Date Year Day of Week Place Situation Language Function Ability No Deficits Noted Safety Awareness Decreased Safety Awareness Memory Description No Deficits Noted Gross Range of Motion Upper Extremity ROM Assessment Right Impaired Impairments R GH AROM up degrees R elbow active elbow flexion 10 degrees Lower Extremity ROM Assessment Within Functional Limits Strength Upper Extremity Strength Assessment Right Impaired Shoulder 3/5 Elbow 2-/5 Wrist 3/5 Lower Extremity Strength Assessment Bilaterally Impaired Comments Strength Comments Pt has significant ROM and strength deficits on R elbow flexors and extensors. B LE strength grossly 3+/5 Coordination Assessment Gross Coordination Gross Coordination WNL Sensation Assessment Sensation Gross Sensation WNL Muscle Tone Muscle Tone WNL Yes M6 PT-IP Treatment Start: 11/20/18 11:43 Freq: NEEDED Status: Active Protocol: Document 12/01/18 13:25 HH (Rec: 12/01/18 14:10 [email or web address]) Physical Therapy Treatment Education Education Provided Weight Bearing Status Safety M7 PT-IP Assessment and Plan Start: 11/20/18 11:43 Freq: NEEDED Status: Active Protocol: Document 12/02/18 11:30 HH (Rec: 12/02/18 11:54 [id number]) PT Summary Assessment and Plan Summary Impairments Pain ROM Strength Balance Bed Mobility Transfers Gait Activity Tolerance Assessment Summary Pt presents improved gait speed and balance during amb. He still cont needs cues for transfer with lowering from stand to sit. Pt will be transferred to [facility] today for further rehab and to address his medical need such as management of PEG tube and speech rehab Goals Bed Mobility Goal Independent Transfer Goal Independent Front Wheeled Walker Four Wheeled Walker Gait Goal Independent Front Wheel Walker Four Wheel Walker Gait Distance 300 Other Goals 6 VALENTE with L rail Days to Meet Goals 5 Frequency of Treatment Frequency Of Treatment Once a Day Treatment Plan Physical Therapy Treatment Plan Bed Mobility Training Transfer Training Gait Training Therapeutic Exercise Balance Retraining Post Op Education Discharge Planning Hot or Cold Pack Other Recommendations and Next Treatment gait training as rambo Focus attempt 4 WW if possible stair climbing Recommendations To Nursing Amount of Assist Needed 1 Person Assist Discharge Recommendations PT Discharge Recommendations SNF Rehab
--- NOTE | 2018-12-02 11:55 | OT.IP.TRT ---
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) Radiculopathy, cervical region (11/19/18) Other dysphagia (11/19/18) Surgery Performed Operation Date: 11/19/18 07:45 Actual Procedures p C3-6 ACDF w/posterior instru fusion w/bone graft - Tien Stoner MD Operation Date: 11/19/18 14:15 Actual Procedures p s/p cervical fusion bleed(Not Applicable) - Tien Stoner MD Operation Date: 11/30/18 16:30 Actual Procedures p Peg Tube Insertion with EGD - Harry Payne MD s Esophagogastroduodenoscopy - Harry Payne MD Occupational Therapy Treatment Note M2 OT-IP Current Condition Start: 11/20/18 16:51 Freq: Status: Active Protocol: Document 11/20/18 16:54 CCC (Rec: 11/20/18 17:17 CCC [id number]) Occupational Therapy Current Condition Current Condition Evaluation Date 11/20/18 Treatment Diagnosis Cervical Stenosis Diagnosis Onset Date 11/19/18 Post Operative Precautions Cervical Spine Precautions Soft Collar for Comfort No Heavy Lifting Log Roll M3 OT- IP Subjective and Pain Start: 11/20/18 16:51 Freq: Status: Active Protocol: Document 12/02/18 17:55 PJM (Rec: 12/02/18 17:56 PJM [id number]) OT- Subjective Occupational Therapy Visit Type Type Administrative Note Visit Start Time 11:55 Notes Pt declined OT at this time as he just ambulated with P.T. Will attempt again as schedule
--- NOTE | 2018-12-02 13:54 | CM.DPC ---
DCP/continued: Orders obtained today for patient to discharge to [facility]. Spoke with Dr. Stoner whom states that patient is medically cleared to go if okay with surgery and hospitalist. Placed call to [facility] admit and spoke with both Fanta and Irena. Both report that they do not have staff/bed to accept patient today. They are at their capacity for admissions. Therefore, met with patient to discuss d/c planning. Patient requesting that PEANUT SEPARATOR speak with his spouse/Lauren re: next steps. Placed call to spouse and she reports that she would like patient to go to [facility]. PEANUT SEPARATOR confirmed that patient will be accepted in the AM on 12-03-18. Spoke directly with Irena and she confirms that they can accept and that they will be at [facility] in AM between 9:30-10:30am to provide transport. Placed call to Ortho team, spoke with EREN/Savita. She is in agreement to cancel discharge today and plan for transfer in AM. Savita and or Dr. Stoner will round in AM prior to discharge. No additional needs identified. RN and CM team updated. P: [facility] in AM on 12-03-18. SUE Leahy
--- NOTE | 2018-12-02 14:16 | ST.IPDYTX ---
Care Team Visit Care Team Role Provider Type Flo Pollack MD Primary Care Provider Non-Staff Specialty: Medical Address: [address] [place], [address] Email: Tien Stoner MD Admit Provider Physician Attending Provider Specialty: Orthopedic Surgery Address: [address] [place] [address], [id number] Email: [email or web address] BUS REPAIR SUPERVISOR Dysphagia Treatment BUS REPAIR SUPERVISOR Dysphagia Treatment Start: 11/22/18 13:21 Freq: Status: Active Protocol: Document 12/02/18 14:10 LNK (Rec: 12/02/18 14:15 [email or web address]) Dysphagia Treatment Session Time Visit Start Time 10:05 Visit Stop Time 10:25 Total Visit Minutes 20 Setting Assessment Location Acute Care Visit Type Note Type Treatment Note Next Note Type Next Note Type Treatment Note Patient Information Identification Type Name Subjective Observations Pt was in bedside chair. No family present. Very motivated to work to improve swallow function. D/C planned for later todayto [facility]. Treatment Liquids Trialed Ice Chips Solids Trialed Puree Administration Type Tea Spoon Oral Strategies Upright at 90 degrees Controlled Bite/Sip Size Pharyngeal Strategies Sitting Upright (90 deg) Additional Dysphagia Treatment Free Water Protocol with Strategies strict adherence to instructions (in pt's room) Treatment Activities Reviewed [place] and [place] exercises with pt. He easily demonstrated them with good results. Able to perform 10 each with no cues needed. Reviewed with the pt that plan to allow him 3-4 weeks of intensive therapy at [facility] with the BUS REPAIR SUPERVISOR there. After that time will re-evaluate with MBS . Discussed with pt that recovery may take time, which is why we want to wait before redoing the MBS Assessment Patient Response to Treatment Good Rehab Potential Good Assessment of Improvement The pt demonstrated understanding of education provided by this BUS REPAIR SUPERVISOR, as evidenced by his ability to accurately recall information and perform exercise. He is motivated to work with Speech Pathologists to improve swallow function and safety. Diet Recommendations Recommendations Continue Current Diet Liquids Order NPO Diet Order NPO/Alternative Means of Nutrition/Hydration Medication Recommendations Not Recommended by Mouth Additional Dietary Needs Reminders to Use Strategies Aspiration Precautions Recommended Precautions Upright at 90 Degrees Supraglottic Swallow Liquids from Spoon Additional Precautions Second swallow as needed Treatment Plan Placement Recommendation after Discharge Care Home Facility Appropriate for Continued Therapy Yes Therapy Recommendations Dysphagia therapy with emphasis on liguapharyngeal strengthening exercises to improve airway protection. Dysphagia Goals Pt will use Free Water Protocol with use of chin tuck and head turn to left to provide P.O. hydration and improve quality of life. The pt will complete exercises to increase strength, coordination and ROM of swallow musculature to improve swallow safety necessary to resume oral intake. Follow Up Plan 1-2x/day
[2018-12-02] MEDS: GABAPENTIN 300 MG CAPSULE PO (14:35)
[2018-12-02] MEDS: ACETAMINOPHEN 325 MG TABLET 650 MG PO (18:38)
[2018-12-02] MEDS: INSULIN GLARGINE 100 UNIT/ML 3ML PEN 50 UNIT SUBCUT (21:31)
[2018-12-03] VITALS: BP 128/46; PULSE 47; RESP 18; TEMP 36.4; O2SAT 97
[2018-12-03] MEDS: AMPICILLIN/SULBACTAM 3 GM 3 GM in SODIUM CHLORIDE 0.9% 100 ML IV ×2 (01:05→09:15)
[2018-12-03 01:37] VITALS: O2SAT 963
[2018-12-03 04:43] VITALS: BP 132/53; PULSE 52; RESP 18; O2SAT 97
[2018-12-03] MEDS: ACETAMINOPHEN 325 MG TABLET 650 MG PO (05:30)
[2018-12-03 08:00] VITALS: BP 147/52; PULSE 55; RESP 16; TEMP 36.5; O2SAT 96
[2018-12-03] MEDS: INSULIN ASPART 100 UNIT/ML INSULN PEN SUBCUT (09:18)
[2018-12-03] MEDS: TAMSULOSIN 0.4 MG CAPSULE PO (09:19)
[2018-12-03] MEDS: AMLODIPINE 2.5 MG TABLET TUBE (09:19)
[2018-12-03] MEDS: ATORVASTATIN 20 MG TABLET 40 MG TUBE (09:19)
[2018-12-03] MEDS: CARVEDILOL 6.25 MG TABLET TUBE (09:19)
[2018-12-03] MEDS: GABAPENTIN 300 MG CAPSULE PO (09:20)
[2018-12-03] MEDS: INSULIN GLARGINE 100 UNIT/ML 3ML PEN 50 UNIT SUBCUT (09:22)
--- NOTE | 2018-12-03 10:15 | PC.NURSE ---
Addendum entered by Kaity Perez R.N. 12/03/18 11:27: Report called to [facility]. Original Note: Pt discharged to [facility], Picc Line d/cd and catheter tip intact. Up with 1 PA and walker to wheelchair. [facility] to call this rn back and I will give report.
[2018-12-03 10:34] VITALS: O2SAT 97
--- NOTE | 2018-12-03 16:14 | CM.DPC ---
DC Note: Spoke w/Carina w/ [facility], then w/pt and Lauren. All remain aware and agreeable to DCP. IMM reviewed and signed by spouse. Transportation arranged for 1000 p/u. Completed and updated med list and DC ppk faxed to [facility]. RN aware and agreeable to plan. P: DC back to [facility] today via w/c. JW
== END 2018-12-03 10:15 | DRG 453 ==
PROVIDERS: Family Medicine; Internal Medicine; Nurse Practitioner Adult Health; Specialist; Admitting Provider Orthopaedic Surgery; PCP Family Medicine; Visit Provider Orthopaedic Surgery
PROC: 0RG20A0 Fusion of 2 or more Cervical Vertebral Joints with Interbody Fusion Device, Anterior Approach, Anterior Column, Open Approach (ICD-10-PCS; principal; 2018-11-19 07:45)
PROC: 0DH63UZ Insertion of Feeding Device into Stomach, Percutaneous Approach (ICD-10-PCS; CPT 43246; principal; 2018-11-30 16:30)
PROC: 0DJ08ZZ Inspection of Upper Intestinal Tract, Via Natural or Artificial Opening Endoscopic (ICD-10-PCS; CPT 43235; 2018-11-30 16:30)
DX: M48.02 Spinal stenosis, cervical region (principal); J69.0 Pneumonitis due to inhalation of food and vomit; G92 Toxic encephalopathy; J96.01 Acute respiratory failure with hypoxia; M47.12 Other spondylosis with myelopathy, cervical region; I13.0 Hypertensive heart and chronic kidney disease with heart failure and stage 1 through stage 4 chronic kidney disease, or unspecified chronic kidney disease; I50.30 Unspecified diastolic (congestive) heart failure; M96.830 Postprocedural hemorrhage of a musculoskeletal structure following a musculoskeletal system procedure; I95.9 Hypotension, unspecified; I35.0 Nonrheumatic aortic (valve) stenosis; R13.10 Dysphagia, unspecified; J44.9 Chronic obstructive pulmonary disease, unspecified; E11.9 Type 2 diabetes mellitus without complications; I48.0 Paroxysmal atrial fibrillation; M06.9 Rheumatoid arthritis, unspecified; G58.8 Other specified mononeuropathies; N18.9 Chronic kidney disease, unspecified; T38.0X5A Adverse effect of glucocorticoids and synthetic analogues, initial encounter; G47.33 Obstructive sleep apnea (adult) (pediatric); E78.5 Hyperlipidemia, unspecified; F32.9 Major depressive disorder, single episode, unspecified; I25.10 Atherosclerotic heart disease of native coronary artery without angina pectoris; Z87.891 Personal history of nicotine dependence; Z79.4 Long term (current) use of insulin; K21.9 Gastro-esophageal reflux disease without esophagitis; N40.0 Benign prostatic hyperplasia without lower urinary tract symptoms
CPT/HCPCS: 36415; 36573; 43246; 71045; 72040; 74230; 76000; 80048; 80053; 82962; 83036; 83735; 83880; 85025; 92526; 92610; 92611; 93306; 94760; 94762; 97110; 97116; 97127; 97162; 97166; 97530; 97535; 99222; 99231; C1776; B4189; J0295; J0330; J0360; J0690; J1100; J1170; J2405; J2704; J3010; J7050

== ENCOUNTER 2018-12-19 17:09 | Emergency (ER) | payer MEDICARE, OTHER, SELFPAY ==
[2018-11-19 12:57] VITALS: BMI 29.7
--- NOTE | 2018-12-19 17:12 | DI.RAD.S_ITS ---
PROCEDURE: XR CHEST 1V INDICATIONS: fever TECHNIQUE: One view of the chest was acquired. COMPARISON: [facility], CR, XR CHEST FOR PICC 1V, 11/25/2018, 14:24. FINDINGS: Surgical changes and devices: None. Lungs and pleura: Lungs are clear. No pleural effusions or pneumothorax. Mediastinum: Mediastinal contours appear normal. Heart size is normal. Bones and chest wall: No suspicious bony lesions. Overlying soft tissues appear unremarkable. IMPRESSION: No evidence acute pulmonary process. Dictated by: Tomasz Mcdonald M.D. on 12/19/2018 at 18:05 Approved by: Tomasz Mcdonald M.D. on 12/19/2018 at 18:05
--- NOTE | 2018-12-19 17:22 | ED.FEVER ---
HPI - Fever <Venessa Younger MD - Last Filed: 12/23/18 12:54> General Chief Complaint: Fever Stated Complaint: Fever Time Seen by Provider: 12/19/18 17:10 Source: patient Mode of arrival: ambulatory Limitations: no limitations History of Present Illness HPI Narrative: Patient was sent to the emergency department by [facility] for fever. Patient states he has no idea why he is here, and has no complaints whatsoever. He states they say have a fever, but I do not feel sick. Patient states that he has not had any symptoms of illness. No cough, shortness of breath, chest pain, nausea, vomiting, diarrhea, abdominal pain, dysuria, sore throat, ear pain, or back pain. No rash or erythema of the skin. No known exposures. No other complaints this time. Related Data Home Medications Medication Instructions Recorded Confirmed cholecalciferol (vitamin D3) 1,000 unit PO DAILY #0 05/11/17 11/19/18 [Vitamin D3] vitamin E 400 unit PO QDAY #0 05/11/17 11/19/18 omeprazole 20 mg PO BID #0 11/16/17 11/19/18 Lantus U-100 Insulin 50 u SQ BID #0 11/27/17 11/19/18 Novolog U-100 Insulin aspart See Rx Instructions .ROUTE 11/27/17 11/19/18 .COMPLEX #0 Glucose: Home Monitor 1 ea MISCELLANEOUS TID 11/02/18 11/19/18 [place] 1 dev MISCELLANEOUS SEE 11/02/18 11/19/18 INSTRUCTIONS Ventolin HFA 2 puff INH Q6H PRN 11/02/18 11/19/18 [TEST STRIPS] 1 strip MISCELLANEOUS TIDAC 11/02/18 11/19/18 aspirin 81 mg PO DAILY 11/02/18 11/19/18 fenofibrate 54 mg PO DAILY 11/02/18 11/19/18 finasteride 5 mg PO DAILY 11/02/18 11/19/18 fluticasone 2 spray INTRANASAL BID PRN 11/02/18 11/17/18 Previous Rx's Medication Instructions Recorded tamsulosin [Flomax] 0.4 mg PO QDAY #90 cap 04/27/17 isosorbide mononitrate 30 mg PO QAM #45 tab 05/11/17 gabapentin [Neurontin] 300 mg PO TID #180 cap 09/08/17 amlodipine [Norvasc] 2.5 mg FEEDING TUBE DAILY 30 Days 12/02/18 tab atorvastatin [Lipitor] 40 mg FEEDING TUBE BEDTIME 30 Days 12/02/18 tab carvedilol [Coreg] 6.25 mg FEEDING TUBE BID 30 Days 12/02/18 #60 tab acetaminophen 650 mg FEEDING TUBE Q6H PRN #60 cap 12/03/18 ferrous sulfate 220 mg FEEDING TUBE DAILY #473 ml 12/03/18 finasteride 5 mg FEEDING TUBE DAILY #30 tab 12/03/18 Allergies Allergy/AdvReac Type Severity Reaction Status Date / Time azithromycin [AZITHROMYCIN] Allergy Mild RASH Verified 11/19/18 06:48 lisinopril Allergy Reaction Verified 11/19/18 06:48 not listed niacin Allergy Rash Verified 11/19/18 06:49 morphine AdvReac Confusion Verified 11/17/18 11:40 Review of Systems <Venessa Younger MD - Last Filed: 12/23/18 12:54> Constitutional Denies chills, Denies fever(s), Denies lethargy and Denies weakness Eyes Denies change in vision, Denies eye discharge, Denies irritation and Denies loss of vision ENT Ears, Nose, Mouth, and Throat: Denies change in voice, Denies neck pain and Denies sore throat Cardiovascular Denies chest pain, Denies irregular heart rhythm, Denies lightheadedness, Denies palpitations, Denies dyspnea, Denies dyspnea on exertion and Denies orthopnea Respiratory Denies cough, Denies dyspnea, Denies dyspnea on exertion and Denies wheezing Gastrointestinal Gastrointestinal: Denies abdominal pain, Denies change in bowel habits, Denies diarrhea, Denies nausea and Denies vomiting Genitourinary Denies hematuria, Denies flank pain, Denies urinary incontinence and Denies urinary urgency Musculoskeletal Denies neck pain Integumentary/Breasts Denies pruritus, Denies erythema, Denies rash and Denies wounds Neurologic Denies confusion, Denies loss of vision and Denies weakness Psychiatric Denies anxiety, Denies confusion, Denies depression, Denies homicidal ideation and Denies suicidal ideation Endocrine Denies palpitations Hematologic/Lymphatic Denies easy bruising Allergic/Immunologic Denies wheezing PFSH <Venessa Younger MD - Last Filed: 12/23/18 12:54> Medical History Anxiety disorder (Chronic) Aortic stenosis (Chronic) Asthma (Chronic) Atrial fibrillation (Chronic) CAD (coronary artery disease) (Chronic) Depression (Chronic) Diabetes (Chronic) Diastolic congestive heart failure (Chronic) Diverticulosis of colon (Chronic) GERD (gastroesophageal reflux disease) (Chronic) Rheumatoid arthritis (Chronic) Surgical History Hx of heart artery stent (Chronic ~2009) History of vasectomy Status post hernia repair Status post laminectomy Exam <Venessa Younger MD - Last Filed: 12/23/18 12:54> Initial Vital Signs Initial Vital Signs: Vital Signs Temperature 99.0 F 12/19/18 17:24 Pulse Rate 69 12/19/18 17:24 Respiratory Rate 15 12/19/18 17:24 Blood Pressure 98/43 L 12/19/18 17:24 Pulse Oximetry 98 12/19/18 17:24 Const General: cooperative and well developed Nutritional Appearance: well nourished Orientation: alert, awake, oriented x3 and not confused [facility] Head: normocephalic and atraumatic Ears: external ears normal Nose: external nose normal and No nasal discharge Face and sinus: face symmetric and No dry mucous membranes Mouth: oral mucosae normal and moist mucous membranes Teeth and gingiva: dentition normal Throat: tonsils normal and uvula midline Eyes General: appearance normal, both eyes and all related structures Eyelids: eyelids normal Conjunctivae: conjunctivae normal Sclera: sclerae normal Pupils: PERRL EOM: EOM intact bilaterally Neck Neck: normal visual inspection, trachea midline, No lymphadenopathy, No midline deformity and No JVD Lymphatic: No lymphedema Chest Chest: normal inspection of the chest Resp Effort & Inspection: normal respiratory effort, able to speak in complete sentences, no respiratory distress and no use of accessory muscles Auscultation: clear to auscultation bilaterally, no rales, no rhonchi and no wheezes Cardio Rate: regular rate Rhythm: regular rhythm Heart Sounds: no click, no gallops, no murmurs and no rubs Pulses: normal peripheral pulses GI Inspection: non-distended Palpation: soft, no hepatosplenomegaly, No guarding, No pulsatile mass and No tender Auscultation: normal bowel sounds Back/Spine/Pelvis Back: No CVA tenderness Cervical Spine: cervical ROM normal and No pain with cervical ROM Thoracic/Lumbar Spine: thoracic and lumbar spine normal to inspection Skin General: no rashes or lesions noted, No erythema, No jaundice and No petechiae Rashes: no rashes Neuro General: alert, oriented x3, gait normal and no focal motor deficits Speech: speech normal Extrem General: full ROM, no clubbing, cyanosis or edema, no pedal edema and no calf tenderness Psych Appearance: well kempt Mental Status: mental status grossly normal Attitude: cooperative Thought Content: normal and suicidality Judgment: judgment good <Fernando Naranjo DO - Last Filed: 12/20/18 05:40> Initial Vital Signs Initial Vital Signs: Vital Signs Temperature 99.0 F 12/19/18 17:24 Pulse Rate 69 12/19/18 17:24 Respiratory Rate 15 12/19/18 17:24 Blood Pressure 98/43 L 12/19/18 17:24 Pulse Oximetry 98 12/19/18 17:24 Course <Venessa Younger MD - Last Filed: 12/23/18 12:54> Course Narrative: Patient is very well-appearing, and I did not find any obvious source for infection. He was worked up generally with influenza swab and UA, as well as chest x-ray. Results of tests were pending at the time of sign-out to Dr. Fernando Naranjo at 6:00 p.m.. Orders Ordered: ED Orders 12/19/18 21:03 Basic Metabolic Panel Stat Complete Blood Count AUTO DIFF Stat Lactate (Lactic Acid) Stat Procalcitonin Stat 12/19/18 21:10 Blood Culture Stat Vital Signs - 8 hr 12/19/18 23:09 Pulse Rate 55 L Respiratory Rate 20 Blood Pressure 108/48 L Pulse Oximetry 92 <Fernando Naranjo DO - Last Filed: 12/20/18 05:40> Course Narrative: Patient received in sign-out from the daytime provider and upon receipt of initial round of diagnostics I spoke with patient and and there was some additional information including the fact that the patient had a brief episode of unresponsiveness with the . Though he is currently asymptomatic and appears to feel quite well, without fever, we discussed doing some lab work to attempt to remove some of the unknown regarding this patient's visit. Orders Ordered: ED Orders 12/19/18 21:03 Basic Metabolic Panel Stat Complete Blood Count AUTO DIFF Stat Lactate (Lactic Acid) Stat Procalcitonin Stat 12/19/18 21:10 Blood Culture Stat Vital Signs - 8 hr 12/19/18 23:09 Pulse Rate 55 L Respiratory Rate 20 Blood Pressure 108/48 L Pulse Oximetry 92 MDM - Fever <Venessa Younger MD - Last Filed: 12/23/18 12:54> Medical Records Attestation: I reviewed the patient's medical records. Lab Data Result diagrams: 12/19/18 21:03 12/19/18 21:03 Lab Results 12/19/18 12/19/18 12/19/18 Range/Units 18:45 21:03 21:03 WBC 10.1 (4.5-11.0) X10^3/uL RBC 3.12 L (4.5-5.9) X10^6/uL Hgb 9.7 L (13.5-17.5) g/dL Hct 29.0 L (41-53) % MCV 92.9 (80-100) fL MCH 30.9 (26-34) PG MCHC 33.3 (30-36) % RDW 14.0 (11.6-14.8) % Plt Count 206 (150-400) X10^3/uL Neut % (Auto) 72.4 (50-75) % Lymph % (Auto) 14.0 L (25-40) % Sampson % (Auto) 12.3 (3-14) % Eos % (Auto) 0.6 L (2-4) % Baso % (Auto) 0.7 (0-2) % Neut # (Auto) 7300 H (3204-6581) /uL Lymph # (Auto) 1400 (8948-3130) /uL Sampson # (Auto) 1200 H (0-900) /uL Eos # (Auto) 100 (0-450) /uL Baso # (Auto) 100 (0-100) /uL Sodium (137-145) mmol/L Potassium (3.4-5.1) mmol/L Chloride (98-107) mmol/L Carbon Dioxide (22-32) mmol/L BUN (9-20) mg/dL Creatinine (0.66-1.25) mg/dL Estimated GFR (>60) mL/min BUN/Creatinine Ratio (6-22) Glucose (80-110) mg/dL Lactate (0.7-2.1) mmol/L Calcium (8.4-10.2) mg/dL Procalcitonin 0.25 (<0.5) ng/mL Influenza A & B (PCR) Negative (Negative) 12/19/18 12/19/18 Range/Units 21:03 21:03 WBC (4.5-11.0) X10^3/uL RBC (4.5-5.9) X10^6/uL Hgb (13.5-17.5) g/dL Hct (41-53) % MCV (80-100) fL MCH (26-34) PG MCHC (30-36) % RDW (11.6-14.8) % Plt Count (150-400) X10^3/uL Neut % (Auto) (50-75) % Lymph % (Auto) (25-40) % Sampson % (Auto) (3-14) % Eos % (Auto) (2-4) % Baso % (Auto) (0-2) % Neut # (Auto) (6852-4582) /uL Lymph # (Auto) (6028-4780) /uL Sampson # (Auto) (0-900) /uL Eos # (Auto) (0-450) /uL Baso # (Auto) (0-100) /uL Sodium 137 (137-145) mmol/L Potassium 4.4 (3.4-5.1) mmol/L Chloride 98 (98-107) mmol/L Carbon Dioxide 33 H (22-32) mmol/L BUN 44 H (9-20) mg/dL Creatinine 1.50 H (0.66-1.25) mg/dL Estimated GFR 44.7 L (>60) mL/min BUN/Creatinine Ratio 29.3 H (6-22) Glucose 85 (80-110) mg/dL Lactate 0.9 (0.7-2.1) mmol/L Calcium 8.2 L (8.4-10.2) mg/dL Procalcitonin (<0.5) ng/mL Influenza A & B (PCR) (Negative) <Fernando Custar, DO - Last Filed: 12/20/18 05:40> Lab Data Lab Results 12/19/18 12/19/18 12/19/18 Range/Units 18:45 21:03 21:03 WBC 10.1 (4.5-11.0) X10^3/uL RBC 3.12 L (4.5-5.9) X10^6/uL Hgb 9.7 L (13.5-17.5) g/dL Hct 29.0 L (41-53) % MCV 92.9 (80-100) fL MCH 30.9 (26-34) PG MCHC 33.3 (30-36) % RDW 14.0 (11.6-14.8) % Plt Count 206 (150-400) X10^3/uL Neut % (Auto) 72.4 (50-75) % Lymph % (Auto) 14.0 L (25-40) % Sampson % (Auto) 12.3 (3-14) % Eos % (Auto) 0.6 L (2-4) % Baso % (Auto) 0.7 (0-2) % Neut # (Auto) 7300 H (6111-6219) /uL Lymph # (Auto) 1400 (2704-3427) /uL Sampson # (Auto) 1200 H (0-900) /uL Eos # (Auto) 100 (0-450) /uL Baso # (Auto) 100 (0-100) /uL Sodium (137-145) mmol/L Potassium (3.4-5.1) mmol/L Chloride (98-107) mmol/L Carbon Dioxide (22-32) mmol/L BUN (9-20) mg/dL Creatinine (0.66-1.25) mg/dL Estimated GFR (>60) mL/min BUN/Creatinine Ratio (6-22) Glucose (80-110) mg/dL Lactate (0.7-2.1) mmol/L Calcium (8.4-10.2) mg/dL Procalcitonin 0.25 (<0.5) ng/mL Influenza A & B (PCR) Negative (Negative) 12/19/18 12/19/18 Range/Units 21:03 21:03 WBC (4.5-11.0) X10^3/uL RBC (4.5-5.9) X10^6/uL Hgb (13.5-17.5) g/dL Hct (41-53) % MCV (80-100) fL MCH (26-34) PG MCHC (30-36) % RDW (11.6-14.8) % Plt Count (150-400) X10^3/uL Neut % (Auto) (50-75) % Lymph % (Auto) (25-40) % Sampson % (Auto) (3-14) % Eos % (Auto) (2-4) % Baso % (Auto) (0-2) % Neut # (Auto) (9095-7959) /uL Lymph # (Auto) (2529-3515) /uL Sampson # (Auto) (0-900) /uL Eos # (Auto) (0-450) /uL Baso # (Auto) (0-100) /uL Sodium 137 (137-145) mmol/L Potassium 4.4 (3.4-5.1) mmol/L Chloride 98 (98-107) mmol/L Carbon Dioxide 33 H (22-32) mmol/L BUN 44 H (9-20) mg/dL Creatinine 1.50 H (0.66-1.25) mg/dL Estimated GFR 44.7 L (>60) mL/min BUN/Creatinine Ratio 29.3 H (6-22) Glucose 85 (80-110) mg/dL Lactate 0.9 (0.7-2.1) mmol/L Calcium 8.2 L (8.4-10.2) mg/dL Procalcitonin (<0.5) ng/mL Influenza A & B (PCR) (Negative) MDM Narrative Medical decision making narrative: Multiple etiologies for patient's symptoms considered including: [ Sepsis from flu, pneumonia, urinary tract infection versus other] Patient's symptoms improved or duration of stay with above-stated therapies. Findings and discharge diagnosis discussed with patient/family followed by verbalization of understanding Return precautions discussed with patient/family whom verbalize understanding. Discharge Plan Departure Patient Disposition: Home Clinical Impression: Fever Qualifiers: Fever type: unspecified Qualified Code(s): R50.9 - Fever, unspecified Discharge Date/Time: 12/19/18 23:56 Interventions: ED Discharge Assessment Last Done: 12/19/18 23:09 Instructions: DI for Fever (Symptom) -- Adult Activity Restrictions/Additional Instructions: *You have been diagnosed with [ fever, resolved] *What to do: * continue to take medications as directed *Follow up with your primary care provider in 2-3 days, call for an appointment. Let them know you were seen in the Emergency Department and that we ask that you be seen in follow up *Return to ER if you should have any new, worsening or concerning symptoms, such as [ ] Prescriptions: No Action tamsulosin [Flomax] 0.4 MG capsule,extended release 24hr 0.4 mg PO QDAY Qty: 90 RF: 3 cholecalciferol (vitamin D3) [Vitamin D3] 1,000 UNIT tablet 1,000 unit PO DAILY Qty: 0 RF: 0 vitamin E 400 UNIT capsule 400 unit PO QDAY Qty: 0 RF: 0 isosorbide mononitrate 60 MG tablet extended release 24 hr 30 mg PO QAM Qty: 45 RF: 3 gabapentin [Neurontin] 300 MG capsule 300 mg PO TID Qty: 180 RF: 0 omeprazole 20 MG capsule,delayed release(DR/EC) 20 mg PO BID Qty: 0 RF: 0 Novolog U-100 Insulin aspart 100 UNIT/1 ML solution See Rx Instructions .ROUTE .COMPLEX Qty: 0 RF: 0 Lantus U-100 Insulin 100 UNIT/1 ML solution 50 u SQ BID Qty: 0 RF: 0 carvedilol [Coreg] 6.25 mg Tablet 6.25 mg Feeding Tube BID 30 Days Qty: 60 RF: 0 atorvastatin [Lipitor] 20 mg Tablet 40 mg Feeding Tube BEDTIME 30 Days RF: 0 amlodipine [Norvasc] 2.5 mg Tablet 2.5 mg Feeding Tube DAILY 30 Days RF: 0 ferrous sulfate 220 mg (44 mg iron)/5 mL solution 220 mg Feeding Tube DAILY Qty: 473 RF: 0 finasteride 5 mg tablet 5 mg Feeding Tube DAILY Qty: 30 RF: 0 acetaminophen 325 mg capsule 650 mg Feeding Tube Q6H PRN (Reason: fever or pain) Qty: 60 RF: 0 aspirin 81 mg tablet,delayed release (DR/EC) 81 mg PO DAILY RF: 0 Ventolin HFA 90 MCG/PUFF HFA aerosol inhaler 2 puff INH Q6H PRN (Reason: Asthma) RF: 0 fluticasone 16 GM spray,suspension 2 spray Intranasal BID PRN (Reason: seasonal allergies) RF: 0 finasteride 5 MG tablet 5 mg PO DAILY RF: 0 fenofibrate 54 MG tablet 54 mg PO DAILY RF: 0 Glucose: Home Monitor 1 ea miscellaneous TID RF: 0 [place] 1 dev miscellaneous SEE INSTRUCTIONS RF: 0 [TEST STRIPS] 1 strip miscellaneous TIDAC RF: 0 Referrals: Flo Pollack MD [Primary Care Provider] -
[2018-12-19 17:24] VITALS: BP 98/43; PULSE 69; RESP 15; TEMP 37.2; O2SAT 98
--- NOTE | 2018-12-19 17:26 | ED_ITS ---
HPI - Fever <Venessa Younger MD - Last Filed: 12/23/18 12:54> General Chief Complaint: Fever Stated Complaint: Fever Time Seen by Provider: 12/19/18 17:10 Source: patient Mode of arrival: ambulatory Limitations: no limitations History of Present Illness HPI Narrative: Patient was sent to the emergency department by care home facility for fever. Patient states he has no idea why he is here, and has no complaints whatsoever. He states they say have a fever, but I do not feel sick. Patient states that he has not had any symptoms of illness. No cough, shortness of breath, chest pain, nausea, vomiting, diarrhea, abdominal pain, dysuria, sore throat, ear pain, or back pain. No rash or erythema of the skin. No known exposures. No other complaints this time. Related Data Home Medications Medication Instructions Recorded Confirmed cholecalciferol (vitamin D3) 1,000 unit PO DAILY #0 05/11/17 11/19/18 [Vitamin D3] vitamin E 400 unit PO QDAY #0 05/11/17 11/19/18 omeprazole 20 mg PO BID #0 11/16/17 11/19/18 Lantus U-100 Insulin 50 u SQ BID #0 11/27/17 11/19/18 Novolog U-100 Insulin aspart See Rx Instructions .ROUTE 11/27/17 11/19/18 .COMPLEX #0 Glucose: Home Monitor 1 ea MISCELLANEOUS TID 11/02/18 11/19/18 Tyro 1 dev MISCELLANEOUS SEE 11/02/18 11/19/18 INSTRUCTIONS Ventolin HFA 2 puff INH Q6H PRN 11/02/18 11/19/18 [TEST STRIPS] 1 strip MISCELLANEOUS TIDAC 11/02/18 11/19/18 aspirin 81 mg PO DAILY 11/02/18 11/19/18 fenofibrate 54 mg PO DAILY 11/02/18 11/19/18 finasteride 5 mg PO DAILY 11/02/18 11/19/18 fluticasone 2 spray INTRANASAL BID PRN 11/02/18 11/17/18 Previous Rx's Medication Instructions Recorded tamsulosin [Flomax] 0.4 mg PO QDAY #90 cap 04/27/17 isosorbide mononitrate 30 mg PO QAM #45 tab 05/11/17 gabapentin [Neurontin] 300 mg PO TID #180 cap 09/08/17 amlodipine [Norvasc] 2.5 mg FEEDING TUBE DAILY 30 Days 12/02/18 tab atorvastatin [Lipitor] 40 mg FEEDING TUBE BEDTIME 30 Days 12/02/18 tab carvedilol [Coreg] 6.25 mg FEEDING TUBE BID 30 Days 12/02/18 #60 tab acetaminophen 650 mg FEEDING TUBE Q6H PRN #60 cap 12/03/18 ferrous sulfate 220 mg FEEDING TUBE DAILY #473 ml 12/03/18 finasteride 5 mg FEEDING TUBE DAILY #30 tab 12/03/18 Allergies Allergy/AdvReac Type Severity Reaction Status Date / Time azithromycin [AZITHROMYCIN] Allergy Mild RASH Verified 11/19/18 06:48 lisinopril Allergy Reaction Verified 11/19/18 06:48 not listed niacin Allergy Rash Verified 11/19/18 06:49 morphine AdvReac Confusion Verified 11/17/18 11:40 Review of Systems <Venessa Younger MD - Last Filed: 12/23/18 12:54> Constitutional Denies chills, Denies fever(s), Denies lethargy and Denies weakness Eyes Denies change in vision, Denies eye discharge, Denies irritation and Denies loss of vision ENT Ears, Nose, Mouth, and Throat: Denies change in voice, Denies neck pain and Denies sore throat Cardiovascular Denies chest pain, Denies irregular heart rhythm, Denies lightheadedness, Denies palpitations, Denies dyspnea, Denies dyspnea on exertion and Denies orthopnea Respiratory Denies cough, Denies dyspnea, Denies dyspnea on exertion and Denies wheezing Gastrointestinal Gastrointestinal: Denies abdominal pain, Denies change in bowel habits, Denies diarrhea, Denies nausea and Denies vomiting Genitourinary Denies hematuria, Denies flank pain, Denies urinary incontinence and Denies urinary urgency Musculoskeletal Denies neck pain Integumentary/Breasts Denies pruritus, Denies erythema, Denies rash and Denies wounds Neurologic Denies confusion, Denies loss of vision and Denies weakness Psychiatric Denies anxiety, Denies confusion, Denies depression, Denies homicidal ideation and Denies suicidal ideation Endocrine Denies palpitations Hematologic/Lymphatic Denies easy bruising Allergic/Immunologic Denies wheezing PFSH <Venessa Younger MD - Last Filed: 12/23/18 12:54> Medical History Anxiety disorder (Chronic) Aortic stenosis (Chronic) Asthma (Chronic) Atrial fibrillation (Chronic) CAD (coronary artery disease) (Chronic) Depression (Chronic) Diabetes (Chronic) Diastolic congestive heart failure (Chronic) Diverticulosis of colon (Chronic) GERD (gastroesophageal reflux disease) (Chronic) Rheumatoid arthritis (Chronic) Surgical History Hx of heart artery stent (Chronic ~2009) History of vasectomy Status post hernia repair Status post laminectomy Exam <Venessa Younger MD - Last Filed: 12/23/18 12:54> Initial Vital Signs Initial Vital Signs: Vital Signs Temperature 99.0 F 12/19/18 17:24 Pulse Rate 69 12/19/18 17:24 Respiratory Rate 15 12/19/18 17:24 Blood Pressure 98/43 L 12/19/18 17:24 Pulse Oximetry 98 12/19/18 17:24 Const General: cooperative and well developed Nutritional Appearance: well nourished Orientation: alert, awake, oriented x3 and not confused [facility] Head: normocephalic and atraumatic Ears: external ears normal Nose: external nose normal and No nasal discharge Face and sinus: face symmetric and No dry mucous membranes Mouth: oral mucosae normal and moist mucous membranes Teeth and gingiva: dentition normal Throat: tonsils normal and uvula midline Eyes General: appearance normal, both eyes and all related structures Eyelids: eyelids normal Conjunctivae: conjunctivae normal Sclera: sclerae normal Pupils: PERRL EOM: EOM intact bilaterally Neck Neck: normal visual inspection, trachea midline, No lymphadenopathy, No midline deformity and No JVD Lymphatic: No lymphedema Chest Chest: normal inspection of the chest Resp Effort & Inspection: normal respiratory effort, able to speak in complete sentences, no respiratory distress and no use of accessory muscles Auscultation: clear to auscultation bilaterally, no rales, no rhonchi and no whe ezes Cardio Rate: regular rate Rhythm: regular rhythm Heart Sounds: no click, no gallops, no murmurs and no rubs Pulses: normal peripheral pulses GI Inspection: non-distended Palpation: soft, no hepatosplenomegaly, No guarding, No pulsatile mass and No tender Auscultation: normal bowel sounds Back/Spine/Pelvis Back: No CVA tenderness Cervical Spine: cervical ROM normal and No pain with cervical ROM Thoracic/Lumbar Spine: thoracic and lumbar spine normal to inspection Skin General: no rashes or lesions noted, No erythema, No jaundice and No petechiae Rashes: no rashes Neuro General: alert, oriented x3, gait normal and no focal motor deficits Speech: speech normal Extrem General: full ROM, no clubbing, cyanosis or edema, no pedal edema and no calf tenderness Psych Appearance: well kempt Mental Status: mental status grossly normal Attitude: cooperative Thought Content: normal and suicidality Judgment: judgment good <Fernando Naranjo DO - Last Filed: 12/20/18 05:40> Initial Vital Signs Initial Vital Signs: Vital Signs Temperature 99.0 F 12/19/18 17:24 Pulse Rate 69 12/19/18 17:24 Respiratory Rate 15 12/19/18 17:24 Blood Pressure 98/43 L 12/19/18 17:24 Pulse Oximetry 98 12/19/18 17:24 Course <Venessa Younger MD - Last Filed: 12/23/18 12:54> Course Narrative: Patient is very well-appearing, and I did not find any obvious source for infection. He was worked up generally with influenza swab and UA, as well as chest x-ray. Results of tests were pending at the time of sign-out to Dr. Fernando Naranjo at 6:00 p.m.. Orders Ordered: ED Orders 12/19/18 21:03 Basic Metabolic Panel Stat Complete Blood Count AUTO DIFF Stat Lactate (Lactic Acid) Stat Procalcitonin Stat 12/19/18 21:10 Blood Culture Stat Vital Signs - 8 hr 12/19/18 23:09 Pulse Rate 55 L Respiratory Rate 20 Blood Pressure 108/48 L Pulse Oximetry 92 <Fernando Naranjo DO - Last Filed: 12/20/18 05:40> Course Narrative: Patient received in sign-out from the daytime provider and upon receipt of initial round of diagnostics I spoke with patient and and there was some additional information including the fact that the patient had a brief episode of unresponsiveness with the . Though he is currently asymptomatic and appears to feel quite well, without fever, we discussed doing some lab work to attempt to remove some of the unknown regarding this patient's visit. Orders Ordered: ED Orders 12/19/18 21:03 Basic Metabolic Panel Stat Complete Blood Count AUTO DIFF Stat Lactate (Lactic Acid) Stat Procalcitonin Stat 12/19/18 21:10 Blood Culture Stat Vital Signs - 8 hr 12/19/18 23:09 Pulse Rate 55 L Respiratory Rate 20 Blood Pressure 108/48 L Pulse Oximetry 92 MDM - Fever <Venessa Younger MD - Last Filed: 12/23/18 12:54> Medical Records Attestation: I reviewed the patient's medical records. Lab Data Result diagrams: 12/19/18 21:03 12/19/18 21:03 Lab Results 12/19/18 12/19/18 12/19/18 Range/Units 18:45 21:03 21:03 WBC 10.1 (4.5-11.0) X10^3/uL RBC 3.12 L (4.5-5.9) X10^6/uL Hgb 9.7 L (13.5-17.5) g/dL Hct 29.0 L (41-53) % MCV 92.9 (80-100) fL MCH 30.9 (26-34) PG MCHC 33.3 (30-36) % RDW 14.0 (11.6-14.8) % Plt Count 206 (150-400) X10^3/uL Neut % (Auto) 72.4 (50-75) % Lymph % (Auto) 14.0 L (25-40) % [place] % (Auto) 12.3 (3-14) % Eos % (Auto) 0.6 L (2-4) % Baso % (Auto) 0.7 (0-2) % Neut # (Auto) 7300 H (1204-5574) /uL Lymph # (Auto) 1400 (8339-2894) /uL [place] # (Auto) 1200 H (0-900) /uL Eos # (Auto) 100 (0-450) /uL Baso # (Auto) 100 (0-100) /uL Sodium (137-145) mmol/L Potassium (3.4-5.1) mmol/L Chloride (98-107) mmol/L Carbon Dioxide (22-32) mmol/L BUN (9-20) mg/dL Creatinine (0.66-1.25) mg/dL Estimated GFR (>60) mL/min BUN/Creatinine Ratio (6-22) Glucose (80-110) mg/dL Lactate (0.7-2.1) mmol/L Calcium (8.4-10.2) mg/dL Procalcitonin 0.25 (<0.5) ng/mL Influenza A & B (PCR) Negative (Negative) 12/19/18 12/19/18 Range/Units 21:03 21:03 WBC (4.5-11.0) X10^3/uL RBC (4.5-5.9) X10^6/uL Hgb (13.5-17.5) g/dL Hct (41-53) % MCV (80-100) fL MCH (26-34) PG MCHC (30-36) % RDW (11.6-14.8) % Plt Count (150-400) X10^3/uL Neut % (Auto) (50-75) % Lymph % (Auto) (25-40) % [place] % (Auto) (3-14) % Eos % (Auto) (2-4) % Baso % (Auto) (0-2) % Neut # (Auto) (4854-5862) /uL Lymph # (Auto) (0344-9045) /uL [place] # (Auto) (0-900) /uL Eos # (Auto) (0-450) /uL Baso # (Auto) (0-100) /uL Sodium 137 (137-145) mmol/L Potassium 4.4 (3.4-5.1) mmol/L Chloride 98 (98-107) mmol/L Carbon Dioxide 33 H (22-32) mmol/L BUN 44 H (9-20) mg/dL Creatinine 1.50 H (0.66-1.25) mg/dL Estimated GFR 44.7 L (>60) mL/min BUN/Creatinine Ratio 29.3 H (6-22) Glucose 85 (80-110) mg/dL Lactate 0.9 (0.7-2.1) mmol/L Calcium 8.2 L (8.4-10.2) mg/dL Procalcitonin (<0.5) ng/mL Influenza A & B (PCR) (Negative) <Fernando [place], DO - Last Filed: 12/20/18 05:40> Lab Data Lab Results 12/19/18 12/19/18 12/19/18 Range/Units 18:45 21:03 21:03 WBC 10.1 (4.5-11.0) X10^3/uL RBC 3.12 L (4.5-5.9) X10^6/uL Hgb 9.7 L (13.5-17.5) g/dL Hct 29.0 L (41-53) % MCV 92.9 (80-100) fL MCH 30.9 (26-34) PG MCHC 33.3 (30-36) % RDW 14.0 (11.6-14.8) % Plt Count 206 (150-400) X10^3/uL Neut % (Auto) 72.4 (50-75) % Lymph % (Auto) 14.0 L (25-40) % [place] % (Auto) 12.3 (3-14) % Eos % (Auto) 0.6 L (2-4) % Baso % (Auto) 0.7 (0-2) % Neut # (Auto) 7300 H (7396-3359) /uL Lymph # (Auto) 1400 (9653-9547) /uL [place] # (Auto) 1200 H (0-900) /uL Eos # (Auto) 100 (0-450) /uL Baso # (Auto) 100 (0-100) /uL Sodium (137-145) mmol/L Potassium (3.4-5.1) mmol/L Chloride (98-107) mmol/L Carbon Dioxide (22-32) mmol/L BUN (9-20) mg/dL Creatinine (0.66-1.25) mg/dL Estimated GFR (>60) mL/min BUN/Creatinine Ratio (6-22) Glucose (80-110) mg/dL Lactate (0.7-2.1) mmol/L Calcium (8.4-10.2) mg/dL Procalcitonin 0.25 (<0.5) ng/mL Influenza A & B (PCR) Negative (Negative) 12/19/18 12/19/18 Range/Units 21:03 21:03 WBC (4.5-11.0) X10^3/uL RBC (4.5-5.9) X10^6/uL Hgb (13.5-17.5) g/dL Hct (41-53) % MCV (80-100) fL MCH (26-34) PG MCHC (30-36) % RDW (11.6-14.8) % Plt Count (150-400) X10^3/uL Neut % (Auto) (50-75) % Lymph % (Auto) (25-40) % [place] % (Auto) (3-14) % Eos % (Auto) (2-4) % Baso % (Auto) (0-2) % Neut # (Auto) (7992-5337) /uL Lymph # (Auto) (1454-7064) /uL [place] # (Auto) (0-900) /uL Eos # (Auto) (0-450) /uL Baso # (Auto) (0-100) /uL Sodium 137 (137-145) mmol/L Potassium 4.4 (3.4-5.1) mmol/L Chloride 98 (98-107) mmol/L Carbon Dioxide 33 H (22-32) mmol/L BUN 44 H (9-20) mg/dL Creatinine 1.50 H (0.66-1.25) mg/dL Estimated GFR 44.7 L (>60) mL/min BUN/Creatinine Ratio 29.3 H (6-22) Glucose 85 (80-110) mg/dL Lactate 0.9 (0.7-2.1) mmol/L Calcium 8.2 L (8.4-10.2) mg/dL Procalcitonin (<0.5) ng/mL Influenza A & B (PCR) (Negative) MDM Narrative Medical decision making narrative: Multiple etiologies for patient's symptoms considered including: [ Sepsis from flu, pneumonia, urinary tract infection versus other] Patient's symptoms improved or duration of stay with above-stated therapies. Findings and discharge diagnosis discussed with patient/family followed by verbalization of understanding Return precautions discussed with patient/family whom verbalize understanding. Discharge Plan Departure Patient Disposition: Home Clinical Impression: Fever Qualifiers: Fever type: unspecified Qualified Code(s): R50.9 - Fever, unspecified Discharge Date/Time: 12/19/18 23:56 Interventions: ED Discharge Assessment Last Done: 12/19/18 23:09 Instructions: DI for Fever (Symptom) -- Adult Activity Restrictions/Additional Instructions: *You have been diagnosed with [ fever, resolved] *What to do: * continue to take medications as directed *Follow up with your primary care provider in 2-3 days, call for an appointment. Let them know you were seen in the Emergency Department and that we ask that you be seen in follow up *Return to ER if you should have any new, worsening or concerning symptoms, such as [ ] Prescriptions: No Action tamsulosin [Flomax] 0.4 MG capsule,extended release 24hr 0.4 mg PO QDAY Qty: 90 RF: 3 cholecalciferol (vitamin D3) [Vitamin D3] 1,000 UNIT tablet 1,000 unit PO DAILY Qty: 0 RF: 0 vitamin E 400 UNIT capsule 400 unit PO QDAY Qty: 0 RF: 0 isosorbide mononitrate 60 MG tablet extended release 24 hr 30 mg PO QAM Qty: 45 RF: 3 gabapentin [Neurontin] 300 MG capsule 300 mg PO TID Qty: 180 RF: 0 omeprazole 20 MG capsule,delayed release(DR/EC) 20 mg PO BID Qty: 0 RF: 0 Novolog U-100 Insulin aspart 100 UNIT/1 ML solution See Rx Instructions .ROUTE .COMPLEX Qty: 0 RF: 0 Lantus U-100 Insulin 100 UNIT/1 ML solution 50 u SQ BID Qty: 0 RF: 0 carvedilol [Coreg] 6.25 mg Tablet 6.25 mg Feeding Tube BID 30 Days Qty: 60 RF: 0 atorvastatin [Lipitor] 20 mg Tablet 40 mg Feeding Tube BEDTIME 30 Days RF: 0 amlodipine [Norvasc] 2.5 mg Tablet 2.5 mg Feeding Tube DAILY 30 Days RF: 0 ferrous sulfate 220 mg (44 mg iron)/5 mL solution 220 mg Feeding Tube DAILY Qty: 473 RF: 0 finasteride 5 mg tablet 5 mg Feeding Tube DAILY Qty: 30 RF: 0 acetaminophen 325 mg capsule 650 mg Feeding Tube Q6H PRN (Reason: fever or pain) Qty: 60 RF: 0 aspirin 81 mg tablet,delayed release (DR/EC) 81 mg PO DAILY RF: 0 Ventolin HFA 90 MCG/PUFF HFA aerosol inhaler 2 puff INH Q6H PRN (Reason: Asthma) RF: 0 fluticasone 16 GM spray,suspension 2 spray Intranasal BID PRN (Reason: seasonal allergies) RF: 0 finasteride 5 MG tablet 5 mg PO DAILY RF: 0 fenofibrate 54 MG tablet 54 mg PO DAILY RF: 0 Glucose: Home Monitor 1 ea miscellaneous TID RF: 0 Tyro 1 dev miscellaneous SEE INSTRUCTIONS RF: 0 [TEST STRIPS] 1 strip miscellaneous TIDAC RF: 0 Referrals: Flo Pollack MD [Primary Care Provider] -
[2018-12-19 19:07] LABS: Influenza A and B by PCR Rapid Negative (Negative)
[2018-12-19 20:25] VITALS: BP 96/52; PULSE 55; RESP 15; TEMP 36.8; O2SAT 95
[2018-12-19 21:25] LABS: Add Manual Diff / Slide Review NO; Basophils Absolute Auto 100 /uL (0-100); Basophils Percent Auto 0.7 % (0-2); Eosinophils Absolute Auto 100 /uL (0-450); Eosinophils Percent Auto 0.6 % (2-4); Hemoglobin 9.7 g/dL (13.5-17.5); Lymphocytes Absolute Auto 1400 /uL (1100-4500); Mean Corpuscular HGB Conc 33.3 % (30-36); Mean Corpuscular Hemoglobin 30.9 PG (26-34); Mean Corpuscular Volume 92.9 fL (80-100); Monocytes Absolute Auto 1200 /uL (0-900); Monocytes Percent Auto 12.3 % (3-14); Neutrophils Absolute Auto 7300 /uL (1500-7000); Neutrophils Percent Auto 72.4 % (50-75); Platelet Count 206 X10^3/uL (150-400); Red Blood Cell Count 3.12 X10^6/uL (4.5-5.9); White Blood Cell Count 10.1 X10^3/uL (4.5-11.0)
[2018-12-19 21:35] LABS: Lactate (Lactic Acid) 0.9 mmol/L (0.7-2.1)
[2018-12-19 21:37] LABS: BUN Creatinine Ratio 29.3 (6-22); Blood Urea Nitrogen 44 mg/dL (9-20); Calcium 8.2 mg/dL (8.4-10.2); Carbon Dioxide 33 mmol/L (22-32); Chloride 98 mmol/L (98-107); Estimated Glomerular Filt Rate 44.7 mL/min (>60); Glucose 85 mg/dL (80-110); HEMOLYSIS < 15 (0-50); Potassium 4.4 mmol/L (3.4-5.1); Sodium 137 mmol/L (137-145)
[2018-12-19 21:53] LABS: Procalcitonin 0.25 ng/mL (<0.5)
[2018-12-19 23:09] VITALS: BP 108/48; PULSE 55; RESP 20; O2SAT 92
== END 2018-12-19 23:56 | disposition home or self-care (01) ==
PROVIDERS: Emergency Medicine; Emergency Provider Emergency Medicine; PCP Family Medicine
DX: R50.9 Fever, unspecified (principal)
CPT/HCPCS: 36415; 71045; 80048; 83605; 84145; 85025; 87040; 87400; 99282; 99284

== ENCOUNTER → 2018-12-30 13:08 | Outpatient (CLI) | payer MEDICARE, OTHER, SELFPAY ==
[2018-11-19 12:57] VITALS: BMI 29.7
--- NOTE | 2018-12-30 | DI.RAD.S_ITS ---
PROCEDURE: FL BARIUM SWALLOW W SPEECH INDICATIONS: DYSPHAGIA TECHNIQUE: Examination was conducted in conjunction with speech pathology per standard protocol. In the lateral projection, filming was performed of the patient swallowing. AP projection filming may also be performed with patient swallowing. COMPARISON: [facility], , [place] BARIUM SWALLOW W SPEECH, 11/29/2018, 12:57. FINDINGS: Function: The oral preparatory phase appears normal, with proper containment. The subsequent oral propulsive phase, pharyngeal phase, and esophageal phase of swallowing also appear normal with all proffered substances. There was intermittent silent laryngeal penetration. No definite tracheal aspiration. There was vallecular pooling. Morphology: No cricopharyngeal bar is identified. No cervical esophageal webs. No Zenker's diverticulum. No strictures. IMPRESSION: Intermittent silent laryngeal penetration. Dictated by: Garfield Jimenez M.D. on 12/30/2018 at 14:31 Approved by: Garfield Jimenez M.D. on 12/30/2018 at 14:32
--- NOTE | 2018-12-30 17:58 | ST.SWALLOW ---
Care Team Visit Care Team Role Provider Type Flo Pollack MD Primary Care Provider Non-Staff Specialty: Medical Address: [address] [place], [address] Email: Yaya Regan ND Attending Provider Non-Staff Specialty: Internal Medicine Address: [address] [place] [address], [address], [address] Email: Modified Barium Swallow Study RIP TAILER Modified Barium Swallow Study Start: 12/30/18 14:05 Freq: Status: Active Protocol: Document 12/30/18 17:11 LNK (Rec: 12/30/18 17:58 LNK [id number]) Modified Barium Swallow Study Total Time Visit Start Time 13:30 Visit Stop Time 14:00 Total Visit Minutes [address] Regan Reason for Referral Dysphagia Setting Setting Outpatient Care Patient Information Identification Type Name Date of Patient History Pt underwent ACDF surgery 05/30 with secondary surgical intervention same day. Pt exhibited swallow difficulties post-operatively with MBS on 11/24/18 and again 11/26/18, both revealing silent penetration/aspiration. A G-tube was placed in order for the pt to get adequate nutrition and hydration. Pt was seen today for a follow -up MBS following 3-4 weeks of intensive swallowing therapy at [facility]. The pt has been seeing ST 2x/day for an exercise program to increase lingual and pharyngeal muscles to allow for safes wallowing without aspiration. Subjective Observations Pt was brought in to the radiology room and seated in the floroscopy chair. He was familiar withthe procedure and was aggree able to proceed. Patient Positioning Position View Lateral Imaging Lateral View Textures Administered Trials Presented Thin Liquid via Spoon Thin Liquid via Cup [place] Liquid via Spoon [place] Liquid via Cup Dysphagia Blenderized Textures Dysphagia Mechanical Textures Dysphagia Advanced Textures Regular Textures Barium Tablet Oral Phase Source: MBSIMP (TM) (C) Bolus Specific Scoring Grid Lip Closure No Impairment (WNL) Tongue Control During Bolus Hold Mild Impairment Bolus Prep/Mastication Mild Impairment Bolus Transport/Lingual Motion Moderate Impairment A/P Lingual Propulsion Delay Yes: Incomplete - needed two swallows to clear oral cavity Oral Residue Minimal Impairment Residue Clearing WFL Nasal Regurgitation No Additional Oral Phase Observations Pt has lost weight during the time he has been tube-fed. His dentures were loose and he did have some difficulty with mastication of the cookie trial, trying to manage the bolus as well as his dentures. OM examination indicated structures and function to be grossly WFL. Pharyngeal Phase Source: MBSIMP (TM) (C) Bolus Specific Scoring Grid Delayed Initiation of Pharyngeal Swallow Yes: Bolus head to the valeculla before swallow response initiated. Number of Seconds Delayed (seconds) 1-3 Soft Palate Elevation Moderate Impairment Tongue Base Strength/Range of Motion Moderate Impairment Residue Along the Tongue Base Yes Clearance of Residue Along Tongue Base Mild Impairment Laryngeal Elevation Mild Impairment Anterior Hyoid Movement Moderate Impairment Epiglottic Range of Motion Moderate Impairment Vallecular Residue Yes Clearance of Vallecular Residue Moderate Impairment Laryngeal Vestibular Closure Moderate Impairment Pharyngeal Stripping Wave Moderate Impairment Pharyngeal Contraction Moderate Impairment Posterior Pharyngeal Wall Residue No Upper Esophageal Sphincter Opening Minimal Impairment Residue in the Pyriform Sinuses Yes Clearance of Residue in the Pyriform Mild Impairment Sinuses Esophageal Clearance Upright Position Minimal Impairment Pharyngoesophageal Backflow Observed No Additional Pharyngeal Phase Observations Overall the pt has made excellent progress in his swallowing therapy program. The overall swelling of his pharynx has reduced significantly. he is demonstrating an improved pharyngeal wall contraction/ stripping; however there remains a gap between the base of pt's tongue and the posterior pharyngeal wall. Mild to minimal pooling of residue was observed in the pyriform sinuses. The pt's epiglottis was observed to completely invert for boluses that have weight to them. When swallowing any residual in his pharynx, the epiglottis did not invert completely. When the epiglottis did not invert completely, penetration into the laryngeal vestibule was observed. Silent penetration of barium into the laryngeal vestibule was observed with thin liquids and a large cup sip of nectar thick liquids. Smaller amounts of nectar thick liquids were not observed to penetrate vestibule. No aspiration was observed. Minimal trace of barium was observed within the vestibule with the exception of the upper 1/3 of the anterior wall of the thyroid cartilage. There was pooling observed within the valeculla across all trials. The liquid residue was typically swallowed on second or third subsequent swallows. The cookie trial resulted in a large piece of residue within the valeculla which required a liquid wash to completely clear the valecullar space.The barium tablet was passed through the pharynx and into the esophagus with no difficulties. A/P View Clinical Impressions Dysphagia Type miid oral and mild-moderate pharyngeal phase dysphagia Findings Overall the pt demonstrated improved lingual and pharyngeal muscle strength with improved safety for PO intake. The following improvements were observed: 1) improved pharyngeal wall contraction/stripping allowing for greater control of the bolus through the pharynx and improved propulsion through the UES; overall significant reduction in pharyngeal swelling 2) improved epiglottic inversion, improving laryngeal seal and protection, reducing laryngeal penetration and aspiration risk 3) improved hyolaryngeal elevation and forward excursion of the hyoid bone, allowing for improved epiglottic movement/inversion 4) improved safety with PO intake using safe swallow strategies: turn head to left, tuck chin and swallow hard; super-supraglottic swallow was not effective, actually resulted in increased penetration of vestibule Pt continues to demonstrate reduced sensation in laryngeal vestibule resulting in absent sough and thereby silent penetration. This continues to be an aspiration risk for the pt Rehabilitation Potential Excellent Patient Appropriate for Therapy Yes: Therapeutic trials only with RIP TAILER - monitor for s/sx aspiration Recommendations Diet Liquids Order [place] Diet Order Dysphagia Mechanical Medication Recommendation Not Recommended by Mouth Other Comments Therapeutic trials pills/ capsules trials with RIP TAILER only Additional Dietary Needs 1:1 Supervision Aspiration Precautions Recommended Precautions Upright at 90 Degrees Frequent Rest Periods Small Bites/Sips Chin Tuck Effortful Swallow Left Head Turn Supraglottic Swallow Liquids from Spoon Additional Precautions Therapeutic trials with RIP TAILER only. Slow advance in PO as pt tolerates safely Treatment Plan Additional Therapy Recommendations Continue intensive therapy for swallowing at SNF while a resident Additional Recommended Referrals Possible need for continuing ST services for swallowing therapy after [facility] Compensatory Strategies Recommendations Sitting Upright (90 deg) Turn Head Left Chin Tuck Double Swallow Supraglottic Swallow No Straw Liquids from Spoon Small Bites and Sips Alternate Liquids/Solids
== END ==
PROVIDERS: PCP Family Medicine; Visit Provider Hospitalist
DX: R13.10 Dysphagia, unspecified (principal)
CPT/HCPCS: 74230; 92611

== ENCOUNTER 2019-04-09 01:25 | Emergency (ER) | payer MEDICARE, OTHER, SELFPAY ==
[2018-11-19 12:57] VITALS: BMI 29.7
[2019-04-09 01:30] VITALS: BP 159/57; PULSE 88; RESP 20; TEMP 36.9; O2SAT 95; BMI 27.8
--- NOTE | 2019-04-09 01:30 | ED_ITS ---
HPI - General Adult General Chief complaint: Wound/Laceration Stated complaint: cut left forearm with car door Time Seen by Provider: 04/09/19 01:29 Source: patient Mode of arrival: ambulatory Limitations: no limitations History of Present Illness HPI narrative: 83-year-old male not on blood thinners here for evaluation of a skin tear to his left forearm. Patient states that a car door came back and hit him in his arm. He states that his tetanus shot was last year. Related Data Home Medications Medication Instructions Recorded Confirmed cholecalciferol (vitamin D3) 1,000 unit PO DAILY #0 05/11/17 02/14/19 [Vitamin D3] vitamin E 400 unit PO QDAY #0 05/11/17 02/14/19 omeprazole 20 mg PO BID #0 11/16/17 02/14/19 Lantus U-100 Insulin 50 u SQ BID #0 11/27/17 02/14/19 Novolog U-100 Insulin aspart See Rx Instructions .ROUTE 11/27/17 02/14/19 .COMPLEX #0 Glucose: Home Monitor 1 ea MISCELLANEOUS TID 11/02/18 02/14/19 [place] 1 dev MISCELLANEOUS SEE 11/02/18 02/14/19 INSTRUCTIONS Ventolin HFA 2 puff INH Q6H PRN 11/02/18 02/14/19 [TEST STRIPS] 1 strip MISCELLANEOUS TIDAC 11/02/18 02/14/19 aspirin 81 mg PO DAILY 11/02/18 02/14/19 fenofibrate 54 mg PO DAILY 11/02/18 02/14/19 finasteride 5 mg PO DAILY 11/02/18 02/14/19 fluticasone propionate 2 spray INTRANASAL BID PRN 11/02/18 02/14/19 Previous Rx's Medication Instructions Recorded tamsulosin [Flomax] 0.4 mg PO QDAY #90 cap 04/27/17 isosorbide mononitrate 30 mg PO QAM #45 tab 05/11/17 gabapentin [Neurontin] 300 mg PO TID #180 cap 09/08/17 acetaminophen 650 mg FEEDING TUBE Q6H PRN #60 cap 12/03/18 ferrous sulfate 220 mg FEEDING TUBE DAILY #473 ml 12/03/18 finasteride 5 mg FEEDING TUBE DAILY #30 tab 12/03/18 Allergies Allergy/AdvReac Type Severity Reaction Status Date / Time azithromycin [AZITHROMYCIN] Allergy Mild RASH Verified 04/09/19 01:39 lisinopril Allergy Reaction Verified 04/09/19 01:39 not listed niacin Allergy Rash Verified 04/09/19 01:39 morphine AdvReac Confusion Verified 04/09/19 01:39 Review of Systems Musculoskeletal Denies myalgias and Denies arthralgias Integumentary/Breasts Comments: Skin tear to left forearm Hematologic/Lymphatic Denies easy bleeding and Denies easy bruising [facility] Medical History Anxiety disorder (Chronic) Aortic stenosis (Chronic) Asthma (Chronic) Atrial fibrillation (Chronic) CAD (coronary artery disease) (Chronic) Depression (Chronic) Diabetes (Chronic) Diastolic congestive heart failure (Chronic) Diverticulosis of colon (Chronic) GERD (gastroesophageal reflux disease) (Chronic) Rheumatoid arthritis (Chronic) Social History marital status: household members: spouse occupational status: previously employed Smoking Status: Former smoker alcohol intake: never substance use type: does not use Exam Initial Vital Signs Initial Vital Signs: Vital Signs Temperature 98.4 F 04/09/19 01:30 Pulse Rate 88 04/09/19 01:30 Respiratory Rate 20 04/09/19 01:30 Blood Pressure 159/57 H 04/09/19 01:30 Pulse Oximetry 95 04/09/19 01:30 Cardio Rate: regular rate Pulses: radial pulses present on the left Skin Other: Patient with a 8 cm irregular skin tear to the dorsum of the left forearm. Oozing blood but not actively bleeding. Neuro Cognition: normal cognition Speech: speech normal Sensory Exam: no sensory deficits noted Extrem General: capillary refill normal Procedures Laceration Repair Laceration 1: Site: upper extremity Side (If applicable): left Size (cm): 8 Description: flap and irregular Depth: simple, single layer Skin layer closed with: steri-strips Scores GCS Brenda coma scale eye opening: Spontaneous [place] coma scale verbal response: Orientated [place] coma scale motor response: Obey commands Brenda coma scale total score: 15 Course Vital Signs - 8 hr 04/09/19 01:30 Temperature 98.4 F Pulse Rate 88 Respiratory Rate 20 Blood Pressure 159/57 H Pulse Oximetry 95 Medical Decision Making MDM Narrative Medical decision making narrative: Patient with a superficial skin tear to left forearm. I was able to extend the flap back over to cover the exposed underlying tissue. This was held closed with Steri-Strips. Patient is up-to-date on his tetanus shot. No foreign bodies were noted. Will hold on any antibiotics for now. Patient was given return precautions and care instructions. He expressed understanding and agreement with plan. Discharge Plan Departure Patient Disposition: Home Clinical Impression: Skin tear Instructions: DI for Minor Laceration Activity Restrictions/Additional Instructions: Keep the bandage on for the next 24 hours. After that you can shower like normal and use soap and water like normal. Do not scrub the area. Allow the Steri-Strips to come off on their own. On Thursday contact your primary doctor for a follow-up. Return to the emergency department for any new or worsening symptoms Prescriptions: No Action tamsulosin [Flomax] 0.4 MG capsule,extended release 24hr 0.4 mg PO QDAY Qty: 90 RF: 3 cholecalciferol (vitamin D3) [Vitamin D3] 1,000 UNIT tablet 1,000 unit PO DAILY Qty: 0 RF: 0 vitamin E 400 UNIT capsule 400 unit PO QDAY Qty: 0 RF: 0 isosorbide mononitrate 60 MG tablet extended release 24 hr 30 mg PO QAM Qty: 45 RF: 3 gabapentin [Neurontin] 300 MG capsule 300 mg PO TID Qty: 180 RF: 0 omeprazole 20 MG capsule,delayed release(DR/EC) 20 mg PO BID Qty: 0 RF: 0 Novolog U-100 Insulin aspart 100 UNIT/1 ML solution See Rx Instructions .ROUTE .COMPLEX Qty: 0 RF: 0 Lantus U-100 Insulin 100 UNIT/1 ML solution 50 u SQ BID Qty: 0 RF: 0 ferrous sulfate 220 mg (44 mg iron)/5 mL solution 220 mg Feeding Tube DAILY Qty: 473 RF: 0 finasteride 5 mg tablet 5 mg Feeding Tube DAILY Qty: 30 RF: 0 acetaminophen 325 mg capsule 650 mg Feeding Tube Q6H PRN (Reason: fever or pain) Qty: 60 RF: 0 aspirin 81 mg tablet,delayed release (DR/EC) 81 mg PO DAILY RF: 0 Ventolin HFA 90 MCG/PUFF HFA aerosol inhaler 2 puff INH Q6H PRN (Reason: Asthma) RF: 0 fluticasone propionate 16 GM spray,suspension 2 spray Intranasal BID PRN (Reason: seasonal allergies) RF: 0 finasteride 5 MG tablet 5 mg PO DAILY RF: 0 fenofibrate 54 MG tablet 54 mg PO DAILY RF: 0 Glucose: Home Monitor 1 ea miscellaneous TID RF: 0 [place] 1 dev miscellaneous SEE INSTRUCTIONS RF: 0 [TEST STRIPS] 1 strip miscellaneous TIDAC RF: 0 Referrals: Flo Pollack MD [Primary Care Provider] -
== END 2019-04-09 02:00 | disposition home or self-care (01) ==
PROVIDERS: Emergency Provider Emergency Medicine; PCP Family Medicine
DX: S51.812A Laceration without foreign body of left forearm, initial encounter (principal); W26.8XXA Contact with other sharp object(s), not elsewhere classified, initial encounter
CPT/HCPCS: 99282; 99283

== ENCOUNTER → 2019-06-02 14:27 | Outpatient (CLI) | payer MEDICARE, OTHER, SELFPAY ==
[2018-11-19 12:57] VITALS: BMI 29.7
--- NOTE | 2019-06-02 | DI.MRI.S_ITS ---
PROCEDURE: MR ORBITS FACE NECK WO CON INDICATIONS: Atypical facial pain TECHNIQUE: Noncontrast sagittal T1 spin echo, axial FLAIR, axial gradient echo, axial diffusion and ADC acquired through the brain. Coronal STIR, thin-slice axial T1 spin echo through the orbits. After the administration of contrast, thin-slice axial and coronal T1 spin echo with fat saturation through the orbits, axial T1 spin echo with fat saturation through the brain. COMPARISON: [facility], MR, STROKE PROTOCOL, 11/19/2017, 17:41. [facility], MR, MR CERVICAL SPINE WO CON, 07/17/2018, 10:54. FINDINGS: Image quality: Excellent. The brain is partially visualized. The cortical sulci demonstrate atrophy, consistent for the patient's stated age. There is prominence of the ventricular system greater than expected for gyral and sulcal atrophy. There are areas of increased T2/FLAIR signal intensity within the periventricular and subcortical white matter. There is no acute intra-or extra axial fluid collection. No acute hemorrhage, mass lesion or midline shift. Brainstem is unremarkable. There are no areas of restricted diffusion. Globes are symmetrical. Sinuses are aerated. Osseous structures are intact. Multilevel degenerative changes are present within the cervical spine anterior fusion is noted. There is trace anterolisthesis of C7 on T1, T1 on T2. No adenopathy. Vascular structures are within normal limits. The submandibular, parotid and thyroid glands are unremarkable. No gross lesions are identified within the oropharynx extending into the epiglottis, piriform sinuses, true or false vocal cords. IMPRESSION: 1. No visualized cause of facial pain. 2. Intrarenal contents are noted visualized portion. However, ventricular system appears prominent in relation to gyral and sulcal atrophy. This could represent a more central atrophy pattern. However, normal pressure hydrocephalus cannot be excluded and recommend clinical correlation. This has become slightly more prominent when compared to 2018. Dictated by: Debra Garcia M.D. on 06/02/2019 at 16:33 Approved by: Debra Garcia M.D. on 06/02/2019 at 16:39
== END ==
PROVIDERS: PCP Family Medicine; Visit Provider Dentist Oral and Maxillofacial Surgery
DX: G50.1 Atypical facial pain (principal)
CPT/HCPCS: 70540